=== PATIENT | male | born 1955 | race Caucasian/White ===

== ENCOUNTER → 2016-10-18 | Outpatient (REF) | payer BC ==
[2016-10-18 16:48] LABS: ALBUMIN 4.2 GM/DL (3.2-5.2); ALBUMIN/GLOBULIN RATIO 1.27 (1.00-1.93); ALKALINE PHOSPHATASE 90 U/L (45-117); ALT/SGPT 89 U/L (12-78); ANION GAP 9 MEQ/L (8-16); AST/SGOT 48 U/L (15-37); BILIRUBIN,TOTAL 0.7 MG/DL (0.2-1.0); BLOOD UREA NITROGEN 30 MG/DL (7-18); CALCIUM LEVEL 9.7 MG/DL (8.8-10.2); CARBON DIOXIDE LEVEL 30 MEQ/L (21-32); CHLORIDE LEVEL 94 MEQ/L (98-107); CHOLESTEROL LEVEL 175 MG/DL (<200); CREATININE FOR GFR 1.29 MG/DL (0.70-1.30); GLOMERULAR FILTRATION RATE > 60.0 (>49); GLUCOSE, FASTING 280 MG/DL (80-110); POTASSIUM SERUM 3.5 MEQ/L (3.5-5.1); SODIUM LEVEL 133 MEQ/L (136-145); TOTAL PROTEIN 7.5 GM/DL (6.4-8.2); TRIGLYCERIDES LEVEL 292 MG/DL (<150)
[2016-10-18 18:06] LABS: BASO # 0.1 K/mm3 (0.0-0.2); BASO % 0.7 % (0.0-1.0); EOS # 0.2 K/mm3 (0.0-0.50); EOS % 2.2 % (0.0-3.0); LARGE UNSTAINED CELL # 0.3 K/mm3 (0.0-0.4); LARGE UNSTAINED CELL % 3.1 % (0.0-4.0); LYMPH # 2.6 K/mm3 (1.5-4.5); MEAN CORPUSCULAR HEMOGLOBIN 35.6 pg (27.0-33.0); MEAN CORPUSCULAR HGB CONC 36.2 g/dl (32.0-36.5); MEAN CORPUSCULAR VOLUME 98.2 fl (80.0-96.0); MONO # 0.5 K/mm3 (0.0-0.8); MONO % 6.4 % (0.0-5.0); NEUTROPHILS # 4.8 K/mm3 (1.8-7.7); NEUTROPHILS % 56.6 % (36.0-66.0); PLATELET COUNT, AUTOMATED 200 k/mm3 (150-450); RED CELL DISTRIBUTION WIDTH 12.1 % (11.5-14.5); WHITE BLOOD COUNT 8.4 K/mm3 (4.0-10.0)
[2016-10-18 20:31] LABS: ERYTHROCYTE SEDIMENTATION RATE 10 mm/hr (0-20)
== END ==
LOC: M LABDRAW1 15:41
PROVIDERS: ATTEND Emergency Medicine
DX: E11.65 Type 2 diabetes mellitus with hyperglycemia (principal); I10 Essential (primary) hypertension; E78.2 Mixed hyperlipidemia; M15.0 Primary generalized (osteo)arthritis; N40.1 Benign prostatic hyperplasia with lower urinary tract symptoms
CPT/HCPCS: 36415; 80053; 80061; 82306; 83036; 85025; 85652; 86038; 86140; 86431; G0103

== ENCOUNTER → 2016-10-18 | Outpatient (REF) | payer BC ==
[2016-10-18 16:44] LABS: ALBUMIN 4.1 GM/DL (3.2-5.2); ALBUMIN/GLOBULIN RATIO 1.11 (1.00-1.93); ALKALINE PHOSPHATASE 89 U/L (45-117); ALT/SGPT 88 U/L (12-78); ANION GAP 9 MEQ/L (8-16); AST/SGOT 51 U/L (15-37); BILIRUBIN,TOTAL 0.7 MG/DL (0.2-1.0); BLOOD UREA NITROGEN 31 MG/DL (7-18); CALCIUM LEVEL 10.1 MG/DL (8.8-10.2); CARBON DIOXIDE LEVEL 30 MEQ/L (21-32); CHLORIDE LEVEL 95 MEQ/L (98-107); CREATININE FOR GFR 1.27 MG/DL (0.70-1.30); GLOMERULAR FILTRATION RATE > 60.0 (>49); GLUCOSE, FASTING 282 MG/DL (80-110); POTASSIUM SERUM 3.5 MEQ/L (3.5-5.1); SODIUM LEVEL 134 MEQ/L (136-145); TOTAL PROTEIN 7.8 GM/DL (6.4-8.2); URIC ACID 4.1 MG/DL (3.5-7.2)
[2016-10-18 20:32] LABS: ERYTHROCYTE SEDIMENTATION RATE 10 mm/hr (0-20)
[2016-10-18 20:42] LABS: BASO # 0.1 K/mm3 (0.0-0.2); BASO % 0.6 % (0.0-1.0); EOS # 0.2 K/mm3 (0.0-0.50); EOS % 2.2 % (0.0-3.0); LARGE UNSTAINED CELL # 0.2 K/mm3 (0.0-0.4); LARGE UNSTAINED CELL % 1.7 % (0.0-4.0); LYMPH # 3.1 K/mm3 (1.5-4.5); LYMPH % 30.9 % (24.0-44.0); MEAN CORPUSCULAR HEMOGLOBIN 34.5 pg (27.0-33.0); MEAN CORPUSCULAR HGB CONC 35.1 g/dl (32.0-36.5); MEAN CORPUSCULAR VOLUME 98.4 fl (80.0-96.0); MONO # 0.7 K/mm3 (0.0-0.8); MONO % 6.8 % (0.0-5.0); NEUTROPHILS # 5.5 K/mm3 (1.8-7.7); NEUTROPHILS % 57.8 % (36.0-66.0); PLATELET COUNT, AUTOMATED 189 k/mm3 (150-450); RED CELL DISTRIBUTION WIDTH 12.5 % (11.5-14.5); WHITE BLOOD COUNT 9.5 K/mm3 (4.0-10.0)
[2016-10-19 14:05] LABS: ALBUMIN 4.57 GM/DL (3.29-5.55); ALBUMIN % 58.6 % (55.8-66.1); GAMMA GLOBULIN % 12.3 % (11.1-18.8)
[2016-10-20 14:36] LABS: Lyme Disease IgG/IgM Antibodie <0.91 ISR (0.00-0.90); Lyme Disease IgM Ab Quantitati <0.80 index (0.00-0.79)
== END ==
LOC: M LABDRAW1 15:43
PROVIDERS: ATTEND Orthopaedic Surgery
DX: M43.06 Spondylolysis, lumbar region (principal)

== ENCOUNTER → 2016-10-19 | Outpatient (REF) | payer BC | LOC: M LABDRAW1 11:52 | PROVIDERS: ATTEND Emergency Medicine | DX: E11.65 Type 2 diabetes mellitus with hyperglycemia (principal); I10 Essential (primary) hypertension; E78.2 Mixed hyperlipidemia; M15.0 Primary generalized (osteo)arthritis; N40.1 Benign prostatic hyperplasia with lower urinary tract symptoms ==

== ENCOUNTER 2016-12-14 10:17 | Emergency (ER) | payer BC ==
[~2016-12-14] VITALS: Ht 172.7 cm; Wt 83.9 kg
[2016-12-14] MEDS ORDERED: ASPI1TAB PO (10:46)
[2016-12-14] MEDS ORDERED: AMLO10TA2 PO (10:46)
[2016-12-14] MEDS ORDERED: VITA200015 PO (10:46)
[2016-12-14] MEDS ORDERED: GLIM4TAB PO (10:46)
[2016-12-14] MEDS ORDERED: LOSA100T36 PO (10:46)
[2016-12-14] MEDS ORDERED: CHLO125TA PO (10:46)
[2016-12-14] MEDS ORDERED: VITA400C35 PO (10:46)
[2016-12-14] MEDS ORDERED: METF500T4 PO (10:46)
[2016-12-14] MEDS ORDERED: ATEN100T PO (10:46)
[2016-12-14] MEDS ORDERED: INVO100T PO (10:46)
[2016-12-14] MEDS ORDERED: SIMV20TA2 PO (10:46)
[2016-12-14] MEDS ORDERED: ASPIRIN 81 MG CHEW TABLET PO ONE (11:15)
[2016-12-14 11:21] LABS: BASO # 0.1 K/mm3 (0.0-0.2); BASO % 0.7 % (0.0-1.0); EOS # 0.2 K/mm3 (0.0-0.50); EOS % 2.1 % (0.0-3.0); LARGE UNSTAINED CELL # 0.2 K/mm3 (0.0-0.4); LARGE UNSTAINED CELL % 2.4 % (0.0-4.0); LYMPH # 2.3 K/mm3 (1.5-4.5); LYMPH % 24.6 % (24.0-44.0); MEAN CORPUSCULAR HEMOGLOBIN 35.4 pg (27.0-33.0); MEAN CORPUSCULAR HGB CONC 36.5 g/dl (32.0-36.5); MEAN CORPUSCULAR VOLUME 97.1 fl (80.0-96.0); MONO # 0.6 K/mm3 (0.0-0.8); MONO % 6.4 % (0.0-5.0); NEUTROPHILS # 5.6 K/mm3 (1.8-7.7); NEUTROPHILS % 63.8 % (36.0-66.0); PLATELET COUNT, AUTOMATED 193 k/mm3 (150-450); RED CELL DISTRIBUTION WIDTH 12.4 % (11.5-14.5); WHITE BLOOD COUNT 8.7 K/mm3 (4.0-10.0)
[2016-12-14 11:35] LABS: ANION GAP 8 MEQ/L (8-16); BLOOD UREA NITROGEN 21 MG/DL (7-18); CALCIUM LEVEL 10.6 MG/DL (8.8-10.2); CARBON DIOXIDE LEVEL 32 MEQ/L (21-32); CHLORIDE LEVEL 91 MEQ/L (98-107); CREATININE FOR GFR 1.22 MG/DL (0.70-1.30); GLOMERULAR FILTRATION RATE > 60.0 (>49); GLUCOSE, FASTING 275 MG/DL (80-110); POTASSIUM SERUM 3.3 MEQ/L (3.5-5.1); SODIUM LEVEL 131 MEQ/L (136-145)
[2016-12-14] MEDS ORDERED: NS 1,000 ML IV ONE (12:15)
[2016-12-14] MEDS ORDERED: POTASSIUM CHLORIDE 10 MEQ SR TABLET PO ONE (12:15)
--- NOTE | 2016-12-14 14:34 | REP ---
KUB ABDOMEN AND PELVIS: KUB film of the abdomen and pelvis is performed. Bowel gas pattern is essentially normal with no evidence of bowel obstruction. Diffuse vascular calcifications are seen throughout the abdomen and pelvis. There are mild degenerative changes of the spine. IMPRESSION: No evidence of bowel obstruction. Diffuse vascular calcifications. Signed by Don Henriquez MD 12/14/2016 07:14 P
[2016-12-14 17:28] VITALS: BP 122/65
--- NOTE | 2016-12-16 07:02 | ECGEPIP ---
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
--- NOTE | 2016-12-16 07:12 | ECGEPIP ---
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
--- NOTE | 2016-12-16 07:14 | ECGEPIP ---
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
== END 2016-12-14 17:36 | disposition home or self-care (01) ==
LOC: M ED 11:39
DX: R42 Dizziness and giddiness (principal); R94.31 Abnormal electrocardiogram [ECG] [EKG]; E11.9 Type 2 diabetes mellitus without complications; I10 Essential (primary) hypertension; F17.200 Nicotine dependence, unspecified, uncomplicated; Z79.82 Long term (current) use of aspirin; Z79.84 Long term (current) use of oral hypoglycemic drugs; Z79.899 Other long term (current) drug therapy

== ENCOUNTER → 2017-03-06 | Outpatient (REF) | payer MEDICAID ==
[~2017-03-06] MED LIST: AMLO10TA2 PO; ASPI1TAB PO; ATEN100T PO; CHLO125TA PO; GLIM4TAB PO; INVO100T PO; LOSA100T36 PO; METF500T4 PO; SIMV20TA2 PO; VITA200015 PO; VITA400C35 PO
== END ==
LOC: M LAB REF 17:00
PROVIDERS: ATTEND Surgery
DX: L72.3 Sebaceous cyst (principal)

== ENCOUNTER → 2017-08-30 | Outpatient (REF) | payer OTHER | LOC: M SFHCPLAZ 08:50 | DX: E11.9 Type 2 diabetes mellitus without complications (principal); E78.5 Hyperlipidemia, unspecified; Z53.9 Procedure and treatment not carried out, unspecified reason ==

== ENCOUNTER → 2017-09-05 | Outpatient (REF) | payer OTHER ==
[2017-09-05 12:34] LABS: CREATININE, URINE 79.6 MG/DL; MAU/CREAT RATIO 373.1 MCG/MG (0.0-30.0)
== END ==
LOC: M LABDRAW1 11:11
DX: E11.9 Type 2 diabetes mellitus without complications (principal); E78.5 Hyperlipidemia, unspecified
CPT/HCPCS: 82043

== ENCOUNTER → 2017-09-05 | Outpatient (REF) | payer OTHER ==
[2017-09-05 12:15] LABS: ESTIMATED AVERAGE GLUCOSE 278 MG/DL (60-110); HEMOGLOBIN A1c 11.3 %
[2017-09-05 12:25] LABS: ANION GAP 8 MEQ/L (8-16); BLOOD UREA NITROGEN 28 MG/DL (7-18); CALCIUM LEVEL 9.7 MG/DL (8.8-10.2); CARBON DIOXIDE LEVEL 33 MEQ/L (21-32); CHLORIDE LEVEL 94 MEQ/L (98-107); CHOLESTEROL LEVEL 248 MG/DL (<200); CREATININE FOR GFR 1.23 MG/DL (0.70-1.30); GLOMERULAR FILTRATION RATE > 60.0 (>49); GLUCOSE, FASTING 395 MG/DL (70-100); HDL CHOLESTEROL 31 MG/DL (>40); NON-HDL-C 217 MG/DL; POTASSIUM SERUM 3.4 MEQ/L (3.5-5.1); SODIUM LEVEL 135 MEQ/L (136-145); TRIGLYCERIDES LEVEL 698 MG/DL (<150)
== END ==
LOC: M LABDRAW1 11:30
DX: E11.9 Type 2 diabetes mellitus without complications (principal); E78.5 Hyperlipidemia, unspecified

== ENCOUNTER → 2017-10-05 | Outpatient (REF) | payer OTHER ==
[2017-10-05 12:23] LABS: CREATININE FOR GFR 1.26 MG/DL (0.70-1.30); GLOMERULAR FILTRATION RATE > 60.0 (>49)
[2017-10-05 12:23] LABS: BLOOD UREA NITROGEN 19 MG/DL (7-18)
== END ==
LOC: M LABDRAW1 07:29
DX: R19.4 Change in bowel habit (principal)

== ENCOUNTER → 2017-10-09 | Outpatient (CLI) | payer OTHER ==
[~2017-10-09] MED LIST changes: -AMLO10TA2 PO; -ASPI1TAB PO; -ATEN100T PO; -CHLO125TA PO; -GLIM4TAB PO; +GLUCAGON FOR INJ 1 MG VIAL (J1610) As Ordered; -INVO100T PO; +ISOVUE-370 76% 100ML VIAL (Q9967) As Ordered; -LOSA100T36 PO; -METF500T4 PO; -SIMV20TA2 PO; -VITA200015 PO; -VITA400C35 PO; +VoLumen 0.1% SUSPENSION 450ML BOTTLE As Ordered
== END ==
LOC: M RAD 07:59
DX: R63.4 Abnormal weight loss (principal)

== ENCOUNTER → 2017-10-19 | Outpatient (REF) | payer OTHER ==
[2017-10-19 13:12] LABS: HEMATOCRIT 43.9 % (42.0-52.0); HEMOGLOBIN 15.9 g/dl (13.5-17.5); MEAN CORPUSCULAR HGB CONC 36.2 g/dl (32.0-36.5); MEAN CORPUSCULAR VOLUME 93.8 fl (80.0-96.0); PLATELET COUNT, AUTOMATED 180 10^3/uL (150-450); RED BLOOD COUNT 4.68 10^6/uL (4.30-6.10); RED CELL DISTRIBUTION WIDTH 12.5 % (11.5-14.5)
[2017-10-19 13:25] LABS: ALBUMIN 4.3 GM/DL (3.2-5.2); ALBUMIN/GLOBULIN RATIO 1.26 (1.00-1.93); ALKALINE PHOSPHATASE 81 U/L (45-117); ALT/SGPT 56 U/L (12-78); ANION GAP 9 MEQ/L (8-16); AST/SGOT 27 U/L (7-37); BILIRUBIN,TOTAL 0.7 MG/DL (0.2-1.0); BLOOD UREA NITROGEN 24 MG/DL (7-18); CALCIUM LEVEL 9.9 MG/DL (8.8-10.2); CARBON DIOXIDE LEVEL 29 MEQ/L (21-32); CHLORIDE LEVEL 99 MEQ/L (98-107); CREATININE FOR GFR 1.24 MG/DL (0.70-1.30); GLOMERULAR FILTRATION RATE > 60.0 (>49); GLUCOSE, FASTING 282 MG/DL (70-100); INR 0.95; POTASSIUM SERUM 3.7 MEQ/L (3.5-5.1); PROTHROMBIN TIME 12.8 SECONDS (12.4-14.5); SODIUM LEVEL 137 MEQ/L (136-145); TOTAL PROTEIN 7.7 GM/DL (6.4-8.2); URIC ACID 4.1 MG/DL (3.5-7.2)
[2017-10-19 13:26] LABS: PARTIAL THROMBOPLASTIN TIME 31.3 SECONDS (26.8-37.9)
== END ==
LOC: M LABDRAW1 12:50
DX: M13.0 Polyarthritis, unspecified (principal)

== ENCOUNTER 2017-10-26 06:15 | Inpatient (IN) | payer OTHER ==
[2017-10-26] MEDS ORDERED: ROCURONIUM BROMIDE 50 MG/5 ML VIAL As Ordered (07:03)
[2017-10-26] MEDS ORDERED: HYDROmorphone HCL 2 MG/ML 1ML VIAL (J1170) As Ordered (07:03)
[2017-10-26] MEDS ORDERED: PROPOFOL 200 MG/20 ML VIAL As Ordered (07:03)
[2017-10-26] MEDS ORDERED: ONDANSETRON 4MG/2ML VIAL (J2405) As Ordered ×2 (07:03→17:11)
[2017-10-26] MEDS ORDERED: fentaNYL 100 MCG/2 ML INJECTION (J3010) As Ordered (07:03)
[2017-10-26] MEDS ORDERED: dexameTHASONE 4 MG/ML 1ML VIAL (J1100) As Ordered (07:03)
[2017-10-26] MEDS ORDERED: KETOROLAC 60 MG/2 ML VIAL (J1885) As Ordered (07:03)
[2017-10-26] MEDS ORDERED: NEOSTIGMINE 10 MG/10 ML VIAL (J2710) As Ordered (07:03)
[2017-10-26] MEDS ORDERED: LIDOCAINE 2% INJ 100 MG/5 ML SDV (FOR ANES.) As Ordered (07:03)
[2017-10-26] MEDS ORDERED: LIDOCAINE 2% JELLY 30 ML As Ordered (07:03)
[2017-10-26] MEDS ORDERED: GLYCOPYRROLATE INJ 0.2 MG/ML 2 ML VIAL As Ordered (07:03)
[2017-10-26] MEDS ORDERED: MIDAZOLAM INJ 2 MG/2 ML VIAL (J2250) As Ordered (07:04)
[2017-10-26] MEDS: DOCUSATE SODIUM 100 MG CAP PO ×2 (09:00→21:04)
[2017-10-26] MEDS: LR 1,000 ML IV ×2 (10:27→17:30)
[2017-10-26 10:36] LABS: BEDSIDE GLUCOSE 289 MG/DL (80-115)
[2017-10-26] MEDS: NS 1,000 ML IV ×2 (11:14→21:05)
[2017-10-26] MEDS ORDERED: ACETAMINOPHEN TAB 650MG DOSE (2X325MG) PO (11:15)
[2017-10-26] MEDS ORDERED: ONDANSETRON 4MG/2ML VIAL (J2405) IV ×2 (11:15→17:30)
[2017-10-26] MEDS ORDERED: MORPHINE 4 MG/ML 1ML VIAL/SYRINGE (J2270) IV (11:15)
[2017-10-26] MEDS ORDERED: CEFAZOLIN SOD 1 GM in APPROPRIATE DILUENT 1 EA IV (15:00)
[2017-10-26] MEDS: LIDOCAINE 1% SDV INJ 30 ML VIAL As Ordered (17:00)
[2017-10-26] MEDS: BUPIVACAINE HCL 0.25% 30 ML VIAL As Ordered (17:00)
[2017-10-26] MEDS: HumaLOG INSULIN (NovoLOG) PER UNIT SC ×2 (17:20→21:04)
[2017-10-26] MEDS ORDERED: HumaLOG INSULIN (NovoLOG) PER UNIT As Ordered (17:22)
[2017-10-26] MEDS ORDERED: DEXTROSE 50% 50 ML SYRINGE IV (17:30)
[2017-10-26] MEDS ORDERED: HumaLOG INSULIN (NovoLOG) PER UNIT SC (17:30)
[2017-10-26] MEDS ORDERED: HYDROmorphone HCL 1 MG/ML SYRINGE (J1170) IV (17:30)
[2017-10-26] MEDS ORDERED: GLUCOSE 4 GM CHEW TABLET PO (17:30)
[2017-10-26] MEDS ORDERED: fentaNYL 100 MCG/2 ML INJECTION (J3010) IV (17:30)
[2017-10-26] MEDS ORDERED: GLUCAGON FOR INJ 1 MG VIAL (J1610) SC (17:30)
[2017-10-26 17:31] LABS: BEDSIDE GLUCOSE 381 MG/DL (80-115)
[2017-10-26] MEDS ORDERED: METOCLOPRAMIDE INJ 10MG/2ML VIAL (J2765) As Ordered (17:34)
[2017-10-26] MEDS: METOCLOPRAMIDE INJ 10MG/2ML VIAL (J2765) IV (17:38)
[2017-10-26 17:58] LABS: HEMATOCRIT 43.8 % (42.0-52.0); HEMOGLOBIN 15.8 g/dl (13.5-17.5); MEAN CORPUSCULAR HEMOGLOBIN 33.8 pg (27.0-33.0); MEAN CORPUSCULAR HGB CONC 36.1 g/dl (32.0-36.5); MEAN CORPUSCULAR VOLUME 93.6 fl (80.0-96.0); PLATELET COUNT, AUTOMATED 218 10^3/uL (150-450); RED BLOOD COUNT 4.68 10^6/uL (4.30-6.10); RED CELL DISTRIBUTION WIDTH 12.6 % (11.5-14.5); WHITE BLOOD COUNT 14.2 10^3/uL (4.0-10.0)
[2017-10-26] MEDS: PERCOCET 5MG/325MG TAB PO ×2 (18:05→22:18)
[2017-10-26 18:22] LABS: ANION GAP 9 MEQ/L (8-16); BLOOD UREA NITROGEN 24 MG/DL (7-18); CALCIUM LEVEL 8.7 MG/DL (8.8-10.2); CARBON DIOXIDE LEVEL 25 MEQ/L (21-32); CHLORIDE LEVEL 102 MEQ/L (98-107); CREATININE FOR GFR 1.97 MG/DL (0.70-1.30); GLOMERULAR FILTRATION RATE 36.7 (>49); GLUCOSE, FASTING 362 MG/DL (70-100); POTASSIUM SERUM 4.5 MEQ/L (3.5-5.1); SODIUM LEVEL 136 MEQ/L (136-145)
[2017-10-26 18:41] LABS: BEDSIDE GLUCOSE 359 MG/DL (80-115)
[2017-10-26] MEDS: SIMVASTATIN 20 MG TAB PO (21:04)
[2017-10-26] MEDS: CEFAZOLIN SOD 1 GM in APPROPRIATE DILUENT 1 EA IV (21:05)
[2017-10-26 21:19] LABS: BEDSIDE GLUCOSE 365 MG/DL (80-115)
[2017-10-27] MEDS: CEFAZOLIN SOD 1 GM in APPROPRIATE DILUENT 1 EA IV (02:07)
[2017-10-27] MEDS: PERCOCET 5MG/325MG TAB PO ×5 (02:47→23:26)
[2017-10-27] MEDS: NS 1,000 ML IV ×2 (03:14→11:47)
[2017-10-27 06:50] LABS: HEMATOCRIT 41.4 % (42.0-52.0); HEMOGLOBIN 14.8 g/dl (13.5-17.5); MEAN CORPUSCULAR HEMOGLOBIN 34.1 pg (27.0-33.0); MEAN CORPUSCULAR HGB CONC 35.7 g/dl (32.0-36.5); MEAN CORPUSCULAR VOLUME 95.4 fl (80.0-96.0); PLATELET COUNT, AUTOMATED 144 10^3/uL (150-450); RED BLOOD COUNT 4.34 10^6/uL (4.30-6.10); RED CELL DISTRIBUTION WIDTH 12.6 % (11.5-14.5); WHITE BLOOD COUNT 14.2 10^3/uL (4.0-10.0)
[2017-10-27 07:10] LABS: ANION GAP 8 MEQ/L (8-16); BLOOD UREA NITROGEN 28 MG/DL (7-18); CALCIUM LEVEL 8.2 MG/DL (8.8-10.2); CARBON DIOXIDE LEVEL 28 MEQ/L (21-32); CHLORIDE LEVEL 100 MEQ/L (98-107); CREATININE FOR GFR 2.01 MG/DL (0.70-1.30); GLOMERULAR FILTRATION RATE 35.9 (>49); GLUCOSE, FASTING 239 MG/DL (70-100); POTASSIUM SERUM 3.8 MEQ/L (3.5-5.1); SODIUM LEVEL 136 MEQ/L (136-145)
[2017-10-27] MEDS: DOCUSATE SODIUM 100 MG CAP PO ×2 (08:10→21:00)
[2017-10-27] MEDS: ASPIRIN 81 MG ENTERIC TAB PO (08:10)
[2017-10-27] MEDS: amLODIPine 10 MG TAB PO (08:11)
[2017-10-27] MEDS: METOPROLOL SUCC (TopROL XL) 100MG *XL* TAB PO (08:11)
[2017-10-27] MEDS: HumaLOG INSULIN (NovoLOG) PER UNIT SC ×4 (08:11→23:27)
[2017-10-27 12:07] LABS: BEDSIDE GLUCOSE 222 MG/DL (80-115)
[2017-10-27] MEDS: CHLORTHALIDONE 12.5MG PER 1/2 TABLET PO (12:26)
[2017-10-27 16:47] LABS: BEDSIDE GLUCOSE 245 MG/DL (80-115)
[2017-10-27] MEDS: SIMVASTATIN 20 MG TAB PO (21:00)
[2017-10-27 21:05] LABS: BEDSIDE GLUCOSE 264 MG/DL (80-115)
[2017-10-28] MEDS: PERCOCET 5MG/325MG TAB PO ×4 (05:22→21:31)
[2017-10-28 06:23] LABS: HEMATOCRIT 40.4 % (42.0-52.0); HEMOGLOBIN 14.5 g/dl (13.5-17.5); MEAN CORPUSCULAR HGB CONC 35.9 g/dl (32.0-36.5); MEAN CORPUSCULAR VOLUME 94.6 fl (80.0-96.0); RED BLOOD COUNT 4.27 10^6/uL (4.30-6.10); RED CELL DISTRIBUTION WIDTH 12.6 % (11.5-14.5); WHITE BLOOD COUNT 12.7 10^3/uL (4.0-10.0)
[2017-10-28 06:40] LABS: IMMATURE PLATELET FRACTION % 4.4 % (0.0-10.9); PLATELET COUNT, AUTOMATED 97 10^3/uL (150-450)
[2017-10-28 06:43] LABS: ANION GAP 7 MEQ/L (8-16); BLOOD UREA NITROGEN 25 MG/DL (7-18); CALCIUM LEVEL 8.3 MG/DL (8.8-10.2); CARBON DIOXIDE LEVEL 27 MEQ/L (21-32); CHLORIDE LEVEL 100 MEQ/L (98-107); CREATININE FOR GFR 1.76 MG/DL (0.70-1.30); GLOMERULAR FILTRATION RATE 41.8 (>49); GLUCOSE, FASTING 267 MG/DL (70-100); POTASSIUM SERUM 3.3 MEQ/L (3.5-5.1); SODIUM LEVEL 134 MEQ/L (136-145)
[2017-10-28] MEDS: HumaLOG INSULIN (NovoLOG) PER UNIT SC ×4 (08:30→21:00)
[2017-10-28] MEDS: ASPIRIN 81 MG ENTERIC TAB PO (08:31)
[2017-10-28] MEDS: CHLORTHALIDONE 12.5MG PER 1/2 TABLET PO (08:31)
[2017-10-28] MEDS: DOCUSATE SODIUM 100 MG CAP PO ×2 (08:31→20:59)
[2017-10-28] MEDS: amLODIPine 10 MG TAB PO (08:31)
[2017-10-28] MEDS: METOPROLOL SUCC (TopROL XL) 100MG *XL* TAB PO (08:31)
[2017-10-28] MEDS: NS 1,000 ML IV (08:32)
[2017-10-28 11:59] LABS: BEDSIDE GLUCOSE 269 MG/DL (80-115)
[2017-10-28 16:45] LABS: BEDSIDE GLUCOSE 283 MG/DL (80-115)
[2017-10-28] MEDS: SIMVASTATIN 20 MG TAB PO (20:59)
[2017-10-28 21:51] LABS: BEDSIDE GLUCOSE 264 MG/DL (80-115)
[2017-10-29] MEDS: PERCOCET 5MG/325MG TAB PO ×2 (02:18→08:04)
[2017-10-29 06:13] LABS: HEMATOCRIT 37.9 % (42.0-52.0); HEMOGLOBIN 13.7 g/dl (13.5-17.5); MEAN CORPUSCULAR HEMOGLOBIN 33.7 pg (27.0-33.0); MEAN CORPUSCULAR HGB CONC 36.1 g/dl (32.0-36.5); MEAN CORPUSCULAR VOLUME 93.1 fl (80.0-96.0); PLATELET COUNT, AUTOMATED 100 10^3/uL (150-450); RED BLOOD COUNT 4.07 10^6/uL (4.30-6.10); RED CELL DISTRIBUTION WIDTH 12.6 % (11.5-14.5); WHITE BLOOD COUNT 10.2 10^3/uL (4.0-10.0)
[2017-10-29 06:32] LABS: ANION GAP 8 MEQ/L (8-16); BLOOD UREA NITROGEN 28 MG/DL (7-18); CALCIUM LEVEL 8.4 MG/DL (8.8-10.2); CARBON DIOXIDE LEVEL 27 MEQ/L (21-32); CHLORIDE LEVEL 99 MEQ/L (98-107); CREATININE FOR GFR 1.71 MG/DL (0.70-1.30); GLOMERULAR FILTRATION RATE 43.3 (>49); GLUCOSE, FASTING 198 MG/DL (70-100); SODIUM LEVEL 134 MEQ/L (136-145)
[2017-10-29] MEDS: CHLORTHALIDONE 12.5MG PER 1/2 TABLET PO (08:02)
[2017-10-29] MEDS: HumaLOG INSULIN (NovoLOG) PER UNIT SC (08:02)
[2017-10-29] MEDS: METOPROLOL SUCC (TopROL XL) 100MG *XL* TAB PO (08:03)
[2017-10-29] MEDS: ASPIRIN 81 MG ENTERIC TAB PO (08:03)
[2017-10-29] MEDS: POTASSIUM CHLORIDE 10 MEQ SR TABLET PO (08:03)
[2017-10-29] MEDS: amLODIPine 10 MG TAB PO (08:03)
[2017-10-29] MEDS: DOCUSATE SODIUM 100 MG CAP PO (08:03)
== END 2017-10-29 10:38 | disposition home or self-care (01) | DRG 442 ==
LOC: M OR 06:15 → M MS5PR 18:24
PROVIDERS: Urology
PROC: 0TT04ZZ Resection of Right Kidney, Percutaneous Endoscopic Approach (ICD-10-PCS; principal; 2017-10-26 07:30)
PROC: 8E0W4CZ Robotic Assisted Procedure of Trunk Region, Percutaneous Endoscopic Approach (ICD-10-PCS; 2017-10-26 07:30)
DX: C64.1 Malignant neoplasm of right kidney, except renal pelvis (principal); I10 Essential (primary) hypertension; Z79.82 Long term (current) use of aspirin; Z79.899 Other long term (current) drug therapy; I25.10 Atherosclerotic heart disease of native coronary artery without angina pectoris; I25.2 Old myocardial infarction; E11.9 Type 2 diabetes mellitus without complications

== ENCOUNTER → 2017-11-09 | Outpatient (REF) | payer OTHER ==
[2017-11-09 16:01] LABS: HEMATOCRIT 40.6 % (42.0-52.0); HEMOGLOBIN 14.2 g/dl (13.5-17.5); MEAN CORPUSCULAR HEMOGLOBIN 33.6 pg (27.0-33.0); PLATELET COUNT, AUTOMATED 273 10^3/uL (150-450); RED BLOOD COUNT 4.23 10^6/uL (4.30-6.10); RED CELL DISTRIBUTION WIDTH 12.1 % (11.5-14.5); WHITE BLOOD COUNT 11.9 10^3/uL (4.0-10.0)
[2017-11-09 16:09] LABS: ANION GAP 7 MEQ/L (8-16); BLOOD UREA NITROGEN 22 MG/DL (7-18); CALCIUM LEVEL 9.7 MG/DL (8.8-10.2); CARBON DIOXIDE LEVEL 32 MEQ/L (21-32); CHLORIDE LEVEL 97 MEQ/L (98-107); CREATININE FOR GFR 1.77 MG/DL (0.70-1.30); GLOMERULAR FILTRATION RATE 41.6 (>49); GLUCOSE, FASTING 134 MG/DL (70-100); POTASSIUM SERUM 4.2 MEQ/L (3.5-5.1); SODIUM LEVEL 136 MEQ/L (136-145)
== END ==
LOC: M LABDRAW1 15:40
DX: C64.1 Malignant neoplasm of right kidney, except renal pelvis (principal); Z90.5 Acquired absence of kidney

== ENCOUNTER → 2017-11-09 | Outpatient (REF) | payer OTHER ==
[2017-11-09 15:58] LABS: BASO # 0.1 10^3/uL (0.0-0.2); BASO % 0.6 % (0.0-1.0); EOS # 0.2 10^3/uL (0.0-0.50); EOS % 1.8 % (0.0-3.0); HEMOGLOBIN 14.4 g/dl (13.5-17.5); IMMATURE GRANULOCYTE % 0.7 % (0-3.0); LYMPH # 2.1 10^3/uL (1.5-4.5); MEAN CORPUSCULAR HEMOGLOBIN 33.6 pg (27.0-33.0); MEAN CORPUSCULAR HGB CONC 35.1 g/dl (32.0-36.5); MEAN CORPUSCULAR VOLUME 95.6 fl (80.0-96.0); MONO # 0.9 10^3/uL (0.0-0.8); MONO % 7.2 % (0.0-5.0); NEUTROPHILS # 8.7 10^3/uL (1.8-7.7); NEUTROPHILS % 72.7 % (36.0-66.0); PLATELET COUNT, AUTOMATED 276 10^3/uL (150-450); RED BLOOD COUNT 4.29 10^6/uL (4.30-6.10); RED CELL DISTRIBUTION WIDTH 12.2 % (11.5-14.5)
[2017-11-09 16:12] LABS: ANION GAP 7 MEQ/L (8-16); BLOOD UREA NITROGEN 22 MG/DL (7-18); CALCIUM LEVEL 9.6 MG/DL (8.8-10.2); CARBON DIOXIDE LEVEL 32 MEQ/L (21-32); CHLORIDE LEVEL 97 MEQ/L (98-107); CREATININE FOR GFR 1.75 MG/DL (0.70-1.30); GLOMERULAR FILTRATION RATE 42.1 (>49); GLUCOSE, FASTING 134 MG/DL (70-100); POTASSIUM SERUM 4.2 MEQ/L (3.5-5.1); PSA SCREENING 0.95 NG/ML (< 4.0); SODIUM LEVEL 136 MEQ/L (136-145)
== END ==
LOC: M LABDRAW1 15:25
DX: Z09 Encounter for follow-up examination after completed treatment for conditions other than malignant neoplasm (principal); Z12.5 Encounter for screening for malignant neoplasm of prostate
CPT/HCPCS: 80048

== ENCOUNTER 2017-11-22 15:37 | Emergency (ER) | payer BC, OTHER ==
[2017-11-22] MEDS: PERCOCET 5MG/325MG TAB PO (17:26)
== END 2017-11-22 19:15 | disposition home or self-care (01) ==
LOC: M ED 15:37
DX: M54.16 Radiculopathy, lumbar region (principal); M51.36 Other intervertebral disc degeneration, lumbar region; G89.29 Other chronic pain; I25.10 Atherosclerotic heart disease of native coronary artery without angina pectoris; F17.200 Nicotine dependence, unspecified, uncomplicated; Z79.899 Other long term (current) drug therapy; Z79.82 Long term (current) use of aspirin
CPT/HCPCS: 93971

== ENCOUNTER → 2017-12-06 | Outpatient (REF) | payer BC ==
[2017-12-06 15:46] LABS: HEMATOCRIT 35.3 % (42.0-52.0); HEMOGLOBIN 12.9 g/dl (13.5-17.5); MEAN CORPUSCULAR HEMOGLOBIN 33.5 pg (27.0-33.0); MEAN CORPUSCULAR HGB CONC 36.5 g/dl (32.0-36.5); MEAN CORPUSCULAR VOLUME 91.7 fl (80.0-96.0); PLATELET COUNT, AUTOMATED 173 10^3/uL (150-450); RED BLOOD COUNT 3.85 10^6/uL (4.30-6.10); RED CELL DISTRIBUTION WIDTH 12.2 % (11.5-14.5); WHITE BLOOD COUNT 7.7 10^3/uL (4.0-10.0)
[2017-12-06 16:02] LABS: ANION GAP 8 MEQ/L (8-16); BLOOD UREA NITROGEN 31 MG/DL (7-18); CALCIUM LEVEL 8.9 MG/DL (8.8-10.2); CARBON DIOXIDE LEVEL 30 MEQ/L (21-32); CHLORIDE LEVEL 95 MEQ/L (98-107); CREATININE FOR GFR 1.78 MG/DL (0.70-1.30); GLOMERULAR FILTRATION RATE 41.3 (>49); GLUCOSE, FASTING 168 MG/DL (70-100); POTASSIUM SERUM 3.2 MEQ/L (3.5-5.1); SODIUM LEVEL 133 MEQ/L (136-145)
== END ==
LOC: M LABDRAW1 15:19
DX: C64.1 Malignant neoplasm of right kidney, except renal pelvis (principal); Z90.5 Acquired absence of kidney
CPT/HCPCS: 80048

== ENCOUNTER → 2018-01-30 | Outpatient (REF) | payer BC ==
[2018-01-30 12:37] LABS: ANION GAP 8 MEQ/L (8-16); BLOOD UREA NITROGEN 22 MG/DL (7-18); CALCIUM LEVEL 9.8 MG/DL (8.8-10.2); CARBON DIOXIDE LEVEL 31 MEQ/L (21-32); CHLORIDE LEVEL 99 MEQ/L (98-107); CHOLESTEROL LEVEL 129 MG/DL (<200); CHOLESTEROL RISK RATIO 3.794 (<5); CREATININE FOR GFR 1.52 MG/DL (0.70-1.30); GLOMERULAR FILTRATION RATE 49.6 (>49); GLUCOSE, FASTING 125 MG/DL (70-100); HDL CHOLESTEROL 34 MG/DL (>40); LDL CHOLESTEROL 36.2 MG/DL (<100); NON-HDL-C 95 MG/DL; POTASSIUM SERUM 4.1 MEQ/L (3.5-5.1); SODIUM LEVEL 138 MEQ/L (136-145); TRIGLYCERIDES LEVEL 294 MG/DL (<150)
[2018-01-30 12:40] LABS: CREATININE, URINE 99.5 MG/DL; MAU/CREAT RATIO 318.5 MCG/MG (0.0-30.0)
[2018-01-30 13:30] LABS: ESTIMATED AVERAGE GLUCOSE 123 MG/DL (60-110); HEMOGLOBIN A1c 5.9 %
== END ==
LOC: M LABDRAW1 11:43
DX: E11.65 Type 2 diabetes mellitus with hyperglycemia (principal)
CPT/HCPCS: 83036

== ENCOUNTER 2018-04-12 10:13 | Day surgery (SDC) | payer OTHER ==
[2018-04-12] MEDS: NS 1,000 ML IV (06:00)
[2018-04-12] MEDS ORDERED: PROPOFOL 200 MG/20 ML VIAL As Ordered (13:00)
[2018-04-12] MEDS ORDERED: LIDOCAINE 2% INJ 100 MG/5 ML SDV (FOR ANES.) As Ordered (13:00)
== END 2018-04-12 13:24 | disposition home or self-care (01) ==
LOC: M OPP 10:13
DX: R19.4 Change in bowel habit (principal); D12.3 Benign neoplasm of transverse colon; K57.30 Diverticulosis of large intestine without perforation or abscess without bleeding; K64.8 Other hemorrhoids; R12 Heartburn; K44.9 Diaphragmatic hernia without obstruction or gangrene; K29.70 Gastritis, unspecified, without bleeding; R00.8 Other abnormalities of heart beat; I25.6 Silent myocardial ischemia; I10 Essential (primary) hypertension; E78.5 Hyperlipidemia, unspecified; E11.9 Type 2 diabetes mellitus without complications; K21.9 Gastro-esophageal reflux disease without esophagitis; M19.90 Unspecified osteoarthritis, unspecified site; R06.83 Snoring; Z85.528 Personal history of other malignant neoplasm of kidney; Z90.5 Acquired absence of kidney; F17.210 Nicotine dependence, cigarettes, uncomplicated; Z79.82 Long term (current) use of aspirin; Z79.899 Other long term (current) drug therapy; Z79.84 Long term (current) use of oral hypoglycemic drugs
CPT/HCPCS: 45380

== ENCOUNTER → 2018-06-23 | Outpatient (CLI) | payer OTHER ==
[2018-06-23 10:38] LABS: ANION GAP 6 MEQ/L (8-16); BLOOD UREA NITROGEN 26 MG/DL (7-18); CALCIUM LEVEL 9.3 MG/DL (8.8-10.2); CARBON DIOXIDE LEVEL 30 MEQ/L (21-32); CHLORIDE LEVEL 106 MEQ/L (98-107); CREATININE FOR GFR 1.61 MG/DL (0.70-1.30); GLOMERULAR FILTRATION RATE 46.2 (>49); GLUCOSE, FASTING 154 MG/DL (70-100); SODIUM LEVEL 142 MEQ/L (136-145)
== END ==
LOC: M LAB 09:13
DX: Z90.5 Acquired absence of kidney (principal)
CPT/HCPCS: 80048

== ENCOUNTER → 2018-07-23 | Outpatient (REF) | payer OTHER ==
[~2018-07-23] MED LIST changes: +AMLO10TA5 PO; +ASPI1TAB PO; +ATEN100T PO; +ATOR40TA75 PO; +CENTTAB PO; +CHLO125TA PO; +COLA100C5 PO; +COLA50CA5 PO; +GLIM4TAB PO; -GLUCAGON FOR INJ 1 MG VIAL (J1610) As Ordered; +HYDR-3713 PO; +INVO100T PO; -ISOVUE-370 76% 100ML VIAL (Q9967) As Ordered; +JANU50TA25 PO; +LOSA100T50 PO; +METF500T4 PO; +METO1TAB33 PO; +OMEP40CA2 PO; +OXYC1TAB23 PO; +PERC5TAB12 PO; +POTA10808 PO; +SIMV20TA2 PO; +TYLE325T5 PO; +VITA100067 PO; +VITA2000 PO; +VITA200015 PO; +VITA400C35 PO; -VoLumen 0.1% SUSPENSION 450ML BOTTLE As Ordered
[2018-07-23 13:52] LABS: HEMOGLOBIN A1c 6.2 %
== END ==
LOC: M LABDRAW1 11:55
PROVIDERS: ATTEND Physician Assistant
DX: E11.9 Type 2 diabetes mellitus without complications (principal); E55.9 Vitamin D deficiency, unspecified

== ENCOUNTER → 2018-08-13 | Outpatient (REF) | payer OTHER ==
[2018-08-13 19:16] LABS: TOTAL PROTEIN,RANDOM URINE 172.3 MG/DL (0.0-12.0); URINE TOTAL PROTEIN 172.3 MG/DL (0-12)
[2018-08-13 19:21] LABS: COMPLEMENT C3 118 MG/DL (90-180); COMPLEMENT C4 28 MG/DL (10-40)
[2018-08-13 20:43] LABS: TOTAL PROTEIN,RANDOM URINE 172.3 MG/DL (0.0-12.0)
[2018-08-15 11:54] LABS: UPEP INTERPRETATION NO M-SPIKE NOTED; URINE VOLUME RANDOM ML
[2018-08-17 00:07] LABS: ANCA-ATYPICAL <1:20 titer (Neg:<1:20); ANTI DOUBLE STRAND-DNA AB 4 IU/mL (0-9); ANTI-GLOMERULAR BASEMENT MEMB 4 units (0-20); CYTOPLASMIC NEUTROP AB ANCA-C <1:20 titer (Neg:<1:20); PERINUCLEAR AB ANCA-P <1:20 titer (Neg:<1:20)
== END ==
LOC: M LAB REF 16:53
PROVIDERS: ATTEND Internal Medicine Nephrology
DX: R80.9 Proteinuria, unspecified (principal)

== ENCOUNTER → 2018-10-28 | Outpatient (CLI) | payer OTHER ==
[~2018-10-28] MED LIST changes: -ASPI1TAB PO; +ASPI81TA26 PO
--- NOTE | 2018-11-11 01:03 | ECWPNPC ---
PATIENT NAME: KULWANT CRENSHAW : 1955 GENDER: MALE VISIT DATE: 10/28/2018 DISCHARGE DATE: 10/28/18 1123 VISIT LOCKED DATE TIME: PHYSICIAN: MANOLO BRYANT MD RESOURCE: MANOLO BRYANT MD REASON FOR APPOINTMENT 1. SPINAL STENOSIS,LUMBAR REGION HISTORY OF PRESENT ILLNESS PAIN SCREENING: PATIENT HAS A COMPLAINT OF ACUTE OR CHRONIC PAIN :YES 63 YEAR OLD MALE PATIENT WITH A HISTORY OF CHRONIC BACK PAIN. THE PATIENT DESCRIBES THE PAIN ACHING, BURNING, SHARP, STABBING, TENDER, SORE, SHOOTING, AND CONTINUOUS WITH A PAIN SCORE OF 6-10/10 DEPENDING ON PHYSICAL ACTIVITY. THE PATIENT SAYS THAT HE HAS HAD THIS PAIN FOR MANY YEARS, BUT IT HAS INCREASED OVER THE LAST YEAR AFTER HE WAS IN THE HOSPITAL FOR SURGERY ON HIS KIDNEY TO REMOVE A TUMOR. THE PATIENT SAYS HIS PAIN IS IN HIS WHOLE BACK, BUT THE LOW BACK IS THE WORST. THE PATIENT SAYS THE PAIN IN HIS LOW BACK RADIATES DOWN HIS LEFT LEG. THE PATIENT SAYS THAT HE HAS DIFFICULTY DOING DAILY ACTIVITIES SUCH WORKING AND SLEEPING DUE TO THIS PAIN. THE PATIENT REPORTS THAT HE WAS INFORMED HE IS CANCER FREE AND HAS STUDIES DONE EVERY 6 MONTHS TO CHECK. PATIENT DENIES UNEXPLAINABLE WEIGHT LOSS, FEVER, CHILLS, NEW CHANGES ON HIS URINARY OR BOWEL CONTROL. FALL RISK SCREENING: SCREENING :NO FALLS REPORTED IN THE LAST YEAR CURRENT MEDICATIONS TAKING VITAMIN D3 2000 UNIT CAPSULE 1 CAPSULE ORALLY ONCE A DAY TAKING ASPIRIN 81 MG TABLET DELAYED RELEASE 1 TABLET ORALLY ONCE A DAY TAKING BENEFIBER DRINK MIX - PACKET DIRECTED ORALLY TWICE DAILY AT MEALS WITH 8 OZ OF WATER TAKING FREESTYLE LANCETS - MISCELLANEOUS DIRECTED ON SIDE OF FINGER TWICE DAILY BEFORE BREAKFAST AND DINNER. DX:E11.65 TAKING FREESTYLE LITE TEST - STRIP DIRECTED IN VITRO TWICE DAILY BEFORE BREAKFAST AND DINNER. DX:E11.65 TAKING GLUCOMETER DIRECTED SUBCUTANEOUSLY TWICE DAILY BEFORE BREAKFAST AND DINNER. DX:E11.65 TAKING METOPROLOL SUCCINATE ER 100 MG TABLET EXTENDED RELEASE 24 HOUR 1.5 TAB ORALLY ONCE A DAY TAKING JANUMET XR 50-1000 MG TABLET EXTENDED RELEASE 24 HOUR 1 TABLET WITH EVENING MEAL ORALLY ONCE A DAY TAKING ATORVASTATIN CALCIUM 40 MG TABLET 1 TABLET ORALLY ONCE A DAY TAKING LOSARTAN POTASSIUM 100MG TABLET 1 TABLET ORALLY ONCE A DAY TAKING AMLODIPINE BESYLATE 10 MG TABLET 1 TABLET ORALLY ONCE A DAY TAKING CHLORTHALIDONE 25 MG TABLET 1 TABLET IN THE MORNING WITH FOOD ORALLY ONCE A DAY TAKING SILDENAFIL CITRATE 100 MG TABLET 1 TAB ORALLY 30 MINUTES PRIOR TO SEXUAL ACTIVITY. MDD 1, NOTES: PLEASE DISPENSE GENERIC. PT TO PAY [id number]. TAKING TAMIFLU 75 MG CAPSULE 1 CAPSULE ORALLY TWICE A DAY TAKING FLUTICASONE PROPIONATE 50 MCG/ACT SUSPENSION 1 SPRAY IN EACH NOSTRIL NASALLY BID TAKING TESSALON PERLES 100 MG CAPSULE 1 CAPSULE NEEDED ORALLY THREE TIMES A DAY TAKING JANUMET XR 50-1000 MG TABLET EXTENDED RELEASE 24 HOUR 2 TABLETS WITH EVENING MEAL ORALLY DAILY TAKING NORCO 5-325 MG TABLET 1 TABLET NEEDED ORALLY (ISTOP:[id number]) THREE TIMES DAILY NEEDED FOR PAIN. MDD 3 TAKING MELATONIN 3 MG TABLET 1 TABLET AT BEDTIME NEEDED WITH FOOD ORALLY ONCE A DAY TAKING COLACE 100 MG CAPSULE 1 CAPSULE NEEDED ORALLY BID NOT-TAKING FLOMAX 0.4 MG CAPSULE 1 CAPSULE ORALLY BEFORE BEDTIME NOT-TAKING GABAPENTIN 300 MG CAPSULE 1 CAPSULE ORALLY ONCE A DAY NOT-TAKING FLUTICASONE PROPIONATE 50 MCG/ACT SUSPENSION 1 SPRAY IN EACH NOSTRIL NASALLY ONCE A DAY, NOTES: TWICE DAILY FOR 2 WEEKS THEN DAILY THEREAFTER NOT-TAKING CENTRUM SILVER - TABLET ORALLY NOT-TAKING AUGMENTIN 875-125 MG TABLET 1 TABLET ORALLY EVERY 12 HRS DISCONTINUED GABAPENTIN 300 MG CAPSULE 1 CAPSULE ORALLY ONCE A DAY, NOTES: FOR CHRONIC BACK PAIN DISCONTINUED SILDENAFIL CITRATE 20 MG TABLET 1 TABLET ORALLY 2-5 TABS 30 MIN PRIOR TO SEXUAL ACTIVITY, NOTES: DISPENSE GENERIC ONLY. PATIENT TO PAY RETAIL [facility] [id number], NOT THROUGH INSURANCE. MEDICATION LIST REVIEWED AND RECONCILED WITH THE PATIENT PAST MEDICAL HISTORY T2DM HTN HLD CAD, S/P MT SMOKER, NO HX OF PNEUMONIA VACCINATION OSTEOARTHRITIS RENAL CELL CARCINOMA S/P RADICAL NEPHRECTOMY MODERATE SPINAL STENOSIS L4-L5 ALLERGIES N.K.D.A. SURGICAL HISTORY RADICAL NEPHRECTOMY (RIGHT) 10/26/2017 COLONOSCOPY 04/12/18 ([facility]) - COLONIC MUCOSA WITH ASSOCIATED LYMPHOID FOLLICLE, NO ADENOMATOUS CHANGES IDENTIFIED, MILD DIVERTICULOSIS AND SMALL INTERNAL HEMORRHOIDS. (REPEAT 10 YRS) FAMILY HISTORY FATHER: 94 YRS, SCHIZOPHRENIA, OF MOTHER: , ALCOHOLIC, OF CIRRHOSIS SIBLINGS: ALIVE, 3 SISTERS ALIVE:UNKNOWN 2 BROTHER : UNKNOWN PATERNAL GRAND FATHER: , UNKNOWN PATERNAL GRAND MOTHER: , UNKNOWN MATERNAL GRAND FATHER: , UNKNOWN MATERNAL GRAND MOTHER: , UNKNOWN SOCIAL HISTORY GENERAL: TOBACCO USE ARE YOU A:FORMER SMOKER HOW LONG HAS IT BEEN SINCE YOU LAST SMOKED?1-3 MONTHS ALCOHOL SCREENING DID YOU HAVE A DRINK CONTAINING ALCOHOL IN THE PAST YEAR?YES HOW OFTEN DID YOU HAVE A DRINK CONTAINING ALCOHOL IN THE PAST YEAR?TWO TO THREE TIMES PER WEEK (3 POINTS) HOW MANY DRINKS DID YOU HAVE ON A TYPICAL DAY WHEN YOU WERE DRINKING IN THE PAST YEAR?1 OR 2 (0 POINTS) HOW OFTEN DID YOU HAVE SIX OR MORE DRINKS ON ONE OCCASION IN THE PAST YEAR?WEEKLY (3 POINTS) POINTS6 INTERPRETATIONPOSITIVE RECREATIONAL DRUG USE DRUG USE?NO CAFFEINE CAFFEINE USE?YES 2-3 CUPS COFFEE/DAY HIV / HEP-C SCREENING HIV TEST OFFERED TO PATIENT:YES DATE OFFERED:08/01/2017 TEST ACCEPTED:NO REASON:PATIENT DECLINED HEP-C TEST OFFERED TO PATIENT:YES DATE OFFERED:08/01/2017 TEST ACCEPTED:NO REASON:PATIENT DECLINED LATTER-DAY LATTER-DAY NO BAHAI BELIEFS THAT WOULD IMPACT HEALTH CARE. 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 DIET: REGULAR. EXERCISE: NO REGULAR EXERCISE. MARITAL STATUS: . OTHERS AT HOME: SPOUSE. PAIN CLINIC PFS, CLERGY, PUBLIC HEALTH REFERRALS HAS THE PATIENT BEEN EDUCATED REGARDING HIS/HER PLAN OF CARE?YES HAS THE PATIENT BEEN EDUCATED REGARDING PAIN, THE RISK FOR PAIN, THE IMPORTANCE OF EFFECTIVE PAIN MANAGEMENT, AND THE PAIN ASSESSMENT PROCESS?YES ADVANCE DIRECTIVE ADVANCE DIRECTIVE DISCUSSED WITH PATIENT:YES DECLINED HOSPITALIZATION/MAJOR DIAGNOSTIC PROCEDURE DENIES PAST HOSPITALIZATION REVIEW OF SYSTEMS REVIEWED BY: PROVIDER: MANOLO BRYANT MD . CONSTITUTIONAL: ANY CHANGE IN YOUR MEDICAL CONDITION? NO . CHILLS NO . FEVER NO . INFECTION: DO YOU HAVE NEW INFECTIONS? NO . DO YOU HAVE HISTORY OF MRSA? NO . MUSCULOSKELETAL: ANY NEW PATTERNS OF PAIN OR NUMBNESS? NO . SYTEMIC LUPUS NO . GASTROENTEROLOGY: ANY NEW CHANGE IN BOWEL CONTROL? NO . BARRETTS ESOPHAGUS NO . CIRRHOSIS NO . HEPATITIS NO . LIVER FAILURE NO . ACID REFLUX NO . UNEXPLAINED WEIGHT LOSS NO . GENITOURINARY: ANY NEW CHANGE IN BLADDER CONTROL? NO, S/P KIDNEY CA, RIGHT KIDNEY REMOVED . IS THERE A CHANCE YOU COULD BE ? NO . HEMATOLOGY/LYMPH: DO YOU TAKE ANY BLOOD THINNERS? (FOR EXAMPLE- COUMADIN, PLAVIX, AGGRENOX, PLATEL, PRADAXA, OR XARELTO) NO . WHEN WAS YOUR LAST DOSE? DATE: TIME: . LOW PLATELET COUNT NO . SICKLE CELL DISEASE NO . VON WILLIEBRANDS NO . FACTOR V LEIDEN NO . THALLASEMIA NO . ANEMIA NO . EASY BRUISING NO . NEUROLOGY: HAVE YOU FALLEN IN THE PAST 12 MONTHS? NO . ANY NEW EXTREMITY NUMBNESS OR WEAKNESS? YES ,BILAT LEG WEAKNESS AND NUMBNESS X YEARS, WORSENED SINCE KIDNEY REMOVED 10/2017 . HEAD INJURY NO . DEMENTIA NO . CEREBRAL PALSY NO . MULTIPLE SCLEROSIS NO . DIZZINESS NO . HEADACHE NO . STROKES NO . VERTIGO NO . CARDIOLOGY: DO YOU HAVE A PACEMAKER OR DEFIBRILLATOR? NO . ANGINA NO . HEART ATTACK NO . HEART SURGERY NO, S/P MT . CONGESTIVE HEART FAILURE/FLUID OVERLOAD NO . CHEST PAIN NO . HIGH BLOOD PRESSURE ON MEDICATION(S) . IRREGULAR HEART BEAT NO . RESPIRATORY: HAVE YOU BEEN SICK IN THE PAST WEEK? NO . FEVER NO . FLU LIKE SYMPTOMS? NO . CPAP NO . BYPAP NO . ASTHMA NO . EMPHYSEMA NO . CHRONIC LUNG DISEASES NO . SHORTNESS OF BREATH ON EXERTION NO . COUGH NO . SNORING NO . INTEGUMENTARY: DO YOU HAVE ANY RASHES OR OPEN SORES? NO . ALLERGIC/IMMUNO: ARE YOU ALLERGIC TO IV DYE? NO . ANY NEW ALLERGIES? NO . PSYCHIATRIC: DO YOU HAVE THOUGHTS OF HURTING YOURSELF OR SOMEONE ELSE? NO . ARE YOU ABUSED, NEGLECTED, OR IN AN UNSAFE ENVIRONMENT? NO . ENDOCRINOLOGY: ARE YOU DIABETIC? YES, ON MEDS . THYROID DISORDER NO . OTHER: DO YOU NEED ANY PRESCRIPTIONS? NO . IF YES, PLEASE LIST: ____ . ANY NEW PROBLEMS WITH YOUR MEDICATIONS? NO . WHEN DID YOU LAST EAT? ____ . WHEN DID YOU LAST DRINK? ____ . WHAT DID YOU LAST DRINK? ____ . NAME OF PERSON DRIVING YOU HOME? ____ . DO YOU HAVE ANY OTHER QUESTIONS OR CONCERNS NO . VITAL SIGNS WT 180 LBS, HT 68 IN, BMI 27.37 INDEX, BP 145/75 MM HG, HR 73 /MIN, RR 16 /MIN, TEMP 98.0 F, OXYGEN SAT % 98, REVIEWED BY: EM. EXAMINATION GENERAL EXAMINATION: PATIENT IS ALERT O X 3 AND COOPERATIVE. LUNGS CLEAR, TO AUSCULTATION. HEART: NO MURMURS OR GALLOPS; FACIAL CRANIAL NERVES ARE GROSSLY NORMAL. GOOD SYMMETRY OF FACIAL MUSCLE MOVEMENT. NORMAL VISUAL CRAMER. ANTALGIC GAIT. PATIENT IS LIMPING FROM HIS LEFT LEG. TENDERNESS IN THE LOW BACK AREA. PRESENCE OF TRIGGER POINTS AND BANDS OF TISSUE WITH RESTRICTION OF MOVEMENT OF THE BACK. LEFT LEG IS WEAKER AT EXTENSION AND FLEXION. STRAIGHT LEG RAISE OF THE LEFT LEG IS POSITIVE AT [address] OF THE LUMBAR SPINE DONE ON 11/22/2017 SHOWS BULGING DISCS AT L4-L5 AND L5-S1, STENOSIS AT L3-L4, AND FACET ARTHROPATHY CHANGES AT MULTIPLE LEVELS. ASSESSMENTS MYALGIA, OTHER SITE - M79.18 (PRIMARY) INTERVERTEBRAL DISC DISORDER WITH RADICULOPATHY OF LUMBAR REGION - M51.16 SPONDYLOSIS OF LUMBAR REGION WITHOUT MYELOPATHY OR RADICULOPATHY - M47.816 SPINAL STENOSIS OF LUMBAR REGION, UNSPECIFIED WHETHER NEUROGENIC CLAUDICATION PRESENT - M48.061 TREATMENT MYALGIA, OTHER SITE CLINICAL NOTES: WE DISCUSSED SEVERAL ISSUES WITH MR. CRENSHAW'S PAIN MANAGEMENT CASE. I WOULD LIKE TO ORDER A LUMBAR MRI BECAUSE THE LUMBAR CT DOES NOT GIVE ME ENOUGH INFORMATION AND I WOULD LIKE TO GET A BETTER IDEA OF WHERE THE PATIENT'S PAIN MAY BE COMING FROM. I WOULD LIKE THE PATIENT TO TRY PHYSICAL THERAPY ONE TIME PER WEEK FOR SIX WEEKS TO SEE IF THAT HELPS WITH HIS PAIN. DUE TO THE TRIGGER POINTS, BANDS OF TISSUE, AND RESTRICTION OF MOVEMENT, I WOULD LIKE TO MOVE FORWARD WITH A TRIGGER POINT INJECTION AT THIS TIME. WE DISCUSSED THE BENEFITS, RISKS, AND ALTERNATIVES OF THE INJECTION AND THE PATIENT WOULD LIKE TO PROCEED. THE PATIENT WILL FOLLOW UP IN 6 WEEKS. INSTRUCTIONS WERE GIVEN, QUESTIONS WERE ANSWERED, PATIENT REPORTS UNDERSTANDING AND AGREES WITH THE PLAN. I, BRAXTON SUTHERLAND, DOCUMENTED THE ABOVE INFORMATION ACTING A SCRIBE FOR DR. BRYANT. I HAVE REVIEWED THE ABOVE DOCUMENT, WRITTEN BY BRAXTON MESA AND I VERIFY THAT IT IS ACCURATE. DEAR DR. TORRES:THANK YOU FOR YOUR KIND REFERRAL OF MR. CRENSHAW. IF YOU WANT TO DISCUSS HIS CASE WITH ME PLEASE CALL ME AT THE PAIN CENTER AT [phone]. SINCERELY,MANOLO BRYANT, [facility] . OTHERS NOTES: TRIGGER POINT INJECTION: YOUR EXPERIENCE MATERIAL WAS PRINTED,TRIGGER POINT INJECTION MATERIAL WAS PRINTED. PREVENTIVE MEDICINE PAIN CLINIC TEACHING: PROCEDURE TEACHING PRINTED AND REVIEWED INFORMATION ON TRIGGER POINT INJECTION PROCEDURE WITH PATIENT. ALSO REVIEWED PRE-PROCEDURE INSTRUCTIONS. PATIENT VERBALIZED AN UNDERSTANDING. CLAUDETTE ZAMORA 10/28/2018 11:27:08 AM > . PROCEDURE CODES FA211 ESTABILISHED PATIENT [facility] CHARGE [id number] CURRENT MEDS W/DOSAGES DOCUMENTED G8730 PAIN ASSESS POS TOOL F/U PLAN DOC DISPOSITION & COMMUNICATION FOLLOW UP 6 WEEKS ELECTRONICALLY SIGNED BY MANOLO BRYANT MD, MD ON 11/10/2018 AT 06:33 PM EDT DISCLAIMER : THIS IS A VISIT SUMMARY EXTRACTED FROM THE [employer] CHART. IT IS NOT A COPY OF THE [employer] PROGRESS NOTE. RONAL
== END ==
LOC: M PAIN 09:15
PROVIDERS: ATTEND Anesthesiology
DX: M79.18 Myalgia, other site (principal); M51.16 Intervertebral disc disorders with radiculopathy, lumbar region; M47.816 Spondylosis without myelopathy or radiculopathy, lumbar region; M48.061 Spinal stenosis, lumbar region without neurogenic claudication; E11.9 Type 2 diabetes mellitus without complications; I10 Essential (primary) hypertension; M19.90 Unspecified osteoarthritis, unspecified site; I25.2 Old myocardial infarction; Z79.82 Long term (current) use of aspirin; Z79.84 Long term (current) use of oral hypoglycemic drugs; Z79.899 Other long term (current) drug therapy; Z86.79 Personal history of other diseases of the circulatory system; Z85.528 Personal history of other malignant neoplasm of kidney; Z95.0 Presence of cardiac pacemaker; Z87.891 Personal history of nicotine dependence

== ENCOUNTER 2018-11-06 08:14 | Outpatient (RCR) | payer OTHER | END 2018-11-12 | LOC: M PT 08:14 | PROVIDERS: ATTEND Anesthesiology | DX: M48.061 Spinal stenosis, lumbar region without neurogenic claudication (principal) ==

== ENCOUNTER → 2018-11-14 | Outpatient (CLI) | payer OTHER ==
[~2018-11-14] MED LIST changes: +ISOVUE-300 61% 100ML VIAL (Q9967) As Ordered ONE
--- NOTE | 2018-11-14 08:31 | REP ---
MR LUMBAR SPINE WITHOUT CONTRAST: HISTORY Back pain. Decreased signal intensity on T2-weighted images is present in the lumbar intervertebral discs. The L3-4 and L4-5 intervertebral discs are decreased in height. These findings are consistent with disc degeneration. There is no disc bulge or herniation at the L1-2 and L2-3 levels. The nerves exit the neural foramina without compression. A diffuse disc bulge is present at the L3-4 level. There is minimal compression of the thecal sac. There is hypertrophy of the posterior articulating facets The L3 nerves exit the neural foramina without compression. A diffuse disc bulge is present at the L4-5 level. There is minimal compression of the thecal sac. There is hypertrophy of the ligamenta flava and posterior articulating facets. The L4 nerves exit the neural foramina without compression. A diffuse disc bulge and small central disc protrusion are present at the L5-S1 level. There is minimal compression of the thecal sac. There is hypertrophy of the posterior articulating facets. The L5 nerves exit the neural foramina without compression. The conus medullaris is normal in appearance terminating at the level of the L1-2 intervertebral disc . Normal signal intensity is present in the lumbar vertebral bodies. IMPRESSION: 1. Diffuse disc bulges at the L3-4 and L4-5 levels with minimal thecal sac compression. 2. Diffuse disc bulge and small central disc protrusion at the L5-S1 level with minimal thecal sac compression. Electronically Signed by Khalif Teresa MD 11/14/2018 08:33 A
== END ==
LOC: M RAD 07:19
PROVIDERS: ATTEND Anesthesiology
DX: M51.26 Other intervertebral disc displacement, lumbar region (principal); M51.27 Other intervertebral disc displacement, lumbosacral region

== ENCOUNTER 2018-12-04 08:24 | Outpatient (RCR) | payer OTHER ==
[~2018-12-04 08:24] MED LIST changes: -ISOVUE-300 61% 100ML VIAL (Q9967) As Ordered ONE
== END 2018-12-13 ==
LOC: M PT 08:24
PROVIDERS: ATTEND Anesthesiology
DX: M48.061 Spinal stenosis, lumbar region without neurogenic claudication (principal)

== ENCOUNTER 2019-01-01 09:15 | Outpatient (RCR) | payer OTHER | END 2019-01-12 | LOC: M PT 09:15 | PROVIDERS: ATTEND Anesthesiology | DX: M54.5 Low back pain (principal); M48.061 Spinal stenosis, lumbar region without neurogenic claudication ==

== ENCOUNTER → 2019-01-15 | Outpatient (REF) | payer OTHER ==
[2019-01-15 14:02] LABS: CALCIUM LEVEL 9.6 MG/DL (8.8-10.2); CREATININE FOR GFR 1.7 MG/DL (0.70-1.30); GLOMERULAR FILTRATION RATE 43.4 (>49)
[2019-01-15 14:21] LABS: POTASSIUM SERUM 3.9 MEQ/L (3.5-5.1)
[2019-01-15 14:43] LABS: HEMOGLOBIN A1c 6.2 %
[2019-01-15 15:05] LABS: MAU/CREAT RATIO 2153.2 MCG/MG (0.0-30.0)
== END ==
LOC: M LABDRAW1 13:12
PROVIDERS: ATTEND Urology
DX: C64.1 Malignant neoplasm of right kidney, except renal pelvis (principal); Z90.5 Acquired absence of kidney

== ENCOUNTER → 2019-01-15 | Outpatient (CLI) | payer OTHER ==
--- NOTE | 2019-01-15 15:48 | REP ---
Clinical: History of renal cell carcinoma and left nephrectomy . Comparison: 10/19/2017 . Technique: PA and lateral. Findings: The mediastinum and cardiac silhouette are normal. The lung adamson are clear and without acute consolidation, effusion, or pneumothorax. The skeletal structures are intact and normal. Impression: 1. No acute cardiopulmonary process. Electronically Signed by Neo Pacheco MD 01/15/2019 01:45 P
== END ==
LOC: M RAD 13:05
PROVIDERS: ATTEND Urology
DX: C64.1 Malignant neoplasm of right kidney, except renal pelvis (principal); Z90.5 Acquired absence of kidney

== ENCOUNTER → 2019-01-20 | Outpatient (CLI) | payer OTHER ==
--- NOTE | 2019-01-20 22:18 | REP ---
Clinical: History of renal cell carcinoma. Technique: Axial noncontrast images of the abdomen with coronal and sagittal re-formations. Comparison: 07/17/2018. Findings: Lung bases are clear. Liver, spleen, pancreas, and right adrenal gland are normal for noncontrast evaluation and stable. Cholelithiasis suggested without acute cholecystitis. Left adrenal gland demonstrates stable 1.6 cm low density nodule in the medial limb consistent with adenoma. Left kidney demonstrates mild chronic perinephric stranding without hydronephrosis or nephroureterolithiasis. The enteric system is without obstruction or acute inflammatory process and a normal terminal ileum and appendix are identified. Impression: 1. Prior right nephrectomy without evidence for recurrence, mass, or adenopathy. Left kidney appears relatively normal / stable. 2. Cholelithiasis. Electronically Signed by Neo Pacheco MD 01/20/2019 10:09 P
== END ==
LOC: M RAD 07:31
PROVIDERS: ATTEND Urology
DX: Z85.528 Personal history of other malignant neoplasm of kidney (principal); Z90.5 Acquired absence of kidney; K80.20 Calculus of gallbladder without cholecystitis without obstruction

== ENCOUNTER → 2019-01-23 | Outpatient (CLI) | payer OTHER | LOC: M PAIN 15:45 | PROVIDERS: ATTEND Anesthesiology | DX: M47.816 Spondylosis without myelopathy or radiculopathy, lumbar region (principal); Z53.21 Procedure and treatment not carried out due to patient leaving prior to being seen by health care provider ==

== ENCOUNTER 2019-03-08 11:42 | Emergency (ER) | payer OTHER ==
[~2019-03-08 11:42] MED LIST changes: +METF-791 PO; -METF500T4 PO
[2019-03-08] MEDS ORDERED: CHLO125TA PO (11:49)
[2019-03-08] MEDS ORDERED: COLA100C5 PO (11:49)
--- NOTE | 2019-03-08 13:06 | REP ---
Right hand four views: There is no fracture or dislocation. There is osteoarthritis of the index finger and middle finger p.c. articulations. 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 The mineralization is normal. Joint spaces are otherwise unremarkable. Electronically Signed by Don Oviedo MD 03/08/2019 12:57 P
--- NOTE | 2019-03-08 13:06 | REP ---
Right wrist four views: There is no fracture or dislocation. Mineralization and joint spaces are unremarkable. There is calcification in the triangular fibrocartilage compatible with CPPD. Electronically Signed by Don Oviedo MD 03/08/2019 12:58 P
[2019-03-08 13:24] LABS: BASO # 0.1 10^3/uL (0.0-0.2); BASO % 0.8 % (0.0-1.0); EOS # 0.3 10^3/uL (0.0-0.50); EOS % 3.2 % (0.0-3.0); HEMATOCRIT 41.1 % (42.0-52.0); HEMOGLOBIN 15.3 g/dl (13.5-17.5); LYMPH # 2.9 10^3/uL (1.5-4.5); LYMPH % 30.3 % (24.0-44.0); MEAN CORPUSCULAR HEMOGLOBIN 34.6 pg (27.0-33.0); MEAN CORPUSCULAR HGB CONC 37.2 g/dl (32.0-36.5); MONO # 0.7 10^3/uL (0.0-0.8); MONO % 7.5 % (0.0-5.0); NEUTROPHILS # 5.4 10^3/uL (1.8-7.7); NEUTROPHILS % 57.6 % (36.0-66.0); PLATELET COUNT, AUTOMATED 216 10^3/uL (150-450); RED BLOOD COUNT 4.42 10^6/uL (4.30-6.10); WHITE BLOOD COUNT 9.4 10^3/uL (4.0-10.0)
[2019-03-08 14:06] VITALS: BP 169/81
== END 2019-03-08 14:07 | disposition home or self-care (01) ==
LOC: M ED 11:42
DX: S60.221A Contusion of right hand, initial encounter (principal); E87.1 Hypo-osmolality and hyponatremia; W22.8XXA Striking against or struck by other objects, initial encounter; Y92.89 Other specified places as the place of occurrence of the external cause; M19.041 Primary osteoarthritis, right hand; I11.9 Hypertensive heart disease without heart failure; I25.2 Old myocardial infarction; E11.9 Type 2 diabetes mellitus without complications; E78.5 Hyperlipidemia, unspecified; M48.00 Spinal stenosis, site unspecified; Z87.891 Personal history of nicotine dependence; Z79.899 Other long term (current) drug therapy; Z79.82 Long term (current) use of aspirin; Z79.84 Long term (current) use of oral hypoglycemic drugs

== ENCOUNTER → 2019-05-14 | Outpatient (REF) | payer MEDICARE, BC ==
[~2019-05-14] MED LIST changes: -GLIM4TAB PO; +GLIM4TAB3 PO; -OMEP40CA2 PO; +OMEP40CA97 PO
[2019-05-14 15:52] LABS: BASO # 0.1 10^3/uL (0.0-0.2); EOS # 0.2 10^3/uL (0.0-0.5); EOS % 2.5 % (0.0-3.0); HEMATOCRIT 42.6 % (42.0-52.0); HEMOGLOBIN 14.6 g/dl (13.5-17.5); LYMPH # 2.1 10^3/uL (1.5-5.0); LYMPH % 26.5 % (24.0-44.0); MEAN CORPUSCULAR HEMOGLOBIN 34.5 pg (27.0-33.0); MEAN CORPUSCULAR HGB CONC 34.3 g/dl (32.0-36.5); MEAN CORPUSCULAR VOLUME 100.7 fl (80.0-96.0); MONO # 0.8 10^3/uL (0.0-0.8); MONO % 10.2 % (0.0-5.0); NEUTROPHILS # 4.8 10^3/uL (1.5-8.5); NEUTROPHILS % 59.2 % (36.0-66.0); PLATELET COUNT, AUTOMATED 194 10^3/uL (150-450); RED BLOOD COUNT 4.23 10^6/uL (4.30-6.10)
[2019-05-14 16:04] LABS: CALCIUM LEVEL 9.4 MG/DL (8.8-10.2); CREATININE FOR GFR 1.81 MG/DL (0.70-1.30); FREE T4 1.03 NG/DL (0.76-1.46); GLOMERULAR FILTRATION RATE 40.3 (>49); PERCENT SATURATION 38.5 % (19.7-50.0); POTASSIUM SERUM 3.9 MEQ/L (3.5-5.1); THYROID STIMULATING HORMONE 1.49 uIU/ML (0.358-3.740)
[2019-05-14 17:59] LABS: HEMOGLOBIN A1c 5.8 %
== END ==
LOC: M LABDRAW1 12:50
PROVIDERS: ATTEND Family Medicine
DX: R53.82 Chronic fatigue, unspecified (principal); E11.9 Type 2 diabetes mellitus without complications

== ENCOUNTER → 2019-06-10 | Outpatient (REF) | payer MEDICARE, BC ==
[2019-06-10 11:33] LABS: CREATININE, URINE 82.9 MG/DL
== END ==
LOC: M SFHCPLAZ 09:41
PROVIDERS: ATTEND Family Medicine
DX: E11.9 Type 2 diabetes mellitus without complications (principal); R53.82 Chronic fatigue, unspecified

== ENCOUNTER → 2019-06-16 | Outpatient (REF) | payer MEDICARE ==
[~2019-06-16] MED LIST changes: -SIMV20TA2 PO; +SIMV20TA22 PO
== END ==
LOC: M SFHCPLAZ 09:15
PROVIDERS: ATTEND Family Medicine
DX: N18.3 Chronic kidney disease, stage 3 (moderate) (principal); Z53.8 Procedure and treatment not carried out for other reasons

== ENCOUNTER → 2019-06-16 | Outpatient (CLI) | payer MEDICARE ==
--- NOTE | 2019-06-16 10:32 | REP ---
CERVICAL SPINE AP AND LATERAL FLEXION AND EXTENSION: AP and lateral views of the cervical spine are performed with lateral flexion and extension views. C7 is not well visualized. It is grossly low and with C6. There is no compression fracture. There is somewhat limited motion on flexion and extension with no evidence of subluxation. There is mild anterior and posterior spurring as well as disc space narrowing at C5-6. There is diffuse narrowing and sclerosis as well as spurring of the posterior facet joints bilaterally. Carotid calcifications are seen in the soft tissues bilaterally, left greater than right. IMPRESSION: Degenerative changes as above with somewhat limited motion on flexion and extension, but no significant subluxation. Electronically Signed by Don Henriquez MD 06/16/2019 11:57 A
[2019-06-16 10:41] LABS: CALCIUM LEVEL 9.3 MG/DL (8.8-10.2); CREATININE FOR GFR 1.94 MG/DL (0.70-1.30); GLOMERULAR FILTRATION RATE 37.2 (>49); POTASSIUM SERUM 3.8 MEQ/L (3.5-5.1)
== END ==
LOC: M LAB 09:39
PROVIDERS: ATTEND Family Medicine
DX: M50.322 Other cervical disc degeneration at C5-C6 level (principal); M25.78 Osteophyte, vertebrae; N18.3 Chronic kidney disease, stage 3 (moderate)

== ENCOUNTER → 2019-07-21 | Outpatient (CLI) | payer MEDICARE ==
--- NOTE | 2019-07-21 16:18 | REP ---
RENAL ULTRASOUND: Real-time sonographic evaluation of the left kidney is performed in this patient who has had a prior right nephrectomy. Right renal fossa region is grossly unremarkable. Left kidney measures 12.7 x 6.4 x 7.7 cm with no hydronephrosis or mass. Urinary bladder is very mildly distended. There is impression upon the base of the bladder by an enlarged heterogenous prostate which measures 5.1 x 5.0 x 5.2 cm, volume 69 mL. Left ureteral jet is visualized in the urinary bladder with Doppler color evaluation. IMPRESSION: Unremarkable appearance of the left kidney. Enlarged prostate. Electronically Signed by Don Henriquez MD 07/21/2019 07:37 P
== END ==
LOC: M RAD 14:38
DX: N18.3 Chronic kidney disease, stage 3 (moderate) (principal); E83.9 Disorder of mineral metabolism, unspecified; M89.9 Disorder of bone, unspecified; D63.1 Anemia in chronic kidney disease

== ENCOUNTER → 2019-07-22 | Outpatient (REF) | payer MEDICARE | LOC: M SFHCPLAZ 10:12 | PROVIDERS: ATTEND Family Medicine | DX: E11.29 Type 2 diabetes mellitus with other diabetic kidney complication (principal); E78.5 Hyperlipidemia, unspecified ==

== ENCOUNTER → 2019-08-15 | Outpatient (REF) | payer MEDICARE ==
[~2019-08-15] MED LIST changes: -GLIM4TAB3 PO; +GLIM4TAB5 PO
[2019-08-15 13:46] LABS: CHOLESTEROL RISK RATIO 4.875 (<5)
== END ==
LOC: M LABDRAW1 13:16
PROVIDERS: ATTEND Family Medicine
DX: E11.29 Type 2 diabetes mellitus with other diabetic kidney complication (principal); E78.5 Hyperlipidemia, unspecified

== ENCOUNTER → 2019-12-03 | Outpatient (REF) | payer MEDICARE ==
[~2019-12-03] MED LIST changes: -METF-791 PO; +METF-838 PO
[2019-12-03 14:29] LABS: APPEARANCE, URINE CLEAR (CLEAR); BACTERIA, URINE AUTO NEGATIVE (NEGATIVE); BILIRUBIN, URINE AUTO NEGATIVE (NEGATIVE); BLOOD, URINE BLOOD NEGATIVE (NEGATIVE); COLOR, URINE YELLOW (YELLOW); GLUCOSE, URINE (UA) AUTO NEGATIVE (NEGATIVE); KETONE, URINE AUTO NEGATIVE (NEGATIVE); LEUKOCYTE ESTERASE, URINE AUTO NEGATIVE (NEGATIVE); MUCUS, URINE SMALL (NEGATIVE); NITRITE, URINE AUTO NEGATIVE (NEGATIVE); PROTEIN, URINE AUTO 3+ mg/dL (NEGATIVE); RBC, URINE AUTO 15 /HPF (0-3); SPECIFIC GRAVITY URINE AUTO 1.014 (1.002-1.035); SQUAMOUS EPITHELIAL CELL UR AU 0 /HPF (0-6); UROBILINOGEN, URINE AUTO 0.2 mg/dL (0.0-2.0); WBC, URINE AUTO 1 /HPF (0-3)
[2019-12-03 14:32] LABS: ALBUMIN 3.4 GM/DL (3.2-5.2); BILIRUBIN,TOTAL 0.5 MG/DL (0.2-1.0); CALCIUM LEVEL 8.9 MG/DL (8.8-10.2); CREATININE FOR GFR 1.91 MG/DL (0.70-1.30); FREE T4 1.23 NG/DL (0.76-1.46); GLOMERULAR FILTRATION RATE 37.8 (>49); THYROID STIMULATING HORMONE 1.21 uIU/ML (0.358-3.740); TOTAL PROTEIN 6.9 GM/DL (6.4-8.2)
== END ==
LOC: M SFHCPLAZ 11:23
PROVIDERS: ATTEND Family Medicine
DX: R60.0 Localized edema (principal)
CPT/HCPCS: 36415; 80053; 81001; 83880; 84439; 84443; G0463

== ENCOUNTER → 2020-01-27 | Outpatient (CLI) | payer MEDICARE ==
[~2020-01-27] MED LIST changes: -AMLO10TA5 PO; +AMLO1TAB25 PO
--- NOTE | 2020-01-27 10:37 | REP ---
REASON: Followup renal cell carcinoma. COMPARISON: Multiple, the latest 01/20/2019 The lack of intravenous contrast decreases the sensitivity of the exam. The lung bases are clear and unchanged. Once again, there is cholelithiasis and scattered hepatic calcifications status quo. The liver and spleen are unchanged. The pancreas and adrenal glands are unchanged. Bilateral adrenal gland thickening is noted status quo. The left kidney has increased in size, since the prior exam and there is increased perinephric stranding. There is no evidence of hydronephrosis or proximal hydroureter on this abdominal CT. Calcific atherosclerotic changes are again seen in the abdominal aorta. No para-aortic adenopathy has developed. There is mild thickening of Gerota's and Zuckerkandl's fascia increased slightly from the prior exam. There is no free fluid or free air in the abdomen. No intra-abdominal adenopathy has developed. There is no significant change in the appearance of the bowel loops or their mesenteries. Bone window technique throughout the examination shows no significant change in the appearance of the osseous structures. IMPRESSION: Left renal changes as described above. This should be correlated clinically with appropriate followup. Otherwise, stable findings as described above. Electronically Signed by Humza Stevens DO 01/27/2020 11:40 A
== END ==
LOC: M RAD 07:01
PROVIDERS: ATTEND Urology
DX: C64.1 Malignant neoplasm of right kidney, except renal pelvis (principal); Z90.5 Acquired absence of kidney; K80.20 Calculus of gallbladder without cholecystitis without obstruction

== ENCOUNTER → 2020-03-24 | Outpatient (CLI) | payer MEDICARE ==
--- NOTE | 2020-04-12 10:24 | REP ---
CHEST X-RAY CLINICAL: Renal neoplasm. TECHNIQUE: PA and lateral. COMPARISON: 01/15/2019. FINDINGS: Mediastinum and cardiac silhouette normal. Lung adamson clear. No consolidation, effusion, or pneumothorax. Skeletal structures are intact. IMPRESSION: Normal chest x-ray. No acute cardiopulmonary process or focal consolidation. MTDD
== END ==
LOC: M RAD 08:31
PROVIDERS: ATTEND Nurse Practitioner Family
DX: C64.9 Malignant neoplasm of unspecified kidney, except renal pelvis (principal)

== ENCOUNTER → 2020-03-24 | Outpatient (CLI) | payer MEDICARE ==
[2020-03-24 10:58] LABS: BASO # 0.1 10^3/uL (0.0-0.2); EOS # 0.3 10^3/uL (0.0-0.5); EOS % 3.6 % (0.0-3.0); HEMATOCRIT 38.7 % (42.0-52.0); HEMOGLOBIN 13.9 g/dl (13.5-17.5); LYMPH # 1.3 10^3/uL (1.5-5.0); LYMPH % 16.2 % (24.0-44.0); MEAN CORPUSCULAR HEMOGLOBIN 34.2 pg (27.0-33.0); MEAN CORPUSCULAR HGB CONC 35.9 g/dl (32.0-36.5); MEAN CORPUSCULAR VOLUME 95.3 fl (80.0-96.0); MONO # 0.7 10^3/uL (0.0-0.8); MONO % 8.4 % (0.0-5.0); NEUTROPHILS # 5.5 10^3/uL (1.5-8.5); NEUTROPHILS % 70.4 % (36.0-66.0); PLATELET COUNT, AUTOMATED 222 10^3/uL (150-450); RED BLOOD COUNT 4.06 10^6/uL (4.30-6.10); WHITE BLOOD COUNT 7.8 10^3/uL (4.0-10.0)
[2020-03-24 11:40] LABS: ALBUMIN 3.1 GM/DL (3.2-5.2); BILIRUBIN,TOTAL 0.4 MG/DL (0.2-1.0); CREATININE FOR GFR 2.32 MG/DL (0.70-1.30); GLOMERULAR FILTRATION RATE 30.2 (>49); PERCENT SATURATION 29.8 % (19.7-50.0); TOTAL PROTEIN 6.4 GM/DL (6.4-8.2)
[2020-03-24 12:08] LABS: CREATININE, URINE 95.2 MG/DL; MAU/CREAT RATIO 6092.4 MCG/MG (0.0-30.0)
[2020-03-24 12:28] LABS: HEMOGLOBIN A1c 5.9 %
== END ==
LOC: M LAB 08:35
PROVIDERS: ATTEND Student in an Organized Health Care Education/Training Program
DX: N18.3 Chronic kidney disease, stage 3 (moderate) (principal); M89.9 Disorder of bone, unspecified; D63.1 Anemia in chronic kidney disease; E11.21 Type 2 diabetes mellitus with diabetic nephropathy

== ENCOUNTER → 2020-03-24 | Outpatient (REF) | payer MEDICARE ==
[2020-03-24 14:10] LABS: HEMATOCRIT 40.7 % (42.0-52.0); HEMOGLOBIN 14.1 g/dl (13.5-17.5); MEAN CORPUSCULAR HEMOGLOBIN 33.4 pg (27.0-33.0); MEAN CORPUSCULAR HGB CONC 34.6 g/dl (32.0-36.5); MEAN CORPUSCULAR VOLUME 96.4 fl (80.0-96.0); PLATELET COUNT, AUTOMATED 223 10^3/uL (150-450); RED BLOOD COUNT 4.22 10^6/uL (4.30-6.10); WHITE BLOOD COUNT 8.4 10^3/uL (4.0-10.0)
[2020-03-24 14:14] LABS: CALCIUM LEVEL 8.7 MG/DL (8.8-10.2); CREATININE FOR GFR 2.31 MG/DL (0.70-1.30); GLOMERULAR FILTRATION RATE 30.4 (>49); MAGNESIUM LEVEL 2.2 MG/DL (1.8-2.4); PERCENT SATURATION 31.7 % (19.7-50.0); PHOSPHORUS LEVEL 3.9 MG/DL (2.5-4.9); POTASSIUM SERUM 4.2 MEQ/L (3.5-5.1); URIC ACID 7.4 MG/DL (3.5-7.2)
[2020-03-24 14:20] LABS: PTH INTACT 37.4 PG/ML (18.5-88.0); TOTAL 25(OH) VITAMIN D 26.1 NG/ML (30.0-100.0)
[2020-03-26 05:25] LABS: CREATININE,RANDOM URINE 95.3 MG/DL; TOTAL PROTEIN,RANDOM URINE 619.1 MG/DL (0.0-12.0)
== END ==
LOC: M LAB 13:21
PROVIDERS: ATTEND Student in an Organized Health Care Education/Training Program
DX: N18.3 Chronic kidney disease, stage 3 (moderate) (principal); M89.9 Disorder of bone, unspecified; D63.1 Anemia in chronic kidney disease; E11.21 Type 2 diabetes mellitus with diabetic nephropathy; E11.22 Type 2 diabetes mellitus with diabetic chronic kidney disease

== ENCOUNTER → 2020-03-24 | Outpatient (CLI) | payer MEDICARE | LOC: M LAB 08:39 | PROVIDERS: ATTEND Urology | DX: Z12.5 Encounter for screening for malignant neoplasm of prostate (principal) ==

== ENCOUNTER → 2020-04-13 | Outpatient (CLI) | payer MEDICARE ==
--- NOTE | 2020-04-21 14:52 | REP ---
URINARY TRACT SONOGRAPHY HISTORY: Right-sided renal cell carcinoma status post right nephrectomy. COMPARISON: CT study 01/27/2020. SONOGRAPHIC FINDINGS: The right kidney is surgically absent. Scanning at the level of the urinary bladder shows no intravesical lesion, although the bladder is not well- distended. On the left, renal cortical echogenicity pattern is normal and contours are smooth. No hydronephrosis is seen. No mass, cyst, or calculus is observed on the left. The left kidney measures 13.7 x 7.3 x 7.6 cm. IMPRESSION: Post right nephrectomy. Unremarkable left kidney and urinary bladder. MTDD
== END ==
LOC: M RAD 13:08
PROVIDERS: ATTEND Urology
DX: Z85.528 Personal history of other malignant neoplasm of kidney (principal); Z90.5 Acquired absence of kidney

== ENCOUNTER → 2020-04-30 | Outpatient (CLI) | payer MEDICARE ==
[2020-04-30 10:00] LABS: CALCIUM LEVEL 9.1 MG/DL (8.8-10.2); CREATININE FOR GFR 2.21 MG/DL (0.70-1.30); GLOMERULAR FILTRATION RATE 31.9 (>49); POTASSIUM SERUM 4.3 MEQ/L (3.5-5.1)
== END ==
LOC: M LAB 09:01
PROVIDERS: ATTEND Family Medicine
DX: N18.32 Chronic kidney disease, stage 3b (principal)
CPT/HCPCS: 36415; 80048; G0463

== ENCOUNTER → 2020-07-01 | Outpatient (CLI) | payer MEDICARE ==
[2020-07-01 14:19] LABS: HEMATOCRIT 35.8 % (42.0-52.0); HEMOGLOBIN 12.7 g/dl (13.5-17.5); MEAN CORPUSCULAR HEMOGLOBIN 33.9 pg (27.0-33.0); MEAN CORPUSCULAR HGB CONC 35.5 g/dl (32.0-36.5); MEAN CORPUSCULAR VOLUME 95.5 fl (80.0-96.0); PLATELET COUNT, AUTOMATED 191 10^3/uL (150-450); RED BLOOD COUNT 3.75 10^6/uL (4.30-6.10); WHITE BLOOD COUNT 8.2 10^3/uL (4.0-10.0)
[2020-07-01 14:41] LABS: CALCIUM LEVEL 8.7 MG/DL (8.8-10.2); CREATININE FOR GFR 2.56 MG/DL (0.70-1.30); GLOMERULAR FILTRATION RATE 26.9 (>49); POTASSIUM SERUM 4.2 MEQ/L (3.5-5.1)
--- NOTE | 2020-07-01 14:50 | REP ---
INDICATION: ENCOUNTER FOR LUNG SCREENING FOR CA. COMPARISON: PA and lateral plain film study of the chest dated 03/23/2020. There are no comparison chest CTs. TECHNIQUE: The study is performed without IV contrast. The images are presented at lung windowing only. FINDINGS: There are no lung masses or nodules. There are no infiltrates or pleural effusions. IMPRESSION: Category 1 low-dose lung screening CT of the chest. The probability of malignancy is less than 1%. Depending on risk factors consider annual follow-up low-dose lung screening chest CT. <Electronically signed by Don Oviedo > 07/01/20 0013
[2020-07-01 15:32] LABS: HEMOGLOBIN A1c 5.9 %
== END ==
LOC: M LAB 13:02
PROVIDERS: ATTEND Family Medicine
DX: N18.32 Chronic kidney disease, stage 3b (principal); E11.9 Type 2 diabetes mellitus without complications; Z12.2 Encounter for screening for malignant neoplasm of respiratory organs
CPT/HCPCS: 36415; 80048; 83036; 85027; G0297

== ENCOUNTER → 2020-09-22 | Outpatient (REF) | payer MEDICARE | LOC: M SFHCPLAZ 10:09 | PROVIDERS: ATTEND Family Medicine | DX: E11.29 Type 2 diabetes mellitus with other diabetic kidney complication (principal); I10 Essential (primary) hypertension ==

== ENCOUNTER → 2020-09-30 | Outpatient (CLI) | payer MEDICARE ==
[2020-09-30 12:36] LABS: HEMATOCRIT 36.7 % (42.0-52.0); HEMOGLOBIN 12.9 g/dl (13.5-17.5); MEAN CORPUSCULAR HEMOGLOBIN 32.6 pg (27.0-33.0); MEAN CORPUSCULAR HGB CONC 35.1 g/dl (32.0-36.5); MEAN CORPUSCULAR VOLUME 92.7 fl (80.0-96.0); PLATELET COUNT, AUTOMATED 214 10^3/uL (150-450); RED BLOOD COUNT 3.96 10^6/uL (4.30-6.10); WHITE BLOOD COUNT 9.1 10^3/uL (4.0-10.0)
[2020-09-30 13:06] LABS: CALCIUM LEVEL 8.8 MG/DL (8.8-10.2); CREATININE FOR GFR 2.45 MG/DL (0.70-1.30); GLOMERULAR FILTRATION RATE 28.3 (>49); POTASSIUM SERUM 4.2 MEQ/L (3.5-5.1)
[2020-09-30 13:35] LABS: HEMOGLOBIN A1c 6.1 %
== END ==
LOC: M LAB 12:01
PROVIDERS: ATTEND Family Medicine
DX: E11.29 Type 2 diabetes mellitus with other diabetic kidney complication (principal); I10 Essential (primary) hypertension

== ENCOUNTER 2020-12-15 11:54 | Inpatient (IN) | payer MEDICARE ==
[~2020-12-15] VITALS: Ht 172.7 cm; Wt 78.7 kg
[2020-12-15] MEDS ORDERED: HYDR-3713 PO (12:12)
[2020-12-15] MEDS ORDERED: GLYB125TA PO (12:12)
[2020-12-15] MEDS ORDERED: COLA100C5 PO (12:12)
[2020-12-15] MEDS ORDERED: CARV25TA PO (12:12)
[2020-12-15 12:41] LABS: BASO # 0.1 10^3/uL (0.0-0.2); BASO % 0.8 % (0.0-1.0); EOS # 0.4 10^3/uL (0.0-0.5); EOS % 4.5 % (0.0-3.0); HEMATOCRIT 34.1 % (42.0-52.0); HEMOGLOBIN 12.1 g/dl (13.5-17.5); LYMPH # 1.8 10^3/uL (1.5-5.0); LYMPH % 21.8 % (24.0-44.0); MEAN CORPUSCULAR HEMOGLOBIN 32.6 pg (27.0-33.0); MEAN CORPUSCULAR HGB CONC 35.5 g/dl (32.0-36.5); MEAN CORPUSCULAR VOLUME 91.9 fl (80.0-96.0); MONO # 0.9 10^3/uL (0.0-0.8); MONO % 10.4 % (2.0-8.0); NEUTROPHILS # 5.2 10^3/uL (1.5-8.5); PLATELET COUNT, AUTOMATED 191 10^3/uL (150-450); RED BLOOD COUNT 3.71 10^6/uL (4.30-6.10); WHITE BLOOD COUNT 8.4 10^3/uL (4.0-10.0)
--- NOTE | 2020-12-15 12:42 | REP ---
INDICATION: left sided weakness COMPARISON: None. TECHNIQUE: Axial noncontrast images from the skull base to the thoracic inlet with coronal reformations. This CT examination was performed using the following dose reduction techniques: Automated exposure control, adjustment of mA and/or kv according to the patient's size, and use of iterative reconstruction technique. FINDINGS: Atrophy with periventricular leukomalacia and microvascular ischemic changes are appreciated. The ventricles and sulci are symmetric. Henriquez-white differentiation is maintained. There is no evidence for acute intracranial hemorrhage, mass/mass effect, pathology or infarction. No extra-axial fluid collection. Calvarium is intact. Moderate mucoperiosteal changes involving the sinuses and left mastoid air cells suggests acute/chronic sinus disease. IMPRESSION: Atrophy and microvascular ischemic changes. No acute intracranial hemorrhage, infarction, or mass/mass effect. <Electronically signed by Neo Pacheco > 12/15/20 [id number]
[2020-12-15 12:52] LABS: PROTHROMBIN TIME 13.4 SECONDS (12.5-14.3)
[2020-12-15 12:53] LABS: PARTIAL THROMBOPLASTIN TIME 29.2 SECONDS (24.2-38.5)
[2020-12-15 13:15] LABS: ALBUMIN 3.3 GM/DL (3.2-5.2); BILIRUBIN,DIRECT 0.1 MG/DL (0.0-0.2); BILIRUBIN,TOTAL 0.4 MG/DL (0.2-1.0); CALCIUM LEVEL 8.7 MG/DL (8.8-10.2); CREATININE FOR GFR 2.42 MG/DL (0.70-1.30); GLOMERULAR FILTRATION RATE 28.7 (>49); MB/CK RELATIVE INDEX 1.12 (< OR =4); POTASSIUM SERUM 4.1 MEQ/L (3.5-5.1); THYROID STIMULATING HORMONE 0.544 uIU/ML (0.358-3.740); TOTAL PROTEIN 6.5 GM/DL (6.4-8.2); TROPONIN I 0.09 NG/ML (< 0.10)
[2020-12-15] MEDS ORDERED: D31000TA2 PO (14:35)
[2020-12-15] MEDS ORDERED: C 50TAB PO (14:35)
[2020-12-15] MEDS ORDERED: NORCO, ANEXSIA 5/325MG TABLET (HYDROcodone/ACETAMINOPHEN) PO PRN (15:05)
[2020-12-15] MEDS ORDERED: GLUCAGON INJ 1MG VIAL SC PRN (15:05)
[2020-12-15] MEDS ORDERED: DEXTROSE 50% 50 ML SYRINGE IV PRN (15:05)
[2020-12-15] MEDS ORDERED: GLUCOSE 4GM CHEW TABLET PO PRN (15:05)
[2020-12-15] MEDS ORDERED: hydrALAZINE 20MG/ML 1ML VIAL (J0360 PER 20MG) IV PRN (15:10)
[2020-12-15] MEDS ORDERED: ACETAMINOPHEN TAB 650MG DOSE (2X325MG) PO PRN (15:10)
[2020-12-15 15:47] LABS: RSV AMPLIFICATION NEGATIVE (NEGATIVE)
--- NOTE | 2020-12-15 15:53 | HPEPDOC ---
General Date of Admission Dec 15, 2020 at 15:08 Date of Service: Dec 15, 2020 Chief Complaint The patient is a 65-year-old male admitted with a reason for visit of Left Side Numbness. Source: Patient Exam Limitations: No limitations History of Present Illness Patient is 65 years old male with past medical history of type 2 diabetes, hypertension, hyperlipidemia, coronary artery diseases, renal cell carcinoma status post radical nephrectomy, spinal stenosis presented hospital with left sided numbness. Patient stated that 6 days ago when he woke up he developed numbness of left arm left leg and left part of the face with intermittent tingling. Patient stated that his symptoms are constant most of the time and not getting better. Patient denied fever, chills, nausea, vomiting, diarrhea or dysuria. Patient stated that he has never had symptoms before. Of note patient has spinal stenosis with degenerative discs C5, T5-6 and L4-L5. In ER patient w as found to have elevated systolic blood pressure of 172, creatinine 2.[address] head was done and showed no acute stroke or bleed Home Medications Scheduled Amlodipine Besylate (Amlodipine Besylate) 10 Mg Tab, 10 MG PO DAILY, (Reported) Ascorbic Acid (Vitamin C) 500 Mg Tablet, 500 MG PO DAILY, (Reported) Aspirin (Aspirin EC) 81 Mg Tab, 81 MG PO DAILY, (Reported) Atorvastatin Calcium (Atorvastatin Calcium) 40 Mg Tab, 40 MG PO DAILY, (Reported) Carvedilol (Carvedilol) 25 Mg Tablet, 25 MG PO BID, (Reported) Chlorthalidone (Chlorthalidone) 25 Mg Tablet, 25 MG PO DAILY, (Reported) Cholecalciferol (Vitamin D3) (Vitamin D3) 1,000 Unit Tablet, 1,000 UNITS PO DAILY, (Reported) Docusate Sodium (Colace) 100 Mg Capsule, 100 MG PO BID, (Reported) Glyburide (Glyburide) 1.25 Mg Tablet, 1.25 MG PO QHS, (Reported) Losartan Potassium (Losartan Potassium) 100 Mg Tab, 100 MG PO DAILY, (Reported) Scheduled PRN Hydrocodone/Acetaminophen (Hydrocodone-Acetamin 5-325 mg) 1 Each Tablet, 1 TAB PO TID PRN for PAIN, (Reported) Allergies Coded Allergies: No Known Allergies (Unverified , 11/22/17) Past Medical History Medical History T2DM HTN GOAL< 140/90 HLD CAD, S/P NE SMOKER, NO HX OF PNEUMONIA VACCINATION OSTEOARTHRITIS RENAL CELL CARCINOMA S/P RADICAL NEPHRECTOMY MODERATE SPINAL STENOSIS L4-L5 RENAL CELL CARCINOMA OF RIGHT KIDNEY Surgical History RADICAL NEPHRECTOMY (RIGHT) 10/26/2017 COLONOSCOPY 04/12/18 ([facility]IN[facility]) - COLONIC MUCOSA WITH ASSOCIATED LYMPHOID FOLLICLE, NO ADENOMATOUS CHANGES IDENTIFIED, MILD DIVERTICULOSIS AND SMALL INTERNAL HEMORRHOIDS. (REPEAT 10 YRS) Family History FATHER: 94 YRS, SCHIZOPHRENIA, OF MOTHER: , ALCOHOLIC, OF CIRRHOSIS Social History * Smoker: current smoker Alcohol: heavy Drugs: denies A-FIB/CHADSVASC A-FIB History Current/History of A-Fib/PAF?: No Current PO Anticoag Therapy: No Review of Systems Constitutional: Denies: Chills, Fever Eyes: Denies: Pain ENT: Denies: Head Aches Skin: Denies: Lesions Pulmonary: Denies: Dyspnea Cardiovascular: Denies: Chest Pain Gastrointestinal: Denies: Nausea, Vomiting Genitourinary: Denies: Dysuria, Frequency Hematologic: Denies: Bruising Endocrine: Denies: Polydipsia Musculoskeletal: Denies: Neck Pain Neurological: Reports: Numbness; Denies: Weakness, Change in speech Psych: Reports: Mood Normal Physical Examination General Exam: Positive: Alert, Cooperative Eye Exam: Positive: PERRLA ENT Exam: Positive: Atraumatic Neck Exam: Positive: Supple; Negative: JVD Chest Exam: Positive: Clear to auscultation Heart Exam: Positive: Rate Normal Telemetry: Positive: No significant arrhythmia Abdomen Exam: Positive: Normal bowel sounds Extremity Exam: Negative: Clubbing Skin Exam: Positive: Nl turgor and temperature Neuro Exam: Positive: Normal Gait, Strength at 5/5 X4 ext; Negative: Sensation Intact (numbness of left face) Psych Exam: Positive: Mental status NL, Oriented x 3 Vital Signs Vital Signs Date Time Temp Pulse Resp B/P (MAP) Pulse Ox O2 Delivery O2 Flow Rate FiO2 12/15/20 12:27 12/15/20 11:55 98.2 77 18 98 Room Air Laboratory Data Labs 24H Laboratory Tests 2 12/15/20 12:18: Immature Granulocyte % (Auto) 0.5, Neutrophils (%) (Auto) 62.0, Lymphocytes (%) (Auto) 21.8L, Monocytes (%) (Auto) 10.4H, Eosinophils (%) (Auto) 4.5H, Basophils (%) (Auto) 0.8, Neutrophils # (Auto) 5.2, Lymphocytes # (Auto) 1.8, Monocytes # (Auto) 0.9H, Eosinophils # (Auto) 0.4, Basophils # (Auto) 0.1, Nucleated Red Blood Cells % (auto) 0.0, Anion Gap 8, Glomerular Filtration Rate 28.7L, Calcium Level 8.7L, Total Bilirubin 0.4, Direct Bilirubin 0.1, Aspartate Amino Transf (AST/SGOT) 12, Alanine Aminotransferase (ALT/SGPT) 25, Alkaline Phosphatase 94, Total Creatine Kinase 89, Creatine Kinase MB 1.0, Creatine Kinase MB Relative Index 1.12, Troponin I 0.09, Total Protein 6.5, Albumin 3.3, Albumin/Globulin Ratio 1.0, Thyroid Stimulating Hormone (TSH) 0.544 12/15/20 12:26: Prothrombin Time 13.4, Prothromb Time International Ratio 1.00, Activated Partial Thromboplast Time 29.2 12/15/20 14:41: CBC/BMP Laboratory Tests 12/15/20 12:18 Assessment/Plan Patient is 65 years old male with past medical history of type 2 diabetes, hypertension, hyperlipidemia, coronary artery diseases, renal cell carcinoma status post radical nephrectomy, spinal stenosis presented hospital with left sided numbness. Patient stated that 6 days ago when he woke up he developed numbness of left arm left leg and left part of the face with intermittent tingling. Patient stated that his symptoms are constant most of the time and not getting better. Patient denied fever, chills, nausea, vomiting, diarrhea or dysuria. Patient stated that he has never had symptoms before. Of note patient has spinal stenosis with degenerative discs C5, T5-6 and L4-L5. In ER patient was found to have elevated systolic blood pressure of 172, creatinine 2.[address] head was done and showed no acute stroke or bleed Problems (1) Numbness Status: Acute Problem Text: There is concern for stroke CT head negative Patient has multiple risk factors including active smoking, hyperlipidemia, hypertension Will proceed with MRI and MRA Echo Aspirin, statin (2) Diabetes mellitus Status: Chronic Problem Text: Insulin sliding scale Diabetes diet (3) Acute on chronic kidney failure Status: Acute Problem Text: Most likely secondary to volume depletion Status post right kidney removal Losartan on hold (4) Hyperlipidemia Status: Chronic Problem Text: Continue statin (5) Hypertension Status: Chronic Problem Text: Hydralazine IV when necessary Lasix on hold Continue amlodipine Plan / VTE VTE Prophylaxis Ordered?: Yes BASHIR ZALDIVAR DO Dec 15, 2020 15:53
--- NOTE | 2020-12-15 17:04 | REP ---
INDICATION: stroke COMPARISON: None. TECHNIQUE: Real-time ultrasound evaluation and duplex Doppler interrogation of the extracranial carotid vasculature is performed. FINDINGS: There is moderate plaquing and narrowing in both carotid bulbs extending into the internal and external carotid arteries. There is elevated peak systolic velocity in both internal carotid arteries, suggesting bilateral stenosis 50-79%. Normal flow velocities are seen. The vertebral arteries demonstrate normal direction of flow. RIGHT LEFT Peak systolic velocity ICA 122 cm/s 187 cm/s End diastolic velocity ICA 17.6 cm/s 23.2 cm/s Peak systolic velocity CCA 122 cm/s 125cm/s Peak systolic velocity ECA 331 cm/s 243 cm/s ICA/CCA ratio 1.08 1.50 IMPRESSION: Moderate plaquing and narrowing bilateral carotid bulbs and internal carotid arteries with elevated peak systolic velocities in the bilateral internal carotid arteries. The findings suggest bilateral stenosis of the internal carotid arteries between 50 and 79%. <Electronically signed by Don Henriquez > 12/15/20 0995
[2020-12-15 17:23] VITALS: BP 118/72
[2020-12-15] MEDS: HumaLOG INSULIN (NovoLOG) PER UNIT SC SCH ×2 (17:30→20:34)
[2020-12-15 20:05] VITALS: BP 154/72
[2020-12-15] MEDS: DOCUSATE SODIUM 100MG CAPSULE PO SCH (20:32)
[2020-12-15] MEDS: CARVedilol 12.5 MG TAB PO SCH (20:33)
--- NOTE | 2020-12-15 20:54 | ECGEPIP ---
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
--- NOTE | 2020-12-15 23:18 | REPVR ---
PROCEDURE INFORMATION: Exam: MR Head Without Contrast Exam date and time: 12/15/2020 10:54 PM Age: 65 years old Clinical indication: Weakness, extremity; Left; Additional info: Stroke TECHNIQUE: Imaging protocol: MR of the head without contrast. COMPARISON: CT Head without contrast 12/15/2020 12:27 PM FINDINGS: Brain: There is hyperintense signal in the periventricular white matter with several additional hyperintense foci scattered throughout the white matter consistent with mild chronic microvascular disease. There are small old white matter, basal ganglia and left thalamic lacunar infarcts. As seen on DWI images 18 and 19 there is a 10 mm focus of restricted diffusion in the right thalamus. This is consistent with a recent, acute to subacute, lacunar infarct as confirmed on ADC. It is visible as a hyperintense focus on FLAIR and T2 weighted images and hypointense signal on T1 weighted images. The visibility on the sequences would indicate this is subacute. Gradient echo images demonstrate no evidence of hemorrhage. There is no extra-axial collection. There is no mass. There are no abnormal flow voids. Cerebral ventricles: Normal. No ventriculomegaly. Bones/joints: Unremarkable. Paranasal sinuses: There is mucosal thickening the sinuses. Mastoid air cells: There is fluid in the left mastoids. Orbital cavity: Unremarkable. Soft tissues: Unremarkable. IMPRESSION: 1. There is chronic microvascular disease with small old lacunar infarcts. 2. There is a recent, acute to subacute, 10 mm right thalamic lacunar infarct. Electronically signed by: Kris Remy On 12/15/2020 23:18:00 PM
--- NOTE | 2020-12-15 23:22 | REPVR ---
PROCEDURE INFORMATION: Exam: MRA Head Without Contrast; Arteriography Exam date and time: 12/15/2020 10:54 PM Age: 65 years old Clinical indication: Patient HX: Left sided arm numbness and weakness; Additional info: Stroke TECHNIQUE: Imaging protocol: Magnetic resonance angiography head without contrast. Exam focused on the arteries. COMPARISON: CT Head without contrast 12/15/2020 12:27 PM FINDINGS: ANTERIOR CIRCULATION: Right internal carotid artery: There is a moderate short segment stenosis of the cavernous segment of the right internal carotid artery. No occlusion. No aneurysm. Right middle cerebral artery: No occlusion or significant stenosis. No aneurysm. Right anterior cerebral artery: No occlusion or significant stenosis. No aneurysm. Left internal carotid artery: Intracranial segment is patent with no significant stenosis. No aneurysm. Left middle cerebral artery: No occlusion or significant stenosis. No aneurysm. Left anterior cerebral artery: No occlusion or significant stenosis. No aneurysm. POSTERIOR CIRCULATION: Right vertebral artery: No occlusion or significant stenosis. No aneurysm. Left vertebral artery: No occlusion or significant stenosis. No aneurysm. Basilar artery: No occlusion or significant stenosis. No aneurysm. Right posterior cerebral artery: No occlusion or significant stenosis. No aneurysm. Left posterior cerebral artery: No occlusion or significant stenosis. No aneurysm. IMPRESSION: 1. Moderate short segment stenosis of the cavernous segment of the right internal carotid. 2. No intracranial large vessel stenosis or occlusion Electronically signed by: Kris Remy On 12/15/2020 23:22:40 PM
[2020-12-15 23:30] VITALS: BP 148/74
[2020-12-16] VITALS (8 sets, daily range): BP systolic 128–188; BP diastolic 54–87
--- NOTE | 2020-12-16 00:43 | IPNPDOC ---
Text Note Date of Service The patient was seen on 12/16/20. NOTE I spoke with patient at bedside with his present, nursing supervision and h is assigned nurse as I explained to the patient of the importance of him not leaving AMA, keeping his Systolic Blood Pressure 140-150 to decrease his chances of having ischemic stroke. This is especially important due to receiving critical results of his MRI Brain. I took report from [facility] Radiologist Dr. Remy at 2328, reporting patient has new acute Right Thalamus infarct 10 mm in size. This will account for patient continued Left side arm numbness/weakness. and Mrs. Floyd verbalized understanding of the new findings and agreed to not leave AMA tonight. Neurology consult/manage [facility] to [facility] Br[facility] De La Garza[facility] and AM provider will f/u. VS,Fishbone, I+O VS, Fishbone, I+O Laboratory Tests 12/15/20 12:18 Vital Signs Date Time Temp Pulse Resp B/P (MAP) Pulse Ox O2 Delivery O2 Flow Rate FiO2 12/15/20 20:33 82 154/72 12/15/20 20:05 97.2 16 97 Room Air NUHA MONSALVE [facility] Dec 16, 2020 00:43
[2020-12-16 05:21] LABS: HEMATOCRIT 32.5 % (42.0-52.0); HEMOGLOBIN 11.4 g/dl (13.5-17.5); MEAN CORPUSCULAR HEMOGLOBIN 32.7 pg (27.0-33.0); MEAN CORPUSCULAR HGB CONC 35.1 g/dl (32.0-36.5); MEAN CORPUSCULAR VOLUME 93.1 fl (80.0-96.0); PLATELET COUNT, AUTOMATED 189 10^3/uL (150-450); RED BLOOD COUNT 3.49 10^6/uL (4.30-6.10)
[2020-12-16 05:36] LABS: CALCIUM LEVEL 8.9 MG/DL (8.8-10.2); CREATININE FOR GFR 2.53 MG/DL (0.70-1.30); GLOMERULAR FILTRATION RATE 27.3 (>49); MAGNESIUM LEVEL 2.1 MG/DL (1.8-2.4); POTASSIUM SERUM 3.4 MEQ/L (3.5-5.1)
[2020-12-16] MEDS ORDERED: POTASSIUM CHLORIDE 10 MEQ SR TABLET PO ONE (07:35)
[2020-12-16] MEDS: HumaLOG INSULIN (NovoLOG) PER UNIT SC SCH ×4 (08:40→21:00)
[2020-12-16] MEDS: DOCUSATE SODIUM 100MG CAPSULE PO SCH ×2 (08:41→21:29)
[2020-12-16] MEDS: ATORVASTATIN 20 MG TAB PO SCH (08:41)
[2020-12-16] MEDS: CARVedilol 12.5 MG TAB PO SCH ×2 (08:41→21:28)
[2020-12-16] MEDS: ASCORBIC ACID 500 MG TAB PO SCH (08:41)
[2020-12-16] MEDS: ENOXAPARIN 40MG/0.4ML SYRINGE (J1650 PER 10MG) SC SCH (08:42)
[2020-12-16] MEDS ORDERED: ASPIRIN 81MG ENTERIC TABLET PO SCH (09:00)
[2020-12-16] MEDS ORDERED: **hydrALAZINE** 50 MG TAB PO ONE ×2 (10:30→18:10)
[2020-12-16] MEDS ORDERED: ASPI32ECTA PO (10:40)
[2020-12-16] MEDS ORDERED: HYDR50TA PO ×2 (10:40→18:15)
--- NOTE | 2020-12-16 14:54 | DS.PDOC ---
Discharge Summary General Date of Admission Dec 15, 2020 at 15:08 Date of Discharge 12/16/20 Discharge Summary PROCEDURES PERFORMED DURING STAY: [None]. ADMITTING DIAGNOSES: Numbness Diabetes mellitus Acute on chronic kidney failure Hyperlipidemia Hypertension DISCHARGE DIAGNOSES: Numbness Diabetes mellitus Acute on chronic kidney failure Hyperlipidemia Hypertension CVA COMPLICATIONS/CHIEF COMPLAINT: Left Side Numbness. HISTORY OF PRESENT ILLNESS: Patient is 65 years old male with past medical history of type 2 diabetes, hypertension, hyperlipidemia, coronary artery diseases, renal cell carcinoma status post radical nephrectomy, spinal stenosis presented hospital with left sided numbness. Patient stated that 6 days ago when he woke up he developed numbness of left arm left leg and left part of the face with intermittent tingling. Patient stated that his symptoms are constant most of the time and not getting better. Patient denied fever, chills, nausea, vomiting, diarrhea or dysuria. Patient stated that he has never had symptoms before. Of note patient has spinal stenosis with degenerative discs C5, T5-6 and L4-L5. In ER patient was found to have elevated systolic blood pressure of 172, creatinine 2.[address] head was done and showed no acute stroke or bleed HOSPITAL COURSE: During the hospital stay following issue addressed Patient was found to have a right thalamic CVA CT head negative Patient has multiple risk factors including active smoking, hyperlipidemia, hyp ertension Echo pending MRI, MRA, carotid ultrasound see report below Aspirin 325, continue statin Patient will need to see vascular surgeon for evaluation for carotid enterectomy Follow-up with neurologist in the outpatient settings Acute on chronic kidney failure Status post right kidney removal Losartan on hold Patient will need close follow-up with junior network engineer DISCHARGE MEDICATIONS: Please see below. ALLERGIES: Please see below. PHYSICAL EXAMINATION ON DISCHARGE: VITAL SIGNS: Please see below. Objective: GENERAL APPEARANCE: NAD HEENT: no scleral icterus, no JVD, EOMI CARDIOVASCULAR: S1S2 LUNGS: CTA ABDOMEN: soft & not tender w palpitation MUSCULOSKELETAL: no cyanosis, no swelling INTEGUMENT: no generalized pallor NEUROLOGICAL: 5th cranial nerves deficiency on the left side,numbness of the left arm and leg, follows commands, speech not dysarthric LABORATORY DATA: Please see below. IMAGING: [facility] NAME: KULWANT CRENSHAW DATE OF : 1955 BUSINESS NUMBER: [id number] AGE: 65 SEX: M REPORT #: [id number] [facility] TECHNOLOGIST: NISSA DOCTOR: BASHIR ZALDIVAR DO Ordered for Date&Time: 12/15/20 1508 cc: [~ rep ct ivnm] Service Date&Time: 12/15/202253 This report is in Signed status. Interpretation performed by [facility]. Thank you for having your radiology procedures performed at [facility] RADIOLOGY REPORT Date&Time printed: [~ rep prt dt last] [~ rep prt tm last] Page 2 of 2 [place] [address] RADIOLOGY REPORT This report is in Signed status. Interpretation performed by [facility]. Thank you for having your radiology procedures performed at [facility] RADIOLOGY REPORT Date&Time printed: [~ rep prt dt last] [~ rep prt tm last] Page 1 of 2 NAME: KULWANT CRENSHAW DATE OF : 1955 BUSINESS NUMBER: [id number] AGE: 65 SEX: M REPORT #: [id number] [facility]: [facility] TECHNOLOGIST: NISSA DOCTOR: BASHIR ZALDIVAR DO Ordered for Date&Time: 12/15/20 1508 cc: [~ rep ct ivnm] Service Date&Time: 12/15/202253 EXAMINATION REQUESTED: MRI-Brain without Contrast REASON FOR PATIENT VISIT: LEFT SIDE NUMBNESS REASON FOR EXAMINATION: stroke ADDENDUM REPORT 1 THIS REPORT CONTAINS FINDINGS THAT MAY BE CRITICAL TO PATIENT CARE. The findings were verbally communicated via telephone conference with DR MONSALVE at 11:29 PM EDT on 12/15/2020. The findings were acknowledged and understood. Electronically signed by: Kris Bright On 12/15/2020 23:29:25 PM DD: KRIS BRIGHT MD 12/15/202253 DT: SANA 12/15/202328 DS: NATALIO 12/15/202328 PROCEDURE INFORMATION: Exam: MR Head Without Contrast Exam date and time: 12/15/2020 10:54 PM Age: 65 years old Clinical indication: Weakness, extremity; Left; Additional info: Stroke TECHNIQUE: Imaging protocol: MR of the head without contrast. COMPARISON: CT Head without contrast 12/15/2020 12:27 PM FINDINGS: Brain: There is hyperintense signal in the periventricular white matter with several additional hyperintense foci scattered throughout the white matter consistent with mild chronic microvascular disease. There are small old white matter, basal ganglia and left thalamic lacunar infarcts. As seen on DWI images 18 and 19 there is a 10 mm focus of restricted diffusion in the right thalamus. This is consistent with a recent, acute to subacute, lacunar infarct as confirmed on ADC. It is visible as a hyperintense focus on FLAIR and T2 weighted images and hypointense signal on T1 weighted images. The visibility on the sequences would indicate this is subacute. Gradient echo images demonstrate no evidence of hemorrhage. There is no extra-axial collection. There is no mass. There are no abnormal flow voids. Cerebral ventricles: Normal. No ventriculomegaly. Bones/joints: Unremarkable. Paranasal sinuses: There is mucosal thickening the sinuses. Mastoid air cells: There is fluid in the left mastoids. Orbital cavity: Unremarkable. Soft tissues: Unremarkable. IMPRESSION: 1. There is chronic microvascular disease with small old lacunar infarcts. 2. There is a recent, acute to subacute, 10 mm right thalamic lacunar infarct. Electronically signed by: Kris Bright On 12/15/2020 23:18:00 PM DD: KRIS BRIGHT MD 12/15/202253 DT: SANA 12/15/202317 DS: NATALIO 12/15/202317 [~ rep ct labl] [facility] NAME: KULWANT CRENSHAW DATE OF : 1955 BUSINESS NUMBER: [id number] AGE: 65 SEX: M REPORT #: [id number] ROOM: [facility] TECHNOLOGIST: NISSA DOCTOR: BASHIR ZALDIVAR DO Ordered for Date&Time: 12/15/20 1508 cc: [~ rep ct ivnm] Service Date&Time: 12/15/202253 This report is in Signed status. Interpretation performed by [facility]. Thank you for having your radiology procedures performed at [facility] RADIOLOGY REPORT Date&Time printed: [~ rep prt dt last] [~ rep prt tm last] Page 2 of 2 [place] [address] RADIOLOGY REPORT This report is in Signed status. Interpretation performed by [facility]. Thank you for having your radiology procedures performed at [facility] RADIOLOGY REPORT Date&Time printed: [~ rep prt dt last] [~ rep prt tm last] Page 1 of 2 NAME: KULWANT CRENSHAW DATE OF : 1955 BUSINESS NUMBER: [id number] AGE: 65 SEX: M REPORT #: [id number] ROOM: [facility] TECHNOLOGIST: NISSA DOCTOR: BASHIR ZALDIVAR DO Ordered for Date&Time: 12/15/20 1508 cc: [~ rep ct ivnm] Service Date&Time: 12/15/202253 EXAMINATION REQUESTED: MRA BRAIN W/O CONTRAST REASON FOR PATIENT VISIT: LEFT SIDE NUMBNESS REASON FOR EXAMINATION: stroke PROCEDURE INFORMATION: Exam: MRA Head Without Contrast; Arteriography Exam date and time: 12/15/2020 10:54 PM Age: 65 years old Clinical indication: Patient HX: Left sided arm numbness and weakness; Additional info: Stroke TECHNIQUE: Imaging protocol: Magnetic resonance angiography head without contrast. Exam focused on the arteries. COMPARISON: CT Head without contrast 12/15/2020 12:27 PM FINDINGS: ANTERIOR CIRCULATION: Right internal carotid artery: There is a moderate short segment stenosis of the cavernous segment of the right internal carotid artery. No occlusion. No aneurysm. Right middle cerebral artery: No occlusion or significant stenosis. No aneurysm. Right anterior cerebral artery: No occlusion or significant stenosis. No aneurysm. Left internal carotid artery: Intracranial segment is patent with no significant stenosis. No aneurysm. Left middle cerebral artery: No occlusion or significant stenosis. No aneurysm. Left anterior cerebral artery: No occlusion or significant stenosis. No aneurysm. POSTERIOR CIRCULATION: Right vertebral artery: No occlusion or significant stenosis. No aneurysm. Left vertebral artery: No occlusion or significant stenosis. No aneurysm. Basilar artery: No occlusion or significant stenosis. No aneurysm. Right posterior cerebral artery: No occlusion or significant stenosis. No aneurysm. Left posterior cerebral artery: No occlusion or significant stenosis. No aneurysm. IMPRESSION: 1. Moderate short segment stenosis of the cavernous segment of the right internal carotid. 2. No intracranial large vessel stenosis or occlusion Electronically signed by: Kris Bright On 12/15/2020 23:22:40 PM DD: KRIS BRIGHT MD 12/15/202253 DT: SANA 12/15/202321 DS: NATALIO 12/15/202321 [~ rep ct labl] [facility] NAME: KULWANT CRENSHAW DATE OF : 1955 AGE: 65 SEX: M REPORT #: [id number] [facility]: [facility] TECHNOLOGIST: [email or web address] DOCTOR: BASHIR ZALDIVAR DO Ordered for Date&Time: 12/15/20 1508 cc: [~ rep ct ivnm] Service Date&Time: 12/15/20 1655 This report is in Signed status. If this report is in a DRAFT status it has not yet been reviewed by the radiologist for accuracy. Thank you for having your radiology procedures performed at [facility] RADIOLOGY REPORT Date&Time printed: [~ rep prt dt last] [~ rep prt tm last] Page 2 of 2 [place] [address] RADIOLOGY REPORT This report is in Signed status. If this report is in a DRAFT status it has not yet been reviewed by the radiologist for accuracy. Thank you for having your radiology procedures performed at [facility] RADIOLOGY REPORT Date&Time printed: [~ rep prt dt last] [~ rep prt tm last] Page 1 of 1 INDICATION: stroke COMPARISON: None. TECHNIQUE: Real-time ultrasound evaluation and duplex Doppler interrogation of the extracranial carotid vasculature is performed. FINDINGS: There is moderate plaquing and narrowing in both carotid bulbs extending into the internal and external carotid arteries. There is elevated peak systolic velocity in both internal carotid arteries, suggesting bilateral stenosis 50-79%. Normal flow velocities are seen. The vertebral arteries demonstrate normal direction of flow. RIGHT LEFT Peak systolic velocity ICA 122 cm/s 187 cm/s End diastolic velocity ICA 17.6 cm/s 23.2 cm/s Peak systolic velocity CCA 122 cm/s 125cm/s Peak systolic velocity ECA 331 cm/s 243 cm/s ICA/CCA ratio 1.08 1.50 IMPRESSION: Moderate plaquing and narrowing bilateral carotid bulbs and internal carotid arteries with elevated peak systolic velocities in the bilateral internal carotid arteries. The findings suggest bilateral stenosis of the internal carotid arteries between 50 and 79%. <Electronically signed by Don Henriquez > 12/15/20 1700 DD: Don Henriquez MD, MD 12/15/201656 DT: ROGELIO 12/15/201699 DS: BETY 12/15/20165612/15/201656 [~ rep ct labl] PROGNOSIS: Fair ACTIVITY: [As tolerated]. DIET: Cardiac/diabetes DISPOSITION: Home ITEMS TO FOLLOWUP ON ON OUTPATIENT: Follow-up with neurologist and vascular surgeon DISCHARGE CONDITION: [Stable]. TIME SPENT ON DISCHARGE:40 minutes. Vital Signs/I&Os Vital Signs Date Time Temp Pulse Resp B/P (MAP) Pulse Ox O2 Delivery O2 Flow Rate FiO2 12/16/20 12:30 97.5 72 17 128/64 (85) 98 Room Air Laboratory Data Labs 24H Laboratory Tests 2 12/15/20 17:58: Bedside Glucose (Misc Panel) 110 12/15/20 20:31: Bedside Glucose (Misc Panel) 188H 12/16/20 04:55: Nucleated Red Blood Cells % (auto) 0.0, Anion Gap 9, Glomerular Filtration Rate 27.3L, Calcium Level 8.9, Magnesium Level 2.1 12/16/20 11:20: Bedside Glucose (Misc Panel) 176H CBC/BMP Laboratory Tests 12/16/20 04:55 FSBS Laboratory Tests Test 12/15/20 17:58 12/15/20 20:31 12/16/20 11:20 Range/Units Bedside Glucose (Misc Panel) 110 188 176 80-115 MG/DL Discharge Medications Scheduled Amlodipine Besylate (Amlodipine Besylate) 10 Mg Tab, 10 MG PO DAILY, (Reported) Ascorbic Acid (Vitamin C) 500 Mg Tablet, 500 MG PO DAILY, (Reported) Aspirin (Aspirin EC) 325 Mg Tablet.dr, 325 MG PO DAILY Atorvastatin Calcium (Atorvastatin Calcium) 40 Mg Tab, 40 MG PO DAILY, (Reported) Carvedilol (Carvedilol) 25 Mg Tablet, 25 MG PO BID, (Reported) Cholecalciferol (Vitamin D3) (Vitamin D3) 1,000 Unit Tablet, 1,000 UNITS PO DAILY, (Reported) Docusate Sodium (Colace) 100 Mg Capsule, 100 MG PO BID, (Reported) Glyburide (Glyburide) 1.25 Mg Tablet, 1.25 MG PO QHS, (Reported) Hydralazine HCl (Hydralazine HCl) 50 Mg Tablet, 50 MG PO TID Scheduled PRN Hydrocodone/Acetaminophen (Hydrocodone-Acetamin 5-325 mg) 1 Each Tablet, 1 TAB PO TID PRN for PAIN, (Reported) Allergies Coded Allergies: No Known Allergies (Unverified , 11/22/17) BASHIR ZALDIVAR DO Dec 16, 2020 14:54
[2020-12-16] MEDS ORDERED: **hydrALAZINE** 50 MG TAB PO SCH (21:00)
[2020-12-16] MEDS: **hydrALAZINE** 50 MG TAB PO SCH (21:27)
[2020-12-17] VITALS: BP 138/65
[2020-12-17 04:00] VITALS: BP 171/76
[2020-12-17] MEDS: **hydrALAZINE** 50 MG TAB PO SCH (05:15)
[2020-12-17] MEDS: HumaLOG INSULIN (NovoLOG) PER UNIT SC SCH ×2 (07:30→12:00)
[2020-12-17 07:54] VITALS: BP 144/75
[2020-12-17] MEDS: ATORVASTATIN 20 MG TAB PO SCH (08:02)
[2020-12-17] MEDS: ASCORBIC ACID 500 MG TAB PO SCH (08:02)
[2020-12-17] MEDS: ENOXAPARIN 40MG/0.4ML SYRINGE (J1650 PER 10MG) SC SCH (08:03)
[2020-12-17] MEDS: CARVedilol 12.5 MG TAB PO SCH (08:03)
[2020-12-17] MEDS: DOCUSATE SODIUM 100MG CAPSULE PO SCH (08:08)
[2020-12-17 08:33] LABS: BASO # 0.1 10^3/uL (0.0-0.2); BASO % 0.9 % (0.0-1.0); EOS # 0.3 10^3/uL (0.0-0.5); EOS % 4.1 % (0.0-3.0); HEMATOCRIT 33.1 % (42.0-52.0); HEMOGLOBIN 11.4 g/dl (13.5-17.5); LYMPH # 1.5 10^3/uL (1.5-5.0); LYMPH % 19.7 % (24.0-44.0); MEAN CORPUSCULAR HEMOGLOBIN 32.4 pg (27.0-33.0); MEAN CORPUSCULAR HGB CONC 34.4 g/dl (32.0-36.5); MONO # 0.6 10^3/uL (0.0-0.8); MONO % 8.1 % (2.0-8.0); NEUTROPHILS # 5.1 10^3/uL (1.5-8.5); NEUTROPHILS % 66.9 % (36.0-66.0); PLATELET COUNT, AUTOMATED 184 10^3/uL (150-450); RED BLOOD COUNT 3.52 10^6/uL (4.30-6.10); WHITE BLOOD COUNT 7.7 10^3/uL (4.0-10.0)
[2020-12-17] MEDS ORDERED: ASPIRIN ENTERIC 325 MG TAB PO SCH (09:00)
[2020-12-17 09:05] LABS: CALCIUM LEVEL 8.6 MG/DL (8.8-10.2); CREATININE FOR GFR 2.42 MG/DL (0.70-1.30); GLOMERULAR FILTRATION RATE 28.7 (>49); MAGNESIUM LEVEL 2.4 MG/DL (1.8-2.4); POTASSIUM SERUM 4.1 MEQ/L (3.5-5.1)
--- NOTE | 2020-12-17 09:11 | ECHO ---
ECHOCARDIOGRAM DATE OF PROCEDURE: 12/16/2020 Age: 65 Gender: Male Height: 68 inches Weight: 183 pounds Body surface area: 1.97 m2 PATIENT LOCATION: Inpatient, PCU Room 3226. REFERRING PHYSICIAN: Primitivo Sheehan DO. INDICATION: Cardiac dysrhythmias. MEASUREMENTS: 2D Measurements: RV 4.0 cm LV 4.2 cm Septum 1.1 cm Posterior wall 1.1 cm Aortic Root 3.6 cm LA 3.8 cm LVEF 75% Doppler Measurements: AV 1.6 m/s LVOT 1.0 m/s LVOT diameter 2.1 cm MV-E 82, A 96, E/A ratio 0.9 Early mitral deceleration time 206 msec E prime medial 5.4, A prime medial 12, E prime lateral 6.4 Average E/E prime ratio 13.9/PCWP - 19 mmHg PV Could not be well visualized. RVSP We attempted to estimate, but could not get a clear spectral envelope to measure the observed gradient across the tricuspid valve. IVC 2.1 cm COMMENTS: Normal sinus rhythm without intraventricular conduction disturbance. Technically difficult study, but some diagnostically useful information was still obtained. M-mode and two-dimensional echocardiography was performed with pulse, continuous wave, color flow, and tissue Doppler studies. Normal left ventricular size, wall thickness, and hyperkinetic wall motion. Left atrial size upper limits of normal with grade 1 LV diastolic dysfunction and current estimated mean left atrial pressure slightly increased. Normal right heart chamber sizes and motion, but could not estimate the patient's right ventricular systolic pressure in light of technically difficulties with Doppler assessment. IVC size upper limits of normal with normal respiratory collapse against an elevated central venous pressure. Normal aortic dimensions. Mild aortic valvular sclerosis without stenosis or insufficiency. Mild mitral annular thickening with normal leaflet excursion and no posterior systolic buckling. Trace mitral insufficiency. Normal appearing tricuspid valve with only trace insufficiency. No apparent intracardiac mass or pericardial effusion. MTDD
[2020-12-17 11:55] VITALS: BP 142/79
[2020-12-17] MEDS ORDERED: **hydrALAZINE** 50 MG TAB PO SCH (12:00)
[2020-12-17] MEDS ORDERED: ASPI32ECTA PO (14:23)
[2020-12-17] MEDS ORDERED: HYDR50TA PO (14:23)
--- NOTE | 2020-12-19 23:47 | CR ---
NEUROLOGY CONSULTATION NOTE DATE: 12/17/2020 REFERRING PROVIDER: Dr. Primitivo Sheehan HISTORY OF PRESENT ILLNESS: The patient is a 65-year-old male with past medical history significant for type 2 diabetes, hypertension, hyperlipidemia, coronary artery disease, history of renal cell carcinoma; status post radical nephrectomy, tobacco abuse. The patient presents with six day history of numbness around the left arm and leg and part of the face. The patient was admitted to [facility]. He was identified on MRI imaging to have had a right thalamic stroke. During the hospitalization, CT angiography revealed bilateral 50 to 79% carotid stenosis with involvement into the right internal carotid artery cavernous segment where there was moderate short segment stenosis. The patient continues to have some paresthesias involving the left side of his body, though the symptoms are significantly improved. The patient is in agreement that he needs to cut down on tobacco use and discontinue it. He is aware that another stroke could result due to his ongoing tobacco use. The patient states that he has had trouble controlling his blood pressure. He has been given numerous oral antihypertensive medications. The patient did undergo an echocardiogram, which did not find any particular right to left shunting. The patient was taking 81 mg aspirin every day prior to the stroke. He is in agreement to go ahead and raise his aspirin dosage up to 325 mg daily. He will need an outpatient evaluation for his bilateral carotid stenosis. REVIEW OF SYSTEMS: A 14-point review of systems obtained and is negative except for as per HPI. Patient denies diplopia, dysarthria, dysphagia, vertigo, dizziness, ataxia, weakness at the present time. PAST MEDICAL HISTORY: Hypertension, type 2 diabetes, hyperlipidemia, coronary artery disease, renal cell carcinoma; status post radical nephrectomy, history of spinal stenosis, history of tobacco abuse, osteoarthritis, history of myocardial infarction. PAST SURGICAL HISTORY: Radical nephrectomy on the right October 26, 2017, colonoscopy April 04, 2018. FAMILY HISTORY: Noncontributory. SOCIAL HISTORY: Patient is an active heavy smoker. He consumes alcohol regularly. Denies any recreational drug use. PHYSICAL EXAMINATION: VITAL SIGNS: Blood pressure 151/72, pulse rate 72, respiratory rate 18, oxygenation 98% on room air, temperature 97.9 degrees Fahrenheit. GENERAL: Patient is oriented to person, place and time. Speech, language, comprehension and repetition are intact. HEENT: Pupils are 3 mm and round. Extraocular movements are intact. There is no facial weakness. Tongue is midline. Hearing is equal to finger rub. NEUROLOGIC: There is no loss of sensation to light touch in the face, arms and legs on the right, however on the left, he does have paresthesias of the left face, arm and leg. There is no ataxia, dysmetria or tremor. Romberg testing and gait are normal. Cranial nerves II through XII are intact. ASSESSMENT: 1. A 65-year-old male with new findings of right thalamic stroke causing left-sided tim-sensory loss; likely due to hypertension. PLAN: 1. Optimize hypertension, hyperlipidemia, type 2 diabetes. 2. Patient counseled to quit smoking immediately. 3. Patient will be discharged later today. 4. Will need outpatient evaluation for bilateral 50 to 79% carotid stenosis with vascular surgery. 5. Patient should continue statin therapy and higher dosage of aspirin at 325 mg daily. 6. History obtained from both the patient and patient's . 7. Follow-up in the [facility] within the next 4 to 6 weeks.
== END 2020-12-17 13:04 | disposition home or self-care (01) | DRG 65 ==
LOC: M ED 11:54 → M ED INP 15:08 → ENRESERV 15:59 → M PCU 17:18
PROVIDERS: ADMIT Internal Medicine; ATTEND Internal Medicine
DX: I63.9 Cerebral infarction, unspecified (principal); N17.9 Acute kidney failure, unspecified; E11.22 Type 2 diabetes mellitus with diabetic chronic kidney disease; N18.9 Chronic kidney disease, unspecified; R20.0 Anesthesia of skin; E78.5 Hyperlipidemia, unspecified; I12.9 Hypertensive chronic kidney disease with stage 1 through stage 4 chronic kidney disease, or unspecified chronic kidney disease; I25.10 Atherosclerotic heart disease of native coronary artery without angina pectoris; Z79.899 Other long term (current) drug therapy; Z79.82 Long term (current) use of aspirin; Z85.528 Personal history of other malignant neoplasm of kidney; F17.200 Nicotine dependence, unspecified, uncomplicated; M19.90 Unspecified osteoarthritis, unspecified site; I25.2 Old myocardial infarction

== ENCOUNTER → 2020-12-22 | Outpatient (CLI) | payer MEDICARE ==
[~2020-12-22] MED LIST changes: +ASPI32ECTA PO; +C 50TAB PO; +CARV25TA PO; +D31000TA2 PO; +GLYB125TA PO; +HYDR50TA PO
[2020-12-22 11:52] LABS: HEMOGLOBIN 11.4 g/dl (13.5-17.5); MEAN CORPUSCULAR HEMOGLOBIN 33.2 pg (27.0-33.0); MEAN CORPUSCULAR HGB CONC 34.5 g/dl (32.0-36.5); MEAN CORPUSCULAR VOLUME 96.2 fl (80.0-96.0); PLATELET COUNT, AUTOMATED 182 10^3/uL (150-450); RED BLOOD COUNT 3.43 10^6/uL (4.30-6.10); WHITE BLOOD COUNT 8.3 10^3/uL (4.0-10.0)
[2020-12-22 14:31] LABS: MAU/CREAT RATIO 2845.5 MCG/MG (0.0-30.0); TOTAL PROTEIN,RANDOM URINE 398.5 MG/DL (0.0-12.0)
[2020-12-22 16:08] LABS: CALCIUM LEVEL 8.9 MG/DL (8.8-10.2); CREATININE FOR GFR 2.45 MG/DL (0.70-1.30); GLOMERULAR FILTRATION RATE 28.3 (>49); MAGNESIUM LEVEL 2.4 MG/DL (1.8-2.4); PERCENT SATURATION 26.2 % (19.7-50.0); PHOSPHORUS LEVEL 4.6 MG/DL (2.5-4.9); TOTAL 25(OH) VITAMIN D 26.8 NG/ML (30.0-100.0); URIC ACID 8.1 MG/DL (3.5-7.2)
== END ==
LOC: M LAB 08:27
PROVIDERS: ATTEND Student in an Organized Health Care Education/Training Program
DX: N18.32 Chronic kidney disease, stage 3b (principal)

== ENCOUNTER → 2020-12-27 | Outpatient (REF) | payer MEDICARE ==
[~2020-12-27] MED LIST changes: +LOSA25TA14; +OMEP40CA4 PO; -OMEP40CA97 PO
== END ==
LOC: M SFHCPLAZ 09:59
PROVIDERS: ATTEND Family Medicine
DX: E11.29 Type 2 diabetes mellitus with other diabetic kidney complication (principal)

== ENCOUNTER 2021-01-01 18:43 | Emergency (ER) | payer MEDICARE ==
[~2021-01-01] VITALS: Ht 172.7 cm; Wt 84.7 kg
[~2021-01-01 18:43] MED LIST changes: -LOSA25TA14
[2021-01-01] MEDS ORDERED: LOSA25TA14 (18:50)
[2021-01-01] MEDS ORDERED: **hydrALAZINE** 50 MG TAB PO ONE (20:45)
[2021-01-01] MEDS ORDERED: CARVedilol 12.5 MG TAB PO ONE (20:45)
[2021-01-01 20:47] LABS: BASO # 0.1 10^3/uL (0.0-0.2); BASO % 0.6 % (0.0-1.0); EOS # 0.4 10^3/uL (0.0-0.5); EOS % 5.4 % (0.0-3.0); LYMPH # 1.1 10^3/uL (1.5-5.0); LYMPH % 13.4 % (24.0-44.0); MEAN CORPUSCULAR HEMOGLOBIN 32.7 pg (27.0-33.0); MEAN CORPUSCULAR HGB CONC 34.4 g/dl (32.0-36.5); MEAN CORPUSCULAR VOLUME 95.2 fl (80.0-96.0); MONO # 1.1 10^3/uL (0.0-0.8); MONO % 14.3 % (2.0-8.0); NEUTROPHILS # 5.3 10^3/uL (1.5-8.5); PLATELET COUNT, AUTOMATED 180 10^3/uL (150-450); RED BLOOD COUNT 3.36 10^6/uL (4.30-6.10)
[2021-01-01 21:06] VITALS: BP 204/92
[2021-01-01 21:24] LABS: BLOOD UREA NITROGEN 51 MG/DL (7-18); CALCIUM LEVEL 8.3 MG/DL (8.8-10.2); CARBON DIOXIDE LEVEL 24 MEQ/L (21-32); CHLORIDE LEVEL 108 MEQ/L (98-107); CK-MB VALUE MASS < 1.0 NG/ML (<3.6); CPK CREATINE PHOSPHOKINASE 71 U/L (39-308); CREATININE FOR GFR 2.47 MG/DL (0.70-1.30); GLUCOSE, FASTING 114 MG/DL (70-100); MB/CK RELATIVE INDEX 1.41 (< OR =4); NT-PRO BNP 1794 PG/ML (<125); POTASSIUM SERUM 4.4 MEQ/L (3.5-5.1); SODIUM LEVEL 137 MEQ/L (136-145); TROPONIN I < 0.02 NG/ML (< 0.10)
--- NOTE | 2021-01-01 23:18 | REPVR ---
PROCEDURE INFORMATION: Exam: XR Chest Exam date and time: 01/01/21 (9:19pm) Age: 65 years old Clinical indication: SOB TECHNIQUE: Imaging protocol: Portable CXR Views: 1 view COMPARISON: Chest films of 03/24/20 FINDINGS: Lungs: Unremarkable. No consolidation. Pleural spaces: Unremarkable. No pleural effusions. No pneumothorax. Heart/Mediastinum: Unremarkable. No cardiomegaly. Bones/joints: Degenerative thoracic spine changes again seen. IMPRESSION: No acute findings. Lung adamson remain clear. Electronically signed by: Hannah Rodriguez On 01/01/2021 23:18:11 PM
[2021-01-01] MEDS ORDERED: CHLORTHALIDONE 25 MG TAB PO ONE (23:30)
[2021-01-01] MEDS ORDERED: CHLO125TA PO (23:30)
[2021-01-01 23:44] VITALS: BP 176/78
--- NOTE | 2021-01-02 14:28 | ECGEPIP ---
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
== END 2021-01-01 23:45 | disposition home or self-care (01) ==
LOC: M ED 18:43
DX: N18.9 Chronic kidney disease, unspecified (principal); R22.42 Localized swelling, mass and lump, left lower limb; E11.9 Type 2 diabetes mellitus without complications; I10 Essential (primary) hypertension; Z87.891 Personal history of nicotine dependence

== ENCOUNTER → 2021-01-16 | Outpatient (CLI) | payer MEDICARE ==
[~2021-01-16] MED LIST changes: +LOSA25TA14
[2021-01-16 10:19] LABS: CALCIUM LEVEL 8.2 MG/DL (8.8-10.2); CREATININE FOR GFR 2.55 MG/DL (0.70-1.30); POTASSIUM SERUM 4.8 MEQ/L (3.5-5.1)
--- NOTE | 2021-01-16 10:37 | REP ---
INDICATION: RENAL CELL CARCINOMA OF RT KIDNEY/HAVING LABS DONE FIRST COMPARISON: 01/01/2021 TECHNIQUE: PA and lateral. FINDINGS: The mediastinum and cardiac silhouette are normal. The lung adamson are clear and without acute consolidation, effusion, or pneumothorax. The skeletal structures are intact and normal. IMPRESSION: No acute cardiopulmonary process. <Electronically signed by Neo Pacheco > 01/16/21 103
== END ==
LOC: M LAB 09:29
PROVIDERS: ATTEND Urology
DX: C64.1 Malignant neoplasm of right kidney, except renal pelvis (principal)

== ENCOUNTER → 2021-01-18 | Outpatient (CLI) | payer MEDICARE ==
[~2021-01-18] MED LIST changes: +LOSA100T45 PO; -LOSA100T50 PO; +LOSA25TA13; -LOSA25TA14
== END ==
LOC: M RAD 11:08
PROVIDERS: ATTEND Urology
DX: C64.1 Malignant neoplasm of right kidney, except renal pelvis (principal); Z90.5 Acquired absence of kidney
CPT/HCPCS: 74150; G0463

== ENCOUNTER 2021-01-26 19:01 | Emergency (ER) | payer MEDICARE ==
[~2021-01-26] VITALS: Ht 172.7 cm; Wt 81.1 kg
--- NOTE | 2021-01-26 20:17 | REP ---
INDICATION: DYSPNEA/COUGH. COMPARISON: 01/16/2021 TECHNIQUE: Portable FINDINGS: The technique utilized in obtaining the radiograph has magnified the cardiac silhouette and accentuated the interstitial markings. The superior mediastinal structures are midline. The cardiac silhouette is unremarkable in size, shape, and position. The diaphragmatic surfaces of the lungs are regular, and the costophrenic angles are clear. The pulmonary adamson are clear. The imaged osseous structures are intact. IMPRESSION: There is no acute cardiopulmonary disease. <Electronically signed by Humza Stevens > 01/26/212012
--- NOTE | 2021-01-26 21:06 | ECGEPIP ---
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
[2021-01-26 21:36] LABS: BASO # 0.1 10^3/uL (0.0-0.2); BASO % 1.1 % (0.0-1.0); EOS # 0.5 10^3/uL (0.0-0.5); EOS % 5.4 % (0.0-3.0); HEMATOCRIT 34.8 % (42.0-52.0); LYMPH # 1.7 10^3/uL (1.5-5.0); LYMPH % 19.9 % (24.0-44.0); MEAN CORPUSCULAR HEMOGLOBIN 31.8 pg (27.0-33.0); MEAN CORPUSCULAR HGB CONC 34.5 g/dl (32.0-36.5); MEAN CORPUSCULAR VOLUME 92.3 fl (80.0-96.0); MONO # 0.8 10^3/uL (0.0-0.8); MONO % 9.9 % (2.0-8.0); NEUTROPHILS # 5.4 10^3/uL (1.5-8.5); NEUTROPHILS % 63.3 % (36.0-66.0); PLATELET COUNT, AUTOMATED 199 10^3/uL (150-450); RED BLOOD COUNT 3.77 10^6/uL (4.30-6.10); WHITE BLOOD COUNT 8.5 10^3/uL (4.0-10.0)
[2021-01-26 21:55] LABS: ALBUMIN 3.7 GM/DL (3.2-5.2); ALT/SGPT 45 U/L (12-78); BILIRUBIN,DIRECT < 0.1 MG/DL (0.0-0.2); BILIRUBIN,TOTAL 0.3 MG/DL (0.2-1.0); BLOOD UREA NITROGEN 55 MG/DL (7-18); CARBON DIOXIDE LEVEL 26 MEQ/L (21-32); CHLORIDE LEVEL 108 MEQ/L (98-107); CK-MB VALUE MASS < 1.0 NG/ML (<3.6); CPK CREATINE PHOSPHOKINASE 75 U/L (39-308); CREATININE FOR GFR 2.84 MG/DL (0.70-1.30); GLOMERULAR FILTRATION RATE 23.9 (>49); GLUCOSE, FASTING 190 MG/DL (70-100); MB/CK RELATIVE INDEX 1.33 (< OR =4); NT-PRO BNP 842 PG/ML (<125); POTASSIUM SERUM 4.3 MEQ/L (3.5-5.1); SODIUM LEVEL 143 MEQ/L (136-145); THYROXINE (T4) 9.2 UG/DL (4.5-12.0); TOTAL PROTEIN 7.5 GM/DL (6.4-8.2); TROPONIN I < 0.02 NG/ML (< 0.10)
[2021-01-26 23:31] VITALS: BP 176/82
== END 2021-01-26 23:46 | disposition home or self-care (01) ==
LOC: M ED 19:01
DX: N18.4 Chronic kidney disease, stage 4 (severe) (principal); R06.02 Shortness of breath; I25.10 Atherosclerotic heart disease of native coronary artery without angina pectoris; I12.9 Hypertensive chronic kidney disease with stage 1 through stage 4 chronic kidney disease, or unspecified chronic kidney disease; E11.9 Type 2 diabetes mellitus without complications; E78.5 Hyperlipidemia, unspecified; K21.9 Gastro-esophageal reflux disease without esophagitis; M54.5 Low back pain; R60.0 Localized edema; Z86.73 Personal history of transient ischemic attack (TIA), and cerebral infarction without residual deficits; F17.200 Nicotine dependence, unspecified, uncomplicated; Z79.82 Long term (current) use of aspirin; Z79.899 Other long term (current) drug therapy

== ENCOUNTER → 2021-01-26 | Outpatient (CLI) | payer MEDICARE ==
[~2021-01-26] MED LIST changes: -LOSA100T45 PO; +LOSA100T50 PO; -LOSA25TA13; +LOSA25TA14
[2021-01-26 11:58] LABS: ALBUMIN 3.3 GM/DL (3.2-5.2); CALCIUM LEVEL 8.4 MG/DL (8.8-10.2); CREATININE FOR GFR 2.85 MG/DL (0.70-1.30); GLOMERULAR FILTRATION RATE 23.8 (>49); MAGNESIUM LEVEL 2.2 MG/DL (1.8-2.4); POTASSIUM SERUM 4.3 MEQ/L (3.5-5.1)
== END ==
LOC: M LAB 10:08
PROVIDERS: ATTEND Physician Assistant
DX: N18.4 Chronic kidney disease, stage 4 (severe) (principal); I12.9 Hypertensive chronic kidney disease with stage 1 through stage 4 chronic kidney disease, or unspecified chronic kidney disease; R60.0 Localized edema

== ENCOUNTER → 2021-03-09 | Outpatient (CLI) | payer MEDICARE ==
--- NOTE | 2021-03-09 09:16 | PFTRPT ---
Height: 68.00 Inches Weight: 180.00 Lbs BSA: 1.95 Diagnosis: SOB DATE: 03/09/2021 ORDERING PHYSICIAN: Davey Gonsales MD Pre and post bronchodilator studies have excellent technical quality. Forced vital capacity is reduced. FEV1 is in proportion. Obstructive index is therefore normal. Expiratory limit of the flow-volume loop does suggest some degree of nonspecific flow rate limitation. No significant bronchodilator response is identified. Total lung capacity is normal. Residual volume is consistent with significant air trapping. Diffusing capacity is severely reduced but does correct for alveolar volume and no hemoglobin available for correction. Airway resistance and conductance are normal. IMPRESSION: Suspect significant underlying air trapping. Please correlate clinically. MTDD
[2021-03-09 10:37] LABS: BASO # 0.1 10^3/uL (0.0-0.2); BASO % 1.1 % (0.0-1.0); EOS # 0.5 10^3/uL (0.0-0.5); EOS % 6.2 % (0.0-3.0); HEMATOCRIT 33.6 % (42.0-52.0); HEMOGLOBIN 11.6 g/dl (13.5-17.5); LYMPH # 1.5 10^3/uL (1.5-5.0); LYMPH % 18.9 % (24.0-44.0); MEAN CORPUSCULAR HGB CONC 34.5 g/dl (32.0-36.5); MEAN CORPUSCULAR VOLUME 92.6 fl (80.0-96.0); MONO # 0.8 10^3/uL (0.0-0.8); MONO % 9.9 % (2.0-8.0); NEUTROPHILS % 63.4 % (36.0-66.0); PLATELET COUNT, AUTOMATED 201 10^3/uL (150-450); RED BLOOD COUNT 3.63 10^6/uL (4.30-6.10); WHITE BLOOD COUNT 7.9 10^3/uL (4.0-10.0)
[2021-03-09 10:39] LABS: APPEARANCE, URINE CLEAR (CLEAR); BACTERIA, URINE AUTO NEGATIVE (NEGATIVE); BILIRUBIN, URINE AUTO NEGATIVE (NEGATIVE); BLOOD, URINE BLOOD NEGATIVE (NEGATIVE); COLOR, URINE YELLOW (YELLOW); GLUCOSE, URINE (UA) AUTO 1+ mg/dL (NEGATIVE); KETONE, URINE AUTO NEGATIVE (NEGATIVE); LEUKOCYTE ESTERASE, URINE AUTO NEGATIVE (NEGATIVE); MUCUS, URINE SMALL (NEGATIVE); NITRITE, URINE AUTO NEGATIVE (NEGATIVE); PROTEIN, URINE AUTO 3+ mg/dL (NEGATIVE); RBC, URINE AUTO 1 /HPF (0-3); SPECIFIC GRAVITY URINE AUTO 1.012 (1.002-1.035); SQUAMOUS EPITHELIAL CELL UR AU 0 /HPF (0-6); UROBILINOGEN, URINE AUTO 0.2 mg/dL (0.0-2.0); WBC, URINE AUTO 1 /HPF (0-3)
[2021-03-09 11:18] LABS: ALBUMIN 3.3 GM/DL (3.2-5.2); BILIRUBIN,TOTAL 0.3 MG/DL (0.2-1.0); CALCIUM LEVEL 8.5 MG/DL (8.8-10.2); CHOLESTEROL RISK RATIO 3.676 (<5); CREATININE FOR GFR 2.7 MG/DL (0.70-1.30); GLOMERULAR FILTRATION RATE 25.3 (>49); POTASSIUM SERUM 4.5 MEQ/L (3.5-5.1); TOTAL PROTEIN 6.7 GM/DL (6.4-8.2); URIC ACID 5.9 MG/DL (3.5-7.2)
[2021-03-09 11:55] LABS: CREATININE, URINE 98.6 MG/DL; HEMOGLOBIN A1c 6.4 %; MAU/CREAT RATIO 3245.4 MCG/MG (0.0-30.0)
[2021-03-10 23:07] LABS: PSA TOTAL 1.5 ng/mL (0.0-4.0)
== END ==
LOC: M CARPUL 08:30
PROVIDERS: ATTEND Family Medicine
DX: R06.02 Shortness of breath (principal); E78.00 Pure hypercholesterolemia, unspecified; R97.20 Elevated prostate specific antigen [PSA]

== ENCOUNTER → 2021-03-16 | Outpatient (CLI) | payer MEDICARE ==
--- NOTE | 2021-03-16 09:23 | REP ---
INDICATION: NICOTINE DEPENDENCE. COMPARISON: 07/01/2020. TECHNIQUE: Low dose screening CT chest performed without the use of intravenous contrast. FINDINGS: Lungs: There is a 3 mm nodular density in the left upper lobe on image 43. There is no acute infiltrate. There is an azygos lobe incidentally noted, a normal variant. Heart: Not enlarged. Thoracic aorta: No aneurysm. Visualized osseous structures: There are degenerative changes of the spine. IMPRESSION: Category 2, benign low-dose noncontrast CT lungs. There is a 3 mm nodular density in the left upper lobe on image 43. Continue annual screening CT in 12 months. <Electronically signed by Don Henriquez > 03/16/21 0919
== END ==
LOC: M RAD 08:42
PROVIDERS: ATTEND Family Medicine
DX: R91.8 Other nonspecific abnormal finding of lung field (principal); R06.02 Shortness of breath; F17.210 Nicotine dependence, cigarettes, uncomplicated

== ENCOUNTER → 2021-04-01 | Outpatient (CLI) | payer MEDICARE ==
[2021-04-01 09:02] LABS: CALCIUM LEVEL 8.8 MG/DL (8.8-10.2); CREATININE FOR GFR 2.75 MG/DL (0.70-1.30); GLOMERULAR FILTRATION RATE 24.8 (>49); POTASSIUM SERUM 4.5 MEQ/L (3.5-5.1)
== END ==
LOC: M LAB 07:39
PROVIDERS: ATTEND Student in an Organized Health Care Education/Training Program
DX: N18.4 Chronic kidney disease, stage 4 (severe) (principal)

== ENCOUNTER 2021-04-22 18:02 | Emergency (ER) | payer MEDICARE ==
[~2021-04-22] VITALS: Ht 172.7 cm; Wt 84.6 kg
[2021-04-22 21:40] VITALS: BP 158/72
== END 2021-04-22 21:40 | disposition home or self-care (01) ==
LOC: M ED 18:02
DX: L76.22 Postprocedural hemorrhage of skin and subcutaneous tissue following other procedure (principal); E11.9 Type 2 diabetes mellitus without complications; Z79.899 Other long term (current) drug therapy; Z87.891 Personal history of nicotine dependence; Z90.5 Acquired absence of kidney; Z79.84 Long term (current) use of oral hypoglycemic drugs

== ENCOUNTER → 2021-05-24 | Outpatient (CLI) | payer MEDICARE ==
[2021-05-24 08:29] LABS: BASO # 0.1 10^3/uL (0.0-0.2); BASO % 0.9 % (0.0-1.0); EOS # 0.5 10^3/uL (0.0-0.5); EOS % 6.2 % (0.0-3.0); HEMATOCRIT 34.9 % (42.0-52.0); LYMPH # 1.5 10^3/uL (1.5-5.0); LYMPH % 20.4 % (24.0-44.0); MEAN CORPUSCULAR HEMOGLOBIN 31.7 pg (27.0-33.0); MEAN CORPUSCULAR HGB CONC 34.4 g/dl (32.0-36.5); MEAN CORPUSCULAR VOLUME 92.3 fl (80.0-96.0); MONO # 0.7 10^3/uL (0.0-0.8); MONO % 9.5 % (2.0-8.0); NEUTROPHILS # 4.6 10^3/uL (1.5-8.5); NEUTROPHILS % 62.6 % (36.0-66.0); PLATELET COUNT, AUTOMATED 179 10^3/uL (150-450); RED BLOOD COUNT 3.78 10^6/uL (4.30-6.10); WHITE BLOOD COUNT 7.4 10^3/uL (4.0-10.0)
[2021-05-24 08:34] LABS: APPEARANCE, URINE CLEAR (CLEAR); BACTERIA, URINE AUTO NEGATIVE (NEGATIVE); BILIRUBIN, URINE AUTO NEGATIVE (NEGATIVE); BLOOD, URINE BLOOD NEGATIVE (NEGATIVE); COLOR, URINE YELLOW (YELLOW); GLUCOSE, URINE (UA) AUTO 1+ mg/dL (NEGATIVE); KETONE, URINE AUTO NEGATIVE (NEGATIVE); LEUKOCYTE ESTERASE, URINE AUTO NEGATIVE (NEGATIVE); MUCUS, URINE SMALL (NEGATIVE); NITRITE, URINE AUTO NEGATIVE (NEGATIVE); PROTEIN, URINE AUTO 3+ mg/dL (NEGATIVE); RBC, URINE AUTO 1 /HPF (0-3); SPECIFIC GRAVITY URINE AUTO 1.014 (1.002-1.035); SQUAMOUS EPITHELIAL CELL UR AU 0 /HPF (0-6); UROBILINOGEN, URINE AUTO 0.2 mg/dL (0.0-2.0); WBC, URINE AUTO 0 /HPF (0-3)
[2021-05-24 08:49] LABS: ALBUMIN 3.5 GM/DL (3.2-5.2); BILIRUBIN,TOTAL 0.3 MG/DL (0.2-1.0); CHOLESTEROL RISK RATIO 3.75 (<5); CREATININE FOR GFR 2.89 MG/DL (0.70-1.30); GLOMERULAR FILTRATION RATE 23.3 (>49); POTASSIUM SERUM 4.9 MEQ/L (3.5-5.1); TOTAL PROTEIN 6.9 GM/DL (6.4-8.2); URIC ACID 6.3 MG/DL (3.5-7.2)
[2021-05-24 09:21] LABS: MAU/CREAT RATIO 4262.1 MCG/MG (0.0-30.0)
[2021-05-24 09:34] LABS: HEMOGLOBIN A1c 6.8 %
== END ==
LOC: M LAB 07:35
PROVIDERS: ATTEND Family Medicine
DX: I12.9 Hypertensive chronic kidney disease with stage 1 through stage 4 chronic kidney disease, or unspecified chronic kidney disease (principal); N18.4 Chronic kidney disease, stage 4 (severe); E11.9 Type 2 diabetes mellitus without complications; R31.21 Asymptomatic microscopic hematuria; E78.5 Hyperlipidemia, unspecified

== ENCOUNTER 2021-05-27 15:27 | Emergency (ER) | payer MEDICARE ==
[~2021-05-27] VITALS: Ht 172.7 cm; Wt 84.9 kg
--- OUTSIDE RECORDS SUMMARY | 2021-05-27 15:37 | CCD ---
Continuity of Care Document (CCD) Created on: 05/03/2021 Zach Floyd External Reference #: [id number] : 1955 Sex: Male Author Author Zach NEGRON MD Organization Unknown Address [address] [place] [address] Phone [phone] Care Team Providers Care Surgical Scrub Tech Name Role Phone Davey Gonsales M.D. AUTM [phone] [facility] Sleep Center AUTM [phone] 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 Davey Gonsales MD Onset: 01/27/2021 Chronic kidney disease stage 4 Davey Gonsales MD Onset: Type 2 diabetes mellitus Davey Gonsales MD Onset: 01/28/20 21 Essential hypertension Davey Gonsales MD Onset: 01/27/2021 Cerebral artery occlusion Davey Gonsales MD Onset: 021 Pure hypercholesterolemia Franklin Negron MD Onset: 021 Social History Type Date Description Comments Sex Unknown Tobacco Use Start: Unknown End: Quit moshe t smoking after the stroke he had Tobacco Use Start: Unknown Never Smoked Cigars maybe one or - not really inhaling it Tobacco Use Start: Unknown Never Smoked A Pipe Smoking Status Reviewed: 03/30/21 Never Smoked A Pipe Tobacco Use Start: Unknown Never Used Smokeless Tobacco ETOH Use Occasionally consumes alcohol qu it while he was in [facility] for the stroke Tobacco Use Start: Unknown End: Patient is a former smoker Quit while in the hospital - due to a stroke Recreational Drug Use Denies Drug Use Allergies and adverse reactions Active Allergies Criticality Reaction | Severity Comments Date Lisinopril Unable to assess criticality 01/27/2021 Metformin Unable to assess criticality kidney funct ion 01/27/2021 Janumet Unable to assess criticality kidney probl ems 01/27/2021 NKFA Unable to assess criticality 01/27/2021 NKEA Unable to assess criticality 01/27/2021 Medications Active Medications SIG Qnty Indications Ordering Provide r Date Cefdinir 300mg Capsules take 1 tablet by mouth once daily for 7 days 7caps KAREN Goldstein 04/22/2021 Furosemide 40mg Tablets Take 1 Tablet By Mouth Once Daily Patient was recently instructed to take 1/2 tab and alternate ever other day (* wants to discuss) N18.4 Unknown Aspirin 325mg Tablets take 1 tablet by mouth once daily 90tabs I63.9 Davey Gonsales MD Hydrocodone-Acetaminophen 5-325mg Tablets as needed 1 tab tid M51.17 Unknown Carvedilol 25mg Tablets Take 1 Tablet By Mouth Twice Daily With Food I10 Unknown Losartan Potassium 25mg Tablets 1 tab daily ( Dr [facility]) [facility] I10 Unknow n Amlodipine Besylate 10mg Tablets 1/2 tab daily ( Was from [facility] ) I10 Unknown 00 Glyburide 1.25mg Tablets once daily with breakfast E11.9 Unknown Vitamin C 1000mg Tablets 1 by mouth every day OTC Unknown Atorvastatin Calcium 40mg Tablets 1 tab by mouth every day 90tabs E78.5 Davey Gonsales MD Vitamin D3 50mcg (2000 Ut) Chewtab s 1 by mouth every day Unknown Vitamin E 180mg (400 Unit) Capsule s 1one daily OTC Unknown Colace 100mg Capsules 100 mg by mouth twice a day ( Hold if has diahrrea) OTC Unkno wn Albuterol Sulfate HFA 108(90Base) mcg/Act Aerosol Unknown Immunizations Description No Information Available Vital Signs Date Vital Result Comment 04/27/2021 10:11am BP Systolic 150 mmHg BP Diastolic 82 mmHg Heart Rate 78 /min Body Temperature 98.6 F Respiratory Rate 18 /min O2 % BldC Oximetry 98 % Height 68 inches 5'8" 04/22/2021 1:33pm BP Systolic 142 mmHg BP Diastolic 72 mmHg BP Systolic Recheck 156 mmHg freddy bello to leav e BP Diastolic Recheck 82 mmHg freddy bello to madhavi ve Heart Rate 73 /min Body Temperature 98.6 F Respiratory Rate 18 /min O2 % BldC Oximetry 98 % Weight 185.00 lb Weight 83.916 kg Height 68 inches 5'8" BMI (Body Mass Index) 28.1 kg/m2 BSA (Body Surface Area) 1.98 m2 Results Test Acquired Date Facility Test Result H/L Range Note Laboratory test finding 04/22/2021 [facility] l Culture Wound (SEE NOTE) 1, 2 Basic Metabolic Profile 04/01/2021 [facility] Glucose, Fasting 147 mg/dL High 70-100 Blood Urea Nitrogen 57 mg/dL High 7-18 Creatinine For GFR 2.75 mg/dL High 0.70-1.30 Glomerular Filtration Rate 24.8 Low >49 3 Sodium Level 143 mEq/L Normal 136-145 Potassium Serum 4.5 mEq/L Normal 3.5-5.1 Chloride Level 112 mEq/L High 98-107 Carbon Dioxide Level 25 mEq/L Normal 21-32 Anion Gap 6 mEq/L Low 8-16 Calcium Level 8.8 mg/dL Normal 8.8-10.2 Complete Blood Count 03/09/2021 [facility] White Blood Count 7.9 10 Normal 4.0-10.0 Red Blood Count 3.63 10 Low 4.30-6.10 Hemoglobin 11.6 g/dL Low 13.5-17.5 Hematocrit 33.6 % Low 42.0-52.0 Mean Corpuscular Volume 92.6 fl Normal 80.0-96.0 Mean Corpuscular Hemoglobin 32.0 pg Normal 27.0-33.0 Mean Corpuscular HGB Conc 34.5 g/dL Normal 32.0-36.5 Red Cell Distribution Width 12.0 % Normal 11.5-14.5 Platelet Count, Automated 201 10 Normal 150-450 Nucleated Red Blood Cell % 0.0 % Normal 0-0 Differential Automated 03/09/2021 [facility] Neutrophils % 63.4 % Normal 36.0-66.0 Lymph % 18.9 % Low 24.0-44.0 [place] % 9.9 % High 2.0-8.0 Eos % 6.2 % High 0.0-3.0 Baso % 1.1 % High 0.0-1.0 Immature Granulocyte % 0.5 % Normal 0-3.0 Neutrophils # 5.0 10 Normal 1.5-8.5 Lymph # 1.5 10 Normal 1.5-5.0 [place] # 0.8 10 Normal 0.0-0.8 Eos # 0.5 10 Normal 0.0-0.5 Baso # 0.1 10 Normal 0.0-0.2 Comprehensive Metabolic Profil 03/09/2021 [facility] Glucose, Fasting 134 mg/dL High 70-100 Blood Urea Nitrogen 49 mg/dL High 7-18 Creatinine For GFR 2.70 mg/dL High 0.70-1.30 Glomerular Filtration Rate 25.3 Low >49 4 Sodium Level 141 mEq/L Normal 136-145 Potassium Serum 4.5 mEq/L Normal 3.5-5.1 Chloride Level 112 mEq/L High 98-107 Carbon Dioxide Level 24 mEq/L Normal 21-32 Anion Gap 5 mEq/L Low 8-16 Calcium Level 8.5 mg/dL Low 8.8-10.2 Ast/Sgot 14 U/L Normal 7-37 Alt/SGPT 47 U/L Normal 12-78 Alkaline Phosphatase 101 U/L Normal 45-117 Bilirubin,Total 0.3 mg/dL Normal 0.2-1.0 Total Protein 6.7 GM/DL Normal 6.4-8.2 Albumin 3.3 GM/DL Normal 3.2-5.2 Albumin/Globulin Ratio 1.0 Normal Lipid Panel 03/09/2021 [facility] Triglycerides Level 89 mg/dL Normal <150 Cholesterol Level 125 mg/dL Normal <200 HDL Cholesterol 34 mg/dL Low >40 LDL Cholesterol 73 mg/dL Normal <100 Non-HDL-C 91 mg/dL Normal Cholesterol Risk Ratio 3.676 Normal <5 Laboratory test finding 03/09/2021 [facility] Uric Acid 5.9 mg/dL Normal 3.5-7.2 Hemoglobin A1c 03/09/2021 [facility] Hemoglobin A1c 6.4 % Normal 5 Estimated Average Glucose 137 mg/dL High 60-110 Ua Routine 03/09/2021 [facility] Appearance, Urine CLEAR Normal Clear Color, Urine YELLOW Normal Yellow PH,Urine 5.0 units Normal 5.0-9.0 Specific [place] Urine Auto 1.012 Normal 1.002-1.035 Protein, Urine Auto 3+ mg/dL High Negative Glucose, Urine (Ua) Auto 1+ mg/dL High Negative Ketone, Urine Auto NEGATIVE mg/dL Normal Negative Urobilinogen, Urine Auto 0.2 mg/dL Normal 0.0-2.0 Bilirubin, Urine Auto NEGATIVE Normal Negative Nitrite, Urine Auto NEGATIVE Normal Negative Leukocyte Esterase, Urine Auto NEGATIVE Normal Negative Blood, Urine Blood NEGATIVE Normal Negative WBC, Urine Auto 1 /HPF Normal 0-3 RBC, Urine Auto 1 /HPF Normal 0-3 Bacteria, Urine Auto NEGATIVE Normal Negative Squamous Epithelial Cell Ur AU 0 /HPF Normal 0-6 Mucus, Urine SMALL Normal Negative Hyaline Cast, Urine Auto 0 /LPF Normal 0-1 Microalbumin Random 03/09/2021 [facility] Creatinine, Urine 98.6 mg/dL Normal Malb Urine Siemens 3200.0 mg/L Normal Christopher/Creat Ratio 3245.4 MCG/MG High 0.0-30.0 6 Laboratory test finding 03/09/2021 [facility] Urine Culture FULL REPORT IN L <SEE NOTE> Normal 7 PSA Free & Total 03/09/2021 [facility] PSA Total 1.5 ng/mL Normal 0.0-4.0 8 PSA Comment (SEE NOTE) Normal . 9 1 {SPECIMEN SOURCE : LEFT AXI LLA 2 _CULTURE WOUND_ ^^[id number] ^$[id number] $$[id number] ^^[id number] $$[id number] $$[id number] $$[id number] $$[id number] $$[id number] REPORTED DATE/TIME: 04/27/2021 15:06 Culture: CULTURE WOUND Status: Final Isolate 1 Enterococcus faecalis Flag: A . . . . . . .7 Moderate growth Previous result entered on 04/26/2021 15:14 ET Microbiological testing to rule out the presence of possible pathogens is in progress. Aerobic Bacterial Culture: P1 Enterococcus faecalis Flag: A Patient: FLOWER BLUM Order: [id number] Page 2 Culture: CULTURE WOUND Status: Final ISOLATE 1 Enterococcus faecalis Isolate 1 Antibiotic JUSTICE Int Units ug/mL Penicillin S S . . . . . .6932-8 Vancomycin S S . . . . . .524-9 P1 Test performed by: [facility] #: [id number] [address] [place], [place] [id number] [place] [id number] Fish Roe Technician : Scottie Lau MD NPI #: Community Health Outreach Worker : 04/27/21.0736.XMT.SENT REF 04/27/21.XMT.SENT REF 04/27/21.DW .to [facility] via fax 3 Units are mL/min/1.73 m2 Chronic Kidney Disease Staging per NKF: Stage I & II GFR >=60 Normal to Mildly Decreased Stage III GFR 30-59 Moderately Decreased Stage IV GFR 15-29 Severely Decreased Stage V GFR <15 Very Little GFR Left ESRD GFR <15 on CLOAK ROOM ATTENDANT 4 Units are mL/min/1.73 m2 Chronic Kidney Disease Staging per NKF: Stage I & II GFR >=60 Normal to Mildly Decreased Stage III GFR 30-59 Moderately Decreased Stage IV GFR 15-29 Severely Decreased Stage V GFR <15 Very Little GFR Left ESRD GFR <15 on CLOAK ROOM ATTENDANT 5 REFERENCE RANGES: <=5.6% NORMAL 5.7-6.4% SUGGESTS IMPAIRED GLUCOSE META BOLISM/PREDIABETIC >= 6.5% ABNORMAL 6 THE [place] DIABETES ASSOCI ATION STATES THAT MICROALBUMINURIA IS PRESENT IF THE MICROALBUMIN/CREATININE RATIO EXCEEDS 30 MCG/MG. THE THRESHOLD FOR CLINICAL ALBUMINURIA IS REACHED AT 300 MCG/MG. THE CLASSIFICATION OF A PATIENT SHOULD BE BASED UPON AT LEAST 2 OF 3 ABNORMAL RESULTS ON SPECIMENS COLLECTED WITHIN A 3 TO 6 MONTH TIME FRAME. 7 FULL REPORT IN LAB NOTES (eC W and Medent). NO GROWTH 8 Leidy ECLIA methodology. . According to the [place] [employer], Serum PSA should decrease and remain at undetectable levels after radical prostatectomy. The AUA defines biochemical recurrence as an initial PSA value 0.2 ng/mL or greater followed by a subsequent confirmatory PSA value 0.2 ng/mL or greater. Values obtained with different assay methods or kits cannot be used interchangeably. Results cannot be interpreted as absolute evidence of the presence or absence of malignant disease. 9 . The percent free PSA is performed on a reflex basis only when the total PSA is between 4.0 and 10.0 ng/mL. Performed at: RN - [facility] [address] [id number] Community Health Outreach Worker: Petra Rubin MD, Phone: [phone] Procedures Date Code Description Status 04/22/2021 68846 Office/Outpatient Established SF MDM 10-19 Min Completed 04/22/2021 92158 Office/Outpatient New SF MDM 15- 29 Minutes Completed 04/22/2021 32177 I & D Abscess Simple Completed 03/30/2021 22683 Office/Outpatient New Low MDM 30 -44 Minutes Completed 03/15/2021 65893 Office/Outpatient Established Lo w MDM 20-29 Min Completed 02/23/2021 18908 Office/Outpatient Established Lo w MDM 20-29 Min Completed 01/27/2021 90671 Preventive Visit New > 65 Years Completed 01/27/2021 90944 Admin Patient Focused Health Ris k Assessment Instrument Completed 01/27/2021 89709 Brief Emotional/Beha v Assessment W/ Scoring Doc Per Standard Inst Completed Medical Devices Description No Information Available Encounters Type Date Location Provider Dx Diagnosis Office Visit 04/27/2021 10:00a [facility] Surgical Center Dre Curran MD L 02.412 Cutaneous abscess of left axilla Assessments Date Code Description Provider 04/27/2021 L02.412 Cutaneous abscess of left axilla Dre Curran MD 04/22/2021 L02.412 Cutaneous abscess of left axilla Franklin Negron MD 04/22/2021 L02.412 Cutaneous abscess of left axilla KAREN Goldstein 03/30/2021 M76.62 Achilles tendinitis, left leg Fabio Onofre, DPM 03/30/2021 M76.72 Peroneal tendinitis, left leg Fabio Onofre, DP 03/30/2021 M76.822 Posterior tibial tendinitis, lef t leg Pablo Onofre, DP 03/30/2021 R53.1 Weakness Pablo Onofre, DP 03/30/2021 E11.9 Type 2 diabetes mellitus without complications Pablo Peñatamiko, [facility] 03/30/2021 N18.4 Chronic kidney disease, stage 4 (severe) Pablo Peñatamiko, [facility] 03/30/2021 M79.672 Pain in left foot Pablo Caleb Onofre PM 03/15/2021 E11.9 Type 2 diabetes mellitus without complications Davey Gonsales MD 03/15/2021 N18.4 Chronic kidney disease, stage 4 (severe) Davey Gonsales MD 03/15/2021 R06.02 Shortness of breath Davey foley MD 03/15/2021 E78.5 Hyperlipidemia, unspecified Fly Gonsales MD 02/23/2021 E11.9 Type 2 diabetes mellitus without complications Davey Gonsales MD 02/23/2021 I10 Essential (primary) hypertension Davey Gonsales MD 02/23/2021 N18.4 Chronic kidney disease, stage 4 (severe) Davey Gonsales MD 02/23/2021 E78.5 Hyperlipidemia, unspecified Fly Gonsales MD 02/23/2021 R06.02 Shortness of breath Davey foley MD 01/27/2021 Z00.00 Encounter for genera l adult medical examination without abnormal findings Davey Gonsales MD 01/27/2021 I63.9 Cerebral infarction, unspecified Davey Gonsales MD 01/27/2021 I10 Essential (primary) hypertension Davey Gonsales MD 01/27/2021 E11.9 Type 2 diabetes mellitus without complications Davey Gonsales MD 01/27/2021 N18.4 Chronic kidney disease, stage 4 (severe) Davey Gonsales MD 01/27/2021 M51.17 Intervertebral disc disorders with radiculopathy, lumbosacral region Dvaey Gonsales MD 01/27/2021 E78.5 Hyperlipidemia, unspecified Fly Gonsales MD Plan of Treatment Future Appointment(s):* 05/25/2021 10:00 am - Davey Gonsales MD at [facility] 04/27/2021 - Dre Curran MD* L02.412 Cutaneous abscess of left axilla* New Xrays:* US Ext Non Vasc LT Limited, Ordered: 04/27/21 * Recommendations:* Impression: Incompletely resolved left axillary abscess. Plan: With the patient settling down and becoming more respectful, I agreed to take care of him and help him with this problem. #1: I advised that we continue the antibiotics from Dr. Gonsales which had been given for 7 days with an additional 7 days of antibiotics, 14 days total of antibiotics. We called Dr. Gonsales's office and cleared the additional antibiotics with him as a patient is status post right nephrectomy and was concerned about his renal function. #2: The patient was referred for an ultrasound of his left axilla, to be done today, in radiology at [facility]. Results returned showing "complex cystic lesion in the subcutaneous fat measuring up to 5 mm. This is nonspecific. It could be sterile or infected." I called the patient with results. Unfortunately, reached a generic voicemail and asked them to call my office to review this further. #3: Warm compresses frequently throughout the day. #4: Follow-up in one week. Functional Status Description No Information Available Mental Status Description No Information Available Referrals Refer to Reason for Referral Status Appt Date [facility] 65 year old male with pain and weakness throughout his left lower extremity following a stroke 3 months ago. He gets pain maximally in his Achilles, peroneal, and posterior tibial tendon. He would jolanta efit from physical therapy. Please evaluate and treat as appropriate. Thank you. Sent [address] [place] [address] [phone] Ubaldo Bell, 65 y/o M with SOB and abnorm al PFT, referred for full evaluation. Eval and treat. Patient Notified 04/13/2021 [place] [address] [phone] [facility] 65 y/o M with hx of type 2 diabetes, referred for diabetic eye care. Eval and treat. Sent [address] [place], [place] [id number] [phone] [facility] Podiatry Clinic 65 y/o M with hx of type 2 d iabetes, referred for diabetic foot care. Eval and treat. Sent [address] [place] [address] [phone] [facility] Cardiopulmonary/Sleep Lab 65 y/o M with hx of smok ing, shortness of breath. Referred for PFT with and without albuterol. Rule out COPD. Eval and treat. Closed 03/09/2021 [address] [place], [place] [id number] [phone] [facility] Sleep Center 65 y/o M with hx of snoring, CVA, diabetes, snoring, fatigue and tiredness. Referred for sleep study. Eval and treat. Sent [address] [place], [place] [id number] [phone]
--- OUTSIDE RECORDS SUMMARY | 2021-05-27 15:37 | CCD ---
Continuity of Care Document (CCD) Created on: 05/12/2021 Zach Floyd External Reference #: [id number] : 1955 Sex: Male Author Author Zach DANIEL P.A. Organization Unknown Address [address] [place] [address] Phone [phone] Care Team Providers Care Electric Wirer Name Role Phone AUTM Unavailable Davey Gonsales M.D. AUTM [phone] AUTM Unavailable Problems Active Problems Provider Date Essential hypertension Don Cook, Onset: 7 Chronic obstructive lung disease Aquiles Daniel PZahraa Onset: 05/11/2021 Social History Type Date Description Comments Sex Unknown ETOH Use 8 A Week Tobacco Use Start: 07/16/71 End: 07/16/20 Patient is a forme r smoker 1 PPD HISTORY FOR A TOTAL OF 42 YEARS PT STATES THAT HE QUIT SMOKING 4 TIMES Smoking Status Reviewed: 05/11/21 Patient is a former smoker 1 PPD HISTORY FOR A TOTAL OF 42 YEARS PT STATES THAT HE QUIT SMOKING 4 TIMES Allergies and adverse reactions Active Allergies Criticality Reaction | Severity Comments Date Lisinopril Unable to assess criticality 03/24/2021 Inactive Allergies NKDA Unable to assess criticality 09/26/2017 Medications Active Medications SIG Qnty Indications Ordering Provide r Date Trelegy Ellipta 200- 62.5-25mcg/Inh Aerosol inhale one puff by mouth every day 60units J44.9 Kemar celis D.OFred 03/24/2021 Proair HFA 108(90Base) mcg/Act Aer osol 2 puffs four times a day as needed 8.500gm J44.9 Kemar Hutton D.O . 03/24/2021 Losartan Potassium 25mg Tablets 1 tab by mouth every day Unknown Amlodipine Besylate 10mg Tablets 1 tab by mouth every day Unknown Colace 100mg Capsules 2 tabs by mouth every day 90caps Unknown Glyburide 1.25mg Tablets 1 tab by mouth every day Unknown Atorvastatin Calcium 40mg Tablets 1 tab by mouth every day Unknown Aspirin 325mg Tablets DR 1 tab by mouth every day Unknown Carvedilol 25mg Tablets 2 tabs by mouth every day Unknown Furosemide 40mg Tablets 1 tab by mouth every day 90tabs Unknown Vitamin C 1000mg Tablets 1 tab by mouth every day Unknown Vitamin E 1 cap by mouth every day Unknown Vitamin D 1000Unit Tablets 1 tab by mouth every day Unknown Immunizations Description No Information Available Vital Signs Date Vital Result Comment 05/11/2021 10:08am BP Systolic 140 mmHg BP Diastolic 60 mmHg Heart Rate 71 /min O2 % BldC Oximetry 98 % Height 68 inches 5'8" Weight 189.00 lb BMI (Body Mass Index) 28.7 kg/m2 [place] Body Weight 154 lb Weight 85.730 kg BSA (Body Surface Area) 2.00 m2 03/24/2021 8:24am BP Systolic 140 mmHg BP Diastolic 70 mmHg Heart Rate 71 /min O2 % BldC Oximetry 98 % Height 68 inches 5'8" Weight 186.00 lb BMI (Body Mass Index) 28.3 kg/m2 [place] Body Weight 154 lb Weight 84.370 kg BSA (Body Surface Area) 1.98 m2 Results Test Acquired Date Facility Test Result H/L Range Note [facility] 05/11/2021 [facility] SEE IMAGE FVC-Pred 4.20 L FVC-Pre 2.57 L FVC-%Pred-Pre 61 L FVC-LLN 3.32 L Fev1-Pred 3.11 L Fev1-Pre 1.97 L Fev1-%Pred-Pre 63 L Fev1-LLN 2.37 L Fev6-Pred 3.97 L Fev6-Pre 2.57 L Fev6-%Pred-Pre 64 L Fev6-LLN 3.11 L Isf6uxc-Ruuu 74 % Phj8bvz-Ogw 77 % Ymx3efk-%Pred-Pre 103 % Dqj2lbm-BMZ 65 % Ant8lqs-Eixd 94 % Fho6bbo-Dqj 100 % Dgy1uxf-%Pred-Pre 105 % FEFMax-Pred 8.20 L/E/sec FEFMax-Pre 3.26 L/E/sec FEFMax-%Pred-Pre 39 L/E/sec FEFMax-LLN 6.01 L/E/sec Zly2074-Umyj 2.44 L/E/sec Cxz3012-Jxo 1.79 L/E/sec Wbn3805-%Pred-Pre 73 L/E/sec Xpi4826-VGZ 0.93 L/E/sec ExpTime-Pre 6.49 sec Amg8zzo3-Rntn 78 % Qri0iem2-Bgp 77 % Sby9rjx7-%Pred-Pre 98 % Hnr5aaq0-SXY 69 % Renal Profile 01/26/2021 [facility] Main Lab [address] [place] [address] [phone] Glucose, Fasting 231 mg/dL High 70-100 Blood Urea Nitrogen 52 mg/dL High 7-18 Creatinine For GFR 2.85 mg/dL High 0.70-1.30 Glomerular Filtration Rate 23.8 Low >49 1 Sodium Level 138 mEq/L Normal 136-145 Potassium Serum 4.3 mEq/L Normal 3.5-5.1 Chloride Level 106 mEq/L Normal 98-107 Carbon Dioxide Level 26 mEq/L Normal 21-32 Anion Gap 6 mEq/L Low 8-16 Calcium Level 8.4 mg/dL Low 8.8-10.2 Phosphorus Level 4.0 mg/dL Normal 2.5-4.9 Albumin 3.3 GM/DL Normal 3.2-5.2 Laboratory test finding 01/26/2021 [facility] Main Lab [address] [place] [address] [phone] Magnesium Level 2.2 mg/dL Normal 1.8-2.4 NT-Pro BNP 914 pg/mL High <125 1 Units are mL/min/1.73 m2 Chronic Kidney Disease Staging per NKF: Stage I & II GFR >=60 Normal to Mildly Decreased Stage III GFR 30-59 Moderately Decreased Stage IV GFR 15-29 Severely Decreased Stage V GFR <15 Very Little GFR Left ESRD GFR <15 on [employer]ACLE DISTRIBUTION CONSULTANT Procedures Date Code Description Status 05/11/2021 69952 Office/Outpatient Established Lo w MDM 20-29 Min Completed 05/11/2021 73249 Spirometry Completed 03/24/2021 06036 Office/Outpatient New Moderate M DM 45-59 Minutes Completed 03/24/2021 72510 Inhaler Teaching Completed Medical Devices Description No Information Available Encounters Type Date Location Provider Dx Diagnosis Office Visit 05/11/2021 10:00a [facility] Pulmonary/Thoracic Jam Singer.A. J44.9 Chronic obstructive pulmonary disease, u nspecified Z87.891 Personal history of nicotine dependence Office Visit 03/24/2021 8:30a [facility] Pulmonary/Thoracic Jam Singer.A. J44.9 Chronic obstructive pulmonary disease, u nspecified Z87.891 Personal history of nicotine dependence Assessments Date Code Description Provider 05/11/2021 J44.9 Chronic obstructive pulmonary di sease, unspecified Aquiles Daniel, P.A. 05/11/2021 Z87.891 Personal history of nicotine dep endmelba Daniel P.A. 03/24/2021 J44.9 Chronic obstructive pulmonary di sease, unspecified Aquiles Daniel, P.A. 03/24/2021 Z87.891 Personal history of nicotine dep endence Aquiles Daniel, P.A. Plan of Treatment Future Appointment(s):* 11/10/2021 12:30 pm - Hermes Singer at [facility] Pulmonary/Thoracic 05/11/2021 - Hermes Singer* J44.9 Chronic obstructive pulmonary disease, unspecified * Z87.891 Personal history of nicotine dependence * * New Labs:* FVL/[facility], Scheduled: 11/10/21 * Follow up:* Follow up in 6 months with remi Functional Status Description No Information Available Mental Status Description No Information Available Referrals Refer to Dr Reason for Referral Status Appt Date Aquiles Daniel R.PAbhishek. SOB + PFT Closed 03/2021 [facility]-Pulmonary [address] [place], [place] [address] [phone]
--- OUTSIDE RECORDS SUMMARY | 2021-05-27 15:37 | CCD | Continuity of Care Document ---
Author Author Zach DANIEL P.A. Organization Unknown Address [address] [place] [address] Phone [phone] Care Team Providers Care Sporting Goods Sales Manager Name Role Phone AUTM Unavailable Davey Gonsales M.D. AUTM [phone] AUTM Unavailable Problems Active Problems Provider Date [...] lb BMI (Body Mass Index) 28.7 kg/m2 [place] Body Weight 154 lb Weight 85.730 kg BSA (Body Surface Area) 2.00 m2 03/24/2021 8:24am BP Systolic 140 mmHg BP Diastolic 70 mmHg Heart Rate 71 /min O2 % BldC Oximetry 98 % Height 68 inches 5'8" Weight 186.00 lb BMI (Body Mass Index) 28.3 kg/m2 [place] Body Weight 154 lb Weight 84.370 kg BSA (Body Surface Area) 1.98 m2 Results Test Acquired Date Facility Test Result H/L Range Note FVL/[place] 05/11/2021 [employer] [facility] SEE IMAGE FVC-Pred 4.20 L FVC-Pre 2.57 L FVC-%Pred-Pre 61 L FVC-LLN 3.32 L Fev1-Pred 3.11 L Fev1-Pre 1.97 L Fev1-%Pred-Pre 63 L Fev1-LLN 2.37 L Fev6-Pred 3.97 L Fev6-Pre 2.57 L Fev6-%Pred-Pre 64 L Fev6-LLN 3.11 L Het2daz-Qegh 74 % Nza0slp-Bqj 77 % Psj0ndm-%Pred-Pre 103 % Kip1xbm-YIJ 65 % Lcl9xjf-Qkup 94 % Zdr9znw-Ubq 100 % Jjl7fyi-%Pred-Pre 105 % FEFMax-Pred 8.20 L/E/sec FEFMax-Pre 3.26 L/E/sec FEFMax-%Pred-Pre 39 L/E/sec FEFMax-LLN 6.01 L/E/sec Bhu4623-Czld 2.44 L/E/sec Hpp4932-Ibm 1.79 L/E/sec Rtd7633-%Pred-Pre 73 L/E/sec Xzj5909-MPF 0.93 L/E/sec ExpTime-Pre 6.49 sec Eko9lic7-Mece 78 % Koe0snr1-Jje 77 % Oit3zfp5-%Pred-Pre 98 % Hqg9qgw2-WPM 69 % Renal Profile 01/26/2021 [facility] Main Lab [address] [place] [address] [phone] Glucose, Fasting 231 mg/dL High 70-100 Blood [...] GM/DL Normal 3.2-5.2 Laboratory test finding 01/26/2021 [facility] Main Lab [address] [place] [address] [phone] Magnesium Level 2.2 mg/dL Normal 1.8-2.4 NT-Pro BNP 914 pg/mL High <125 1 Units are mL/min/1.73 m2 Chronic Kidney Disease Staging per NKF: Stage I & II GFR >=60 Normal to Mildly Decreased Stage III GFR 30-59 Moderately Decreased Stage IV GFR 15-29 Severely Decreased Stage V GFR <15 Very Little GFR Left ESRD GFR <15 on MEASUREMENT AND SENSING TECHNICIAN Procedures Date Code Description Status 03/24/2021 99821 Office/Outpatient New Moderate M DM 45-59 Minutes Completed 03/24/2021 31570 Inhaler Teaching Completed Medical Devices Description No Information Available Encounters Type Date Location Provider Dx Diagnosis Office Visit 03/24/2021 8:30a [facility] Pulmonary/Thoracic Hermes Singer J44.9 Chronic obstructive pulmonary disease, u nspecified Z87.891 Personal history of nicotine dependence Assessments Date Code Description Provider 05/11/2021 J44.9 Chronic obstructive pulmonary di sease, unspecified Jam Singer.A. 05/11/2021 Z87.891 Personal history of nicotine dep endence Jam Singer.A. 03/24/2021 J44.9 Chronic obstructive pulmonary di sease, unspecified Jam Singer.A. 03/24/2021 Z87.891 Personal history of nicotine dep rosaence Jam Singer.Joi Plan of Treatment Future Appointment(s):* 11/10/2021 12:30 pm - Hermes Singer at [facility] Pulmonary/Thoracic 05/11/2021 - Hermes Singer* J44.9 Chronic obstructive pulmonary disease, unspecified * Z87.891 Personal history of nicotine dependence * * New Labs:* FVL/[place], Ordered: 05/11/21 * Follow up:* Follow up in 6 months with remi Functional Status Description No Information Available Mental Status Description No Information Available Referrals Refer to Reason for Referral Status Appt Date Aquiles Daniel R.P.A.-C. SOB + PFT Closed 03/2021 [facility]-Pulmonary [address], [address] [place], [place] [address] [phone]
--- OUTSIDE RECORDS SUMMARY | 2021-05-27 15:37 | CCD | Continuity of Care Document ---
Author Author Zach DANIEL P.A. Organization Unknown Address [address] [place] [address] Phone [phone] Care Team Providers Care Rag Cutting Machine Tender Name Role Phone AUTM Unavailable Davey Gonsales M.D. AUTM [phone] AUTM Unavailable Problems Active Problems Provider Date [...] lb BMI (Body Mass Index) 28.7 kg/m2 [place] Body Weight 154 lb Weight 85.730 kg BSA (Body Surface Area) 2.00 m2 03/24/2021 8:24am BP Systolic 140 mmHg BP Diastolic 70 mmHg Heart Rate 71 /min O2 % BldC Oximetry 98 % Height 68 inches 5'8" Weight 186.00 lb BMI (Body Mass Index) 28.3 kg/m2 [place] Body Weight 154 lb Weight 84.370 kg BSA (Body Surface Area) 1.98 m2 Results Test Acquired Date Facility Test Result H/L Range Note FVL/[place] 05/11/2021 [facility] SEE IMAGE FVC-Pred 4.20 L FVC-Pre 2.57 L FVC-%Pred-Pre 61 L FVC-LLN 3.32 L Fev1-Pred 3.11 L Fev1-Pre 1.97 L Fev1-%Pred-Pre 63 L Fev1-LLN 2.37 L Fev6-Pred 3.97 L Fev6-Pre 2.57 L Fev6-%Pred-Pre 64 L Fev6-LLN 3.11 L Bfh9kpe-Srfx 74 % Bdi3nfn-Tvr 77 % Tvy1ewv-%Pred-Pre 103 % Ufm0frj-GVF 65 % Fnv7uml-Ijpn 94 % Rwb7ofn-Ike 100 % Qji0uzf-%Pred-Pre 105 % FEFMax-Pred 8.20 L/E/sec FEFMax-Pre 3.26 L/E/sec FEFMax-%Pred-Pre 39 L/E/sec FEFMax-LLN 6.01 L/E/sec Poc4492-Kboi 2.44 L/E/sec Pyd7010-Ypi 1.79 L/E/sec Xps0751-%Pred-Pre 73 L/E/sec Jmo0360-FLZ 0.93 L/E/sec ExpTime-Pre 6.49 sec Zef0rij5-Qrfr 78 % Rek7pla3-Vbs 77 % Fwq6yoq6-%Pred-Pre 98 % Qva0ufz8-FTQ 69 % Renal Profile 01/26/2021 [facility] Main Lab [address] [place] [address] [phone] Glucose, Fasting 231 mg/dL High 70-100 Blood [...] GM/DL Normal 3.2-5.2 Laboratory test finding 01/26/2021 [facility] Main Lab [address] [place] [address] [phone] Magnesium Level 2.2 mg/dL Normal 1.8-2.4 NT-Pro BNP 914 pg/mL High <125 1 Units are mL/min/1.73 m2 Chronic Kidney Disease Staging per NKF: Stage I & II GFR >=60 Normal to Mildly Decreased Stage III GFR 30-59 Moderately Decreased Stage IV GFR 15-29 Severely Decreased Stage V GFR <15 Very Little GFR Left ESRD GFR <15 on WINE BOTTLE INSPECTOR Procedures Date Code Description Status 03/24/2021 24055 Office/Outpatient New Moderate M DM 45-59 Minutes Completed 03/24/2021 97237 Inhaler Teaching Completed Medical Devices Description No Information Available Encounters Type Date Location Provider Dx Diagnosis Office Visit 03/24/2021 8:30a [facility] Pulmonary/Thoracic Hermes Singer J44.9 Chronic obstructive pulmonary [...] 11/10/2021 12:30 pm - Hermes Singer at [facility] Pulmonary/Thoracic 05/11/2021 - Hermes Singer* J44.9 Chronic obstructive pulmonary disease, unspecified * Z87.891 Personal history of nicotine dependence * * New Labs:* FVL/[place], Scheduled: 11/10/21 * Follow up:* Follow up in 6 months with remi Functional Status Description No Information Available Mental Status Description No Information Available Referrals Refer to Reason for Referral Status Appt Date Aquiles Daniel R.P.A.-C. SOB + PFT Closed 03/2021 [facility]-Pulmonary [address] [place], [place] [address] [phone]
--- OUTSIDE RECORDS SUMMARY | 2021-05-27 15:38 | CCD | Continuity of Care Document ---
Author Author Zach GONSALES M.D. Organization Unknown Address [address] [place] [address] Phone [phone] Care Team Providers Care Information Assoc Name Role Phone Davey Gonsales M.D. 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 Davey Gonsales MD Onset: 01/27/2021 Chronic kidney disease stage 4 Davey Gonsales MD Onset: Type 2 diabetes mellitus Davey Gonsales MD Onset: 01/28/20 21 Essential hypertension Davey Gonsales MD Onset: 01/27/2021 Cerebral artery occlusion Davey Gonsales MD Onset: 021 Social History Type Date Description Comments Sex Unknown Tobacco Use Start: Unknown End: Unknown Quit Tobacco Use Start: Unknown Never Smoked Cigars maybe one or - not really inhaling it Tobacco Use Start: Unknown Never Smoked A Pipe Tobacco Use Start: Unknown Never Used Smokeless Tobacco ETOH Use Occasionally consumes alcohol qu it while he was in [facility] for the stroke Tobacco Use Start: Unknown End: Patient is a former smoker Quit while in the hospital - due to a stroke Recreational Drug Use Denies Drug Use Allergies, Adverse Reactions, Alerts Active Allergies Criticality Reaction | Severity Comments Date Lisinopril Unable to assess criticality 01/27/2021 Metformin Unable to assess criticality kidney funct ion 01/27/2021 Janumet Unable to assess criticality kidney probl ems 01/27/2021 NKFA Unable to assess criticality 01/27/2021 NKEA Unable to assess criticality 01/27/2021 Medications Active Medications SIG Qnty Indications Ordering Provide r Date Furosemide 40mg Tablets Take 1 Tablet By Mouth Once Daily Patient was recently instructed to take 1/2 tab and alternate ever other day (* wants to discuss) N18.4 Unknown Aspirin 325mg Tablets Take 1 Tablet By Mouth Once Daily I63.9 Unknown Hydrocodone-Acetaminophen 5-325mg Tablets as needed 1 tab tid M51.17 Unknown Carvedilol 25mg Tablets Take 1 Tablet By Mouth Twice Daily With Food I10 Unknown Losartan Potassium 25mg Tablets 1 tab daily ( Dr [facility]) [place]10 Unknow n Amlodipine Besylate 10mg Tablets 1/2 tab daily ( Was from [facility] ) I10 Unknown 00 Glyburide 1.25mg Tablets once daily with breakfast E11.9 Unknown Vitamin C 1000mg Tablets 1 by mouth every day OTC Unknown Atorvastatin Calcium 40mg Tablets 1 by mouth every day E78.5 Unknown Vitamin D3 50mcg (2000 Ut) Chewtab s 1 by mouth every day Unknown Vitamin E 180mg (400 Unit) Capsule s 1one daily OTC Unknown Colace 100mg Capsules 100 mg by mouth twice a day ( Hold if has diahrrea) OTC Unkno wn Immunizations Description No Information Available Vital Signs Date Vital Result Comment 02/23/2021 1:16pm BP Systolic 142 mmHg BP Diastolic 60 mmHg Heart Rate 67 /min Body Temperature 97.7 F Respiratory Rate 18 /min O2 % BldC Oximetry 98 % Weight 180.38 lb does walk at times w hen he can in yard Weight 81.818 kg Height 68 inches 5'8" BMI (Body Mass Index) 27.4 kg/m2 BSA (Body Surface Area) 1.96 m2 01/27/2021 3:05pm BP Systolic 156 mmHg BP Diastolic 70 mmHg Heart Rate 76 /min Body Temperature 975.0 F Respiratory Rate 18 /min O2 % BldC Oximetry 98 % Weight 177.00 lb Weight 80.287 kg Height 68 inches 5'8" BMI (Body Mass Index) 26.9 kg/m2 BSA (Body Surface Area) 1.94 m2 Results Test Acquired Date Facility Test Result H/L Range Note Complete Blood Count 03/09/2021 [facility] White Blood Count 7.9 10 Normal 4.0-10.0 [...] 0.0 % Normal 0-0 Differential Automated 03/09/2021 [facility] Neutrophils % 63.4 % Normal 36.0-66.0 Lymph % 18.9 % Low 24.0-44.0 [place] % 9.9 % High 2.0-8.0 Eos % 6.2 % High 0.0-3.0 Baso % 1.1 % High 0.0-1.0 Immature Granulocyte % 0.5 % Normal 0-3.0 Neutrophils # 5.0 10 Normal 1.5-8.5 Lymph # 1.5 10 Normal 1.5-5.0 [place] # 0.8 10 Normal 0.0-0.8 Eos # 0.5 10 Normal 0.0-0.5 Baso # 0.1 10 Normal 0.0-0.2 Comprehensive Metabolic Profil 03/09/2021 [facility] Glucose, Fasting 134 mg/dL High 70-100 Blood Urea Nitrogen 49 mg/dL High 7-18 Creatinine For GFR 2.70 mg/dL High 0.70-1.30 Glomerular Filtration Rate 25.3 Low >49 1 Sodium Level 141 mEq/L Normal 136-145 Potassium [...] Albumin/Globulin Ratio 1.0 Normal Lipid Panel 03/09/2021 [facility] Triglycerides Level 89 mg/dL Normal <150 Cholesterol Level 125 mg/dL Normal <200 HDL Cholesterol 34 mg/dL Low >40 LDL Cholesterol 73 mg/dL Normal <100 Non-HDL-C 91 mg/dL Normal Cholesterol Risk Ratio 3.676 Normal <5 Laboratory test finding 03/09/2021 [facility] Uric Acid 5.9 mg/dL Normal 3.5-7.2 Hemoglobin A1c 03/09/2021 [facility] Hemoglobin A1c 6.4 % Normal 2 Estimated Average Glucose 137 mg/dL High 60-110 Ua Routine 03/09/2021 [facility] Appearance, Urine CLEAR Normal Clear Color, Urine YELLOW Normal Yellow PH,Urine 5.0 units Normal 5.0-9.0 Specific [place] Urine Auto 1.012 Normal 1.002-1.035 Protein, Urine [...] 0 /LPF Normal 0-1 Microalbumin Random 03/09/2021 [facility] Creatinine, Urine 98.6 mg/dL Normal Malb Urine Siemens 3200.0 mg/L Normal Christopher/Creat Ratio 3245.4 MCG/MG High 0.0-30.0 3 Laboratory test finding 03/09/2021 [facility] Urine Culture FULL REPORT IN L <SEE NOTE> Normal 4 PSA Free & Total 03/09/2021 [facility] PSA Total 1.5 ng/mL Normal 0.0-4.0 5 PSA Comment (SEE NOTE) Normal . 6 Xray 02/23/2021 [facility] Ce nter ( )- - Low Dose CT chest W/O contrast <pending> 1 Units are mL/min/1.73 m2 Chronic Kidney Disease Staging per NKF: Stage I & II GFR >=60 Normal to Mildly Decreased Stage III GFR 30-59 Moderately Decreased Stage IV GFR 15-29 Severely Decreased Stage V GFR <15 Very Little GFR Left ESRD GFR <15 on SOLUTIONS SALES CONSULTANT 2 REFERENCE RANGES: <=5.6% NORMAL 5.7-6.4% SUGGESTS IMPAIRED GLUCOSE META BOLISM/PREDIABETIC >= 6.5% ABNORMAL 3 THE [place] [employer] ASS[employer] ATION STATES THAT MICROALBUMINURIA IS PRESENT IF THE MICROALBUMIN/CREATININE RATIO EXCEEDS 30 MCG/MG. THE THRESHOLD FOR CLINICAL ALBUMINURIA IS REACHED AT 300 MCG/MG. THE CLASSIFICATION OF A PATIENT SHOULD BE BASED UPON AT LEAST 2 OF 3 ABNORMAL RESULTS ON SPECIMENS COLLECTED WITHIN A 3 TO 6 MONTH TIME FRAME. 4 FULL REPORT IN LAB NOTES (eC W and [facility]). NO GROWTH 5 Leidy ECLIA methodology. . According to the [place] [employer], Serum PSA should decrease and [...] the presence or absence of malignant disease. 6 . The percent free PSA is performed on a reflex basis only when the total PSA is between 4.0 and 10.0 ng/mL. Performed at: RN - [facility] [address] [id number] Straightener: Petra Rubin MD, Phone: [phone] Procedures Date Code Description Status 03/15/2021 66970 Office/Outpatient Established Lo w MDM 20-29 Min Completed 02/23/2021 82517 Office/Outpatient Established Lo w MDM 20-29 Min Completed 01/27/2021 50645 Preventive Visit New > 65 Years Completed 01/27/2021 64507 Admin Patient Focused Health Ris k Assessment Instrument Completed 01/27/2021 41802 Brief Emotional/Beha v Assessment W/ Scoring Doc Per Standard Inst Completed Medical Devices Description No Information Available Encounters Type Date Location Provider Dx Diagnosis Office Visit 03/15/2021 1:20p [facility] Davey Gonsales MD E1 1.9 Type 2 diabetes mellitus without complications N18.4 Chronic kidney disease, stag e 4 (severe) R06.02 Shortness of breath E78.5 Hyperlipidemia, unspecified Assessments Date Code Description Provider 03/15/2021 E11.9 Type 2 diabetes mellitus without complications Davey Gonsales MD 03/15/2021 N18.4 Chronic kidney disease, stage 4 (severe) Davye Gonsales MD 03/15/2021 R06.02 Shortness of breath [...] Intervertebral disc disorders with radiculopathy, lumbosacral region Davey Gonsales MD 01/27/2021 E78.5 Hyperlipidemia, unspecified Fly Gonsales MD Plan of Treatment Future Appointment(s):* 05/25/2021 10:00 am - Davey Gonsales MD at [facility] 03/15/2021 - Davey Gonsales MD* E11.9 Type 2 diabetes mellitus without complications* Comments:* Glucose 134. The patient was advised to continue with his current medication regimen. Educated regarding glucose readings. Advised the patient to check his blood sugars regularly. Advised to work closely with his DM educator/dietitian to have them well controlled. Advised the patient to regularly follow-up with solutions sales consultant and casing running machine tender for appropriate management. He will benefit from maintaining a diabetic diet and a regular exercise regimen. We will continue to monitor. * N18.4 Chronic kidney disease, stage 4 (severe)* Comments:* Continue current medications. Follow up with musculoskeletal physician. * R06.02 Shortness of breath* Comments:* We will refer him to Dr. Bell for further evaluation. * Referral:* Ubaldo Bell,, Pulmonary Diseases * E78.5 Hyperlipidemia, unspecified* Comments:* Labs reviewed with the patient in detail. He will continue with his current regimen. He was encouraged to maintain a low-cholesterol diet. Include more whole grains, fruits and vegetables in diet. Avoid red meat and include lean meat in diet. Advised the patient about the importance of regular exercise regimen to help control his cholesterol. He is aware of the cardiac risks associated with elevated cholesterol. We will continue to monitor. Functional Status Description No Information Available Mental Status Description No Information Available Referrals Refer to Reason for Referral Status Appt Date Ubaldo Bell, 65 y/o M with abnormal PFT, referred for full evaluation. Eval and treat. Created [place], [place] [id number] [phone] [place] [facility] [place] 65 y/o M with hx of type 2 diabetes, referred for diabetic eye care. Eval and treat. Sent [address] [place], [place] [id number] [phone] [facility] Podiatry Clinic 65 y/o M with hx of type 2 d iabetes, referred for diabetic foot care. Eval and treat. Sent [address] [place] [address] [phone] [facility] Cardiopulmonary/Sleep Lab 65 y/o M with hx of smok ing, shortness of breath. Referred for PFT with and without albuterol. Rule out COPD. Eval and treat. Closed 03/09/2021 [address] [place] [address] [phone] [facility] Sleep Center 65 y/o M with hx of snoring, CVA, diabetes, snoring, fatigue and tiredness. Referred for sleep study. Eval and treat. Sent [address] [place] [address] [phone]
--- OUTSIDE RECORDS SUMMARY | 2021-05-27 15:38 | CCD | Continuity of Care Document ---
Author Author Zach CURRAN MD Organization Unknown Address [address] [place] [address] Phone [phone] Care Team Providers Care Dye Automation Operator Name Role Phone Davey Gonsales M.D. AUTM [phone] [facility] Sleep Center AUTM [phone] 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 Davey Gonsales MD Onset: 01/27/2021 Chronic kidney disease stage 4 Davey Gonsales MD Onset: Type 2 diabetes mellitus Davey Gonsales MD Onset: 01/28/20 21 Essential hypertension aDvey Gonsales MD Onset: 01/27/2021 Cerebral artery occlusion Davey Gonsales MD Onset: 021 Pure hypercholesterolemia Franklin Bailey MD Onset: 021 Social History Type Date [...] alcohol qu it while he was in [facility] for the stroke Tobacco Use Start: Unknown [...] tab daily ( Dr [address] [facility]) [facility] I10 Unknow n Amlodipine Besylate 10mg Tablets 1/2 tab daily ( Was from [facility] ) I10 Unknown 00 Glyburide 1.25mg [...] Date Facility Test Result H/L Range Note Basic Metabolic Profile 04/01/2021 [facility] Glucose, Fasting 147 mg/dL High 70-100 Blood Urea Nitrogen 57 mg/dL High 7-18 Creatinine For GFR 2.75 mg/dL High 0.70-1.30 Glomerular Filtration Rate 24.8 Low >49 1 Sodium Level 143 mEq/L Normal 136-145 Potassium Serum 4.5 mEq/L Normal 3.5-5.1 Chloride Level 112 mEq/L High 98-107 Carbon Dioxide Level 25 mEq/L Normal 21-32 Anion Gap 6 mEq/L Low 8-16 Calcium Level 8.8 mg/dL Normal 8.8-10.2 Complete Blood Count 03/09/2021 [facility] White Blood Count 7.9 10 Normal 4.0-10.0 [...] 0.0 % Normal 0-0 Differential Automated 03/09/2021 [facility] Neutrophils % 63.4 % Normal 36.0-66.0 Lymph % 18.9 % Low 24.0-44.0 [place] % 9.9 % High 2.0-8.0 Eos % 6.2 % High 0.0-3.0 Baso % 1.1 % High 0.0-1.0 Immature Granulocyte % 0.5 % Normal 0-3.0 Neutrophils # 5.0 10 Normal 1.5-8.5 Lymph # 1.5 10 Normal 1.5-5.0 [place] # 0.8 10 Normal 0.0-0.8 Eos # 0.5 10 Normal 0.0-0.5 Baso # 0.1 10 Normal 0.0-0.2 Comprehensive Metabolic Profil 03/09/2021 [facility] Glucose, Fasting 134 mg/dL High 70-100 Blood Urea Nitrogen 49 mg/dL High 7-18 Creatinine For GFR 2.70 mg/dL High 0.70-1.30 Glomerular Filtration Rate 25.3 Low >49 2 Sodium Level 141 mEq/L Normal 136-145 Potassium [...] Albumin/Globulin Ratio 1.0 Normal Lipid Panel 03/09/2021 [facility] Triglycerides Level 89 mg/dL Normal <150 Cholesterol Level 125 mg/dL Normal <200 HDL Cholesterol 34 mg/dL Low >40 LDL Cholesterol 73 mg/dL Normal <100 Non-HDL-C 91 mg/dL Normal Cholesterol Risk Ratio 3.676 Normal <5 Laboratory test finding 03/09/2021 [facility] Uric Acid 5.9 mg/dL Normal 3.5-7.2 Hemoglobin A1c 03/09/2021 [facility] Hemoglobin A1c 6.4 % Normal 3 Estimated Average Glucose 137 mg/dL High 60-110 Ua Routine 03/09/2021 [facility] Appearance, Urine CLEAR Normal Clear Color, Urine YELLOW Normal Yellow PH,Urine 5.0 units Normal 5.0-9.0 Specific [place] Urine Auto 1.012 Normal 1.002-1.035 Protein, Urine [...] 0 /LPF Normal 0-1 Microalbumin Random 03/09/2021 [facility] Creatinine, Urine 98.6 mg/dL Normal Malb Urine Siemens 3200.0 mg/L Normal Christopher/Creat Ratio 3245.4 MCG/MG High 0.0-30.0 4 Laboratory test finding 03/09/2021 [facility] Urine Culture FULL REPORT IN L <SEE NOTE> Normal 5 PSA Free & Total 03/09/2021 [facility] PSA Total 1.5 ng/mL Normal 0.0-4.0 6 PSA Comment (SEE NOTE) Normal . 7 1 Units are mL/min/1.73 m2 Chronic Kidney Disease Staging per NKF: Stage I & II GFR >=60 Normal to Mildly Decreased Stage III GFR 30-59 Moderately Decreased Stage IV GFR 15-29 Severely Decreased Stage V GFR <15 Very Little GFR Left ESRD GFR <15 on USED CAR LOT PORTER 2 Units are mL/min/1.73 m2 Chronic Kidney Disease Staging per NKF: Stage I & II GFR >=60 Normal to Mildly Decreased Stage III GFR 30-59 Moderately Decreased Stage IV GFR 15-29 Severely Decreased Stage V GFR <15 Very Little GFR Left ESRD GFR <15 on USED CAR LOT PORTER 3 REFERENCE RANGES: <=5.6% NORMAL 5.7-6.4% SUGGESTS IMPAIRED GLUCOSE META BOLISM/PREDIABETIC >= 6.5% ABNORMAL 4 THE [employer] [place] DIABETES ASSOCI ATION STATES THAT MICROALBUMINURIA IS PRESENT IF THE MICROALBUMIN/CREATININE RATIO EXCEEDS 30 MCG/MG. THE THRESHOLD FOR CLINICAL ALBUMINURIA IS REACHED AT 300 MCG/MG. THE CLASSIFICATION OF A PATIENT SHOULD BE BASED UPON AT LEAST 2 OF 3 ABNORMAL RESULTS ON SPECIMENS COLLECTED WITHIN A 3 TO 6 MONTH TIME FRAME. 5 FULL REPORT IN LAB NOTES (eC W and Medent). NO GROWTH 6 Leidy ECLIA methodology. . According to the [place] [employer], Serum PSA should decrease and [...] the presence or absence of malignant disease. 7 . The percent free PSA is performed on a reflex basis only when the total PSA is between 4.0 and 10.0 ng/mL. Performed at: RN - [facility] [address] [id number] Chronometer Repairer: Petra Rubin MD, Phone: [phone] Procedures Date Code Description Status 04/22/2021 67181 Office/Outpatient Established SF MDM 10-19 Min Completed 04/22/2021 35598 Office/Outpatient New SF MDM 15- 29 Minutes Completed 04/22/2021 71585 I & D Abscess Simple Completed 03/30/2021 10176 Office/Outpatient New Low MDM 30 -44 Minutes Completed 03/15/2021 94680 Office/Outpatient Established Lo w MDM 20-29 Min Completed 02/23/2021 71271 Office/Outpatient Established Lo w MDM 20-29 Min Completed 01/27/2021 63936 Preventive Visit New > 65 Years Completed 01/27/2021 33642 Admin Patient Focused Health Ris k Assessment Instrument Completed 01/27/2021 05455 Brief Emotional/Beha v Assessment W/ Scoring Doc Per Standard Inst Completed Medical Devices Description No Information Available Encounters Type Date Location Provider Dx Diagnosis Office Visit 04/27/2021 10:00a [facility] Surgical Center Dre Curran MD L 02.412 Cutaneous abscess of left axilla Assessments Date Code Description Provider 04/27/2021 L02.412 Cutaneous abscess of left axilla Dre Curran MD 04/22/2021 L02.412 Cutaneous abscess of left axilla Franklin Bailey MD 04/22/2021 L02.412 Cutaneous abscess of left axilla KAREN Goldstein 03/30/2021 M76.62 Achilles tendinitis, left leg Fabio Onofre, DP 03/30/2021 M76.72 Peroneal tendinitis, left leg Fabio Onofre, [facility] 03/30/2021 M76.822 Posterior tibial tendinitis, lef t leg Pablo Peñatamiko, [facility] 03/30/2021 R53.1 Weakness Pablo Onofre, [facility] 03/30/2021 E11.9 Type 2 diabetes mellitus without complications Pablo Onofre, [facility] 03/30/2021 N18.4 Chronic kidney disease, stage 4 (severe) Pablochinmay Peñatamiko, [facility] 03/30/2021 M79.672 Pain in left foot Caleb Dorantes PM 03/15/2021 E11.9 Type 2 diabetes mellitus [...] Davey Gonsales MD at [facility] 04/27/2021 - Dre Curran MD* L02.412 [...] to be done today, in radiology at [facility]. Results returned showing "complex cystic lesion [...] and treat as appropriate. Thank you. Sent [address] [place] [address] [phone] Ubaldo Bell, 65 y/o M with SOB and abnorm al PFT, referred for full evaluation. Eval and treat. Patient Notified 04/13/2021 [place] [address] [phone] [facility] [place] 65 y/o M with hx of type 2 diabetes, referred for diabetic eye care. Eval and treat. Sent [address] [place] [address] [phone] [facility] Podiatry Clinic 65 y/o M with hx of type 2 d iabetes, referred for diabetic foot care. Eval and treat. Sent [address] [place] [address] [phone] [facility] Cardiopulmonary/Sleep Lab 65 y/o M with hx of smok ing, shortness of breath. Referred for PFT with and without albuterol. Rule out COPD. Eval and treat. Closed 03/09/2021 [address] [place], [place] [id number] [phone] [facility] Sleep Center 65 y/o M with hx of snoring, CVA, diabetes, snoring, fatigue and tiredness. Referred for sleep study. Eval and treat. Sent [address] [place], [place] [id number] [phone]
--- OUTSIDE RECORDS SUMMARY | 2021-05-27 15:38 | CCD ---
Continuity of Care Document (CCD) Created on: 04/04/2021 Zach Floyd External Reference #: [id number] : [id number] Sex: Male Author Author Zach GONSALES M.D. Organization Unknown Address [address] [place] [address] Phone [phone] Care Team Providers Care Parts Counter Sales Person Name Role Phone Davey Gonsales M.D. AUTM [phone] [facility] Sleep Center AUTM [phone] [place] [facility] AUTM [phone] [facility] Podiatry Clinic AUTM [phone] [facility] Cardiopulmonary/Sleep Lab AUTM [phone] [facility] Pulmonary Clinic AUTM [phone] Problems Active Problems Provider Date Hyperlipidemia Davey [...] [facility] Tobacco Use Start: [...] Tablets 1/2 tab daily ( Was from [facility] ) I10 Unknown 00 Glyburide 1.25mg Tablets [...] H/L Range Note Basic Metabolic Profile 04/01/2021 [facility] Glucose, Fasting 147 mg/dL High 70-100 [...] mg/dL Normal 8.8-10.2 Complete Blood Count 03/09/2021 [facility] White Blood Count 7.9 10 Normal [...] 0.0 % Normal 0-0 Differential Automated 03/09/2021 [facility] Neutrophils % 63.4 % Normal 36.0-66.0 Lymph % 18.9 % Low 24.0-44.0 [place] % 9.9 % High 2.0-8.0 Eos % 6.2 % High 0.0-3.0 Baso % 1.1 % High 0.0-1.0 Immature Granulocyte % 0.5 % Normal 0-3.0 Neutrophils # 5.0 10 Normal 1.5-8.5 Lymph # 1.5 10 Normal 1.5-5.0 [place] # 0.8 10 Normal 0.0-0.8 Eos # 0.5 10 Normal 0.0-0.5 Baso # 0.1 10 Normal 0.0-0.2 Comprehensive Metabolic Profil 03/09/2021 [facility] Glucose, Fasting 134 mg/dL High 70-100 [...] Albumin/Globulin Ratio 1.0 Normal Lipid Panel 03/09/2021 [facility] Triglycerides Level 89 mg/dL Normal <150 Cholesterol Level 125 mg/dL Normal <200 HDL Cholesterol 34 mg/dL Low >40 LDL Cholesterol 73 mg/dL Normal <100 Non-HDL-C 91 mg/dL Normal Cholesterol Risk Ratio 3.676 Normal <5 Laboratory test finding 03/09/2021 [facility] Uric Acid 5.9 mg/dL Normal 3.5-7.2 Hemoglobin A1c 03/09/2021 [facility] Hemoglobin A1c 6.4 % Normal 3 Estimated Average Glucose 137 mg/dL High 60-110 Ua Routine 03/09/2021 [facility] Appearance, Urine CLEAR Normal Clear Color, Urine YELLOW Normal Yellow PH,Urine 5.0 units Normal 5.0-9.0 Specific [place] Urine Auto 1.012 Normal 1.002-1.035 Protein, Urine [...] 0 /LPF Normal 0-1 Microalbumin Random 03/09/2021 [facility] Creatinine, Urine 98.6 mg/dL Normal Malb Urine Siemens 3200.0 mg/L Normal Christopher/Creat Ratio 3245.4 MCG/MG High 0.0-30.0 4 Laboratory test finding 03/09/2021 [facility] Urine Culture FULL REPORT IN L <SEE NOTE> Normal 5 PSA Free & Total 03/09/2021 [facility] PSA Total 1.5 ng/mL Normal 0.0-4.0 6 PSA Comment (SEE NOTE) Normal . 7 1 Units are mL/min/1.73 m2 Chronic Kidney Disease Staging per NKF: Stage I & II GFR >=60 Normal to Mildly Decreased Stage III GFR 30-59 Moderately Decreased Stage IV GFR 15-29 Severely Decreased Stage V GFR <15 Very Little GFR Left ESRD GFR <15 on NITROGLYCERIN SUPERVISOR 2 Units are mL/min/1.73 m2 Chronic Kidney Disease Staging per NKF: Stage I & II GFR >=60 Normal to Mildly Decreased Stage III GFR 30-59 Moderately Decreased Stage IV GFR 15-29 Severely Decreased Stage V GFR <15 Very Little GFR Left ESRD GFR <15 on NITROGLYCERIN SUPERVISOR 3 REFERENCE RANGES: <=5.6% NORMAL 5.7-6.4% SUGGESTS IMPAIRED GLUCOSE META BOLISM/PREDIABETIC >= 6.5% ABNORMAL 4 THE [place] DIABETES ASSOCI ATION STATES THAT MICROALBUMINURIA IS PRESENT IF THE MICROALBUMIN/CREATININE RATIO EXCEEDS 30 MCG/MG. THE THRESHOLD FOR CLINICAL ALBUMINURIA IS REACHED AT 300 MCG/MG. THE CLASSIFICATION OF A PATIENT SHOULD BE BASED UPON AT LEAST 2 OF 3 ABNORMAL RESULTS ON SPECIMENS COLLECTED WITHIN A 3 TO 6 MONTH TIME FRAME. 5 FULL REPORT IN LAB NOTES (eC W and Medenrique). NO GROWTH 6 Leidy ECLIA methodology. . According to the [place] [employer], Serum PSA should decrease and [...] between 4.0 and 10.0 ng/mL. Performed at: - [facility] [address] [id number] Wire Twisting Machine Operator: Petra Rubin MD, Phone: [phone] Procedures Date Code Description Status 03/30/2021 95971 Office/Outpatient New Low MDM 30 -44 Minutes Completed 03/15/2021 82609 Office/Outpatient Established Lo w MDM 20-29 Min Completed 02/23/2021 69623 Office/Outpatient Established Lo w MDM 20-29 Min Completed 01/27/2021 83922 Preventive Visit New > 65 Years Completed 01/27/2021 06788 Admin Patient Focused Health Ris k Assessment Instrument Completed 01/27/2021 53075 Brief Emotional/Beha v Assessment W/ Scoring Doc Per Standard Inst Completed Medical Devices Description No Information Available Encounters Type Date Location Provider Dx Diagnosis Office Visit 03/30/2021 1:30p [facility]ry Pablo Onofre DPM M76.62 Achilles tendinitis, left leg M76.72 Peroneal tendinitis, left le g M76.822 Posterior tibial tendinitis, left leg R53.1 Weakness E11.9 Type 2 diabetes mellitus wit hout complications N18.4 Chronic kidney disease, stag e 4 (severe) M79.672 Pain in left foot Assessments Date Code Description Provider 03/30/2021 M76.62 Achilles tendinitis, left leg Fabio Onofre DPM 03/30/2021 M76.72 Peroneal tendinitis, left leg Fabio Onofre DPM 03/30/2021 M76.822 Posterior tibial tendinitis, lef t leg Pablo Peñatamiko, DP 03/30/2021 R53.1 Weakness Pablo Peñatamiko, DP 03/30/2021 E11.9 Type 2 diabetes mellitus without complications Pablo Peñatamiko, DPM 03/30/2021 N18.4 Chronic kidney disease, stage 4 (severe) Pablo Caseytamiko, DP 03/30/2021 M79.672 Pain in left foot Caleb Dorantes 03/15/2021 E11.9 Type 2 diabetes mellitus without [...] disease, stage 4 (severe) Davye Gonsales MD 01/27/2021 M51.17 Intervertebral disc disorders with radiculopathy, lumbosacral region Davey Gonsales MD 01/27/2021 E78.5 Hyperlipidemia, unspecified Fly Gonsales MD Plan of Treatment Future Appointment(s):* 05/25/2021 10:00 am - Davey Gonsales MD at [facility] 03/30/2021 - Pablo Onofre DPM* M76.62 Achilles tendinitis, left leg* Referral:* [facility], * Follow up:* Patient was advised to follow up after six week of physical therapy or sooner should any new issues arise. * Recommendations:* 1. The patient was seen and evaluated. 2. His new area of pain seems to be Achilles' tendon but also gets pain along the peroneal tendon, posterior tibial tendon, and bottom of his foot. He complains of quite a bit of swelling when he is up around at the end of the day. He was not on his feet today, so it is not swollen. He does have some weakness throughout his left leg. All of these began after the stroke which affected his left side. He does see Vascular but has never mentioned the swelling to his vascular doctor. I advised him to let his vascular doctor know about the swelling. He has not seen a neurologist since the stroke. He has difficulty making an appointment with the neurologist in [place]. I encouraged him to try and make this appointment very important. He also has weakness throughout his left lower extremity. He also complains of it in his upper extremities. He has not been to physical therapy. Placed a referral to help them rehabilitate his strength. I believe much of his pain is due to his weakness and overusing his tendons. We will have him start with this and follow up with me after he has gone for six weeks of therapy. He may continue to follow up with his vascular doctor, get establish with a neurologist, and follow up with his PCP for continued recovery and rehabilitation following his stroke. * M76.72 Peroneal tendinitis, left leg * M76.822 Posterior tibial tendinitis, left leg * R53.1 Weakness * E11.9 Type 2 diabetes mellitus without complications * N18.4 Chronic kidney disease, stage 4 (severe) * M79.672 Pain in left foot Functional Status Description No Information Available Mental [...] treat as appropriate. Thank you. Sent [address] [place] [id number] [phone] Ubaldo Bell, 65 y/o M with SOB and abnorm al PFT, referred for full evaluation. Eval and treat. Patient Notified 04/13/2021 [place] [address] [phone] [facility] [facility] [place] 65 y/o M with hx of type 2 diabetes, referred for diabetic eye care. Eval and treat. Sent [address] [place] [address] [phone] [facility] Podiatry Clinic 65 y/o M with hx of type 2 d iabetes, referred for diabetic foot care. Eval and treat. Sent [address] [place] [address] [phone] [facility] Cardiopulmonary/Sleep Lab 65 y/o M with hx of smok ing, shortness of breath. Referred for PFT with and without albuterol. Rule out COPD. Eval and treat. Closed 03/09/2021 [address] [place] [address] [phone] [facility] Sleep Center 65 y/o M with hx of snoring, CVA, diabetes, snoring, fatigue and tiredness. Referred for sleep study. Eval and treat. Sent [address] [place] [address] [phone]
--- OUTSIDE RECORDS SUMMARY | 2021-05-27 15:38 | CCD | Continuity of Care Document ---
Author Author Zach HERMAN M.D. Organization Unknown Address [address] [place] [address] Phone [phone] Care Team Providers Care Wheel Assembler Name Role Phone Davey Gonsales M.D. AUTM [phone] Problems Active Problems Provider Date Ischemic stroke Kobi Herman M.D. Onset: 04/19/2021 Fatigue Kobi Herman M.D. Onset: 04/19/2021 Numbness Kobi Herman M.D. Onset: 04/19/2021 Social History Type Date Description Comments Sex Unknown Tobacco Use Start: Unknown End: Unknown Patient is a former smoker Allergies and adverse reactions Active Allergies Criticality Reaction | Severity Comments Date Lisinopril Unable to assess criticality 04/19/2021 Medications Active Medications SIG Qnty Indications Ordering Provide r Date Aspirin 325mg Tablets take 1 by mouth every day Unknown Atorvastatin Calcium 40mg Tablets once a day Unknown Immunizations Description No Information Available Vital Signs Date Vital Result Comment 04/19/2021 1:27pm Respiratory Rate 12 /min Height 68 inches 5'8" Weight 180.00 lb BMI (Body Mass Index) 27.4 kg/m2 [place] Body Weight 154 lb Results Description No Information Available Procedures Date Code Description Status 04/19/2021 77277 Office/Outpatient Established Mo d MDM 30-39 Min Completed 12/16/2020 67496 Hospital Initial Care Level 3 Co mpleted Medical Devices Description No Information Available Encounters Type Date Location Provider Dx Diagnosis Office Visit 04/19/2021 12:45p Main office - [place] Kobi gill M.D. I63.9 Cerebral infarction, unspecified I65.23 Occlusion and stenosis of bi lateral carotid arteries Assessments Date Code Description Provider 04/19/2021 I63.9 Cerebral infarction, unspecified Kobi Herman M.D. 04/19/2021 I65.23 Occlusion and stenosis of bilate ral carotid arteries Kobi Herman M.D. 12/16/2020 I63.9 Cerebral infarction, unspecified Kobi Herman M.D. Plan of Treatment Future Appointment(s):* 08/04/2021 1:30 pm - Kobi Herman M.D. at Main office - [place] Functional Status Description No Information Available Mental Status Description No Information Available Referrals Refer to Dr Reason for Referral Status Appt Date Kobi Herman M.D. Created 0 [address] [place] [address] [phone]
--- OUTSIDE RECORDS SUMMARY | 2021-05-27 15:38 | CCD | Continuity of Care Document ---
Author Author Zach HERMAN M.D. Organization Unknown Address [address] [place] [address] Phone [phone] Care Team Providers Care News Photographer Name Role Phone Henry Sheehan M.D. AUTM [phone] Davey Gonsales M.D. AUTM [phone] Problems Active Problems Provider Date Ischemic stroke [...] lb BMI (Body Mass Index) 27.4 kg/m2 [place] Body Weight 154 lb Results Description No Information Available Procedures Date Code Description Status 12/16/2020 82556 Hospital Initial Care Level 3 Co mpleted Medical Devices Description No Information Available Encounters Description No Information Available Assessments Date Code Description Provider 04/19/2021 I63.9 Cerebral infarction, unspecified Kobi Herman M.D. 04/19/2021 I65.23 Occlusion and stenosis of bilate ral carotid arteries Kobi Herman M.D. 12/16/2020 I63.9 Cerebral infarction, unspecified Kobi Herman M.D. Plan of Treatment Future Appointment(s):* 08/04/2021 1:30 pm - Kobi Herman M.D. at Main office - [place] Functional Status Description No Information Available Mental Status Description No Information Available Referrals Refer to Dr Reason for Referral Status Appt Date Kobi Herman M.D. Created [address] [place] [address] [phone]
--- OUTSIDE RECORDS SUMMARY | 2021-05-27 15:38 | CCD | Continuity of Care Document ---
Author Author Zach CURRAN MD Organization Unknown Address [address] [place] [address] Phone [phone] Care Team Providers Care Supervisor Leaf Spring Repair Name Role Phone Davey Gonsales M.D. AUTM [phone] [facility] Sleep Center AUTM [phone] [facility] [phone] [facility] Podiatry Clinic AUTM [phone] [facility] Cardiopulmonary/Sleep Lab AUTM [facility] Pulmonary Clinic AUTM [phone] Problems Active Problems Provider Date Cellulitis and [...] alcohol qu it while he was in [facility] for the stroke Tobacco Use [...] tab daily ( Dr Epperson Kidney DR) [facility] I10 Unknow n Amlodipine Besylate 10mg Tablets 1/2 tab daily ( Was from [facility] ) I10 Unknown 00 Glyburide 1.25mg [...] 36.0-66.0 Lymph % 18.9 % Low 24.0-44.0 Howell % 9.9 % High 2.0-8.0 Eos % 6.2 % High 0.0-3.0 Baso % 1.1 % High 0.0-1.0 Immature Granulocyte % 0.5 % Normal 0-3.0 Neutrophils # 5.0 10 Normal 1.5-8.5 Lymph # 1.5 10 Normal 1.5-5.0 Howell # 0.8 10 Normal 0.0-0.8 Eos # [...] Yellow PH,Urine 5.0 units Normal 5.0-9.0 Specific [place] Urine Auto 1.012 Normal 1.002-1.035 Protein, Urine [...] Little GFR Left ESRD GFR <15 on CONSTRUCTION EXECUTIVE 2 Units are mL/min/1.73 m2 Chronic Kidney Disease Staging per NKF: Stage I & II GFR >=60 Normal to Mildly Decreased Stage III GFR 30-59 Moderately Decreased Stage IV GFR 15-29 Severely Decreased Stage V GFR <15 Very Little GFR Left ESRD GFR <15 on CONSTRUCTION EXECUTIVE 3 REFERENCE RANGES: <=5.6% NORMAL 5.7-6.4% SUGGESTS IMPAIRED GLUCOSE META BOLISM/PREDIABETIC >= 6.5% ABNORMAL 4 THE [place] DIABETES ASSOCI ATION STATES THAT MICROALBUMINURIA IS [...] Leidy ECLIA methodology. . According to the [place] [employer] Association, Serum PSA should decrease and [...] ng/mL. Performed at: RN - [facility] [address] [id number] Powder Blender And Pourer: Petra Rubin MD, Phone: [phone] Procedures Date Code Description Status 04/22/2021 91175 Office/Outpatient Established SF MDM 10-19 Min Completed 04/22/2021 11165 Office/Outpatient New SF MDM 15- 29 Minutes Completed 04/22/2021 56377 I & D Abscess Simple Completed 03/30/2021 94324 Office/Outpatient New Low MDM 30 -44 Minutes Completed 03/15/2021 29948 Office/Outpatient Established Lo w MDM 20-29 Min Completed 02/23/2021 42606 Office/Outpatient Established Lo w MDM 20-29 Min Completed 01/27/2021 44675 Preventive Visit New > 65 Years Completed 01/27/2021 13963 Admin Patient Focused Health Ris k Assessment Instrument Completed 01/27/2021 42082 Brief Emotional/Beha v Assessment W/ Scoring Doc Per Standard Inst Completed Medical Devices Description No Information Available Encounters Type Date Location Provider Dx Diagnosis Office Visit 04/27/2021 10:00a [facility] Surgical Center Dre Curran MD L [...] M76.72 Peroneal tendinitis, left leg Fabio Onofre, [facility] 03/30/2021 M76.822 Posterior tibial tendinitis, lef t leg Pablo Peñatamiko, [facility] 03/30/2021 R53.1 Weakness Pablo Onofre, [facility] 03/30/2021 E11.9 Type 2 diabetes mellitus without complications Pablo Onofre, [facility] 03/30/2021 N18.4 Chronic kidney disease, stage 4 (severe) Pablochinmay Peñatamiko, [facility] 03/30/2021 M79.672 Pain in left foot Caleb [...] 10:00 am - Davey Gonsales MD at [facility] 04/27/2021 - Dre Curran MD* L02.412 Cutaneous [...] to be done today, in radiology at [facility]. Results returned showing "complex cystic lesion [...] treat as appropriate. Thank you. Sent [address] [place] [address] [phone] Ubaldo Bell, 65 y/o M with SOB and abnorm al PFT, referred for full evaluation. Eval and treat. Patient Notified 04/13/2021 [place] [address] [phone] [facility] [place] 65 y/o M with hx of type 2 diabetes, referred for diabetic eye care. Eval and treat. Sent [address] [place] [address] [phone] [facility] Podiatry Clinic 65 y/o M with hx of type 2 d iabetes, referred for diabetic foot care. Eval and treat. Sent [address] [place] [address] [phone] [facility] Cardiopulmonary/Sleep Lab 65 y/o M with hx of smok ing, shortness of breath. Referred for PFT with and without albuterol. Rule out COPD. Eval and treat. Closed 03/09/2021 [address] [place], [place] [id number] [phone] [facility] Sleep Center 65 y/o M with hx of snoring, CVA, diabetes, snoring, fatigue and tiredness. Referred for sleep study. Eval and treat. Sent [address] [place], [place] [id number] [phone]
--- OUTSIDE RECORDS SUMMARY | 2021-05-27 15:38 | CCD ---
Continuity of Care Document (CCD) Created on: 03/24/2021 Zach Floyd External Reference #: [id number] : [id number] Sex: Male Author Author Zach DANIEL PA Organization Unknown Address [address] [place] [address] Phone [phone] Care Team Providers Care Marketing Technologist Name Role Phone AUTM Unavailable Davey Gonsales M.D. AUTM [phone] AUTM Unavailable Problems Active Problems Provider Date Essential hypertension Don Cook DO Onset: 7 Social History Type Date Description Comments Sex Unknown ETOH Use 8 A Week Tobacco Use Start: 07/16/71 End: 07/16/20 Patient is a forme r smoker 1 PPD HISTORY FOR A TOTAL OF 42 YEARS PT STATES THAT HE QUIT SMOKING 4 TIMES Smoking Status Reviewed: 03/24/21 Patient is a former smoker 1 PPD HISTORY FOR A TOTAL OF 42 YEARS PT STATES THAT HE QUIT SMOKING 4 TIMES Allergies, Adverse Reactions, Alerts Active Allergies Criticality Reaction | Severity Comments Date Lisinopril Unable to assess criticality 03/24/2021 Inactive Allergies NKDA Unable to assess criticality 09/26/2017 Medications Active Medications SIG Qnty Indications Ordering Provide r Date Trelegy Ellipta 200- 62.5-25mcg/Inh Aerosol inhale one puff by mouth every day 60units J44.9 Kemar celis DFredO. 03/24/2021 Proair HFA 108(90Base) mcg/Act Aer osol 2 puffs four times a day as needed 8.500gm J44.9 Lauren BuckO . 03/24/2021 Losartan Potassium 25mg Tablets 1 [...] Available Vital Signs Date Vital Result Comment 03/24/2021 8:24am BP Systolic 140 mmHg BP Diastolic 70 mmHg Heart Rate 71 /min O2 % BldC Oximetry 98 % Height 68 inches 5'8" Weight 186.00 lb BMI (Body Mass Index) 28.3 kg/m2 [place] Body Weight 154 lb Weight 84.370 kg BSA (Body Surface Area) 1.98 m2 01/31/2018 1:39pm BP Systolic 117 mmHg BP Diastolic 65 mmHg Height 65.5 inches 5'5.50" Weight 165.00 lb BMI (Body Mass Index) 27.0 kg/m2 [place] Body Weight 136 lb Weight 74.844 kg BSA (Body Surface Area) 1.83 m2 Results Test Acquired Date Facility Test Result H/L Range Note Renal Profile 01/26/2021 [facility] Main Lab [address] [place] [address] [phone] Glucose, Fasting 231 mg/dL High 70-100 Blood [...] GM/DL Normal 3.2-5.2 Laboratory test finding 01/26/2021 [facility] Main Lab [address] [place] [address] [phone] Magnesium Level 2.2 mg/dL Normal 1.8-2.4 NT-Pro BNP 914 pg/mL High <125 1 Units are mL/min/1.73 m2 Chronic Kidney Disease Staging per NKF: Stage I & II GFR >=60 Normal to Mildly Decreased Stage III GFR 30-59 Moderately Decreased Stage IV GFR 15-29 Severely Decreased Stage V GFR <15 Very Little GFR Left ESRD GFR <15 on MANAGER STRATEGIC DEVELOPMENT Procedures Description No Information Available Medical Devices Description No Information Available Encounters Description No Information Available Assessments Date Code Description Provider 03/24/2021 J44.9 Chronic obstructive pulmonary di sease, unspecified KAREN Singer 03/24/2021 Z87.891 Personal history of nicotine dep endence KAREN Singer Plan of Treatment Future Appointment(s):* 05/11/2021 10:00 am - KAREN Singer at [facility] Pulmonary/Thoracic 03/24/2021 - KAREN Singer* J44.9 Chronic obstructive pulmonary disease, unspecified * Z87.891 Personal history of nicotine dependence * * New Medication:* Trelegy Ellipta 200-62.5-25 mcg/Inh * Proair HFA 108(90 Base) mcg/Act * New Labs:* FVL/Rosalino, Ordered: 03/24/21 * Follow up:* 1. Follow up in 4-6 weeks with rosalino Functional Status Description No Information Available Mental Status Description No Information Available Referrals Refer to Reason for Referral Status Appt Date Aquiles Daniel R.PAbhishek. SOB + PFT Scheduled 03/2021 [facility]-Pulmonary [address] [place], [place] [address] [phone]
--- OUTSIDE RECORDS SUMMARY | 2021-05-27 15:38 | CCD | Continuity of Care Document ---
Author Author Zach CURRAN MD Organization Unknown Address [address] [place] [address] Phone [phone] Care Team Providers Care Plant Guard Name Role Phone Davey Gonsales M.D. AUTM [phone] [facility] Sleep Center AUTM [phone] [facility] AUTM [phone] [facility] Podiatry Clinic AUTM [phone] [facility] Cardiopulmonary/Sleep Lab AUTM [facility] Pulmonary Clinic AUTM [phone] Problems Active Problems Provider Date Cellulitis and [...] alcohol qu it while he was in [facility] for the stroke Tobacco Use Start: Unknown [...] tab daily ( Dr Epperson Kidney DR) [facility] I10 Unknow n Amlodipine Besylate 10mg Tablets 1/2 tab daily ( Was from [facility] ) I10 Unknown 00 Glyburide [...] H/L Range Note Basic Metabolic Profile 04/01/2021 [facility] Glucose, Fasting 147 mg/dL High 70-100 Blood [...] mg/dL Normal 8.8-10.2 Complete Blood Count 03/09/2021 [facility] White Blood Count 7.9 10 Normal 4.0-10.0 [...] 0.0 % Normal 0-0 Differential Automated 03/09/2021 [facility] Neutrophils % 63.4 % Normal 36.0-66.0 Lymph % 18.9 % Low 24.0-44.0 Scott % 9.9 % High 2.0-8.0 Eos % 6.2 % High 0.0-3.0 Baso % 1.1 % High 0.0-1.0 Immature Granulocyte % 0.5 % Normal 0-3.0 Neutrophils # 5.0 10 Normal 1.5-8.5 Lymph # 1.5 10 Normal 1.5-5.0 Scott # 0.8 10 Normal 0.0-0.8 Eos # 0.5 10 Normal 0.0-0.5 Baso # 0.1 10 Normal 0.0-0.2 Comprehensive Metabolic Profil 03/09/2021 [facility] Glucose, Fasting 134 mg/dL High 70-100 Blood [...] Albumin/Globulin Ratio 1.0 Normal Lipid Panel 03/09/2021 [facility] Triglycerides Level 89 mg/dL Normal <150 Cholesterol Level 125 mg/dL Normal <200 HDL Cholesterol 34 mg/dL Low >40 LDL Cholesterol 73 mg/dL Normal <100 Non-HDL-C 91 mg/dL Normal Cholesterol Risk Ratio 3.676 Normal <5 Laboratory test finding 03/09/2021 [facility] Uric Acid 5.9 mg/dL Normal 3.5-7.2 Hemoglobin A1c 03/09/2021 [facility] Hemoglobin A1c 6.4 % Normal 3 Estimated Average Glucose 137 mg/dL High 60-110 Ua Routine 03/09/2021 [facility] Appearance, Urine CLEAR Normal Clear Color, Urine YELLOW Normal Yellow PH,Urine 5.0 units Normal 5.0-9.0 Specific [place] Urine Auto 1.012 Normal 1.002-1.035 Protein, Urine [...] 0 /LPF Normal 0-1 Microalbumin Random 03/09/2021 [facility] Creatinine, Urine 98.6 mg/dL Normal Malb Urine Siemens 3200.0 mg/L Normal Christopher/Creat Ratio 3245.4 MCG/MG High 0.0-30.0 4 Laboratory test finding 03/09/2021 [facility] Urine Culture FULL REPORT IN L <SEE NOTE> Normal 5 PSA Free & Total 03/09/2021 [facility] PSA Total 1.5 ng/mL Normal 0.0-4.0 6 PSA Comment (SEE NOTE) Normal . 7 1 Units are mL/min/1.73 m2 Chronic Kidney Disease Staging per NKF: Stage I & II GFR >=60 Normal to Mildly Decreased Stage III GFR 30-59 Moderately Decreased Stage IV GFR 15-29 Severely Decreased Stage V GFR <15 Very Little GFR Left ESRD GFR <15 on PHYSICAL THERAPY AIDES TEACHER 2 Units are mL/min/1.73 m2 Chronic Kidney Disease Staging per NKF: Stage I & II GFR >=60 Normal to Mildly Decreased Stage III GFR 30-59 Moderately Decreased Stage IV GFR 15-29 Severely Decreased Stage V GFR <15 Very Little GFR Left ESRD GFR <15 on PHYSICAL THERAPY AIDES TEACHER 3 REFERENCE RANGES: <=5.6% NORMAL 5.7-6.4% SUGGESTS IMPAIRED GLUCOSE META BOLISM/PREDIABETIC >= 6.5% ABNORMAL 4 THE [place] DIABETES ASSOCI ATION STATES THAT MICROALBUMINURIA IS [...] Leidy ECLIA methodology. . According to the [place] U[employer], Serum PSA should decrease and [...] 10.0 ng/mL. Performed at: RN - [facility] [address] [id number] Lift Manager: Petra Rubin MD, Phone: [phone] Procedures Date Code Description Status 04/22/2021 45123 Office/Outpatient Established SF MDM 10-19 Min Completed 04/22/2021 05635 Office/Outpatient New SF MDM 15- 29 Minutes Completed 04/22/2021 90993 I & D Abscess Simple Completed 03/30/2021 91696 Office/Outpatient New Low MDM 30 -44 Minutes Completed 03/15/2021 44457 Office/Outpatient Established Lo w MDM 20-29 Min Completed 02/23/2021 32801 Office/Outpatient Established Lo w MDM 20-29 Min Completed 01/27/2021 07638 Preventive Visit New > 65 Years Completed 01/27/2021 51841 Admin Patient Focused Health Ris k Assessment Instrument Completed 01/27/2021 54760 Brief Emotional/Beha v Assessment W/ Scoring Doc Per Standard Inst Completed Medical Devices Description No Information Available Encounters Type Date Location Provider Dx Diagnosis Office Visit 04/27/2021 10:00a [facility] Surgical Center Dre Curran MD L 02.412 Cutaneous abscess of left axilla Assessments Date Code Description Provider 04/27/2021 L02.412 Cutaneous abscess of left axilla Dre Curran MD 04/22/2021 L02.412 Cutaneous abscess of left axilla Franklin Bailey MD 04/22/2021 L02.412 Cutaneous abscess of left axilla KAREN Goldstein 03/30/2021 M76.62 Achilles tendinitis, left leg Fabio Onofre, DP 03/30/2021 M76.72 Peroneal tendinitis, left leg Fabio Onofre, [facility] 03/30/2021 M76.822 Posterior tibial tendinitis, lef t leg Pablo Peñatamiko, [facility] 03/30/2021 R53.1 Weakness Pablo nOofre, [facility] 03/30/2021 E11.9 Type 2 diabetes mellitus without complications Pablo Onofre, [facility] 03/30/2021 N18.4 Chronic kidney disease, stage 4 (severe) Pablochinmay Peñatamiko, [facility] 03/30/2021 M79.672 Pain in left foot Caleb [...] - Davey Gonsales MD at [facility] 04/27/2021 - Dre Curran MD* L02.412 Cutaneous [...] to be done today, in radiology at [facility]. Results returned showing "complex cystic lesion in [...] treat as appropriate. Thank you. Sent [address] [place] [address] [phone] Ubaldo Bell, 65 y/o M with SOB and abnorm al PFT, referred for full evaluation. Eval and treat. Patient Notified 04/13/2021 [place] [address] [phone] [facility] [place] 65 y/o M with hx of type 2 diabetes, referred for diabetic eye care. Eval and treat. Sent [address] [place] [address] [phone] [facility] Podiatry Clinic 65 y/o M with hx of type 2 d iabetes, referred for diabetic foot care. Eval and treat. Sent [address] [place] [address] [phone] [facility] Cardiopulmonary/Sleep Lab 65 y/o M with hx of smok ing, shortness of breath. Referred for PFT with and without albuterol. Rule out COPD. Eval and treat. Closed 03/09/2021 [address] [place], [place] [id number] [phone] [facility] Sleep Center 65 y/o M with hx of snoring, CVA, diabetes, snoring, fatigue and tiredness. Referred for sleep study. Eval and treat. Sent [address] [place], [place] [id number] [phone]
--- OUTSIDE RECORDS SUMMARY | 2021-05-27 15:38 | CCD ---
Continuity of Care Document (CCD) Created on: 04/22/2021 Zach Floyd External Reference #: [id number] : 1955 Sex: Male Author Author Zach NEGRON MD Organization Unknown Address [address] [place] [address] Phone [phone] Care Team Providers Care Area Coordinator Name Role Phone Davey Gonsales M.D. AUTM [phone] [facility] Sleep Center AUTM [phone] [place] [facility] [place] [facility]M [phone] [facility] Podiatry Clinic AUTM [phone] [facility] Cardiopulmonary/Sleep Lab AUTM [phone] [facility] Pulmonary Clinic AUTM [phone] Problems Active Problems Provider Date Hyperlipidemia Davey [...] alcohol qu it while he was in [facility] for the stroke Tobacco Use Start: Unknown [...] Mouth Twice Daily With Food I10 Unknown 00 Losartan Potassium 25mg Tablets 1 tab daily ( Dr Epperson Kidney DR) [facility] I10 Unknow n Amlodipine Besylate 10mg Tablets 1/2 tab daily ( Was from [facility] ) I10 Unknown 00 Glyburide [...] Available Vital Signs Date Vital Result Comment 04/22/2021 1:33pm BP Systolic 142 mmHg BP Diastolic 72 mmHg Heart Rate 73 /min Body Temperature 98.6 F Respiratory Rate 18 /min O2 % BldC Oximetry 98 % Weight 185.00 lb Weight 83.916 kg Height 68 inches 5'8" BMI (Body Mass Index) 28.1 kg/m2 BSA (Body Surface Area) 1.98 m2 04/22/2021 11:08am BP Systolic 140 mmHg BP Diastolic 70 mmHg Heart Rate 70 /min Body Temperature 96.4 F Respiratory Rate 18 /min O2 % BldC Oximetry 97 % Weight 185.00 lb Weight 83.916 kg Height 68 inches 5'8" BMI (Body Mass Index) 28.1 kg/m2 BSA (Body Surface Area) 1.98 m2 Results Test Acquired Date Facility Test Result H/L Range Note Basic Metabolic Profile 04/01/2021 [facility] Glucose, Fasting 147 mg/dL High 70-100 [...] Normal 8.8-10.2 Complete Blood Count 03/09/2021 [facility] White Blood Count 7.9 10 Normal [...] % Normal 0-0 Differential Automated 03/09/2021 [facility] Neutrophils % 63.4 % Normal 36.0-66.0 Lymph % 18.9 % Low 24.0-44.0 [place] % 9.9 % High 2.0-8.0 Eos % 6.2 % High 0.0-3.0 Baso % 1.1 % High 0.0-1.0 Immature Granulocyte % 0.5 % Normal 0-3.0 Neutrophils # 5.0 10 Normal 1.5-8.5 Lymph # 1.5 10 Normal 1.5-5.0 [place] # 0.8 10 Normal 0.0-0.8 Eos # 0.5 10 Normal 0.0-0.5 Baso # 0.1 10 Normal 0.0-0.2 Comprehensive Metabolic Profil 03/09/2021 [facility] Glucose, Fasting 134 mg/dL High 70-100 [...] Ratio 1.0 Normal Lipid Panel 03/09/2021 [facility] Triglycerides Level 89 mg/dL Normal <150 Cholesterol Level 125 mg/dL Normal <200 HDL Cholesterol 34 mg/dL Low >40 LDL Cholesterol 73 mg/dL Normal <100 Non-HDL-C 91 mg/dL Normal Cholesterol Risk Ratio 3.676 Normal <5 Laboratory test finding 03/09/2021 [facility] Uric Acid 5.9 mg/dL Normal 3.5-7.2 Hemoglobin A1c 03/09/2021 [facility] Hemoglobin A1c 6.4 % Normal 3 Estimated Average Glucose 137 mg/dL High 60-110 Ua Routine 03/09/2021 [facility] Appearance, Urine CLEAR Normal Clear Color, Urine YELLOW Normal Yellow PH,Urine 5.0 units Normal 5.0-9.0 Specific [place] Urine Auto 1.012 Normal 1.002-1.035 Protein, Urine [...] /LPF Normal 0-1 Microalbumin Random 03/09/2021 [facility] Creatinine, Urine 98.6 mg/dL Normal Malb Urine Siemens 3200.0 mg/L Normal Christopher/Creat Ratio 3245.4 MCG/MG High 0.0-30.0 4 Laboratory test finding 03/09/2021 [facility] Urine Culture FULL REPORT IN L <SEE NOTE> Normal 5 PSA Free & Total 03/09/2021 [facility] PSA Total 1.5 ng/mL Normal 0.0-4.0 6 PSA Comment (SEE NOTE) Normal . 7 1 Units are mL/min/1.73 m2 Chronic Kidney Disease Staging per NKF: Stage I & II GFR >=60 Normal to Mildly Decreased Stage III GFR 30-59 Moderately Decreased Stage IV GFR 15-29 Severely Decreased Stage V GFR <15 Very Little GFR Left ESRD GFR <15 on COMMUNITY SERVICE MANAGER 2 Units are mL/min/1.73 m2 Chronic Kidney Disease Staging per NKF: Stage I & II GFR >=60 Normal to Mildly Decreased Stage III GFR 30-59 Moderately Decreased Stage IV GFR 15-29 Severely Decreased Stage V GFR <15 Very Little GFR Left ESRD GFR <15 on COMMUNITY SERVICE MANAGER 3 REFERENCE RANGES: <=5.6% NORMAL 5.7-6.4% SUGGESTS IMPAIRED GLUCOSE META BOLISM/PREDIABETIC >= 6.5% ABNORMAL 4 THE [place] DIABETES ASSOCI ATION STATES THAT MICROALBUMINURIA IS [...] Leidy ECLIA methodology. . According to the [place] U[employer], Serum PSA should decrease and [...] 10.0 ng/mL. Performed at: RN - [facility] [address] [id number] Woodworking Machine Feeder: Petra Rubin MD, Phone: [phone] Procedures Date Code Description Status 03/30/2021 25361 Office/Outpatient New Low MDM 30 -44 Minutes Completed 03/15/2021 56537 Office/Outpatient Established Lo w MDM 20-29 Min Completed 02/23/2021 92622 Office/Outpatient Established Lo w MDM 20-29 Min Completed 01/27/2021 68853 Preventive Visit New > 65 Years Completed 01/27/2021 65128 Admin Patient Focused Health Ris k Assessment Instrument Completed 01/27/2021 35274 Brief Emotional/Beha v Assessment W/ Scoring Doc Per Standard Inst Completed Medical Devices Description No Information Available Encounters Description No Information Available Assessments Date Code Description Provider 04/22/2021 L02.412 Cutaneous abscess of left axilla Franklin Negron MD 04/22/2021 L02.412 Cutaneous abscess of left axilla KAREN Goldstein 03/30/2021 M76.62 Achilles tendinitis, left leg Fabio Onofre DPM 03/30/2021 M76.72 Peroneal tendinitis, left leg Fabio Onofre DPM 03/30/2021 M76.822 Posterior tibial tendinitis, lef t leg Pablochinmay Onofre, DPM 03/30/2021 R53.1 Weakness Pablo Onofre, DP 03/30/2021 E11.9 Type 2 diabetes mellitus without complications Pablo Peñatamiko, DPM 03/30/2021 N18.4 Chronic kidney disease, stage 4 (severe) Pablo Onofre, DPM 03/30/2021 M79.672 Pain in left foot Caleb [...] 10:00 am - Davey Gonsales MD at [facility] 04/22/2021 - Franklin Negron MD* L02.412 Cutaneous abscess of left axilla* New Labs:* Culture Other, Ordered: 04/22/21 * Comments:* Incision and drainage. Indications for the procedure. Details of the procedures risks and complications including but not limited to persistent infection an recurrent infection have been explained to the patient. He understands and agrees to proceed.The patient states that he is on anticoagulant but the only medication on his list with anticoagulant property as aspirin.After informed consent was obtained, the skin overlying the cyst was prepared with Betadine and draped free. 2% lidocaine with epinephrine was used for local infiltration anesthetic. The cyst was unroofed with an elliptical incision. The contents were expressed. The abscess fluid was sent for culture. The wound was dressed with dry gauze. The patient tolerated the procedure well. They were given written instructions for postoperative care.The patient was given written instructions for care of the wound.He will take antibiotics as prescribed by Dr. Gonsales.Follow-up as needed. Functional Status Description No Information Available Mental [...] treat as appropriate. Thank you. Sent [address] [place] [address] [phone] Ubaldo Bell, 65 y/o M with SOB and abnorm al PFT, referred for full evaluation. Eval and treat. Patient Notified 04/13/2021 [place] [address] [phone] [place] [facility] 65 y/o M with hx of type 2 diabetes, referred for diabetic eye care. Eval and treat. Sent [address] [place] [address] [phone] [facility] Podiatry Clinic 65 y/o M with hx of type 2 d iabeallyssa, referred for diabetic foot care. Eval and treat. Sent [address] [place] [address] [phone] [facility] Cardiopulmonary/Sleep Lab 65 y/o M with hx of smok ing, shortness of breath. Referred for PFT with and without albuterol. Rule out COPD. Eval and treat. Closed 03/09/2021 [address] [place] [address] [phone] [facility] Sleep Center 65 y/o M with hx of snoring, CVA, diabetes, snoring, fatigue and tiredness. Referred for sleep study. Eval and treat. Sent [address] [place], [place] [address] [phone]
--- OUTSIDE RECORDS SUMMARY | 2021-05-27 15:38 | CCD | Continuity of Care Document ---
Author Author Zach ONOFRE DPM Organization Unknown Address [address] [place] [address] Phone [phone] Care Team Providers Care Parking Garage Manager Name Role Phone Davey Gonsales M.D. AUTM [phone] [facility] Sleep Center AUTM [phone] [facility] [place] AUTM [phone] [facility] Podiatry Clinic AUTM [phone] [facility] Cardiopulmonary/Sleep Lab AUTM [facility] Pulmonary Clinic AUTM [phone] Problems Active Problems Provider Date Hyperlipidemia Davey [...] alcohol qu it while he was in [facility] for the stroke Tobacco Use Start: [...] tab daily ( Dr Epperson Kidney DR) [facility] I10 Unknow n Amlodipine Besylate 10mg Tablets 1/2 tab daily ( Was from [facility] ) I10 Unknown 00 Glyburide 1.25mg [...] H/L Range Note Complete Blood Count 03/09/2021 [facility] White Blood Count 7.9 10 Normal [...] 0.0 % Normal 0-0 Differential Automated 03/09/2021 [facility] Neutrophils % 63.4 % Normal 36.0-66.0 Lymph % 18.9 % Low 24.0-44.0 [place] % 9.9 % High 2.0-8.0 Eos % 6.2 % High 0.0-3.0 Baso % 1.1 % High 0.0-1.0 Immature Granulocyte % 0.5 % Normal 0-3.0 Neutrophils # 5.0 10 Normal 1.5-8.5 Lymph # 1.5 10 Normal 1.5-5.0 [place] # 0.8 10 Normal 0.0-0.8 Eos # 0.5 10 Normal 0.0-0.5 Baso # 0.1 10 Normal 0.0-0.2 Comprehensive Metabolic Profil 03/09/2021 [facility] Glucose, Fasting 134 mg/dL High 70-100 [...] Albumin/Globulin Ratio 1.0 Normal Lipid Panel 03/09/2021 [facility] Triglycerides Level 89 mg/dL Normal <150 Cholesterol Level 125 mg/dL Normal <200 HDL Cholesterol 34 mg/dL Low >40 LDL Cholesterol 73 mg/dL Normal <100 Non-HDL-C 91 mg/dL Normal Cholesterol Risk Ratio 3.676 Normal <5 Laboratory test finding 03/09/2021 [facility] Uric Acid 5.9 mg/dL Normal 3.5-7.2 Hemoglobin A1c 03/09/2021 [facility] Hemoglobin A1c 6.4 % Normal 2 Estimated Average Glucose 137 mg/dL High 60-110 Ua Routine 03/09/2021 [facility] Appearance, Urine CLEAR Normal Clear Color, Urine YELLOW Normal Yellow PH,Urine 5.0 units Normal 5.0-9.0 Specific [place] Urine Auto 1.012 Normal 1.002-1.035 Protein, Urine [...] 0 /LPF Normal 0-1 Microalbumin Random 03/09/2021 [facility] Creatinine, Urine 98.6 mg/dL Normal Malb Urine Siemens 3200.0 mg/L Normal [place]/Creat Ratio 3245.4 MCG/MG High 0.0-30.0 3 Laboratory test finding 03/09/2021 [facility] Urine Culture FULL REPORT IN L <SEE NOTE> Normal 4 PSA Free & Total 03/09/2021 [facility] PSA Total 1.5 ng/mL Normal 0.0-4.0 5 PSA Comment (SEE NOTE) Normal . 6 1 Units are mL/min/1.73 m2 Chronic Kidney Disease Staging per NKF: Stage I & II GFR >=60 Normal to Mildly Decreased Stage III GFR 30-59 Moderately Decreased Stage IV GFR 15-29 Severely Decreased Stage V GFR <15 Very Little GFR Left ESRD GFR <15 on WHEEL BUFFER 2 REFERENCE RANGES: <=5.6% NORMAL 5.7-6.4% SUGGESTS IMPAIRED GLUCOSE META BOLISM/PREDIABETIC >= 6.5% ABNORMAL 3 THE [place] DIABETES ASSOCI ATION STATES THAT MICROALBUMINURIA IS [...] Leidy ECLIA methodology. . According to the [place] Urological Association, Serum PSA should decrease and [...] 10.0 ng/mL. Performed at: RN - [facility] [address] [id number] Precision Machine Operator: Petra Rubin MD, Phone: [phone] Procedures Date Code Description Status 03/30/2021 95734 Office/Outpatient New Low MDM 30 -44 Minutes Completed 03/15/2021 53090 Office/Outpatient Established Lo w MDM 20-29 Min Completed 02/23/2021 11072 Office/Outpatient Established Lo w MDM 20-29 Min Completed 01/27/2021 33412 Preventive Visit New > 65 Years Completed 01/27/2021 26941 Admin Patient Focused Health Ris k Assessment Instrument Completed 01/27/2021 17559 Brief Emotional/Beha v Assessment W/ Scoring Doc Per Standard Inst Completed Medical Devices Description No Information Available Encounters Type Date Location Provider Dx Diagnosis Office Visit 03/30/2021 1:30p [facility] Pablochinmay PeñaFELIPE morrison M76.62 Achilles tendinitis, left leg M76.72 Peroneal tendinitis, left le g M76.822 Posterior tibial tendinitis, left leg R53.1 Weakness E11.9 Type 2 diabetes mellitus wit hout complications N18.4 Chronic kidney disease, stag e 4 (severe) M79.672 Pain in left foot Assessments Date Code Description Provider 03/30/2021 M76.62 Achilles tendinitis, left leg Fabio Onofre, DP 03/30/2021 M76.72 Peroneal tendinitis, left leg Fabio Onofre, [facility] 03/30/2021 M76.822 Posterior tibial tendinitis, lef t leg Pablochinmay Peñatamiko, [facility] 03/30/2021 R53.1 Weakness Pablo Onofre, CAROLINE 03/30/2021 E11.9 Type 2 diabetes mellitus without complications Pablo Onofre DPM 03/30/2021 N18.4 Chronic kidney disease, stage 4 (severe) Pablo Caseytamiko, [facility] 03/30/2021 M79.672 Pain in left [...] Gonsales MD 01/27/2021 I63.9 Cerebral infarction, unspecified aDvey Gonsales MD 01/27/2021 I10 Essential (primary) hypertension [...] 10:00 am - Davey Gonsales MD at [facility] 03/30/2021 - Pablo Onofre DPM* M76.62 Achilles tendinitis, left leg* Referral:* [facility], * M76.72 Peroneal tendinitis, left leg * [...] evaluate and treat as appropriate. Thank you. Created [address] [place] [address] [phone] Ubaldo Bell, 65 y/o M with SOB and abnorm al PFT, referred for full evaluation. Eval and treat. Patient Notified 04/13/2021 [place] [address] [phone] [place] [facility] [place] 65 y/o M with hx of type 2 diabetes, referred for diabetic eye care. Eval and treat. Sent [address] [place] [address] [phone] [facility] Podiatry Clinic 65 y/o M with hx of type 2 d iabetes, referred for diabetic foot care. Eval and treat. Sent [address] [place] [address] [phone] [facility] Cardiopulmonary/Sleep Lab 65 y/o M with hx of smok ing, shortness of breath. Referred for PFT with and without albuterol. Rule out COPD. Eval and treat. Closed 03/09/2021 [address] [place] [address] [phone] [facility] Sleep Center 65 y/o M with hx of snoring, CVA, diabetes, snoring, fatigue and tiredness. Referred for sleep study. Eval and treat. Sent [address] [place] [address] [phone]
--- OUTSIDE RECORDS SUMMARY | 2021-05-27 15:38 | CCD ---
Continuity of Care Document (CCD) Created on: 04/27/2021 Zach Floyd External Reference #: [id number] : 1955 Sex: Male Author Author Zach CURRAN MD Organization Unknown Address [address] [place] [address] Phone [phone] Care Team Providers Care Scaling Machine Operator Name Role Phone Davey Gonsales M.D. AUTM [phone] [facility] Sleep Center AUTM [phone] [place] 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 Davey Gonsales MD Onset: 01/27/2021 Chronic kidney disease stage 4 Davey Gonsaels MD Onset: Type 2 diabetes mellitus Davey [...] alcohol qu it while he was in [facility] for the stroke Tobacco Use Start: [...] tab daily ( Dr Epperson Kidney DR) [facility] I10 Unknow n Amlodipine Besylate 10mg Tablets 1/2 tab daily ( Was from [facility] ) I10 Unknown 00 Glyburide [...] H/L Range Note Basic Metabolic Profile 04/01/2021 [facility] Glucose, Fasting 147 mg/dL High 70-100 [...] mg/dL Normal 8.8-10.2 Complete Blood Count 03/09/2021 [facility] White Blood Count 7.9 10 Normal [...] 0.0 % Normal 0-0 Differential Automated 03/09/2021 [facility] Neutrophils % 63.4 % Normal 36.0-66.0 Lymph % 18.9 % Low 24.0-44.0 [place] % 9.9 % High 2.0-8.0 Eos % 6.2 % High 0.0-3.0 Baso % 1.1 % High 0.0-1.0 Immature Granulocyte % 0.5 % Normal 0-3.0 Neutrophils # 5.0 10 Normal 1.5-8.5 Lymph # 1.5 10 Normal 1.5-5.0 [place] # 0.8 10 Normal 0.0-0.8 Eos # 0.5 10 Normal 0.0-0.5 Baso # 0.1 10 Normal 0.0-0.2 Comprehensive Metabolic Profil 03/09/2021 [facility] Glucose, Fasting 134 mg/dL High 70-100 [...] Albumin/Globulin Ratio 1.0 Normal Lipid Panel 03/09/2021 [facility] Triglycerides Level 89 mg/dL Normal <150 Cholesterol Level 125 mg/dL Normal <200 HDL Cholesterol 34 mg/dL Low >40 LDL Cholesterol 73 mg/dL Normal <100 Non-HDL-C 91 mg/dL Normal Cholesterol Risk Ratio 3.676 Normal <5 Laboratory test finding 03/09/2021 [facility] Uric Acid 5.9 mg/dL Normal 3.5-7.2 Hemoglobin A1c 03/09/2021 [facility] Hemoglobin A1c 6.4 % Normal 3 Estimated Average Glucose 137 mg/dL High 60-110 Ua Routine 03/09/2021 [facility] Appearance, Urine CLEAR Normal Clear Color, Urine YELLOW Normal Yellow PH,Urine 5.0 units Normal 5.0-9.0 Specific [place] Urine Auto 1.012 Normal 1.002-1.035 Protein, Urine [...] 0 /LPF Normal 0-1 Microalbumin Random 03/09/2021 [facility] Creatinine, Urine 98.6 mg/dL Normal Malb Urine Siemens 3200.0 mg/L Normal Christopher/Creat Ratio 3245.4 MCG/MG High 0.0-30.0 4 Laboratory test finding 03/09/2021 [facility] Urine Culture FULL REPORT IN L <SEE NOTE> Normal 5 PSA Free & Total 03/09/2021 [facility] PSA Total 1.5 ng/mL Normal 0.0-4.0 6 PSA Comment (SEE NOTE) Normal . 7 1 Units are mL/min/1.73 m2 Chronic Kidney Disease Staging per NKF: Stage I & II GFR >=60 Normal to Mildly Decreased Stage III GFR 30-59 Moderately Decreased Stage IV GFR 15-29 Severely Decreased Stage V GFR <15 Very Little GFR Left ESRD GFR <15 on VEHICLE OPERATOR TECHNICIAN 2 Units are mL/min/1.73 m2 Chronic Kidney Disease Staging per NKF: Stage I & II GFR >=60 Normal to Mildly Decreased Stage III GFR 30-59 Moderately Decreased Stage IV GFR 15-29 Severely Decreased Stage V GFR <15 Very Little GFR Left ESRD GFR <15 on VEHICLE OPERATOR TECHNICIAN 3 REFERENCE RANGES: <=5.6% NORMAL 5.7-6.4% SUGGESTS IMPAIRED GLUCOSE META BOLISM/PREDIABETIC >= 6.5% ABNORMAL 4 THE [place] DIABETES ASSOCI ATION STATES THAT MICROALBUMINURIA IS [...] Leidy ECLIA methodology. . According to the [place] U[employer] Association, Serum PSA should decrease and [...] 10.0 ng/mL. Performed at: RN - [facility] [address] [id number] Imaging Tech: Petra Rubin MD, Phone: [phone] Procedures Date Code Description Status 04/22/2021 33183 Office/Outpatient Established SF MDM 10-19 Min Completed 04/22/2021 54105 Office/Outpatient New SF MDM 15- 29 Minutes Completed 04/22/2021 92967 I & D Abscess Simple Completed 03/30/2021 57391 Office/Outpatient New Low MDM 30 -44 Minutes Completed 03/15/2021 61980 Office/Outpatient Established Lo w MDM 20-29 Min Completed 02/23/2021 22332 Office/Outpatient Established Lo w MDM 20-29 Min Completed 01/27/2021 15555 Preventive Visit New > 65 Years Completed 01/27/2021 21969 Admin Patient Focused Health Ris k Assessment Instrument Completed 01/27/2021 65152 Brief Emotional/Beha v Assessment W/ Scoring Doc Per Standard Inst Completed Medical Devices Description No Information Available Encounters Type Date Location Provider Dx Diagnosis Office Visit 04/27/2021 10:00a [facility] Surgical Center Dre Curran MD L 02.412 Cutaneous abscess of left axilla Assessments Date Code Description Provider 04/27/2021 L02.412 Cutaneous abscess of left axilla Dre Curran MD 04/22/2021 L02.412 Cutaneous abscess of left axilla Franklin Bailey MD 04/22/2021 L02.412 Cutaneous abscess of left axilla KAREN Goldstein 03/30/2021 M76.62 Achilles tendinitis, left leg Fabio Onofre, DP 03/30/2021 M76.72 Peroneal tendinitis, left leg Fabio Onofre, [facility] 03/30/2021 M76.822 Posterior tibial tendinitis, lef t leg Pablo Peñatamiko, [facility] 03/30/2021 R53.1 Weakness Pablo Onofre, [facility] 03/30/2021 E11.9 Type 2 diabetes mellitus without complications Pablo Onofre, [facility] 03/30/2021 N18.4 Chronic kidney disease, stage 4 (severe) Pablochinmay Peñatamiko, [facility] 03/30/2021 M79.672 Pain in left foot [...] 10:00 am - Davey Gonsales MD at [facility] 04/27/2021 - Dre Curran MD* L02.412 Cutaneous [...] to be done today, in radiology at [facility]. Results returned showing "complex cystic lesion in [...] treat as appropriate. Thank you. Sent [address] [place] [address] [phone] Ubaldo Bell, 65 y/o M with SOB and abnorm al PFT, referred for full evaluation. Eval and treat. Patient Notified 04/13/2021 [place] [address] [phone] [facility] [place] 65 y/o M with hx of type 2 diabetes, referred for diabetic eye care. Eval and treat. Sent [address] [place] [address] [phone] [facility] Podiatry Clinic 65 y/o M with hx of type 2 d iabetes, referred for diabetic foot care. Eval and treat. Sent [address] [place] [address] [phone] [facility] Cardiopulmonary/Sleep Lab 65 y/o M with hx of smok ing, shortness of breath. Referred for PFT with and without albuterol. Rule out COPD. Eval and treat. Closed 03/09/2021 [address] [place], [place] [address] [phone] [facility] Sleep Center 65 y/o M with hx of snoring, CVA, diabetes, snoring, fatigue and tiredness. Referred for sleep study. Eval and treat. Sent [address] [place], [place] [address] [phone]
--- OUTSIDE RECORDS SUMMARY | 2021-05-27 15:38 | CCD | Continuity of Care Document ---
Author Author Zach ONOFRE DPM Organization Unknown Address [address] [place] [address] Phone [phone] Care Team Providers Care Spare Hand Name Role Phone Davey Gonsales M.D. AUTM [phone] [facility] Sleep Center AUTM [phone] [facility] [phone] [facility] Podiatry Clinic AUTM [phone] [facility] Cardiopulmonary/Sleep Lab AUTM [facility] Pulmonary Clinic AUTM [phone] Problems Active Problems Provider Date Hyperlipidemia Davey [...] alcohol qu it while he was in [facility] for the stroke Tobacco Use Start: Unknown [...] Tablets 1/2 tab daily ( Was from [facility] ) I10 Unknown 00 Glyburide [...] H/L Range Note Complete Blood Count 03/09/2021 [facility] White Blood Count 7.9 10 Normal 4.0-10.0 [...] 0.0 % Normal 0-0 Differential Automated 03/09/2021 [facility] Neutrophils % 63.4 % Normal 36.0-66.0 Lymph % 18.9 % Low 24.0-44.0 Mclean % 9.9 % High 2.0-8.0 Eos % 6.2 % High 0.0-3.0 Baso % 1.1 % High 0.0-1.0 Immature Granulocyte % 0.5 % Normal 0-3.0 Neutrophils # 5.0 10 Normal 1.5-8.5 Lymph # 1.5 10 Normal 1.5-5.0 Mclean # 0.8 10 Normal 0.0-0.8 Eos # 0.5 10 Normal 0.0-0.5 Baso # 0.1 10 Normal 0.0-0.2 Comprehensive Metabolic Profil 03/09/2021 [facility] Glucose, Fasting 134 mg/dL High 70-100 Blood [...] Albumin/Globulin Ratio 1.0 Normal Lipid Panel 03/09/2021 [facility] Triglycerides Level 89 mg/dL Normal <150 Cholesterol Level 125 mg/dL Normal <200 HDL Cholesterol 34 mg/dL Low >40 LDL Cholesterol 73 mg/dL Normal <100 Non-HDL-C 91 mg/dL Normal Cholesterol Risk Ratio 3.676 Normal <5 Laboratory test finding 03/09/2021 [facility] Uric Acid 5.9 mg/dL Normal 3.5-7.2 Hemoglobin A1c 03/09/2021 [facility] Hemoglobin A1c 6.4 % Normal 2 Estimated Average Glucose 137 mg/dL High 60-110 Ua Routine 03/09/2021 [facility] Appearance, Urine CLEAR Normal Clear Color, Urine YELLOW Normal Yellow PH,Urine 5.0 units Normal 5.0-9.0 Specific [place] Urine Auto 1.012 Normal 1.002-1.035 Protein, Urine [...] 0 /LPF Normal 0-1 Microalbumin Random 03/09/2021 [facility] Creatinine, Urine 98.6 mg/dL Normal Malb Urine Siemens 3200.0 mg/L Normal Christopher/Creat Ratio 3245.4 MCG/MG High 0.0-30.0 3 Laboratory test finding 03/09/2021 [facility] Urine Culture FULL REPORT IN L <SEE NOTE> Normal 4 PSA Free & Total 03/09/2021 [facility] PSA Total 1.5 ng/mL Normal 0.0-4.0 5 PSA Comment (SEE NOTE) Normal . 6 1 Units are mL/min/1.73 m2 Chronic Kidney Disease Staging per NKF: Stage I & II GFR >=60 Normal to Mildly Decreased Stage III GFR 30-59 Moderately Decreased Stage IV GFR 15-29 Severely Decreased Stage V GFR <15 Very Little GFR Left ESRD GFR <15 on HOOKMAN 2 REFERENCE RANGES: <=5.6% NORMAL 5.7-6.4% SUGGESTS IMPAIRED GLUCOSE META BOLISM/PREDIABETIC >= 6.5% ABNORMAL 3 THE [place] DIABETES ASSOCI ATION STATES THAT MICROALBUMINURIA IS [...] Leidy ECLIA methodology. . According to the [place] U[employer] Association, Serum PSA should decrease and [...] 10.0 ng/mL. Performed at: RN - [facility] [address] [id number] Vocational Nurse: Petra Rubin MD, Phone: [phone] Procedures Date Code Description Status 03/30/2021 15985 Office/Outpatient New Low MDM 30 -44 Minutes Completed 03/15/2021 02203 Office/Outpatient Established Lo w MDM 20-29 Min Completed 02/23/2021 43371 Office/Outpatient Established Lo w MDM 20-29 Min Completed 01/27/2021 57637 Preventive Visit New > 65 Years Completed 01/27/2021 13625 Admin Patient Focused Health Ris k Assessment Instrument Completed 01/27/2021 85125 Brief Emotional/Beha v Assessment W/ Scoring Doc [...] 03/30/2021 M76.62 Achilles tendinitis, left leg Fabio son Jemima, CAROLINE 03/30/2021 M76.72 Peroneal tendinitis, left leg Fabio chinmay PeñaFELIPE morrison 03/30/2021 M76.822 Posterior tibial tendinitis, lef t leg Pablo Onofre DPM 03/30/2021 R53.1 Weakness Pablo Onofre DPM 03/30/2021 E11.9 Type 2 diabetes mellitus without complications Pablo Onofre DPM 03/30/2021 N18.4 Chronic kidney disease, stage 4 (severe) Pablo Onofre DPM 03/30/2021 M79.672 Pain in left foot Caleb Dorantes PM 03/15/2021 E11.9 Type 2 diabetes mellitus without complications Davey Gonsales MD 03/15/2021 N18.4 Chronic kidney disease, stage 4 (severe) Davey Gonsales MD 03/15/2021 R06.02 Shortness of breath Davey foley MD 03/15/2021 E78.5 Hyperlipidemia, unspecified Hard angela Gonsales, MD 02/23/2021 E11.9 Type 2 diabetes mellitus [...] 10:00 am - Davey Gonsales MD at [facility] 03/30/2021 - Pablo Onofre DPM* M76.62 [...] making an appointment with the neurologist in [place]. I encouraged him to try and make [...] treat as appropriate. Thank you. Sent [address] [place] [address] [phone] Ubaldo Bell, 65 y/o M with SOB and abnorm al PFT, referred for full evaluation. Eval and treat. Patient Notified 04/13/2021 [place] [address] [phone] [facility] [place] 65 y/o M with hx of type 2 diabetes, referred for diabetic eye care. Eval and treat. Sent [address] [place] [address] [phone] [facility] Podiatry Clinic 65 y/o M with hx of type 2 d sanam, referred for diabetic foot care. Eval and treat. Sent [address] [place] [address] [phone] [facility] Cardiopulmonary/Sleep Lab 65 y/o M with hx of smok ing, shortness of breath. Referred for PFT with and without albuterol. Rule out COPD. Eval and treat. Closed 03/09/2021 [address] [place] [address] [phone] [facility] Sleep Center 65 y/o M with hx of snoring, CVA, diabetes, snoring, fatigue and tiredness. Referred for sleep study. Eval and treat. Sent [address] [place], [place] [id number] [phone]
--- OUTSIDE RECORDS SUMMARY | 2021-05-27 15:38 | CCD | Continuity of Care Document ---
Author Author Zach RUIZ NE Organization Unknown Address [address] [place] [address] Phone [phone] Care Team Providers Care Fast Food Sales Assistant Name Role Phone Davey Gonsales M.D. AUTM [phone] [facility] Sleep Center AUTM [phone] [facility] [place] AUTM [phone] [facility] Podiatry Clinic AUTM [phone] [facility] Cardiopulmonary/Sleep Lab AUTM [phone] [facility] Pulmonary Clinic AUTM [phone] Problems Active Problems Provider Date Hyperlipidemia Davey [...] alcohol qu it while he was in [facility] for the stroke Tobacco Use Start: [...] Tablets 1/2 tab daily ( Was from [facility] ) I10 Unknown 00 Glyburide 1.25mg Tablets [...] Vital Signs Date Vital Result Comment 04/22/2021 11:08am BP Systolic 140 mmHg BP Diastolic 70 mmHg Heart Rate 70 /min Body Temperature 96.4 F Respiratory Rate 18 /min O2 % BldC Oximetry 97 % Weight 185.00 lb Weight 83.916 kg Height 68 inches 5'8" BMI (Body Mass Index) 28.1 kg/m2 BSA (Body Surface Area) 1.98 m2 02/23/2021 1:16pm BP Systolic 142 mmHg BP Diastolic 60 mmHg Heart Rate 67 /min Body Temperature 97.7 F Respiratory Rate 18 /min O2 % BldC Oximetry 98 % Weight 180.38 lb does walk at times w hen he can in yard Weight 81.818 kg Height 68 inches 5'8" BMI (Body Mass Index) 27.4 kg/m2 BSA (Body Surface Area) 1.96 m2 Results Test Acquired Date Facility Test Result H/L Range Note Basic Metabolic Profile 04/01/2021 [facility] Glucose, Fasting 147 mg/dL High 70-100 [...] Normal 8.8-10.2 Complete Blood Count 03/09/2021 [facility] White Blood Count 7.9 10 Normal [...] % Normal 0-0 Differential Automated 03/09/2021 [facility] Neutrophils % 63.4 % Normal 36.0-66.0 Lymph % 18.9 % Low 24.0-44.0 [place] % 9.9 % High 2.0-8.0 Eos % 6.2 % High 0.0-3.0 Baso % 1.1 % High 0.0-1.0 Immature Granulocyte % 0.5 % Normal 0-3.0 Neutrophils # 5.0 10 Normal 1.5-8.5 Lymph # 1.5 10 Normal 1.5-5.0 [place] # 0.8 10 Normal 0.0-0.8 Eos # 0.5 10 Normal 0.0-0.5 Baso # 0.1 10 Normal 0.0-0.2 Comprehensive Metabolic Profil 03/09/2021 [facility] Glucose, Fasting 134 mg/dL High 70-100 [...] Ratio 1.0 Normal Lipid Panel 03/09/2021 [facility] Triglycerides Level 89 mg/dL Normal <150 Cholesterol Level 125 mg/dL Normal <200 HDL Cholesterol 34 mg/dL Low >40 LDL Cholesterol 73 mg/dL Normal <100 Non-HDL-C 91 mg/dL Normal Cholesterol Risk Ratio 3.676 Normal <5 Laboratory test finding 03/09/2021 [facility] Uric Acid 5.9 mg/dL Normal 3.5-7.2 Hemoglobin A1c 03/09/2021 [facility] Hemoglobin A1c 6.4 % Normal 3 Estimated Average Glucose 137 mg/dL High 60-110 Ua Routine 03/09/2021 [facility] Appearance, Urine CLEAR Normal Clear Color, Urine YELLOW Normal Yellow PH,Urine 5.0 units Normal 5.0-9.0 Specific [place] Urine Auto 1.012 Normal 1.002-1.035 Protein, Urine [...] /LPF Normal 0-1 Microalbumin Random 03/09/2021 [facility] Creatinine, Urine 98.6 mg/dL Normal Malb Urine Siemens 3200.0 mg/L Normal Christopher/Creat Ratio 3245.4 MCG/MG High 0.0-30.0 4 Laboratory test finding 03/09/2021 [facility] Urine Culture FULL REPORT IN L <SEE NOTE> Normal 5 PSA Free & Total 03/09/2021 [facility] PSA Total 1.5 ng/mL Normal 0.0-4.0 6 PSA Comment (SEE NOTE) Normal . 7 1 Units are mL/min/1.73 m2 Chronic Kidney Disease Staging per NKF: Stage I & II GFR >=60 Normal to Mildly Decreased Stage III GFR 30-59 Moderately Decreased Stage IV GFR 15-29 Severely Decreased Stage V GFR <15 Very Little GFR Left ESRD GFR <15 on PATCHING MACHINE OPERATOR 2 Units are mL/min/1.73 m2 Chronic Kidney Disease Staging per NKF: Stage I & II GFR >=60 Normal to Mildly Decreased Stage III GFR 30-59 Moderately Decreased Stage IV GFR 15-29 Severely Decreased Stage V GFR <15 Very Little GFR Left ESRD GFR <15 on PATCHING MACHINE OPERATOR 3 REFERENCE RANGES: <=5.6% NORMAL 5.7-6.4% SUGGESTS IMPAIRED GLUCOSE META BOLISM/PREDIABETIC >= 6.5% ABNORMAL 4 THE [place] DIABETES ASSOCI ATION STATES THAT MICROALBUMINURIA IS PRESENT IF THE MICROALBUMIN/CREATININE RATIO EXCEEDS 30 MCG/MG. THE THRESHOLD FOR CLINICAL ALBUMINURIA IS REACHED AT 300 MCG/MG. THE CLASSIFICATION OF A PATIENT SHOULD BE BASED UPON AT LEAST 2 OF 3 ABNORMAL RESULTS ON SPECIMENS COLLECTED WITHIN A 3 TO 6 MONTH TIME FRAME. 5 FULL REPORT IN LAB NOTES (Jad Aponte and Benji). NO GROWTH 6 Leidy ECLIA methodology. . According to the [place] U[employer] Association, Serum PSA should decrease and [...] and 10.0 ng/mL. Performed at: - [facility] [address] [id number] Employee Communications Manager: Petra Rubin MD, Phone: [phone] Procedures Date Code Description Status 03/30/2021 54289 Office/Outpatient New Low MDM 30 -44 Minutes Completed 03/15/2021 35839 Office/Outpatient Established Lo w MDM 20-29 Min Completed 02/23/2021 57286 Office/Outpatient Established Lo w MDM 20-29 Min Completed 01/27/2021 17692 Preventive Visit New > 65 Years Completed 01/27/2021 96104 Admin Patient Focused Health Ris k Assessment Instrument Completed 01/27/2021 64918 Brief Emotional/Beha v Assessment W/ Scoring Doc Per Standard Inst Completed Medical Devices Description No Information Available Encounters Description No Information Available Assessments Date Code Description Provider 03/30/2021 M76.62 [...] DPM 03/30/2021 M79.672 Pain in left foot Pablo OnofreCaleb PM 03/15/2021 E11.9 Type 2 diabetes mellitus [...] Davey foley MD 01/27/2021 Z00.00 Encounter for [facility] adult medical examination without abnormal findings [...] Davey Gonsales MD at [facility] Functional Status Description No Information Available Mental [...] treat as appropriate. Thank you. Sent [address] [place] [address] [phone] BellUbaldo Mauro, 65 y/o M with SOB and abnorm al PFT, referred for full evaluation. Eval and treat. Patient Notified 04/13/2021 [place] [address] [phone] [facility] [place] 65 y/o M with hx of type 2 diabetes, referred for diabetic eye care. Eval and treat. Sent [address] [place] [address] [phone] [facility] Podiatry Clinic 65 y/o M with hx of type 2 d iabetes, referred for diabetic foot care. Eval and treat. Sent [address] [place] [address] [phone] [facility] Cardiopulmonary/Sleep Lab 65 y/o M with hx of smok ing, shortness of breath. Referred for PFT with and without albuterol. Rule out COPD. Eval and treat. Closed 03/09/2021 [address] [place] [id number] [phone] [facility] Sleep Center 65 y/o M with hx of snoring, CVA, diabetes, snoring, fatigue and tiredness. Referred for sleep study. Eval and treat. Sent [address] [place] [address] [phone]
--- OUTSIDE RECORDS SUMMARY | 2021-05-27 15:39 | CCD | Continuity of Care Document ---
Author Author Zach GONSALES M.D. Organization Unknown Address [address] [place] [address] Phone [phone] Care Team Providers Care Sports Medicine Coordinator Name Role Phone Davey Gonsales M.D. AUTM [phone] [facility] Sleep Center AUTM [phone] [place] [facility] AUTM [phone] [facility] Podiatry Clinic AUTM [phone] [facility] Cardiopulmonary/Sleep Lab AUTM [phone] Problems Active Problems Provider Date Hyperlipidemia Davey [...] alcohol qu it while he was in [facility] for the stroke Tobacco Use [...] Tablets 1/2 tab daily ( Was from [facility] ) I10 Unknown 00 Glyburide 1.25mg [...] H/L Range Note Complete Blood Count 03/09/2021 [facility] White Blood Count 7.9 10 Normal [...] 0.0 % Normal 0-0 Differential Automated 03/09/2021 [facility] Neutrophils % 63.4 % Normal 36.0-66.0 Lymph % 18.9 % Low 24.0-44.0 [place] % 9.9 % High 2.0-8.0 Eos % 6.2 % High 0.0-3.0 Baso % 1.1 % High 0.0-1.0 Immature Granulocyte % 0.5 % Normal 0-3.0 Neutrophils # 5.0 10 Normal 1.5-8.5 Lymph # 1.5 10 Normal 1.5-5.0 [place] # 0.8 10 Normal 0.0-0.8 Eos # 0.5 10 Normal 0.0-0.5 Baso # 0.1 10 Normal 0.0-0.2 Comprehensive Metabolic Profil 03/09/2021 [facility] Glucose, Fasting 134 mg/dL High 70-100 [...] Albumin/Globulin Ratio 1.0 Normal Lipid Panel 03/09/2021 [facility] Triglycerides Level 89 mg/dL Normal <150 Cholesterol Level 125 mg/dL Normal <200 HDL Cholesterol 34 mg/dL Low >40 LDL Cholesterol 73 mg/dL Normal <100 Non-HDL-C 91 mg/dL Normal Cholesterol Risk Ratio 3.676 Normal <5 Laboratory test finding 03/09/2021 [facility] Uric Acid 5.9 mg/dL Normal 3.5-7.2 Hemoglobin A1c 03/09/2021 [facility] Hemoglobin A1c 6.4 % Normal 2 Estimated Average Glucose 137 mg/dL High 60-110 Ua Routine 03/09/2021 [facility] Appearance, Urine CLEAR Normal Clear Color, Urine YELLOW Normal Yellow PH,Urine 5.0 units Normal 5.0-9.0 Specific [place] Urine Auto 1.012 Normal 1.002-1.035 Protein, Urine [...] 0 /LPF Normal 0-1 Microalbumin Random 03/09/2021 [facility] Creatinine, Urine 98.6 mg/dL Normal Malb Urine Siemens 3200.0 mg/L Normal Christopher/Creat Ratio 3245.4 MCG/MG High 0.0-30.0 3 Laboratory test finding 03/09/2021 [facility] Urine Culture FULL REPORT IN L <SEE NOTE> Normal 4 PSA Free & Total 03/09/2021 [facility] PSA Total 1.5 ng/mL Normal 0.0-4.0 5 PSA Comment (SEE NOTE) Normal . 6 Xray 02/23/2021 [facility] Ce nter ( )- - Low Dose CT chest W/O contrast <pending> 1 Units are mL/min/1.73 m2 Chronic Kidney Disease Staging per NKF: Stage I & II GFR >=60 Normal to Mildly Decreased Stage III GFR 30-59 Moderately Decreased Stage IV GFR 15-29 Severely Decreased Stage V GFR <15 Very Little GFR Left ESRD GFR <15 on ASSET AVAILABILITY LEADER 2 REFERENCE RANGES: <=5.6% NORMAL 5.7-6.4% SUGGESTS IMPAIRED GLUCOSE META BOLISM/PREDIABETIC >= 6.5% ABNORMAL 3 THE [place] DIABETES ASSOCI ATION STATES THAT MICROALBUMINURIA IS [...] Leidy ECLIA methodology. . According to the [place] Urological Association, Serum PSA should decrease and [...] 10.0 ng/mL. Performed at: RN - [facility] [address] [id number] Engineering And Development Director: Petra Rubin MD, Phone: [phone] Procedures Date Code Description Status 03/15/2021 79656 Office/Outpatient Established Lo w MDM 20-29 Min Completed 02/23/2021 15798 Office/Outpatient Established Lo w MDM 20-29 Min Completed 01/27/2021 47912 Preventive Visit New > 65 Years Completed 01/27/2021 07588 Admin Patient Focused Health Ris k Assessment Instrument Completed 01/27/2021 18114 Brief Emotional/Beha v Assessment W/ Scoring Doc Per Standard Inst Completed Medical Devices Description No Information Available Encounters Type Date Location Provider Dx Diagnosis Office Visit 03/15/2021 1:20p [facility] Davey Gonsales MD E1 1.9 Type [...] 10:00 am - Davey Gonsales MD at [facility] 03/15/2021 - Davey Gonsales MD* E11.9 Type 2 diabetes mellitus without complications* Comments:* Glucose 134. The patient was advised to continue with his current medication regimen. Educated regarding glucose readings. Advised the patient to check his blood sugars regularly. Advised to work closely with his DM educator/dietitian to have them well controlled. Advised the patient to regularly follow-up with rn hospice and director drug safety for appropriate management. He will benefit from maintaining a diabetic diet and a regular exercise regimen. We will continue to monitor. * N18.4 Chronic kidney disease, stage 4 (severe)* Comments:* Continue current medications. Follow up with [facility]. * R06.02 Shortness of breath* Comments:* We [...] for full evaluation. Eval and treat. Created [place], [place] [id number] [phone] [place] [facility] [place] 65 y/o M with hx of type 2 diabetes, referred for diabetic eye care. Eval and treat. Sent [address] [place], [place] [id number] [phone] [facility] Podiatry Clinic 65 y/o M with hx of type 2 d iabetes, referred for diabetic foot care. Eval and treat. Sent [address] [place] [address] [phone] [facility] Cardiopulmonary/Sleep Lab 65 y/o M with hx of smok ing, shortness of breath. Referred for PFT with and without albuterol. Rule out COPD. Eval and treat. Closed 03/09/2021 [address] [place] [address] [phone] [facility] Sleep Center 65 y/o M with hx of snoring, CVA, diabetes, snoring, fatigue and tiredness. Referred for sleep study. Eval and treat. Sent [address] [place] [address] [phone]
--- OUTSIDE RECORDS SUMMARY | 2021-05-27 15:39 | CCD ---
Continuity of Care Document (CCD) Created on: 03/14/2021 Zach Floyd External Reference #: [id number] : [id number] Sex: Male Author Author Zach GONSALES M.D. Organization Unknown Address [address] [place] [address] Phone [phone] Care Team Providers Care Feature Writer Name Role Phone Davey Gonsales M.D. AUTM [phone] [facility] AUTM [phone] [place] [facility] AUTM [phone] [facility] AUTM [phone] [facility] Cardiopulmonary/Sleep Lab AUTM Problems Active Problems Provider [...] alcohol qu it while he was in [facility] for the stroke Tobacco Use Start: [...] Tablets 1/2 tab daily ( Was from [facility] ) I10 Unknown 00 Glyburide [...] H/L Range Note Complete Blood Count 03/09/2021 [facility] White Blood Count 7.9 10 Normal 4.0-10.0 [...] 0.0 % Normal 0-0 Differential Automated 03/09/2021 [facility] Neutrophils % 63.4 % Normal 36.0-66.0 Lymph % 18.9 % Low 24.0-44.0 [place] % 9.9 % High 2.0-8.0 Eos % 6.2 % High 0.0-3.0 Baso % 1.1 % High 0.0-1.0 Immature Granulocyte % 0.5 % Normal 0-3.0 Neutrophils # 5.0 10 Normal 1.5-8.5 Lymph # 1.5 10 Normal 1.5-5.0 [place] # 0.8 10 Normal 0.0-0.8 Eos # 0.5 10 Normal 0.0-0.5 Baso # 0.1 10 Normal 0.0-0.2 Comprehensive Metabolic Profil 03/09/2021 [facility] Glucose, Fasting 134 mg/dL High 70-100 Blood [...] Albumin/Globulin Ratio 1.0 Normal Lipid Panel 03/09/2021 [facility] Triglycerides Level 89 mg/dL Normal <150 Cholesterol Level 125 mg/dL Normal <200 HDL Cholesterol 34 mg/dL Low >40 LDL Cholesterol 73 mg/dL Normal <100 Non-HDL-C 91 mg/dL Normal Cholesterol Risk Ratio 3.676 Normal <5 Laboratory test finding 03/09/2021 [facility] Uric Acid 5.9 mg/dL Normal 3.5-7.2 Hemoglobin A1c 03/09/2021 [facility] Hemoglobin A1c 6.4 % Normal 2 Estimated Average Glucose 137 mg/dL High 60-110 Ua Routine 03/09/2021 [facility] Appearance, Urine CLEAR Normal Clear Color, Urine YELLOW Normal Yellow PH,Urine 5.0 units Normal 5.0-9.0 Specific [place] Urine Auto 1.012 Normal 1.002-1.035 Protein, Urine [...] 0 /LPF Normal 0-1 Microalbumin Random 03/09/2021 [facility] Creatinine, Urine 98.6 mg/dL Normal [place] Urine Siemens 3200.0 mg/L Normal Christopher/Creat Ratio 3245.4 MCG/MG High 0.0-30.0 3 Laboratory test finding 03/09/2021 [facility] Urine Culture FULL REPORT IN L <SEE NOTE> Normal 4 PSA Free & Total 03/09/2021 [facility] PSA Total 1.5 ng/mL Normal 0.0-4.0 5 PSA Comment (SEE NOTE) Normal . 6 Xray 02/23/2021 [facility] ( )- - Low Dose CT chest W/O contrast <pending> 1 Units are mL/min/1.73 m2 Chronic Kidney Disease Staging per NKF: Stage I & II GFR >=60 Normal to Mildly Decreased Stage III GFR 30-59 Moderately Decreased Stage IV GFR 15-29 Severely Decreased Stage V GFR <15 Very Little GFR Left ESRD GFR <15 on GRATED CHEESE MAKER 2 REFERENCE RANGES: <=5.6% NORMAL 5.7-6.4% SUGGESTS IMPAIRED GLUCOSE META BOLISM/PREDIABETIC >= 6.5% ABNORMAL 3 THE [place] [employer] ATION STATES THAT MICROALBUMINURIA IS [...] Leidy ECLIA methodology. . According to the [employer] [employer], Serum PSA should decrease and [...] 10.0 ng/mL. Performed at: RN - [facility] [address] [id number] Institutional Commodity Analyst: Petra Rubin MD, Phone: [phone] Procedures Date Code Description Status 02/23/2021 88565 Office/Outpatient Established Lo w MDM 20-29 Min Completed 01/27/2021 63431 Preventive Visit New > 65 Years Completed 01/27/2021 76376 Admin Patient Focused Health Ris k Assessment Instrument Completed 01/27/2021 41418 Brief Emotional/Beha v Assessment W/ Scoring Doc Per Standard Inst Completed Medical Devices Description No Information Available Encounters Description No Information Available Assessments Date Code Description Provider 02/23/2021 E11.9 Type 2 diabetes mellitus without [...] Gonsales MD Plan of Treatment Future Appointment(s):* 03/15/2021 1:20 pm - Davey Gonsales MD at [facility] * 05/25/2021 10:00 am - Davey Gonsales MD at [facility] 02/23/2021 - Davey Gonsales MD* E11.9 Type 2 diabetes mellitus without complications* Comments:* His HbA1c 5.7 when last checked per patient. The patient was advised to continue with his current medication regimen. Educated regarding glucose readings. Advised the patient to check his blood sugars regularly. Advised to work closely with his DM educator/dietitian to have them well controlled. Advised the patient to regularly follow-up with cocoa powder mixer operator and import specialist for appropriate management. He will benefit from maintaining a diabetic diet and a regular exercise regimen. We will continue to monitor. * Referral:* [facility], * [facility], * Follow up:* 3 months * I10 Essential (primary) hypertension* Comments:* Blood pressure today is 142/60 mmHg. He was advised to continue with his current line of therapies. Advised him to regularly monitor his blood pressure. He will benefit from maintaining a low-sodium diet. We will continue to monitor. * N18.4 Chronic kidney disease, stage 4 (severe)* Comments:* Continue current medications. Follow up with tax evaluator. * E78.5 Hyperlipidemia, unspecified* Comments:* Labs reviewed [...] elevated cholesterol. We will continue to monitor. * R06.02 Shortness of breath* Comments:* He is not currently SOB today but when he ambulates, he tends to be SOB and wheezing. He smoked 1pk/day over 45 years and quit 2-3 years ago. He does not have hx of CHF but there is a question if he ever had IN. He states that over 9 months ago he had cardiac work up by Dr. Buckley. Will try to obtain results. He will need PFT with/w/o albuterol and full pulmonary work up to t/o COPD or Emphysema. He is being referred to a Art Coordinator for full evaluation. * Referral:* [facility] Cardiopulmonary/Sleep Lab, * All * Comments:* We will refer him to pulmonary for breathing test. Ordered low dose CT of the chest due to history of smoking. Functional Status Description No Information Available Mental Status Description No Information Available Referrals Refer to Reason for Referral Status Appt Date [facility] 65 y/o M with hx of type 2 diabetes, referred for diabetic eye care. Eval and treat. Sent [address] [place] [address] [phone] [facility] 65 y/o M with hx of type 2 d iabetes, referred for diabetic foot care. Eval and treat. Sent [address] [place] [address] [phone] [facility] Cardiopulmonary/Sleep Lab 65 y/o M with hx of smok ing, shortness of breath. Referred for PFT with and without albuterol. Rule out COPD. Eval and treat. Closed 03/09/2021 [address] [place] [address] [phone] [facility] 65 y/o M with hx of snoring, CVA, diabetes, snoring, fatigue and tiredness. Referred for sleep study. Eval and treat. Sent [address] [place] [address] [phone]
--- OUTSIDE RECORDS SUMMARY | 2021-05-27 15:40 | CCD ---
Author Author [facility] Organization [facility] Address Unknown Phone Unavailable Care Team Providers Care Agricultural Agent Name Role Phone Cecilia House Unavailable Unavailable Cecilia House Unavailable Unavailable Cecilia House PA Unavailable Unavailable Cecilia House PA Unavailable Unavailable Cecilia House PA Unavailable Unavailable Cecilia House Unavailable Unavailable Cecilia House PA Unavailable Unavailable Cecilia House PA Unavailable Unavailable Cecilia House PA Unavailable Unavailable Cecilia House PA Unavailable Unavailable Arik Epperson MD Unavailable Unavailable Arik Epperson MD Unavailable Unavailable Arik Epperson MD Unavailable Unavailable Arik Epperson MD Unavailable Unavailable Arik Epperson MD Unavailable Unavailable Arik Epperson MD Unavailable Unavailable Arik Epperson MD Unavailable Unavailable Arik Epperson MD Unavailable Unavailable Arik Epperson MD Unavailable Unavailable Arik Epperson MD Unavailable Unavailable Arik Epperson MD Unavailable Unavailable Arik Epperson MD Unavailable Unavailable Arik Epperson MD Unavailable Unavailable Arik Epperson MD Unavailable Unavailable Arik Epperson MD Unavailable Unavailable Zhou, H R Juan Miguellisandra ESPINO Unavailable Unavailable Zhou, H R Juan Miguel Unavailable Unavailable Zhou, H R Juan Miguel ESPINO Unavailable Unavailable Zhou, H R Juan Miguel Unavailable Unavailable Zhou, H R Juan Miguel Unavailable Unavailable Zhou, H R Juan Miguel Unavailable Unavailable Zhou, H R Juan Miguel ESPINO Unavailable Unavailable Zhou, H R Juan Miguel ESPINO Unavailable Unavailable Suman NEGRON MD Unavailable Unavailable Suman NEGRON MD Unavailable Unavailable Suman NEGRON MD Unavailable Unavailable Suman NEGRON MD Unavailable Unavailable ZSuman GARCÍA MD Unavailable Unavailable ZSuman GARCÍA MD Unavailable Unavailable Suman NEGRON MD Unavailable Unavailable Suman NEGRON MD Unavailable Unavailable Suman NEGRON MD Unavailable Unavailable Suman NEGRON MD Unavailable Unavailable ZSuman GARCÍA MD Unavailable Unavailable Suman NEGRON MD Unavailable Unavailable Suman NEGRON MD Unavailable Unavailable Suman NEGRON MD Unavailable Unavailable Suman NEGRON MD Unavailable Unavailable Suman NEGRON MD Unavailable Unavailable BELLKELI ESTEVEZ MD Unavailable Unavailable BELLKELI ESTEVEZ MD Unavailable Unavailable BELLKELI ESTEVEZ MD Unavailable Unavailable BELLKELI ESTEVEZ MD Unavailable Unavailable BELLKELI ESTEVEZ MD Unavailable Unavailable BELLKELI ESTEVEZ MD Unavailable Unavailable BELLKELI ESTEVEZ MD Unavailable Unavailable BELLKLEI ESTEVEZ MD Unavailable Unavailable BELLKELI ESTEVEZ MD Unavailable Unavailable BELLKELI ESTEVEZ MD Unavailable Unavailable BELLKELI ESTEVEZ MD Unavailable Unavailable BELLKELI ESTEVEZ MD Unavailable Unavailable BELLKELI ESTEVEZ MD Unavailable Unavailable BELLKELI ESTEVEZ MD Unavailable Unavailable BELLKELI ESTEVEZ MD Unavailable Unavailable BELLKELI ESTEVEZ MD Unavailable Unavailable BELLKELI ESTEVEZ MD Unavailable Unavailable BELLKELI ESTEVEZ MD Unavailable Unavailable BELLKELI ESTEVEZ MD Unavailable Unavailable BELLKELI ESTEVEZ MD Unavailable Unavailable BELLKELI ESTEVEZ MD Unavailable Unavailable BELLKELI ESTEVEZ MD Unavailable Unavailable BELLKELI ESTEVEZ MD Unavailable Unavailable BELLKELI ESTEVEZ MD Unavailable Unavailable BELLKELI ESTEVEZ MD Unavailable Unavailable BELLKELI ESTEVEZ MD Unavailable Unavailable BELLKELI ESTEVEZ MD Unavailable Unavailable BELLKELI ESTEVEZ MD Unavailable Unavailable BELLKELI ESTEVEZ MD Unavailable Unavailable BELLKELI ESTEVEZ MD Unavailable Unavailable BELLKELI ESTEVEZ MD Unavailable Unavailable BELLKELI ESTEVEZ MD Unavailable Unavailable BELL, KELI MD Unavailable Unavailable BELLKELI ESTEVEZ MD Unavailable Unavailable BELLKELI ESTEVEZ MD Unavailable Unavailable BELLKELI ESTEVEZ MD Unavailable Unavailable BELLKELI ESTEVEZ MD Unavailable Unavailable BELLKELI ESTEVEZ MD Unavailable Unavailable BELLKELI ESTEVEZ MD Unavailable Unavailable BELLKELI ESTEVEZ MD Unavailable Unavailable BELLKELI MD Unavailable Unavailable BELLKELI MD Unavailable Unavailable BELLKELI MD Unavailable Unavailable BELLKELI MD Unavailable Unavailable BELLKELI MD Unavailable Unavailable BELLKELI ESTEVEZ MD Unavailable Unavailable BELLKELI ESTEVEZ MD Unavailable Unavailable BELLKELI ESTEVEZ MD Unavailable Unavailable BELLKELI MD Unavailable Unavailable BELLKELI MD Unavailable Unavailable BELLKELI ESTEVEZ MD Unavailable Unavailable BELLKELI ESTEVEZ MD Unavailable Unavailable BELLKELI ESTEVEZ MD Unavailable Unavailable BELLKELI ESTEVEZ MD Unavailable Unavailable BELLKELI ESTEVEZ MD Unavailable Unavailable BELLKELI ESTEVEZ MD Unavailable Unavailable BELLKELI ESTEVEZ MD Unavailable Unavailable BELLKELI ESTEVEZ MD Unavailable Unavailable BELLKELI ESTEVEZ MD Unavailable Unavailable BELLKELI ESTEVEZ MD Unavailable Unavailable BELLKELI ESTEVEZ MD Unavailable Unavailable BELLKELI ESTEVEZ MD Unavailable Unavailable BELLKELI ESTEVEZ MD Unavailable Unavailable BELLKELI ESTEVEZ MD Unavailable Unavailable BELLKELI ESTEVEZ MD Unavailable Unavailable BELLKELI ESTEVEZ MD Unavailable Unavailable BELLKELI ESTEVEZ MD Unavailable Unavailable BLELKELI ESTEVEZ MD Unavailable Unavailable BELLKELI ESTEVEZ MD Unavailable Unavailable BELLKELI ESTEVEZ MD Unavailable Unavailable BELLKELI ESTEVEZ MD Unavailable Unavailable Nicole Curran MD Unavailable Unavailable Nicole Curran MD Unavailable Unavailable Nicole Curran MD Unavailable Unavailable Nicole Curran MD Unavailable Unavailable Nicole Curran MD Unavailable Unavailable Nicole Curran MD Unavailable Unavailable Nicole Curran MD Unavailable Unavailable Nicole Curran MD Unavailable Unavailable Nicole Curran MD Unavailable Unavailable Nicole Curran MD Unavailable Unavailable Nicole Curran MD Unavailable Unavailable Nicole Curran MD Unavailable Unavailable Nicole Curran MD Unavailable Unavailable Nicole Curran MD Unavailable Unavailable Nicole Curran MD Unavailable Unavailable Nicole Curran MD Unavailable Unavailable Nicole Curran MD Unavailable Unavailable Nicole Curran MD Unavailable Unavailable Nicole Curran MD Unavailable Unavailable Nicole Curran MD Unavailable Unavailable Nicole Curran MD Unavailable Unavailable Nicole Curran MD Unavailable Unavailable Nicole Curran MD Unavailable Unavailable Nicole Curran MD Unavailable Unavailable Nicole Curran MD Unavailable Unavailable Bina, Nicole Erickson MD Unavailable Unavailable Bina, Nicole Erickson MD Unavailable Unavailable Bina, F Dre ESPINO Unavailable Unavailable Bina, F Dre ESPINO Unavailable Unavailable Bina, Nicole Erickson MD Unavailable Unavailable Bina, F Dre ESPINO Unavailable Unavailable Bina, Nicole Erickson MD Unavailable Unavailable Bina, Nicole Erickson MD Unavailable Unavailable Bina, Nicole Erickson MD Unavailable Unavailable Bina, F Dre ESPINO Unavailable Unavailable Bina, F Dre ESPINO Unavailable Unavailable Bina, F Dre ESPINO Unavailable Unavailable Bina, F Dre ESPINO Unavailable Unavailable Bina, F Dre ESPINO Unavailable Unavailable Bina, F Dre ESPINO Unavailable Unavailable Bina, F Dre ESPINO Unavailable Unavailable Bina, F Dre ESPINO Unavailable Unavailable Skipton, E Evangelina MD Unavailable Unavailable Skipton, E Evangelina MD Unavailable Unavailable Skipton, E Evangelina MD Unavailable Unavailable Skipton, E Evangelina MD Unavailable Unavailable Skipton, E Evangelina MD Unavailable Unavailable Skipton, E Evangelina MD Unavailable Unavailable Skipton, E Evangelina MD Unavailable Unavailable Skipton, E Evangelina MD Unavailable Unavailable Skipton, E Evangelina MD Unavailable Unavailable Skipton, E Evangelina MD Unavailable Unavailable Skipton, E Evangelina MD Unavailable Unavailable Skipton, E Evangelina MD Unavailable Unavailable Skipton, E Evangelina MD Unavailable Unavailable Skipton, E Evangelina MD Unavailable Unavailable Skipton, E Evangelina MD Unavailable Unavailable Skipton, E Evangelina MD Unavailable Unavailable Skipton, E Evangelina MD Unavailable Unavailable Skipton, E Evangelina MD Unavailable Unavailable Skipton, E Evangelina MD Unavailable Unavailable Skipton, E Evangelina MD Unavailable Unavailable Skipton, E Evangelina MD Unavailable Unavailable Skipton, E Evangelina MD Unavailable Unavailable Skipton, E Evangelina MD Unavailable Unavailable Skipton, E Evangelina MD Unavailable Unavailable Skipton, E Evangelina MD Unavailable Unavailable Skipton, E Evangelina MD Unavailable Unavailable Skipton, E Evangelina MD Unavailable Unavailable Skipton, E Evangelina MD Unavailable Unavailable Skipton, E Evangelina MD Unavailable Unavailable Skipton, E Evangelina MD Unavailable Unavailable Skipton, E Evangelina MD Unavailable Unavailable Skipton, E Evangelina MD Unavailable Unavailable Skipton, E Evangelina MD Unavailable Unavailable Skipton, E Evangelina MD Unavailable Unavailable Skipton, E Evangelina MD Unavailable Unavailable Skipton, E Evangelina MD Unavailable Unavailable Skipton, E Evangelina MD Unavailable Unavailable Skipton, E Evangelina MD Unavailable Unavailable Skipton, E Evangelina MD Unavailable Unavailable Skipton, E Evangelina MD Unavailable Unavailable Skipton, E Evangelina MD Unavailable Unavailable Skipton, E Evangelina MD Unavailable Unavailable Skipton, E Evangelina MD Unavailable Unavailable Skipton, E Evangelina MD Unavailable Unavailable Skipton, E Evangelina MD Unavailable Unavailable Skipton, E Evangelina MD Unavailable Unavailable Skipton, E Evangelina MD Unavailable Unavailable Skipton, E Evangelina MD Unavailable Unavailable Skipton, E Evangelina MD Unavailable Unavailable Skipton, E Evangelina MD Unavailable Unavailable Skipton, E Evangelina MD Unavailable Unavailable Skipton, E Evangelina MD Unavailable Unavailable Skipton, E Evangelina MD Unavailable Unavailable Skipton, E Evangelina MD Unavailable Unavailable Skipton, E Evangelina MD Unavailable Unavailable Skipton, E Evangelina MD Unavailable Unavailable Skipton, E Evangelina MD Unavailable Unavailable Skipton, E Evangelina MD Unavailable Unavailable Skipton, E Evangelina MD Unavailable Unavailable Skipton, E Evangelina MD Unavailable Unavailable Shahida STEEN MD Unavailable Unavailable Shahida STEEN MD Unavailable Unavailable Shahida STEEN MD Unavailable Unavailable Shahida STEEN MD Unavailable Unavailable Shahida STEEN MD Unavailable Unavailable Shahida STEEN MD Unavailable Unavailable Shahida STEEN MD Unavailable Unavailable Shahida STEEN MD Unavailable Unavailable Shahida STEEN MD Unavailable Unavailable Shahida STEEN MD Unavailable Unavailable Shahida STEEN MD Unavailable Unavailable Shahida STEEN MD Unavailable Unavailable Shahida STEEN MD Unavailable Unavailable Shahida STEEN MD Unavailable Unavailable Shahida STEEN MD Unavailable Unavailable Shahida STEEN MD Unavailable Unavailable Shahida STEEN MD Unavailable Unavailable Shahida STEEN MD Unavailable Unavailable Shahida STEEN MD Unavailable Unavailable Shahida STEEN MD Unavailable Unavailable Shahida STEEN MD Unavailable Unavailable Shahida STEEN MD Unavailable Unavailable Shahida STEEN MD Unavailable Unavailable Shahida STEEN MD Unavailable Unavailable Shahida STEEN MD Unavailable Unavailable Shahida STEEN MD Unavailable Unavailable Shahida STEEN MD Unavailable Unavailable Shahida STEEN MD Unavailable Unavailable Shahida STEEN MD Unavailable Unavailable Shahida STEEN MD Unavailable Unavailable Shahida STEEN MD Unavailable Unavailable Shahida STEEN MD Unavailable Unavailable Shahida STEEN MD Unavailable Unavailable Shahida STEEN MD Unavailable Unavailable Shahida STEEN MD Unavailable Unavailable Shahida STEEN MD Unavailable Unavailable Shahida STEEN MD Unavailable Unavailable Shahida STEEN MD Unavailable Unavailable Shahida STEEN MD Unavailable Unavailable Shahida STEEN MD Unavailable Unavailable Shahida STEEN MD Unavailable Unavailable Shahida STEEN MD Unavailable Unavailable Shahida STEEN MD Unavailable Unavailable Shahida STEEN MD Unavailable Unavailable Shahida STEEN MD Unavailable Unavailable Shahida STEEN MD Unavailable Unavailable Shahida STEEN MD Unavailable Unavailable Shahida STEEN MD Unavailable Unavailable Shahida STEEN MD Unavailable Unavailable Shahida STEEN MD Unavailable Unavailable Shahida STEEN MD Unavailable Unavailable Shahida STEEN MD Unavailable Unavailable Shahida STEEN MD Unavailable Unavailable Shahida STEEN MD Unavailable Unavailable Shahida STEEN MD Unavailable Unavailable Shahida STEEN MD Unavailable Unavailable Shahida STEEN MD Unavailable Unavailable Shahida STEEN MD Unavailable Unavailable Shahida STEEN MD Unavailable Unavailable Shahida STEEN MD Unavailable Unavailable Shahida STEEN MD Unavailable Unavailable Shahida STEEN MD Unavailable Unavailable Shahida STEEN MD Unavailable Unavailable Shahida STEEN MD Unavailable Unavailable Shahida STEEN MD Unavailable Unavailable Shahida STEEN MD Unavailable Unavailable Joaquín Humphrey MD Unavailable Unavailable Joaquín Humphrey MD Unavailable Unavailable Joaquín Humphrey MD Unavailable Unavailable Joaquín Humphrey MD Unavailable Unavailable Joaquín Humphrey MD Unavailable Unavailable Joaquín Humphrey MD Unavailable Unavailable Joaquín Humphrey MD Unavailable Unavailable Joaquín Humphrey MD Unavailable Unavailable Joaquín Humphrey MD Unavailable Unavailable Joaquín Humphrey MD Unavailable Unavailable Joaquín Humphrey MD Unavailable Unavailable Joaquín Humphrey MD Unavailable Unavailable Joaquín Humphrey MD Unavailable Unavailable Joaquín Humphrey MD Unavailable Unavailable Joaquín Humphrey MD Unavailable Unavailable Joaquín Humphrey MD Unavailable Unavailable Joaquín Humphrey MD Unavailable Unavailable Joaquín Humphrey MD Unavailable Unavailable Joaquín Humphrey MD Unavailable Unavailable Joaquín Humphrey MD Unavailable Unavailable Joaquín Humphrey MD Unavailable Unavailable Joaquín Humphrey MD Unavailable Unavailable Joaquín Humphrey MD Unavailable Unavailable Joaquín Humphrey MD Unavailable Unavailable Joaquín Humphrey MD Unavailable Unavailable Joaquín Humphrey MD Unavailable Unavailable Joaquín Humphrey MD Unavailable Unavailable Joaquín Humphrey MD Unavailable Unavailable Kam O Kevinah Unavailable Unavailable Joaquín Humphrey MD Unavailable Unavailable Joaquín Humphrey MD Unavailable Unavailable Joaquín Humphrey MD Unavailable Unavailable Joaquín Humphrey MD Unavailable Unavailable Joaquín Humphrey MD Unavailable Unavailable Joaquín Humphrey MD Unavailable Unavailable Joaquín Humphrey MD Unavailable Unavailable Joaquín Humphrey MD Unavailable Unavailable Joaquín Humphrey MD Unavailable Unavailable Joaquín Humphrey MD Unavailable Unavailable Joaquín Humphrey MD Unavailable Unavailable Joaquín Humphrey MD Unavailable Unavailable Joaquín Humphrey MD Unavailable Unavailable Joaquín Humphrey MD Unavailable Unavailable Joaquín Humphrey MD Unavailable Unavailable Joaquín Humphrey MD Unavailable Unavailable Joaquín Humphrey MD Unavailable Unavailable Joaquín Humphrey MD Unavailable Unavailable Joaquín Humphrey MD Unavailable Unavailable Joaquín Humphrey MD Unavailable Unavailable Joaquín Humphrey MD Unavailable Unavailable Joaquín Humphrey MD Unavailable Unavailable Joaquín Humphrey MD Unavailable Unavailable Joaquín Humphrey MD Unavailable Unavailable Joaquín Humphrey MD Unavailable Unavailable Joaquín Humphrey MD Unavailable Unavailable Joaquín Humphrey MD Unavailable Unavailable Joaquín Humphrey MD Unavailable Unavailable Joaquín Humphrey MD Unavailable Unavailable Joaquín Humphrey MD Unavailable Unavailable Joaquín Hupmhrey MD Unavailable Unavailable Joaquín Humphrey MD Unavailable Unavailable Joaquín Humphrey MD Unavailable Unavailable Joaquín Humphrey MD Unavailable Unavailable Joaquín Humphrey MD Unavailable Unavailable Joaquín Humphrey MD Unavailable Unavailable Kam, O Samah MD Unavailable Unavailable Kam, O Kevinah MD Unavailable Unavailable Kam, O Samah MD Unavailable Unavailable Kam, O Samah MD Unavailable Unavailable Kam, O Samah MD Unavailable Unavailable Kam, O Samah MD Unavailable Unavailable Kam, O Samah MD Unavailable Unavailable Kam, O Samah MD Unavailable Unavailable Kam, O Samah MD Unavailable Unavailable Kam, O Samah MD Unavailable Unavailable Kam, O Samah MD Unavailable Unavailable Kam, O Samah MD Unavailable Unavailable Kam, O Samah MD Unavailable Unavailable Kam, O Samah MD Unavailable Unavailable FORNI, R CHRISTOPHER DPM Unavailable Unavailable FORNI, R CHRISTOPHER DPM Unavailable Unavailable FORNI, R CHRISTOPHER DPM Unavailable Unavailable FORNI, R CHRISTOPHER DPM Unavailable Unavailable FORNI, R CHRISTOPHER DPM Unavailable Unavailable FORNI, R CHRISTOPHER DPM Unavailable Unavailable FORNI, R CHRISTOPHER DPM Unavailable Unavailable FORNI, R CHRISTOPHER DPM Unavailable Unavailable FORNI, R CHRISTOPHER DPM Unavailable Unavailable FORNI, R CHRISTOPHER DPM Unavailable Unavailable FORNI, R CHRISTOPHER DPM Unavailable Unavailable FORNI, R CHRISTOPHER DPM Unavailable Unavailable FORNI, R CHRISTOPHER DPM Unavailable Unavailable FORNI, R CHRISTOPHER DPM Unavailable Unavailable FORNI, R CHRISTOPHER DPM Unavailable Unavailable FORNI, R CHRISTOPHER DPM Unavailable Unavailable FORNI, R CHRISTOPHER DPM Unavailable Unavailable FORNI, R CHRISTOPHER DPM Unavailable Unavailable FORNI, R CHRISTOPHER DPM Unavailable Unavailable FORNI, R CHRISTOPHER DPM Unavailable Unavailable Nicole Curran MD Unavailable Unavailable Nicole Curran MD Unavailable Unavailable Nicole Curran MD Unavailable Unavailable Nciole Curran MD Unavailable Unavailable Nicole Curran MD Unavailable Unavailable Nicole Curran MD Unavailable Unavailable Nicole Curran MD Unavailable Unavailable Nicole Curran MD Unavailable Unavailable Nicole Curran MD Unavailable Unavailable Nicole Curran MD Unavailable Unavailable Nicole Curran MD Unavailable Unavailable Nicole Curran MD Unavailable Unavailable Nicole Curran MD Unavailable Unavailable Nicole Curran MD Unavailable Unavailable Nicole Curran MD Unavailable Unavailable Nicole Curran MD Unavailable Unavailable Nicole Curran MD Unavailable Unavailable Nicole Curran MD Unavailable Unavailable Nicole Curran MD Unavailable Unavailable Nicole Curran MD Unavailable Unavailable Nicole Curran MD Unavailable Unavailable Nicole Curran MD Unavailable Unavailable Nicole Curran MD Unavailable Unavailable Nicole Curran MD Unavailable Unavailable Nicole Curran MD Unavailable Unavailable Nicole Curran MD Unavailable Unavailable Nicole Curran MD Unavailable Unavailable Nicole Curran MD Unavailable Unavailable Nicole Curran MD Unavailable Unavailable Nicole Curran MD Unavailable Unavailable Nicole Curran MD Unavailable Unavailable Nicole Curran MD Unavailable Unavailable Nicole Curran MD Unavailable Unavailable Nicole Curran MD Unavailable Unavailable Nicole Curran MD Unavailable Unavailable Nicole Curran MD Unavailable Unavailable Nicole Curran MD Unavailable Unavailable Nicole Curran MD Unavailable Unavailable Nicole Curran MD Unavailable Unavailable Nicole Curran MD Unavailable Unavailable Nicole Curran MD Unavailable Unavailable Nicole Curran MD Unavailable Unavailable COLEMAN, M TERRELL PA Unavailable Unavailable COLEMAN, M TERRELL PA Unavailable Unavailable COLEMAN, M TERRELL PA Unavailable Unavailable COLEMAN, M TERRELL PA Unavailable Unavailable COLEMAN, M TERRELL PA Unavailable Unavailable COLEMAN, M TERRELL PA Unavailable Unavailable COLEMAN, M TERRELL PA Unavailable Unavailable COLEMAN, M TERRELL PA Unavailable Unavailable COLEMAN, M TERRELL PA Unavailable Unavailable COLEMAN, M TERRELL PA Unavailable Unavailable COLEMAN, M TERRELL PA Unavailable Unavailable COLEMAN, M TERRELL PA Unavailable Unavailable COLEMAN, M TERRELL PA Unavailable Unavailable COLEMAN, M TERRELL PA Unavailable Unavailable COLEMAN, M TERRELL PA Unavailable Unavailable COLEMAN, M TERRELL PA Unavailable Unavailable COLEMAN, M TERRELL PA Unavailable Unavailable COLEMAN, M TERRELL PA Unavailable Unavailable COLEMAN, M TERRELL PA Unavailable Unavailable COLEMAN, M TERRELL PA Unavailable Unavailable COLEMAN, M TERRELL PA Unavailable Unavailable COLEMAN, M TERRELL PA Unavailable Unavailable COLEMAN, M TERRELL PA Unavailable Unavailable COLEMAN, M TERRELL PA Unavailable Unavailable COLEMAN, M TERRELL PA Unavailable Unavailable COLEMAN, M TERRELL PA Unavailable Unavailable COLEMAN, M TERRELL PA Unavailable Unavailable COLEMAN, M TERRELL PA Unavailable Unavailable COLEMAN, M TERRELL PA Unavailable Unavailable COLEMAN, M TERRELL PA Unavailable Unavailable COLEMAN, M TERRELL PA Unavailable Unavailable COLEMAN, M TERRELL PA Unavailable Unavailable COLEMAN, M TERRELL PA Unavailable Unavailable COLEMAN, M TERRELL PA Unavailable Unavailable COLEMAN, M TERRELL PA Unavailable Unavailable Re-disclosure Warning The records that you are about to access may contain information from federally-assisted alcohol or drug abuse programs. If such information is present, then the following federally mandated warning applies: This information has been disclosed to you from records protected by federal confidentiality rules (42 CFR part 2). The federal rules prohibit you from making any further disclosure of this information unless further disclosure is expressly permitted by the written consent of the person to whom it pertains or as otherwise permitted by 42 CFR part 2. A general authorization for the release of medical or other information is NOT sufficient for this purpose. The Federal rules restrict any use of the information to criminally investigate or prosecute any alcohol or drug abuse patient.The records that you are about to access may contain highly sensitive health information, the redisclosure of which is protected by Article 27-F of the [place] Public Health law. If you continue you may have access to information: Regarding HIV / AIDS; Provided by facilities licensed or operated by the [facility] [facility] Office of Mental Health; or Provided by the [facility] Office for People With Developmental Disabilities. If such information is present, then the following [facility] mandated warning applies: This information has been disclosed to you from confidential records which are protected by state law. State law prohibits you from making any further disclosure of this information without the specific written consent of the person to whom it pertains, or as otherwise permitted by law. Any unauthorized further disclosure in violation of state law may result in a fine or custodial sentence or both. A general authorization for the release of medical or other information is NOT sufficient authorization for further disc losure. Allergies and Adverse Reactions Type Description Substance Reaction Status Data Source(s ) Drug Allergy NKDA NKDA [facility] ([facility], ) Family History Family Member Name Family Member Gender Family Member Status Date o f Status Description Data Source(s) Unknown Male Problem [facility] ([facility]) Unknown Unknown Problem [facility] ([facility], ) Father Unknown Male Problem [facility] ([facility] ) Unknown Male Problem [facility] ([facility] Unknown Male Problem [facility] ([facility] Encounters Encounter Providers Location Date Indications Data Source(s ) Outpatient Attender: Juan Miguel Epperson MD 06/23/2021 12:00:00 A [facility] Outpatient Attender: TERRELL Orozco/Bracey/Gil/Rein dl 05/11/2021 10:00:00 AM EDT [facility] ([facility] Outpatient Attender: Dre Curran MD 2020 10:05:00 AM EDT - 04/27/2021 10:05:00 AM EDT [facility] Office Visit Attender: Dre Curran MD Family Practice 2020 10:00:00 AM EDT [facility] ([facility]) Outpatient Attender: JILL Cleveland veronique: Cecilia House PAConsultant: Cecilia JONES 04/22/2021 01:20:00 PM EDT - 04/22/2021 01:20 :00 PM EDT [facility] Outpatient Attender: Cecilia JONES 02/2021 11:05:00 AM EDT - 04/22/2021 11:05:00 AM EDT [facility] Outpatient Attender: Kobi Humphrey MD Main office - [facility] 04/19/2021 12:45:00 PM EDT [facility] ([place] [facility] Out[facility] Attender: CHRISTOPHER WITT DPM Family Practice 03/30/2021 0 1:30:00 PM EDT MEDENT ([facility]) Outpatient Attender: CHRISTOPHER VELAZQUEZMAttender: KELI BELL MD 03/30/2021 01:15:00 PM EDT - 03/30/2021 01:15:00 PM EDT [facility] Outpatient Attender: TERRELL Orozco/Soraya/Gil/Rein dl 03/24/2021 08:30:00 AM EDT MED[facility] ([facility] Outpatient Attender: KELI BELL MD 2020 01:47:00 PM EDT - 03/15/2021 01:47:00 PM EDT [facility] Outpatient Attender: KELI BELL MD Family Practice 03/15/2021 0 1:20:00 PM EDT MEDENT ([facility]) Outpatient Attender: KELI BELL MD Family Practice 02/23/2021 0 1:20:00 PM EDT MEDENT ([facility]) Outpatient Attender: KELI BELL MD 2020 01:06:00 PM EDT - 02/23/2021 01:06:00 PM EDT [facility] [place] [address] [facility] [address] 02/11/2021 12:00:00 AM EDT eCW1 ([facility]) Outpatient Attender: KELI BELL MD 2020 02:31:00 PM EDT - 01/27/2021 02:31:00 PM EDT [facility] [place] [address] [facility] [address] 01/27/2021 12:00:00 AM EDT eCW1 ([facility]) [place] [address] [facility] [address] 01/27/2021 12:00:00 AM EDT eCW1 ([facility]) [place] [address] [facility] [address] 01/26/2021 12:00:00 AM EDT eCW1 ([facility]) [place] [address] [facility] [address] 01/26/2021 12:00:00 AM EDT eCW1 ([facility]) [place]patient [address] [facility] [address] 01/18/2021 12:00:00 AM EDT eCW1 ([facility]) [place] [address] [facility] [facility] [address] 01/18/2021 12:00:00 AM EDT eCW1 ([facility]) [place] [address] [facility] [facility] [address] 01/10/2021 12:00:00 AM EDT eCW1 ([facility]) [place] [address] [facility] [facility] [address] 01/07/2021 12:00:00 AM EDT eCW1 ([facility]) Outpatient Attender: CED STEEN MD 01/04/2021 12:00: 00 PM [facility] [address] [facility] [facility] [address] 01/03/2021 12:00:00 AM EDT eCW1 ([facility]) [place] [address] [facility] [address] 01/03/2021 12:00:00 AM EDT eCW1 ([facility]) Outpatient [address] [facility] [address] 12/27/2020 12:00:00 AM EDT eCW1 ([facility]) Outpatient Attender: Juan Miguel Epperson MDReferrer: Evangelina Salazar MD [id number] 12/23/2020 12:00:00 AM EDT - 12/23/2020 01:07:40 PM EDT Chronic kidney disease, stage 4 (severe) [facility] Chronic kidney disease, stage 4 (severe) Office Visit, Est Pt., Level 2 FC [address] [place] [address] 12/21/2020 12:00:00 AM EDT eCW1 ([facility]) Unknown [address] [facility] [facility] [address] 12/20/2020 12:00:00 AM EDT eCW1 ([facility]) [place] [address] [facility] [address] 12/17/2020 12:00:00 AM EDT eCW1 ([facility]) Unknown [address] [facility] [facility] [address] 12/17/2020 12:00:00 AM EDT eCW1 ([facility]) Unknown [address] [facility] [facility] [address] 12/15/2020 12:00:00 AM EDT eCW1 ([facility]) Unknown [address] [facility] [facility] [address] 12/07/2020 12:00:00 AM EDT eCW1 ([facility]) Unknown [address] [facility] [facility] [address] 12/07/2020 12:00:00 AM EDT eCW1 ([facility]) [place] [address] [facility] [address] 11/23/2020 12:00:00 AM EDT eCW1 ([facility]) Outpatient Attender: Juan Miguel Epperson MD 11/16/2020 12:00:00 A M [facility] Unknown [address] [facility] [facility] [address] 11/09/2020 12:00:00 AM EDT eCW1 ([facility]) Unknown [address] [facility] [facility] [address] 11/05/2020 12:00:00 AM EDT eCW1 ([facility]) Unknown [address] [facility] [facility] [address] 10/26/2020 12:00:00 AM EDT eCW1 ([facility]) Unknown [address] [facility] [address] 10/06/2020 12:00:00 AM EDT eCW1 ([facility]) Unknown [address] [facility] [address] 10/05/2020 12:00:00 AM EDT eCW1 ([facility]) Outpatient [address] [facility] [facility] [address] 09/22/2020 12:00:00 AM EST eCW1 ([facility]) Unknown [address] [facility] [facility] [address] 09/07/2020 12:00:00 AM EST eCW1 ([facility]) Unknown [address] [facility] [facility] [address] 09/07/2020 12:00:00 AM EST eCW1 ([facility]) Unknown [address] [facility] [address] 08/10/2020 12:00:00 AM EST eCW1 ([facility]) Unknown [address] [facility] [address] 08/10/2020 12:00:00 AM EST eCW1 ([facility]) Unknown [address] [facility] [address] 08/10/2020 12:00:00 AM EST eCW1 ([facility]) Unknown [address] [facility] [address] 08/10/2020 12:00:00 AM EST eCW1 ([facility]) Unknown [address] [facility] [address] 07/12/2020 12:00:00 AM EST eCW1 ([facility]) Unknown [address] [facility] [address] 07/01/2020 12:00:00 AM EST eCW1 ([facility]) Unknown [address] [facility] [address] 06/23/2020 12:00:00 AM EST eCW1 ([facility]) Outpatient [address] [facility] [address] 06/18/2020 12:00:00 AM EST eCW1 ([facility]) Unknown [address] [facility] [address] 06/08/2020 12:00:00 AM EST eCW1 ([facility]) Unknown [address] [facility] [place] [address] 06/08/2020 12:00:00 AM EST eCW1 ([facility]) Unknown [address] [facility] [address] 05/28/2020 12:00:00 AM EST eCW1 ([facility]) Unknown [address] [facility] [address] 05/20/2020 12:00:00 AM EST eCW1 ([facility]) Unknown [address] [facility] [address] 05/11/2020 12:00:00 AM EDT eCW1 ([facility]) Outpatient [address] [facility] [address] 04/30/2020 12:00:00 AM EDT eCW1 ([facility]) Unknown [address] [facility] [address] 04/30/2020 12:00:00 AM EDT eCW1 ([facility]) Unknown [address] [facility] [address] 04/28/2020 12:00:00 AM EDT eCW1 ([facility]) Unknown [address] [facility] [address] 04/19/2020 12:00:00 AM EDT eCW1 ([facility]) Immunizations Vaccine Date Status Description Data Source(s) COVID-19 VACCINE Moderna 11/17/2020 12:00:00 AM EDT completed [facility] Vaccine Series Complete: YESThis Data wa s Submitted to [facility] Via [employer]. COVID-19 VACC,MRNA(MODERNA)/PF 11/17/2020 12:00:00 AM EDT completed [facility] COVID-19 VACCINE Moderna 10/24/2020 12:00:00 AM EDT completed [facility] Vaccine Series Complete: NOThis Data was Submitted to [facility] Via [employer]. COVID-19 VACCINE, MRNA-1273, LNP-S (MODERNA)/PF 10/24/2020 1 2:00:00 AM EDT completed [facility] Medications Medication Brand Name Start Date Product Form Dose Route Admi nistrative Instructions Pharmacy Instructions Status Indications Reaction Description Data Source(s) cefdinir 300 MG Oral Capsule Cefdinir 04/22/2021 12:00:00 AM EDT ORAL active MEDENT ([facility]) 200 ACTUAT Albuterol 0.09 MG/ACTUAT Metered Dose Inhaler [Pr oAir] Proair HFA 03/24/2021 12:00:00 AM EDT RESPIRATORY active MEDENT ([facility]) Trelegy Ellipta Trelegy Ellipta 03/24/2021 12:00:00 AM EDT ORAL active MEDENT ([facility] ) Acetaminophen 325 MG / Hydrocodone Bharti trate 5 MG Oral Tablet HYDROcodone- Acetaminophen 5-325 MG HYDROcodone-Acetaminophen 5-325 MG 01/08/2021 12:00:00 AM EDT 1.0 {tablet_as_needed} active HYDROcodone-Acetaminophen 5-325 MG eCW1 ([facility]) Acetaminophen 325 MG / Hydrocodone Bharti trate 5 MG Oral Tablet HYDROcodone- Acetaminophen 5-325 MG HYDROcodone-Acetaminophen 5-325 MG 01/08/2021 12:00:00 AM EDT 1.0 {tablet_as_needed} active HYDROcodone-Acetaminophen 5-325 MG eCW1 ([facility]) Acetaminophen 325 MG / Hydrocodone Bharti trate 5 MG Oral Tablet HYDROcodone- Acetaminophen 5-325 MG HYDROcodone-Acetaminophen 5-325 MG 01/08/2021 12:00:00 AM EDT 1.0 {tablet_as_needed} active HYDROcodone-Acetaminophen 5-325 MG eCW1 ([facility]) Acetaminophen 325 MG / Hydrocodone Bharti trate 5 MG Oral Tablet HYDROcodone- Acetaminophen 5-325 MG HYDROcodone-Acetaminophen 5-325 MG 01/08/2021 12:00:00 AM EDT 1.0 {tablet_as_needed} active HYDROcodone-Acetaminophen 5-325 MG eCW1 ([facility]) Acetaminophen 325 MG / Hydrocodone Bharti trate 5 MG Oral Tablet HYDROcodone- Acetaminophen 5-325 MG HYDROcodone-Acetaminophen 5-325 MG 01/08/2021 12:00:00 AM EDT 1.0 {tablet_as_needed} active HYDROcodone-Acetaminophen 5-325 MG eCW1 ([facility]) Acetaminophen 325 MG / Hydrocodone Bharti trate 5 MG Oral Tablet HYDROcodone- Acetaminophen 5-325 MG HYDROcodone-Acetaminophen 5-325 MG 01/08/2021 12:00:00 AM EDT 1.0 {tablet_as_needed} active HYDROcodone-Acetaminophen 5-325 MG eCW1 ([facility]) Acetaminophen 325 MG / Hydrocodone Bharti trate 5 MG Oral Tablet HYDROcodone- Acetaminophen 5-325 MG HYDROcodone-Acetaminophen 5-325 MG 01/08/2021 12:00:00 AM EDT 1.0 {tablet_as_needed} active HYDROcodone-Acetaminophen 5-325 MG eCW1 ([facility]) Acetaminophen 325 MG / Hydrocodone Bharti trate 5 MG Oral Tablet HYDROcodone- Acetaminophen 5-325 MG HYDROcodone-Acetaminophen 5-325 MG 01/08/2021 12:00:00 AM EDT 1.0 {tablet_as_needed} active HYDROcodone-Acetaminophen 5-325 MG eCW1 ([facility]) Acetaminophen 325 MG / Hydrocodone Bharti trate 5 MG Oral Tablet HYDROcodone- Acetaminophen 5-325 MG HYDROcodone-Acetaminophen 5-325 MG 01/08/2021 12:00:00 AM EDT 1.0 {tablet_as_needed} active HYDROcodone-Acetaminophen 5-325 MG eCW1 ([facility]) Furosemide 40 MG Oral Tablet Furosemide 40 MG 01/03/2021 12:00:00 A M EDT 1.0 {tablet} active Furosemide 40 MG eCW1 ( [facility]) Furosemide 40 MG Oral Tablet Furosemide 40 MG 01/03/2021 12:00:00 A M EDT 1.0 {tablet} active Furosemide 40 MG eCW1 ( [facility]) Furosemide 40 MG Oral Tablet Furosemide 40 MG 01/03/2021 12:00:00 A M EDT 1.0 {tablet} active Furosemide 40 MG eCW1 ( [facility]) Furosemide 20 MG Oral Tablet Furosemide 20 MG 01/03/2021 12:00:00 A M EDT 1.0 {tablet} active Furosemide 20 MG eCW1 ( [facility]) Furosemide 40 MG Oral Tablet Furosemide 40 MG 01/03/2021 12:00:00 A M EDT 1.0 {tablet} active Furosemide 40 MG eCW1 ( [facility]) Furosemide 40 MG Oral Tablet Furosemide 40 MG 01/03/2021 12:00:00 A M EDT 1.0 {tablet} active Furosemide 40 MG eCW1 ( [facility]) Furosemide 40 MG Oral Tablet Furosemide 40 MG 01/03/2021 12:00:00 A M EDT 1.0 {tablet} active Furosemide 40 MG eCW1 ( [facility]) Furosemide 20 MG Oral Tablet Furosemide 20 MG 01/03/2021 12:00:00 A M EDT 1.0 {tablet} active Furosemide 20 MG eCW1 ( [facility]) Furosemide 20 MG Oral Tablet Furosemide 20 MG 01/03/2021 12:00:00 A M EDT 1.0 {tablet} active Furosemide 20 MG eCW1 ( [facility]) Furosemide 20 MG Oral Tablet Furosemide 20 MG 01/03/2021 12:00:00 A M EDT 1.0 {tablet} active Furosemide 20 MG eCW1 ( [facility]) Furosemide 20 MG Oral Tablet Furosemide 20 MG 01/03/2021 12:00:00 A M EDT 1.0 {tablet} active Furosemide 20 MG eCW1 ( [facility]) Furosemide 40 MG Oral Tablet Furosemide 40 MG 01/03/2021 12:00:00 A M EDT 1.0 {tablet} active Furosemide 40 MG eCW1 ( [facility]) Losartan Potassium 25 MG Oral Tablet [place] Potassium 25 MG Oral Tablet (Cozaar) Losartan Potassium 25 MG Oral Tablet (Cozaar) 12/24/19 12:00:00 AM EDT 25 mg Oral active Take 1 tablet by mouth daily [facility] Hydralazine Hydrochloride 50 MG Oral Tab let hydrALAZINE HCl 50 MG Oral Tablet (APRESOLINE) hydrALAZINE HCl 50 MG Oral Tablet (APRESOLINE) 021 12:00:00 AM EDT 50 mg Oral active Take 50 mg by joey th Three times daily [facility] Aspirin 325 MG Delayed Release Oral Tabl et Aspirin EC 325 MG Oral Tablet Delayed Release Aspirin EC 325 MG Oral Tablet Delayed Release 12/18/19 21 12:00:00 AM EDT 325 mg Oral active Take 325 mg by mo [facility] daily [facility] Aspirin 325 MG Oral Tablet Aspirin 325 MG 12/16/2020 12:00:00 AM ED T 1.0 {tablet} active Aspirin 325 MG eCW1 ([facility]) Aspirin 325 MG Oral Tablet Aspirin 325 MG 12/16/2020 12:00:00 AM ED T 1.0 {tablet} active Aspirin 325 MG eCW1 ([facility]) Aspirin 325 MG Oral Tablet Aspirin 325 MG 12/16/2020 12:00:00 AM ED T 1.0 {tablet} active Aspirin 325 MG eCW1 ([facility]) Aspirin 325 MG Oral Tablet Aspirin 325 MG 12/16/2020 12:00:00 AM ED T 1.0 {tablet} active Aspirin 325 MG eCW1 ([facility]) Aspirin 325 MG Oral Tablet Aspirin 325 MG 12/16/2020 12:00:00 AM ED T 1.0 {tablet} active Aspirin 325 MG eCW1 ([facility]) Hydralazine Hydrochloride 50 MG Oral Tablet HydrALAZIN E HCl 50 MG HydrALAZINE HCl 50 MG 12/16/2020 12:00:00 AM EDT 1.0 {tablet_with_food} active HydrALAZINE HCl 50 MG eCW1 ([facility]) Aspirin 325 MG Oral Tablet Aspirin 325 MG 12/16/2020 12:00:00 AM ED T 1.0 {tablet} active Aspirin 325 MG eCW1 ([facility]) Hydralazine Hydrochloride 50 MG Oral Tablet hydrALAZIN E HCl 50 MG hydrALAZINE HCl 50 MG 12/16/2020 12:00:00 AM EDT 1.0 {tablet_with_food} active hydrALAZINE HCl 50 MG eCW1 ([facility]) Aspirin 325 MG Oral Tablet Aspirin 325 MG 12/16/2020 12:00:00 AM ED T 1.0 {tablet} active Aspirin 325 MG eCW1 ([facility]) Aspirin 325 MG Oral Tablet Aspirin 325 MG 12/16/2020 12:00:00 AM ED T 1.0 {tablet} active Aspirin 325 MG eCW1 ([facility]) Aspirin 325 MG Oral Tablet Aspirin 325 MG 12/16/2020 12:00:00 AM ED T 1.0 {tablet} active Aspirin 325 MG eCW1 ([facility]) Aspirin 325 MG Oral Tablet Aspirin 325 MG 12/16/2020 12:00:00 AM ED T 1.0 {tablet} active Aspirin 325 MG eCW1 ([facility]) Aspirin 325 MG Oral Tablet Aspirin 325 MG 12/16/2020 12:00:00 AM ED T 1.0 {tablet} active Aspirin 325 MG eCW1 ([facility]) Aspirin 325 MG Oral Tablet Aspirin 325 MG 12/16/2020 12:00:00 AM ED T 1.0 {tablet} active Aspirin 325 MG eCW1 ([facility]) Aspirin 325 MG Oral Tablet Aspirin 325 MG 12/16/2020 12:00:00 AM ED T 1.0 {tablet} active Aspirin 325 MG eCW1 ([facility]) Aspirin 325 MG Oral Tablet Aspirin 325 MG 12/16/2020 12:00:00 AM ED T 1.0 {tablet} active Aspirin 325 MG eCW1 ([facility]) Hydralazine Hydrochloride 50 MG Oral Tablet hydrALAZIN E HCl 50 MG hydrALAZINE HCl 50 MG 12/16/2020 12:00:00 AM EDT 1.0 {tablet_with_food} active hydrALAZINE HCl 50 MG eCW1 ([facility]) Aspirin 325 MG Oral Tablet Aspirin 325 MG 12/16/2020 12:00:00 AM ED T 1.0 {tablet} active Aspirin 325 MG eCW1 ([facility]) Glyburide 1.25 MG Oral Tablet glyBURIDE 1.25 MG Oral T ablet (DIABETA) glyBURIDE 1.25 MG Oral Tablet (DIABETA) 11/10/2020 12:00:00 AM EDT active TAKE 1 TABLET BY MOUTH ONCE DAILY WITH BREAKFAST OR THE FIRST MAIN MEAL OF THE DAY [facility] Acetaminophen 325 MG / Hydrocodone Bharti trate 5 MG Oral Tablet Hydrocodone- Acetaminophen 5-325 MG Hydrocodone-Acetaminophen 5-325 MG 11/05/2020 12:00:00 AM EDT 1.0 {tablet_as_needed} active Hydrocodone-Acetaminophen 5-325 MG eCW1 ([facility]) Acetaminophen 325 MG / Hydrocodone Bharti trate 5 MG Oral Tablet Hydrocodone- Acetaminophen 5-325 MG Hydrocodone-Acetaminophen 5-325 MG 11/05/2020 12:00:00 AM EDT 1.0 {tablet_as_needed} active Hydrocodone-Acetaminophen 5-325 MG eCW1 ([facility]) Acetaminophen 325 MG / Hydrocodone Bharti trate 5 MG Oral Tablet HYDROcodone- Acetaminophen 5-325 MG HYDROcodone-Acetaminophen 5-325 MG 11/05/2020 12:00:00 AM EDT 1.0 {tablet_as_needed} suspended HYDROcodone-Acetaminophen 5- 325 MG eCW1 ([facility]) Acetaminophen 325 MG / Hydrocodone Bharti trate 5 MG Oral Tablet HYDROcodone- Acetaminophen 5-325 MG HYDROcodone-Acetaminophen 5-325 MG 11/05/2020 12:00:00 AM EDT 1.0 {tablet_as_needed} suspended HYDROcodone-Acetaminophen 5- 325 MG eCW1 ([facility]) Acetaminophen 325 MG / Hydrocodone Bharti trate 5 MG Oral Tablet Hydrocodone- Acetaminophen 5-325 MG Hydrocodone-Acetaminophen 5-325 MG 11/05/2020 12:00:00 AM EDT 1.0 {tablet_as_needed} suspended Hydrocodone-Acetaminophen 5- 325 MG eCW1 ([facility]) Acetaminophen 325 MG / Hydrocodone Bharti trate 5 MG Oral Tablet HYDROcodone- Acetaminophen 5-325 MG HYDROcodone-Acetaminophen 5-325 MG 11/05/2020 12:00:00 AM EDT 1.0 {tablet_as_needed} suspended HYDROcodone-Acetaminophen 5- 325 MG eCW1 ([facility]) Acetaminophen 325 MG / Hydrocodone Bharti trate 5 MG Oral Tablet HYDROcodone- Acetaminophen 5-325 MG HYDROcodone-Acetaminophen 5-325 MG 11/05/2020 12:00:00 AM EDT 1.0 {tablet_as_needed} suspended HYDROcodone-Acetaminophen 5- 325 MG eCW1 ([facility]) Acetaminophen 325 MG / Hydrocodone Bharti trate 5 MG Oral Tablet Hydrocodone- Acetaminophen 5-325 MG Hydrocodone-Acetaminophen 5-325 MG 11/05/2020 12:00:00 AM EDT 1.0 {tablet_as_needed} active Hydrocodone-Acetaminophen 5-325 MG eCW1 ([facility]) Acetaminophen 325 MG / Hydrocodone Bharti trate 5 MG Oral Tablet HYDROcodone- Acetaminophen 5-325 MG HYDROcodone-Acetaminophen 5-325 MG 11/05/2020 12:00:00 AM EDT 1.0 {tablet_as_needed} suspended HYDROcodone-Acetaminophen 5- 325 MG eCW1 ([facility]) Acetaminophen 325 MG / Hydrocodone Bahrti trate 5 MG Oral Tablet HYDROcodone- Acetaminophen 5-325 MG HYDROcodone-Acetaminophen 5-325 MG 11/05/2020 12:00:00 AM EDT 1.0 {tablet_as_needed} suspended HYDROcodone-Acetaminophen 5- 325 MG eCW1 ([facility]) Acetaminophen 325 MG / Hydrocodone Bharti trate 5 MG Oral Tablet HYDROcodone- Acetaminophen 5-325 MG HYDROcodone-Acetaminophen 5-325 MG 11/05/2020 12:00:00 AM EDT 1.0 {tablet_as_needed} suspended HYDROcodone-Acetaminophen 5- 325 MG eCW1 ([facility]) Acetaminophen 325 MG / Hydrocodone Bharti trate 5 MG Oral Tablet Hydrocodone- Acetaminophen 5-325 MG Hydrocodone-Acetaminophen 5-325 MG 11/05/2020 12:00:00 AM EDT 1.0 {tablet_as_needed} active Hydrocodone-Acetaminophen 5-325 MG eCW1 ([facility]) Acetaminophen 325 MG / Hydrocodone Bharti trate 5 MG Oral Tablet HYDROcodone- Acetaminophen 5-325 MG HYDROcodone-Acetaminophen 5-325 MG 11/05/2020 12:00:00 AM EDT 1.0 {tablet_as_needed} suspended HYDROcodone-Acetaminophen 5- 325 MG eCW1 ([facility]) Acetaminophen 325 MG / Hydrocodone Bharti trate 5 MG Oral Tablet HYDROcodone- Acetaminophen 5-325 MG HYDROcodone-Acetaminophen 5-325 MG 11/05/2020 12:00:00 AM EDT 1.0 {tablet_as_needed} suspended HYDROcodone-Acetaminophen 5- 325 MG eCW1 ([facility]) Acetaminophen 325 MG / Hydrocodone Bharti trate 5 MG Oral Tablet HYDROcodone- Acetaminophen 5-325 MG HYDROcodone-Acetaminophen 5-325 MG 11/05/2020 12:00:00 AM EDT 1.0 {tablet_as_needed} suspended HYDROcodone-Acetaminophen 5- 325 MG eCW1 ([facility]) Acetaminophen 325 MG / Hydrocodone Bharti trate 5 MG Oral Tablet Hydrocodone- Acetaminophen 5-325 MG Hydrocodone-Acetaminophen 5-325 MG 11/05/2020 12:00:00 AM EDT 1.0 {tablet_as_needed} active Hydrocodone-Acetaminophen 5-325 MG eCW1 ([facility]) Acetaminophen 325 MG / Hydrocodone Bharti trate 5 MG Oral Tablet HYDROcodone- Acetaminophen 5-325 MG HYDROcodone-Acetaminophen 5-325 MG 11/05/2020 12:00:00 AM EDT 1.0 {tablet_as_needed} suspended HYDROcodone-Acetaminophen 5- 325 MG eCW1 ([facility]) Acetaminophen 325 MG / Hydrocodone Bharti trate 5 MG Oral Tablet Hydrocodone- Acetaminophen 5-325 MG Hydrocodone-Acetaminophen 5-325 MG 11/05/2020 12:00:00 AM EDT 1.0 {tablet_as_needed} active Hydrocodone-Acetaminophen 5-325 MG eCW1 ([facility]) Acetaminophen 325 MG / Hydrocodone Bharti trate 5 MG Oral Tablet Hydrocodone- Acetaminophen 5-325 MG Hydrocodone-Acetaminophen 5-325 MG 11/05/2020 12:00:00 AM EDT 1.0 {tablet_as_needed} active Hydrocodone-Acetaminophen 5-325 MG eCW1 ([facility]) Acetaminophen 325 MG / Hydrocodone Bharti trate 5 MG Oral Tablet HYDROcodone- Acetaminophen 5-325 MG HYDROcodone-Acetaminophen 5-325 MG 11/05/2020 12:00:00 AM EDT 1.0 {tablet_as_needed} suspended HYDROcodone-Acetaminophen 5- 325 MG eCW1 ([facility]) Acetaminophen 325 MG / Hydrocodone Bharti trate 5 MG Oral Tablet HYDROcodone- Acetaminophen 5-325 MG HYDROcodone-Acetaminophen 5-325 MG 11/05/2020 12:00:00 AM EDT 1.0 {tablet_as_needed} suspended HYDROcodone-Acetaminophen 5- 325 MG eCW1 ([facility]) Acetaminophen 325 MG / Hydrocodone Bharti trate 5 MG Oral Tablet HYDROcodone- Acetaminophen 5-325 MG HYDROcodone-Acetaminophen 5-325 MG 11/05/2020 12:00:00 AM EDT 1.0 {tablet_as_needed} suspended HYDROcodone-Acetaminophen 5- 325 MG eCW1 ([facility]) Acetaminophen 325 MG / Hydrocodone Bharti trate 5 MG Oral Tablet Hydrocodone- Acetaminophen 5-325 MG Hydrocodone-Acetaminophen 5-325 MG 10/06/2020 12:00:00 AM EDT 1.0 {tablet_as_needed} active Hydrocodone-Acetaminophen 5-325 MG eCW1 ([facility]) Acetaminophen 325 MG / Hydrocodone Bharti trate 5 MG Oral Tablet Hydrocodone- Acetaminophen 5-325 MG Hydrocodone-Acetaminophen 5-325 MG 10/06/2020 12:00:00 AM EDT 1.0 {tablet_as_needed} active Hydrocodone-Acetaminophen 5-325 MG eCW1 ([facility]) Fourmile 5-325 MG UNK 10/05/2020 12:00:00 AM EDT 1.0 {tablet_as _needed} active Fourmile 5-325 MG eCW1 ([facility]) Glyburide 1.25 MG Oral Tablet GlyBURIDE 1.25 MG GlyBURIDE 1. 25 MG 08/10/2020 12:00:00 AM EST 1.0 {tablet_with_breakfast_or_the_first_ main_meal_of_the_day} active GlyBURIDE 1.25 MG eC W1 ([facility]) Glyburide 1.25 MG Oral Tablet glyBURIDE 1.25 MG glyBURIDE 1. 25 MG 08/10/2020 12:00:00 AM EST 1.0 {tablet_with_breakfast_or_the_first_ main_meal_of_the_day} active glyBURIDE 1.25 MG eC W1 ([facility]) Glyburide 1.25 MG Oral Tablet glyBURIDE 1.25 MG glyBURIDE 1. 25 MG 08/10/2020 12:00:00 AM EST 1.0 {tablet_with_breakfast_or_the_first_ main_meal_of_the_day} active glyBURIDE 1.25 MG eC W1 ([facility]) Glyburide 1.25 MG Oral Tablet glyBURIDE 1.25 MG glyBURIDE 1. 25 MG 08/10/2020 12:00:00 AM EST 1.0 {tablet_with_breakfast_or_the_first_ main_meal_of_the_day} active glyBURIDE 1.25 MG eC W1 ([facility]) Glyburide 1.25 MG Oral Tablet glyBURIDE 1.25 MG glyBURIDE 1. 25 MG 08/10/2020 12:00:00 AM EST 1.0 {tablet_with_breakfast_or_the_first_ main_meal_of_the_day} active glyBURIDE 1.25 MG eC W1 ([facility]) Glyburide 1.25 MG Oral Tablet glyBURIDE 1.25 MG glyBURIDE 1. 25 MG 08/10/2020 12:00:00 AM EST 1.0 {tablet_with_breakfast_or_the_first_ main_meal_of_the_day} active glyBURIDE 1.25 MG eC W1 ([facility]) Glyburide 1.25 MG Oral Tablet GlyBURIDE 1.25 MG GlyBURIDE 1. 25 MG 08/10/2020 12:00:00 AM EST 1.0 {tablet_with_breakfast_or_the_first_ main_meal_of_the_day} active GlyBURIDE 1.25 MG eC W1 ([facility]) Glyburide 1.25 MG Oral Tablet GlyBURIDE 1.25 MG GlyBURIDE 1. 25 MG 08/10/2020 12:00:00 AM EST 1.0 {tablet_with_breakfast_or_the_first_ main_meal_of_the_day} active GlyBURIDE 1.25 MG eC W1 ([facility]) Glyburide 1.25 MG Oral Tablet glyBURIDE 1.25 MG glyBURIDE 1. 25 MG 08/10/2020 12:00:00 AM EST 1.0 {tablet_with_breakfast_or_the_first_ main_meal_of_the_day} active glyBURIDE 1.25 MG eC W1 ([facility]) Glyburide 1.25 MG Oral Tablet GlyBURIDE 1.25 MG GlyBURIDE 1. 25 MG 08/10/2020 12:00:00 AM EST 1.0 {tablet_with_breakfast_or_the_first_ main_meal_of_the_day} active GlyBURIDE 1.25 MG eC W1 ([facility]) Glyburide 1.25 MG Oral Tablet glyBURIDE 1.25 MG glyBURIDE 1. 25 MG 08/10/2020 12:00:00 AM EST 1.0 {tablet_with_breakfast_or_the_first_ main_meal_of_the_day} active glyBURIDE 1.25 MG eC W1 ([facility]) Glyburide 1.25 MG Oral Tablet GlyBURIDE 1.25 MG GlyBURIDE 1. 25 MG 08/10/2020 12:00:00 AM EST 1.0 {tablet_with_breakfast_or_the_first_ main_meal_of_the_day} active GlyBURIDE 1.25 MG eC W1 ([facility]) Acetaminophen 325 MG / Hydrocodone Bharti trate 5 MG Oral Tablet Hydrocodone- Acetaminophen 5-325 MG Hydrocodone-Acetaminophen 5-325 MG 08/10/2020 12:00:00 AM EST 1.0 {tablet_as_needed} active Hydrocodone-Acetaminophen 5-325 MG eCW1 ([facility]) Acetaminophen 325 MG / Hydrocodone Bharti trate 5 MG Oral Tablet Hydrocodone- Acetaminophen 5-325 MG Hydrocodone-Acetaminophen 5-325 MG 08/10/2020 12:00:00 AM EST 1.0 {tablet_as_needed} active Hydrocodone-Acetaminophen 5-325 MG eCW1 ([facility]) Glyburide 1.25 MG Oral Tablet GlyBURIDE 1.25 MG GlyBURIDE 1. 25 MG 08/10/2020 12:00:00 AM EST 1.0 {tablet_with_breakfast_or_the_first_ main_meal_of_the_day} active GlyBURIDE 1.25 MG eC W1 ([facility]) Glyburide 1.25 MG Oral Tablet GlyBURIDE 1.25 MG GlyBURIDE 1. 25 MG 08/10/2020 12:00:00 AM EST 1.0 {tablet_with_breakfast_or_the_first_ main_meal_of_the_day} active GlyBURIDE 1.25 MG eC W1 ([facility]) Glyburide 1.25 MG Oral Tablet glyBURIDE 1.25 MG glyBURIDE 1. 25 MG 08/10/2020 12:00:00 AM EST 1.0 {tablet_with_breakfast_or_the_first_ main_meal_of_the_day} active glyBURIDE 1.25 MG eC W1 ([facility]) Glyburide 1.25 MG Oral Tablet GlyBURIDE 1.25 MG GlyBURIDE 1. 25 MG 08/10/2020 12:00:00 AM EST 1.0 {tablet_with_breakfast_or_the_first_ main_meal_of_the_day} active GlyBURIDE 1.25 MG eC W1 ([facility]) Acetaminophen 325 MG / Hydrocodone Bharti trate 5 MG Oral Tablet Hydrocodone- Acetaminophen 5-325 MG Hydrocodone-Acetaminophen 5-325 MG 08/10/2020 12:00:00 AM EST 1.0 {tablet_as_needed} active Hydrocodone-Acetaminophen 5-325 MG eCW1 ([facility]) Glyburide 1.25 MG Oral Tablet GlyBURIDE 1.25 MG GlyBURIDE 1. 25 MG 08/10/2020 12:00:00 AM EST 1.0 {tablet_with_breakfast_or_the_first_ main_meal_of_the_day} active GlyBURIDE 1.25 MG eC W1 ([facility]) Glyburide 1.25 MG Oral Tablet GlyBURIDE 1.25 MG GlyBURIDE 1. 25 MG 08/10/2020 12:00:00 AM EST 1.0 {tablet_with_breakfast_or_the_first_ main_meal_of_the_day} active GlyBURIDE 1.25 MG eC W1 ([facility]) Glyburide 1.25 MG Oral Tablet GlyBURIDE 1.25 MG GlyBURIDE 1. 25 MG 08/10/2020 12:00:00 AM EST 1.0 {tablet_with_breakfast_or_the_first_ main_meal_of_the_day} active GlyBURIDE 1.25 MG eC W1 ([facility]) Glyburide 1.25 MG Oral Tablet GlyBURIDE 1.25 MG GlyBURIDE 1. 25 MG 08/10/2020 12:00:00 AM EST 1.0 {tablet_with_breakfast_or_the_first_ main_meal_of_the_day} active GlyBURIDE 1.25 MG eC W1 ([facility]) Acetaminophen 325 MG / Hydrocodone Bharti trate 5 MG Oral Tablet Hydrocodone- Acetaminophen 5-325 MG Hydrocodone-Acetaminophen 5-325 MG 08/10/2020 12:00:00 AM EST 1.0 {tablet_as_needed} active Hydrocodone-Acetaminophen 5-325 MG eCW1 ([facility]) Glyburide 1.25 MG Oral Tablet glyBURIDE 1.25 MG glyBURIDE 1. 25 MG 08/10/2020 12:00:00 AM EST 1.0 {tablet_with_breakfast_or_the_first_ main_meal_of_the_day} active glyBURIDE 1.25 MG eC W1 ([facility]) Glyburide 1.25 MG Oral Tablet GlyBURIDE 1.25 MG GlyBURIDE 1. 25 MG 08/10/2020 12:00:00 AM EST 1.0 {tablet_with_breakfast_or_the_first_ main_meal_of_the_day} active GlyBURIDE 1.25 MG eC W1 ([facility]) Glyburide 1.25 MG Oral Tablet GlyBURIDE 1.25 MG GlyBURIDE 1. 25 MG 08/10/2020 12:00:00 AM EST 1.0 {tablet_with_breakfast_or_the_first_ main_meal_of_the_day} active GlyBURIDE 1.25 MG eC W1 ([facility]) Acetaminophen 325 MG / Hydrocodone Bharti trate 5 MG Oral Tablet Hydrocodone- Acetaminophen 5-325 MG Hydrocodone-Acetaminophen 5-325 MG 08/10/2020 12:00:00 AM EST 1.0 {tablet_as_needed} active Hydrocodone-Acetaminophen 5-325 MG eCW1 ([facility]) Acetaminophen 325 MG / Hydrocodone Bharti trate 5 MG Oral Tablet Hydrocodone- Acetaminophen 5-325 MG Hydrocodone-Acetaminophen 5-325 MG 08/10/2020 12:00:00 AM EST 1.0 {tablet_as_needed} active Hydrocodone-Acetaminophen 5-325 MG eCW1 ([facility]) Glyburide 1.25 MG Oral Tablet GlyBURIDE 1.25 MG GlyBURIDE 1. 25 MG 08/10/2020 12:00:00 AM EST 1.0 {tablet_with_breakfast_or_the_first_ main_meal_of_the_day} active GlyBURIDE 1.25 MG eC W1 ([facility]) Glyburide 1.25 MG Oral Tablet GlyBURIDE 1.25 MG GlyBURIDE 1. 25 MG 08/10/2020 12:00:00 AM EST 1.0 {tablet_with_breakfast_or_the_first_ main_meal_of_the_day} active GlyBURIDE 1.25 MG eC W1 ([facility]) Glyburide 1.25 MG Oral Tablet glyBURIDE 1.25 MG glyBURIDE 1. 25 MG 08/10/2020 12:00:00 AM EST 1.0 {tablet_with_breakfast_or_the_first_ main_meal_of_the_day} active glyBURIDE 1.25 MG eC W1 ([facility]) Glyburide 1.25 MG Oral Tablet glyBURIDE 1.25 MG glyBURIDE 1. 25 MG 08/10/2020 12:00:00 AM EST 1.0 {tablet_with_breakfast_or_the_first_ main_meal_of_the_day} active glyBURIDE 1.25 MG eC W1 ([facility]) Acetaminophen 325 MG / Hydrocodone Bharti trate 5 MG Oral Tablet Hydrocodone- Acetaminophen 5-325 MG Hydrocodone-Acetaminophen 5-325 MG 08/10/2020 12:00:00 AM EST 1.0 {tablet_as_needed} active Hydrocodone-Acetaminophen 5-325 MG eCW1 ([facility]) Glyburide 1.25 MG Oral Tablet glyBURIDE 1.25 MG glyBURIDE 1. 25 MG 08/10/2020 12:00:00 AM EST 1.0 {tablet_with_breakfast_or_the_first_ main_meal_of_the_day} active glyBURIDE 1.25 MG eC W1 ([facility]) Glyburide 1.25 MG Oral Tablet glyBURIDE 1.25 MG glyBURIDE 1. 25 MG 08/10/2020 12:00:00 AM EST 1.0 {tablet_with_breakfast_or_the_first_ main_meal_of_the_day} active glyBURIDE 1.25 MG eC W1 ([facility]) Glyburide 1.25 MG Oral Tablet GlyBURIDE 1.25 MG GlyBURIDE 1. 25 MG 08/10/2020 12:00:00 AM EST 1.0 {tablet_with_breakfast_or_the_first_ main_meal_of_the_day} active GlyBURIDE 1.25 MG eC W1 ([facility]) Glyburide 1.25 MG Oral Tablet GlyBURIDE 1.25 MG GlyBURIDE 1. 25 MG 08/10/2020 12:00:00 AM EST 1.0 {tablet_with_breakfast_or_the_first_ main_meal_of_the_day} active GlyBURIDE 1.25 MG eC W1 ([facility]) Glyburide 1.25 MG Oral Tablet GlyBURIDE 1.25 MG GlyBURIDE 1. 25 MG 08/10/2020 12:00:00 AM EST 1.0 {tablet_with_breakfast_or_the_first_ main_meal_of_the_day} active GlyBURIDE 1.25 MG eC W1 ([facility]) Glyburide 1.25 MG Oral Tablet glyBURIDE 1.25 MG glyBURIDE 1. 25 MG 08/10/2020 12:00:00 AM EST 1.0 {tablet_with_breakfast_or_the_first_ main_meal_of_the_day} active glyBURIDE 1.25 MG eC W1 ([facility]) Acetaminophen 325 MG / Hydrocodone Bharti trate 5 MG Oral Tablet [Fourmile] Fourmile 5- 325 MG Fourmile 5-325 MG 07/12/2020 12:00:00 AM EST 1.0 {tablet_as_needed} active Fourmile 5-325 MG eCW1 ([facility]) Acetaminophen 325 MG / Hydrocodone Bharti trate 5 MG Oral Tablet [Fourmile] Fourmile 5- 325 MG Fourmile 5-325 MG 07/12/2020 12:00:00 AM EST 1.0 {tablet_as_needed} active Fourmile 5-325 MG eCW1 ([facility]) Fourmile 5-325 MG UNK 07/12/2020 12:00:00 AM EST 1.0 {tablet_as _needed} active Fourmile 5-325 MG eCW1 ([facility]) Fourmile 5-325 MG UNK 07/12/2020 12:00:00 AM EST 1.0 {tablet_as _needed} active Fourmile 5-325 MG eCW1 ([facility]) Acetaminophen 325 MG / Hydrocodone Bharti trate 5 MG Oral Tablet [Fourmile] Fourmile 5- 325 MG Fourmile 5-325 MG 07/12/2020 12:00:00 AM EST 1.0 {tablet_as_needed} active Fourmile 5-325 MG eCW1 ([facility]) Acetaminophen 325 MG / Hydrocodone Bharti trate 5 MG Oral Tablet [Fourmile] Fourmile 5- 325 MG Fourmile 5-325 MG 07/12/2020 12:00:00 AM EST 1.0 {tablet_as_needed} active Fourmile 5-325 MG eCW1 ([facility]) Fourmile 5-325 MG UNK 07/12/2020 12:00:00 AM EST 1.0 {tablet_as _needed} active Fourmile 5-325 MG eCW1 ([facility]) Fourmile 5-325 MG UNK 07/12/2020 12:00:00 AM EST 1.0 {tablet_as _needed} active Fourmile 5-325 MG eCW1 ([facility]) Acetaminophen 325 MG / Hydrocodone Bharti trate 5 MG Oral Tablet [Fourmile] Fourmile 5- 325 MG Fourmile 5-325 MG 07/12/2020 12:00:00 AM EST 1.0 {tablet_as_needed} active Fourmile 5-325 MG eCW1 ([facility]) Sitagliptin Phosphate 25 MG UNK 07/01/2020 12:00:00 AM EST active Sitagliptin Phosphate 25 MG eCW1 ([facility]) Sitagliptin Phosphate 25 MG UNK 07/01/2020 12:00:00 AM EST active Sitagliptin Phosphate 25 MG eCW1 ([facility]) Sitagliptin Phosphate 25 MG UNK 07/01/2020 12:00:00 AM EST active Sitagliptin Phosphate 25 MG eCW1 ([facility]) SITagliptin Phosphate 25 MG UNK 07/01/2020 12:00:00 AM EST suspended SITagliptin Phosphate 25 MG eCW1 ([facility]) Sitagliptin Phosphate 25 MG UNK 07/01/2020 12:00:00 AM EST active Sitagliptin Phosphate 25 MG eCW1 ([facility]) SITagliptin Phosphate 25 MG UNK 07/01/2020 12:00:00 AM EST suspended SITagliptin Phosphate 25 MG eCW1 ([facility]) SITagliptin Phosphate 25 MG UNK 07/01/2020 12:00:00 AM EST suspended SITagliptin Phosphate 25 MG eCW1 ([facility]) Sitagliptin Phosphate 25 MG UNK 07/01/2020 12:00:00 AM EST active Sitagliptin Phosphate 25 MG eCW1 ([facility]) Sitagliptin Phosphate 25 MG UNK 07/01/2020 12:00:00 AM EST active Sitagliptin Phosphate 25 MG eCW1 ([facility]) Sitagliptin Phosphate 25 MG UNK 07/01/2020 12:00:00 AM EST active Sitagliptin Phosphate 25 MG eCW1 ([facility]) Sitagliptin Phosphate 25 MG UNK 07/01/2020 12:00:00 AM EST active Sitagliptin Phosphate 25 MG eCW1 ([facility]) SITagliptin Phosphate 25 MG UNK 07/01/2020 12:00:00 AM EST suspended SITagliptin Phosphate 25 MG eCW1 ([facility]) SITagliptin Phosphate 25 MG UNK 07/01/2020 12:00:00 AM EST active SITagliptin Phosphate 25 MG eCW1 ([facility]) Sitagliptin Phosphate 25 MG UNK 07/01/2020 12:00:00 AM EST active Sitagliptin Phosphate 25 MG eCW1 ([facility]) Sitagliptin Phosphate 25 MG UNK 07/01/2020 12:00:00 AM EST active Sitagliptin Phosphate 25 MG eCW1 ([facility]) Sitagliptin Phosphate 25 MG UNK 07/01/2020 12:00:00 AM EST active Sitagliptin Phosphate 25 MG eCW1 ([facility]) Sitagliptin Phosphate 25 MG UNK 07/01/2020 12:00:00 AM EST active Sitagliptin Phosphate 25 MG eCW1 ([facility]) Sitagliptin Phosphate 25 MG UNK 07/01/2020 12:00:00 AM EST active Sitagliptin Phosphate 25 MG eCW1 ([facility]) Sitagliptin Phosphate 25 MG UNK 07/01/2020 12:00:00 AM EST active Sitagliptin Phosphate 25 MG eCW1 ([facility]) SITagliptin Phosphate 25 MG UNK 07/01/2020 12:00:00 AM EST suspended SITagliptin Phosphate 25 MG eCW1 ([facility]) SITagliptin Phosphate 25 MG UNK 07/01/2020 12:00:00 AM EST suspended SITagliptin Phosphate 25 MG eCW1 ([facility]) SITagliptin Phosphate 25 MG UNK 07/01/2020 12:00:00 AM EST suspended SITagliptin Phosphate 25 MG eCW1 ([facility]) SITagliptin Phosphate 25 MG UNK 07/01/2020 12:00:00 AM EST suspended SITagliptin Phosphate 25 MG eCW1 ([facility]) SITagliptin Phosphate 25 MG UNK 07/01/2020 12:00:00 AM EST suspended SITagliptin Phosphate 25 MG eCW1 ([facility]) Sitagliptin Phosphate 25 MG UNK 07/01/2020 12:00:00 AM EST active Sitagliptin Phosphate 25 MG eCW1 ([facility]) Sitagliptin Phosphate 25 MG UNK 07/01/2020 12:00:00 AM EST active Sitagliptin Phosphate 25 MG eCW1 ([facility]) SITagliptin Phosphate 25 MG UNK 07/01/2020 12:00:00 AM EST suspended SITagliptin Phosphate 25 MG eCW1 ([facility]) SITagliptin Phosphate 25 MG UNK 07/01/2020 12:00:00 AM EST suspended SITagliptin Phosphate 25 MG eCW1 ([facility]) Sitagliptin Phosphate 25 MG UNK 07/01/2020 12:00:00 AM EST active Sitagliptin Phosphate 25 MG eCW1 ([facility]) Sitagliptin Phosphate 25 MG UNK 07/01/2020 12:00:00 AM EST active Sitagliptin Phosphate 25 MG eCW1 ([facility]) Sitagliptin Phosphate 25 MG UNK 07/01/2020 12:00:00 AM EST active Sitagliptin Phosphate 25 MG eCW1 ([facility]) Sitagliptin Phosphate 25 MG UNK 07/01/2020 12:00:00 AM EST active Sitagliptin Phosphate 25 MG eCW1 ([facility]) SITagliptin Phosphate 25 MG UNK 07/01/2020 12:00:00 AM EST suspended SITagliptin Phosphate 25 MG eCW1 ([facility]) Sitagliptin Phosphate 25 MG UNK 07/01/2020 12:00:00 AM EST active Sitagliptin Phosphate 25 MG eCW1 ([facility]) SITagliptin Phosphate 25 MG UNK 07/01/2020 12:00:00 AM EST suspended SITagliptin Phosphate 25 MG eCW1 ([facility]) Acetaminophen 325 MG / Hydrocodone Bharti trate 5 MG Oral Tablet [Fourmile] Fourmile 5- 325 MG Fourmile 5-325 MG 06/09/2020 12:00:00 AM EST 1.0 {tablet_as_needed} active Fourmile 5-325 MG eCW1 ([facility]) Acetaminophen 325 MG / Hydrocodone Bharti trate 5 MG Oral Tablet [Fourmile] Fourmile 5- 325 MG Fourmile 5-325 MG 06/09/2020 12:00:00 AM EST 1.0 {tablet_as_needed} active Fourmile 5-325 MG eCW1 ([facility]) Acetaminophen 325 MG / Hydrocodone Bharti trate 5 MG Oral Tablet [Fourmile] Fourmile 5- 325 MG Fourmile 5-325 MG 06/09/2020 12:00:00 AM EST 1.0 {tablet_as_needed} active Fourmile 5-325 MG eCW1 ([facility]) Acetaminophen 325 MG / Hydrocodone Bharti trate 5 MG Oral Tablet [Fourmile] Fourmile 5- 325 MG Fourmile 5-325 MG 06/09/2020 12:00:00 AM EST 1.0 {tablet_as_needed} active Fourmile 5-325 MG eCW1 ([facility]) Acetaminophen 325 MG / Hydrocodone Bharti trate 5 MG Oral Tablet [Fourmile] Fourmile 5- 325 MG Fourmile 5-325 MG 05/11/2020 12:00:00 AM EDT 1.0 {tablet_as_needed} active Fourmile 5-325 MG eCW1 ([facility]) Acetaminophen 325 MG / Hydrocodone Bharti trate 5 MG Oral Tablet [Fourmile] Fourmile 5- 325 MG Fourmile 5-325 MG 05/11/2020 12:00:00 AM EDT 1.0 {tablet_as_needed} active Fourmile 5-325 MG eCW1 ([facility]) Acetaminophen 325 MG / Hydrocodone Bharti trate 5 MG Oral Tablet [Fourmile] Fourmile 5- 325 MG Fourmile 5-325 MG 05/11/2020 12:00:00 AM EDT 1.0 {tablet_as_needed} active Fourmile 5-325 MG eCW1 ([facility]) Acetaminophen 325 MG / Hydrocodone Bharti trate 5 MG Oral Tablet [Fourmile] Fourmile 5- 325 MG Fourmile 5-325 MG 05/11/2020 12:00:00 AM EDT 1.0 {tablet_as_needed} active Fourmile 5-325 MG eCW1 ([facility]) carvedilol 25 MG Oral Tablet Carvedilol 25 MG Oral Tab let (Coreg) Carvedilol 25 MG Oral Tablet (Coreg) 04/01/2020 12:00:00 AM EDT 25 mg Oral active Take 1 tablet by mouth Two times daily with meals [facility] Aspirin 81 MG Delayed Release Oral Table t Aspirin EC 81 MG Oral Tablet Delayed Release Aspirin EC 81 MG Oral Tablet Delayed Release 10/22/2017 12:0 0:00 AM EDT Oral aborted Take by mouth [facility] Chlorthalidone 25 MG Oral Tablet Chlorthalidone 25 MG Oral Tablet (HYGROTON) Chlorthalidone 25 MG Oral Tablet (HYGROTON) 10/22/2017 12:00:00 AM EDT Oral aborted Take by mouth [facility] Losartan Potassium 100 MG Oral Tablet Lo sartan Potassium 100 MG Oral Tablet (COZAAR) Losartan Potassium 100 MG Oral Tablet (COZAAR) 018 12:00:00 AM EDT Oral aborted Take by mouth [facility] Insurance Providers Payer name Policy type / Coverage type Policy ID Covered republican ID Covered republican's relationship to juarez Policy Juarez Plan Information [facility] 304/804 [id number] SP [id number] [facility] [id number] SP [id number] [employer] () Workers Compensation [id number] Self [employer] () Workers Compensation [id number] Self [employer] () Workers Compensation [id number] Self [id number] [employer] () Workers Compensation [id number] Self [employer] () Workers Compensation [id number] Self [id number] BS [facility] Part B [id number] Self [id number] BS [facility] Part B [id number] Self [id number] BS [facility] Part B [id number] Self [id number] BS [place] [id number] Self [id number] BS [place] [id number] Self [id number] [facility] [id number] SP [id number] [facility] [place] Medicaid [id number] Self [id number] [facility] Health Maintenance Organization (HMO) [id number] Self [id number] COUNTS INCLUDE 234 BEDS AT THE [facility] [id number] SP [id number] [facility] [id number] SP [id number] [facility] MEDICARE COMPLETE G [id number] Self [id number] [employer]IC[employer] BLUE PPO G [id number] Self [id number] [facility] MEDICARE COMPLETE G [id number] Self [id number] [facility] MEDICARE COMPLETE G [id number] Self [id number] [place] MEDIC[place] COMPLE[place] [id number] 18 [id number] [place] [id number] 18 [id number] [facility] [id number] S [id number] ANSI-Commercial [id number] ANSI-Commercial [id number] ANSI-Commercial [id number] ANSI-Commercial [id number] ANSI-Commercial [id number] ANSI-Commercial [id number] ANSI-Commercial [id number] ANSI-Commercial [id number] ANSI-Commercial [id number] ANSI-Commercial [id number] ANSI-Commercial [id number] ANSI-Commercial [id number]-[id number] ANSI-Commercial [id number] ANSI-Commercial [id number]-[id number] ANSI-Commercial [id number]-[id number]-[id number] ANSI-Commercial [id number]-yex8-20f5-1btn-[id number] ANSI-Commercial [id number]-09sk-0fu4-w545-[id number] [id number]-9me9-[id number] ANSI-Commercial [id number]-[id number]-[id number] ANSI-Commercial 41pndi30-[id number] 84vzel76-[id number] ANSI-Commercial [id number] ANSI-Commercial [id number]-[id number] 529p93tz-d0d7-259m-[id number] ANSI-Commercial [id number]-[id number] [id number]-4ju0-1435-[id number] ANSI-Commercial [id number]-[id number] [id number]-[id number] ANSI-Commercial [id number]-jlt0-[id number] ANSI-Commercial [id number] ANSI-Commercial [id number]-0z77-[id number] [id number]-992q-7o75-hw9iz56uxn99 ANSI-Commercial [id number] [id number]se7bflk0i55 ANSI-Commercial [id number]-[id number] ANSI-Commercial [id number] 1x8p52jk-4r09-0690-[id number] ANSI-Commercial [id number]-[id number] ANSI-Commercial [id number] [id number]-[id number] ANSI-Commercial [id number] [id number]-z78o4198pfnr ANSI-Commercial [id number] ANSI-Commercial [id number]-[id number]-[id number] ANSI-Commercial [id number] ANSI-Commercial [id number]-[id number] [employer] P [id number] S [id number] ANSI-Commercial k464232c-343p-4441-gw16-0r098811h632 q441532b-244v-4743-pv58-7a088775c502 ANSI-Commercial 8m87688l-p59r-643r-57wc-7p41e0369y5q 3a85729r-w70g-279o-56lb-1o92v7400g1o ANSI-Commercial 2180k4t9-j1ja-323l-3472-7pra3x834iw7 8922g0j5-h9af-408f-9838-0sqk4x978mb3 ANSI-Commercial 1h239147-5m33-6mq7-t55c-fo36y8x1ht40 3f655254-3i73-3ku6-f76o-dn70x5w6tu89 ANSI-Commercial 20042474-2v9i-8k65-oks0-93p5236l49ld 83999842-7a4m-5j33-pcr6-38f7261u80ym ANSI-Commercial 1xw27288-9860-1571-fv92-85wm74zo28k9 4jq70444-1932-6982-bs36-50ny48iz88e9 ANSI-Commercial x38m727d-64t7-367c-2b20-y984vw4050bv z47o698p-60m5-501q-1x34-u527xi2559ca ANSI-Commercial 2p8uw1q5-2m71-16iq-b607-271a49c1zbms 4z8pu6x5-1n16-51qp-l746-268p85v2xmpn ANSI-Commercial 08w8m7a9-1tse-7g24-pv2u-32o0db8n7h52 66j3b1z2-9vtm-3m22-kd9e-00w8jw9g2a13 ANSI-Commercial z9h02889-3hyx-76j0-7n52-d23add290q01 i3i92265-7fug-65w4-8t27-f92gfi271g06 ANSI-Commercial y58k9974-710a-6t66-w505-3x45t2ap6kf2 h76q9941-024z-3x36-b462-1m12b9fu2zv6 ANSI-Commercial 60861925-4v82-3a5q-3xq6-0o275h895gx3 74209753-7c13-0t5e-9kk7-4m532b517ff4 ANSI-Commercial 0f019s7c-829r-4r56-txw6-09v8gc3y96k6 4s341n5g-555f-7r88-oeo5-60p5df6r06w8 ANSI-Commercial uhg78h5f-x176-7739-3099-jp7l1nz89n7s ezl30n9y-m033-5456-0321-td4m9us44v9h ANSI-Commercial f2670oo6-m965-59u1-42p5-55917199ujq8 h7211mx4-x240-79y6-38p6-35036718omp0 ANSI-Commercial lk91589m-x945-757i-b7b3-0206we974386 uf00687e-b652-021y-y9k6-6573wf287003 ANSI-Commercial 4r07sf9y-3y25-8x76-u625-3z4z5253n4q1 0l89ps4k-4v41-6w37-h327-3f6c4584s6d3 ANSI-Commercial 91q20739-35qn-1h61-6457-s13p905yu51m 53j02126-31bh-2a38-2274-n13w691lt65n ANSI-Commercial n0315rzj-p3u2-6d51-4269-82s07852z407 g5974itj-l5k7-8i07-1180-38z10552g744 ANSI-Commercial 9124vp77-a8fr-9w0s-4e67-04h73g76g2v6 3548pc41-y6hr-7a8b-1p29-64n06q26n6u0 ANSI-Commercial a45k1u4b-0fnp-9vvg-0601-972887z0ivkz v38t4i3f-6yqw-7ydd-0111-956410c9biun ANSI-Commercial vb2tkxh0-18mj-255w-0404-ua13x50a1985 ip1iwkm4-74vl-883z-4208-oc88m93s6940 ANSI-Commercial 75j78505-f937-71n6-r457-e168160k58d0 22s47178-p856-97g0-w305-r451176u06i1 ANSI-Commercial 405mz08j-0151-298y-r084-038hi12972i2 013qp47u-2905-626j-w126-970bh60543z1 [facility] [id number] 7 [id number] ANSI-Commercial 0ta2to65-d43n-06mn-6510-0acr6251j99p 4aq4wc26-r83w-64cv-1850-5sgx3752f05u ANSI-Commercial 356o0n1o-09z0-71ku-t094-t783o879c631 901i8z0q-44o8-61hh-u064-z884y423o485 ANSI-Commercial 21201d30-8280-9062-l596-4ypb799012d9 61696q92-8726-7095-h824-6bmi678449l0 ANSI-Commercial c780y665-7277-6j50-rk28-twrc67f95056 w945t449-3035-2a98-jr29-myfe52v56198 ANSI-Commercial a43v17v3-33rp-31xy-0i5p-262gc2125s5m o66y37e0-11lp-26et-3n3h-083zc4507c7g ANSI-Commercial v24mm23v-2p07-7fs7-mmta-19w2u8f36690 f89cl52c-9r89-7ia7-hsif-23j6v0j34101 ANSI-Commercial 0yh8x07u-ykn9-88pp-1beu-m9u8r206737f 6be1p50s-xpy8-40cv-5dji-w6f1r781676x ANSI-Commercial q1039z2v-u11j-5vjl-35t7-z0z075i67281 f6105e8n-y70y-9ypb-95g0-s5t228e29415 ANSI-Commercial 2kik7s37-17mr-257e-c721-6zq9r89771ls 2zes2x51-27ty-092b-c464-7bm1q28675vt ANSI-Commercial 380312u0-1958-25h4-e225-9837i3c4p81i 390765q6-4607-06c6-j146-4247w7a2t29m [facility] [id number] 7 [id number] ANSI-Commercial 244ob3k8-18o0-6858-ko28-2e1574b444jy 397df8h0-28h7-1515-hu94-6y0385c331dk ANSI-Commercial 03329429-5631-6835-swuo-4li8m1o25tp8 17765534-9703-2079-ldob-8if2i2o76gp9 ANSI-Commercial 104n3ji7-vsw9-37c3-7n58-23k4aavr231b 210v9hs7-adp3-36z1-6d54-76z7djto123j ANSI-Commercial 76440e40-64lt-275r-j325-d226r2680408 98925l21-64ae-712h-w776-y746z9773606 [employer] [place] [facility] PPO 302/307 [id number] ANSI-Commercial h95890d3-3a8s-7knt-h175-9nksgp4q5732 t97818h3-2n4f-6tjh-i480-2qgyce5h9233 ANSI-Commercial 21d34571-3alp-5690-3i2n-685p9001gp6w 77t91415-4dvu-2759-2k1h-923i5426rf2t ANSI-Commercial 97ue81lz-236f-22w3-7c3z-9p6mi554h132 31hd70gd-287x-44y2-9f9o-1b9ev248p476 ANSI-Commercial 0dh77696-r02x-3su8-57p3-2r0560r80491 5db59390-n29h-8xv1-80p9-4w3566p40965 [facility] [id number] S Y[place] [id number] [facility]307 [id number] SP [id number] [facility] Organization (HMO) [id number] 900 [id number] Self [id number] [place] [id number] Self [id number] [place] [id number] Self [id number] [facility] [id number] S [id number] [facility] Maintenance Organization (O) [id number] Self [id number] [facility] Health Maintenance Organization (O) [id number] Self [id number] [facility] Health Maintenance Organization (O) [id number] Self [id number] UNK MEDICARE COMPLETE [id number] SP [id number] MEDICARE [id number] SP [id number] MEDICARE COMPLETE [id number] SP [id number] MEDICARE COMPLETE [id number] SP [id number] [facility] MEDICARE [id number] S [id number] UNAVAILABLE UNAVAILA BLE UNHC MEDICARE COMPLETE -PHYS [id number] 18 [id number] UNHC MEDICARE COMPLETE [id number] 18 [id number] MEDICARE PART A [facility] [id number] 18 [id number] MEDICARE COMPLETE-UHC O [id number] S [id number] MEDICARE BLUE PPO 306 [id number] SP [id number] MEDICARE BLUE PPO 306 [id number] SP [id number] [facility] [id number] S [id number] BCBS 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 [id number] SP [id number] MEDICARE [id number] SP [id number] KEKE [id number] SP [id number] MEDICAID [id number] SP [id number] [place] P[place] 302/307 [id number] SP [id number] [place] P[place] 302/307 [id number] SP [id number] 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 [id number] SP [id number] BCBS [place] [id number]/804 [id number] SP [id number] Problems, Conditions, and Diagnoses Code Display Name Description Problem Type Effective Dates Data Source(s) H27999 Cutaneous abscess of left axilla Cutaneous absce ss of left axilla Diagnosis 04/22/2021 01:20:00 PM EDT [facility] J71049 Pain in left foot Pain in left foot Diagnosis 03/30/2021 01:15:00 PM EDT [facility] N184 Chronic kidney disease, stage 4 (severe) Chronic kidney disease, stage 4 (severe) Diagnosis 03/30/2021 01:15:00 PM EDT [facility] E119 Type 2 diabetes mellitus without complic ations Type 2 diabetes mellitus without complications Diagnosis 03/30/2021 01:15:00 PM EDT [facility] R531 Weakness Weakness Diagnosis 03/30/2021 01:15:00 PM ED T [facility] E75096 Posterior tibial tendinitis, left leg Po sterior tibial tendinitis, left leg Diagnosis 03/30/2021 01:15:00 PM EDT [facility] M7672 Peroneal tendinitis, left leg Peroneal tendinitis, lef t leg Diagnosis 03/30/2021 01:15:00 PM EDT [facility] M7662 Achilles tendinitis, left leg Achilles tendinitis, lef t leg Diagnosis 03/30/2021 01:15:[address] [facility] E785 Hyperlipidemia, unspecified Hyperlipidemia, unspecifie d Diagnosis 03/15/2021 01:47:[address] [facility] R0602 Shortness of breath Shortness of breath Diagnosis 0 03/15/2021 01:47:[address] [facility] I10 Essential (primary) hypertension Essential (primary) h ypertension Diagnosis 02/23/2021 01:06:[address] 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 I639 Cerebral infarction, unspecified Cerebral infarc tion, unspecified Diagnosis 01/27/2021 02:31:[address] 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 Hyperuricemia without signs of inflammat ory arthritis and tophaceous disease Diagnosis 12/23/2020 11:32:04 AM [facility] I10 Essential (primary) hypertension Essential (primary) h ypertension Diagnosis 12/23/2020 11:32:04 AM [facility] 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 Diagnosis 12/23/2020 11:32:04 AM [facility] Z90.5 Acquired absence of kidney Acquired absence of kidney Diagnosis 12/23/2020 11:32:04 AM [facility] R80.1 Persistent proteinuria, unspecified Persistent p roteinuria, unspecified Diagnosis 12/23/2020 11:32:04 AM [facility] N18.4 Chronic kidney disease, stage 4 (severe) Chronic kidney disease, stage 4 (severe) Diagnosis 12/23/2020 11:32:04 AM EDT [facility] J44.9 Chronic obstructive lung disease Chronic obstructive l connie disease Problem 05/11/2021 12:00:00 AM EDT [facility] ([facility]) L02.412 Cellulitis and abscess of upper limb Tiffany lulitis and abscess of upper limb Problem 04/27/2021 12:00:00 AM EDT [facility] ([facility]) [id number] Pure hypercholesterolemia Pure hypercholesterolemia Pr oblem 04/22/2021 12:00:00 AM EDT [facility] ([facility]) [id number] Numbness Numbness Problem 04/19/2021 12:00:00 AM ED T [facility] ([facility] ) [id number] Fatigue Fatigue Problem 04/19/2021 12:00:00 AM ED T [facility] ([facility] ) [id number] Ischemic stroke Ischemic stroke Problem 04/19/2021 12:0 0:00 AM EDT [facility] ([facility] ) I63.9 Cerebral artery occlusion Cerebral artery occlusion Pr oblem 01/27/2021 12:00:00 AM EDT [facility] ([facility]) I10 Essential hypertension Essential hypertension Problem 01/27/2021 12:00:00 AM EDT [facility] ([facility]) E11.9 Type 2 diabetes mellitus Type 2 diabetes mellitus Prob alli 01/27/2021 12:00:00 AM EDT [facility] ([facility]) N18.4 Chronic kidney disease stage 4 Chronic kidney disease stage 4 Problem 01/27/2021 12:00:00 AM EDT [facility] ([facility]) 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 Problem 01/27/2021 12:00:00 AM EDT [facility] ([facility]) E78.5 Hyperlipidemia Hyperlipidemia Problem 01/27/2021 12:00: 00 AM EDT [facility] ([facility]) I63.9 [id number] Right thalamic infarction Problem 12/21/2020 12:00:00 AM EDT eCW1 ([facility]) I65.23 [id number] Bilateral carotid artery stenosis Problem 12/17/2020 12:00:00 AM EDT eCW1 ([facility]) N18.4 [id number] Stage 4 chronic kidney disease Problem 09/22/2020 12:00:00 AM EST eCW1 ([facility]) Surgeries/Procedures Procedure Description Date Indications Data Source(s) Spirometry 05/11/2021 12:00:00 AM EDT M [facility]ENT ([facility], ) OFFICE OUTPATIENT VISIT 15 MINUTES 05/11/2021 12:00:00 AM EDT [facility] ([facility]) I & D Abscess Simple 04/22/2021 12:00:00 AM EDT [facility] ([facility]) OFFICE OUTPATIENT NEW 20 MINUTES 04/22/2021 12:00:00 A M EDT [facility] ([facility]) OFFICE OUTPATIENT VISIT 10 MINUTES 04/22/2021 12:00:00 AM EDT [facility] ([facility]) OFFICE OUTPATIENT VISIT 25 MINUTES 04/19/2021 12:00:00 AM EDT [facility] ([facility] ) OFFICE OUTPATIENT NEW 30 MINUTES 03/30/2021 12:00:00 A M EDT [facility] ([facility]) DEMO&/EVAL OF PT UTILIZ AERSL GEN/NEB/INHLR/IPPB 03/24 12:00:00 AM EDT [facility] ([facility], ) OFFICE OUTPATIENT NEW 45 MINUTES 03/24/2021 12:00:00 A M EDT [facility] ([facility], ) OFFICE OUTPATIENT VISIT 15 MINUTES 03/15/2021 12:00:00 AM EDT [facility] ([facility]) OFFICE OUTPATIENT VISIT 15 MINUTES 02/23/2021 12:00:00 AM EDT [facility] ([facility]) Brief Emotional/Behav Assessment W/ Scoring Doc Per Standard Inst 01/27/2021 12:00:00 AM EDT [facility] ([facility]) Admin Patient Focused Health Risk Assessment Instrument 01/27/2021 12:00:00 AM EDT [facility] ([facility]) INITIAL PREVENTIVE MEDICINE NEW PATIENT 64YRS&> 2020 12:00:00 AM EDT [facility] ([facility]) URINE RANDOM TP/CRE RATIO <td>URINE RANDOM TP/CRE RATIO</td><td>Routine</td><td>12/22/2020</td><td></td><td></td> 12/22/2020 12:00:00 AM [facility] VITAMIN D 25 HYDROXY, TOTAL <td>VITAMIN D 25 HYDROXY, TOTAL</td><td>Routine</td><td>12/22/2020</td><td></td><td></td> 12/22/2020 12:00:00 AM [facility] URIC ACID BLOOD <td>URIC ACID</td><td>Routine</td><td>12/22/2020</td><td></td><td></td> 12/22/2020 12:00:00 AM [facility] MAGNESIUM <td>MAGNESIUM LEVEL</td><td>Routine</td><td>12/22/2020</td><td></td><td></td> 12/22/2020 12:00:00 AM [facility] FERRITIN <td>FERRITIN LEVEL</td><td>Routine</td><td>12/22/2020</td><td></td><td></td> 12/22/2020 12:00:00 AM [facility] BASIC METABOLIC PANEL CALCIUM TOTAL <td>BASIC METABOLI C PANEL</td><td>Routine</td><td>12/22/2020</td><td></td><td></td> 12/22/2020 12:00:00 AM [facility] BLOOD COUNT COMPLETE AUTOMATED <td>CBC</td><td>Routine</td><td>12/21/2020</td><td></td><td></td> 12/21/2020 12:00:00 AM [facility] INITIAL HOSPITAL CARE/DAY 70 MINUTES 12/16/2020 12:00: 00 AM EDT [facility] ([facility], ) Results ID Date Data Source [id number] 05/11/2021 10:02:00 AM EDT [facility] ([facility], ) Name Value Range Interpretation Code Description Data Parul rce(s) Supporting Document(s) FVC-Pred 4.20 L [facility] ([facility], ) PDFReport Laboratory test result [facility] ([facility], ) FVC-Pre 2.57 L [facility] ([facility], ) FVC-LLN 3.32 L [facility] ([facility]) FVC-%Pred-Pre 61 L [facility] ([facility], ) Fev1-Pre 1.97 L [facility] ([facility]) Fev1-%Pred-Pre 63 L [facility] ([facility], ) Fev1-Pred 3.11 L [facility] ([facility]) Fev1-LLN 2.37 L [facility] ([facility]) Fev6-Pre 2.57 L [facility] ([facility]) Fev6-Pred 3.97 L [facility] ([facility]) Fev6-LLN 3.11 L [facility] ([facility]) Fev6-%Pred-Pre 64 L [facility] ([facility], ) Kny5vov-Esyj 74 % [facility] ([facility]) Cgn5kng-Cfg 77 % [facility] ([facility]) Hpr1bhr-%Pred-Pre 103 % [facility] ([facility], ) Dnn0cww-Qrb 100 % [facility] ([facility]) Dxc3iqn-SLY 65 % [facility] ([facility]) Gbu6qhh-Uslp 94 % [facility] ([facility], ) FEFMax-Pre 3.26 L/E/sec [facility] ([facility], ) Grr6urt-%Pred-Pre 105 % [facility] ([facility], ) FEFMax-Pred 8.20 L/E/sec [facility] ([facility]) FEFMax-LLN 6.01 L/E/sec [facility] ([facility]) Kto8160-Dbbu 2.44 L/E/sec [facility] ([facility]) FEFMax-%Pred-Pre 39 L/E/sec [facility] ([facility]) Hky9588-Njy 1.79 L/E/sec [facility] ([facility]) Rwz5297-%Pred-Pre 73 L/E/sec [facility] ([facility]) Ysl5854-BXN 0.93 L/E/sec [facility] ([facility]) ExpTime-Pre 6.49 sec [facility] ([facility]) Wgx1qyp7-Vjhk 78 % [facility] ([facility]) Dck5rew3-Suc 77 % [facility] ([facility]) Ovu9iwd8-%Pred-Pre 98 % [facility] ([facility]) Umj4bno2-CWU 69 % [facility] ([facility]) ID Date Data Source [id number] 04/27/2021 02:15:00 [place] [address] PHONE: [phone] FAX: [phone] Name .................. : FLOWER BLUM Acct Number.................. : [id number] ROOM. ................. : MR Number ................... : [id number] Stay type ............. : CLINIC Discharge Date......... ... : 04/27/21 Admit Date ......... : 04/27/21 Admit Phys .................... : BINA SHEPARD Date of ....... : 1955 Family Phys ................... : Phone .................. : [phone] Age ................................ : 66 Film# .................. .:[id number] Sex ................................. : M Unsigned transcriptions are preliminary reports and do not represent a medical or legal document US EXT NON VASC LT LIMITED 87099 COMPLETE:04/27/21 11:49 ADB 85722 Reason for Exam: CUTANEOUS ABSCESS OF LT AXILLA EXAM: Ultrasound left upper extremity nonvascular limited HISTORY: Cutaneous abscess left axilla COMPARISON: None. FINDINGS: There is a well-circumscribed oval lesion in the subcutaneous fat in the area of palpable concern in the left axilla. This measures 5 x 5 x 3 mm. It has low-level internal echoes. Sharp posterior wall with increased through transmission. No internal flow seen on color flow imaging. IMPRESSION: Complex cystic lesion in the subcutaneous fat measuring up to 5 mm. This is nonspecific. It could be sterile or infected. Electronically Reviewed and Signed By Jose Angel Bailey MD , 04/27/21 14:15, ELEANOR Transcribe Initials: SABI, Transcribe Date: 04/27/21 12:37, Dictation Date: Page 1 of 1 Name Value Range Interpretation Code Description Data Parul rce(s) Supporting Document(s) ID Date Data Source [id number] 04/22/2021 02:00:00 PM EDT [facility] ([facility]) Name Value Range Interpretation Code Description Data Parul rce(s) Supporting Document(s) Culture Wound Laboratory test result [facility] ([facility]) {SPECIMEN SOURCE : LEFT AXILLA ID Date Data Source [id number] 04/27/2021 08:15:00 PM EDT [facility] Name Value Range Interpretation Code Description Data Parul rce(s) Supporting Document(s) CULTURE WOUND [facility] _CULTURE WOUND_$$[id number]$$[id number]$$[id number] DATE/TIME: 04/27/2021 15:06Culture: CULTURE WOUND Status: FinalIsolate 1 Enterococcus faecalis Flag: A . . . . . . .7Moderate growth Previous result entered on 04/26/2021 15:14 ET Microbiological testing to rule out the presence of possible pathogensis in progress.Aerobic Bacterial Culture: [id number] faecalis Flag: APatient: FLOWER BLUM Order: [id number] Page 2Culture: CULTURE WOUND Status: Final ISOLATE 1 Enterococcus faecalis Isolate 1Antibiotic JUSTICE IntUnits ug/mL ----Penicillin S S . . . . . .6932-8Vancomycin S S . . . . . .524-9P1 Test performed by: [facility] #: [id number] [address] [place] [address] [id number] [facility] [id number] Director : Scottie Lau MD NPI #:Electric Power Machine Operator : 04/27/21.0736.XMT.SENT REF 04/27/21.XMT.SENT REF 04/27/21.DW .to FENGHaroldo via fax ID Date Data Source [id number] 04/01/2021 07:54:00 AM EDT [facility] ([facility]) Name Value Range Interpretation Code Description Data Parul rce(s) Supporting Document(s) Blood Urea Nitrogen 57 mg/dL 7-18 Above high normal [facility] ([facility]) Glucose, Fasting 147 mg/dL 70-100 Above high normal M [facility]ENT ([facility]) Glomerular Filtration Rate 24.8 Below low normal [facility] ([facility]) <content>Units are mL/min/1.73 m2</content>
<content></content>
<content>Chronic Kidney Disease Staging per NKF:</content>
<content></content>
<content>Stage I & II GFR >=60 Normal to Mildly Decreased</content>
<content>Stage III GFR 30- 59 Moderately Decreased</content>
<content>Stage IV GFR 15-29 Severely Decreased</content>
<content>Stage V GFR <15 Very Little GFR Left</content>
<content>ESRD GFR <15 on TAPPER SUPERVISOR</content>
<content></content> Creatinine For GFR 2.75 mg/dL 0.70-1.30 Above high normal [facility] ([facility]) Potassium Serum 4.5 meq/L 3.5-5.1 Normal (applies to non-numeric results) [facility] ([facility]) Sodium Level 143 meq/L 136-145 Normal (applies to non-numeric res ults) [facility] ([facility]) Chloride Level 112 meq/L 98-107 Above high normal [facility] ([facility]) Carbon Dioxide Level 25 meq/L 21-32 Normal (applies to non-num nuzhat results) [facility] ([facility]) Calcium Level 8.8 mg/dL 8.8-10.2 Normal (applies to non-numeric re sults) [facility] ([facility]) Anion Gap 6 meq/L 8-16 Below low normal [facility] ( [facility]) ID Date Data Source [id number] 03/09/2021 09:14:00 AM EDT [facility] ([facility]) Name Value Range Interpretation Code Description Data Parul rce(s) Supporting Document(s) PSA Total 1.5 ng/mL 0.0-4.0 Normal (applies to non-numeric resul ts) [facility] ([facility]) Leidy ECLIA methodology. . According to the [place] [employer], Serum PSA should decrease and [...] the presence or absence of malignant disease. PSA Comment Laboratory test result Normal (applies to non- numeric results) [facility]) . The percent free PSA is performed on a reflex basis only when the total PSA is between 4.0 and 10.0 ng/mL. Performed at: RN - [facility] [address] [id number] Electric [employer] Machine Operator: Petra Rubin MD, Phone: [phone] ID Date Data Source [id number] 03/09/2021 09:14:00 AM EDT [facility] ([facility]) Name Value Range Interpretation Code Description Data Parul rce(s) Supporting Document(s) Bacteria identified in Urine by Culture Laboratory test result Normal (applies to non-numeric results) [facility] ([facility]) FULL REPORT IN LAB NOTES (eCW and [facility] ). NO GROWTH ID Date Data Source [id number] 03/09/2021 09:14:00 AM EDT [facility] ([facility]) Name Value Range Interpretation Code Description Data Parul rce(s) Supporting Document(s) Malb Urine Siemens 3200.0 mg/L Normal (applies to non-nume adrian results) [facility] ([facility]) Christopher/Creat Ratio 3245.4 MCG/MG 0.0-30.0 Above high normal [facility] ([facility]) THE [employer]ATION STATES THAT MICROALBUMINURIA IS PRESENT IF THE MICROALBUMIN/CREATININE RATIO EXCEEDS 30 MCG/MG. THE THRESHOLD FOR CLINICAL ALBUMINURIA IS REACHED AT 300 MCG/MG. THE CLASSIFICATION OF A PATIENT SHOULD BE BASED UPON AT LEAST 2 OF 3 ABNORMAL RESULTS ON SPECIMENS COLLECTED WITHIN A 3 TO 6 MONTH TIME FRAME. Creatinine, Urine 98.6 mg/dL Normal (applies to non-numeri c results) [facility]) ID Date Data Source [id number] 03/09/2021 09:14:00 AM EDT [facility] ([facility]) Name Value Range Interpretation Code Description Data Parul rce(s) Supporting Document(s) Appearance, Urine Laboratory test result Normal (applies to non-numeric results) [facility]) PH,Urine 5.0 units 5.0-9.0 Normal (applies to non-numeric resul ts) [facility]) Color, Urine Laboratory test result Normal (applies to non -numeric results) [facility] ([facility]) Specific Bennett Urine Auto 1.012 1.002-1.035 Norm al (applies to non-numeric results) [facility] ([facility]) Protein, Urine Auto Laboratory test result Above high norm al [facility] ([facility]) Glucose, Urine (Ua) Auto Laboratory test result Above high normal [facility] ([facility]) Bilirubin, Urine Auto Laboratory test result Nor mal (applies to non-numeric results) [facility]) Ketone, Urine Auto Laboratory test result Normal (applies to non-numeric results) [facility]) Urobilinogen, Urine Auto 0.2 mg/dL 0.0-2.0 Normal (applies to non-numeric results) [facility]) Nitrite, Urine Auto Laboratory test result Marylin l (applies to non-numeric results) [facility]) Leukocyte Esterase, Urine Auto Laboratory test result Normal (applies to non- numeric results) [facility] ([facility]) Blood, Urine Blood Laboratory test result Normal (applies to non-numeric results) [facility]) WBC, Urine Auto 1 /HPF 0-3 Normal (applies to non-numeric results) [facility] ([facility]) RBC, Urine Auto 1 /HPF 0-3 Normal (applies to non-numeric results) [facility] ([facility]) Squamous Epithelial Cell Ur AU 0 /HPF 0-6 N ormal (applies to non-numeric results) [facility] ([facility]) Bacteria, Urine Auto Laboratory test result Norm al (applies to non-numeric results) [facility]) Mucus, Urine Laboratory test result Normal (applies to non -numeric results) [facility]) Hyaline Cast, Urine Auto 0 /LPF 0-1 Normal (applies to non -numeric results) [facility]) ID Date Data Source [id number] 03/09/2021 09:14:00 AM EDT [facility]) Name Value Range Interpretation Code Description Data Parul rce(s) Supporting Document(s) Hemoglobin A1c 6.4 % Normal (applies to non-numeric r esults) [facility]) <content>REFERENCE RANGES:</content><br/ ><content></content>
<content><=5.6% NORMAL</content>
<content>5.7-6.4% SUGGESTS IMPAIRED GLUCOSE METABOLISM/PREDIABETIC</content>
<content>>= 6.5% ABNORMAL</content>
<content></content> Estimated Average Glucose 137 mg/dL 60-110 Above high normal [facility] ([facility]) ID Date Data Source [id number] 03/09/2021 09:14:00 AM EDT [facility] ([facility]) Name Value Range Interpretation Code Description Data Parul rce(s) Supporting Document(s) Urate [Mass/volume] in Serum or Plasma 5.9 mg/dL 3.5-7.2 Normal (applies to non- numeric results) [facility]) ID Date Data Source [id number] 03/09/2021 09:14:00 AM EDT [facility]) Name Value Range Interpretation Code Description Data Parul rce(s) Supporting Document(s) Triglycerides Level 89 mg/dL Normal (applies to non-nume adrian results) [facility] ([facility]) HDL Cholesterol 34 mg/dL Below low normal [facility] ([facility]) Cholesterol Level 125 mg/dL Normal (applies to non-numeri c results) [facility] ([facility]) LDL Cholesterol 73 mg/dL Normal (applies to non-numeric results) [facility] ([facility]) Cholesterol Risk Ratio 3.676 Normal (applies to non-n umeric results) [facility] ([facility]) Non-HDL-C 91 mg/dL Normal (applies to non-numeric resul ts) [facility] ([facility]) ID Date Data Source [id number] 03/09/2021 09:14:00 AM EDT [facility] Name Value Range Interpretation Code Description Data Parul rce(s) Supporting Document(s) Glucose, Fasting 134 mg/dL 70-100 Above high normal M [facility] ([facility]) Blood Urea Nitrogen 49 mg/dL 7-18 Above high normal [facility] Creatinine For GFR 2.70 mg/dL 0.70-1.30 Above high normal [facility]) Glomerular Filtration Rate 25.3 Below low normal [facility] ([facility]) <content>Units are mL/min/1.73 m2</content>
<content></content>
<content>Chronic Kidney Disease Staging per NKF:</content>
<content></content>
<content>Stage I & II GFR >=60 Normal to Mildly Decreased</content>
<content>Stage III GFR 30- 59 Moderately Decreased</content>
<content>Stage IV GFR 15-29 Severely Decreased</content>
<content>Stage V GFR <15 Very Little GFR Left</content>
<content>ESRD GFR <15 on [employer]</content>
<content></content> Sodium Level 141 meq/L 136-145 Normal (applies to non-numeric res ults) [facility] ([facility]) Chloride Level 112 meq/L 98-107 Above high normal [facility] ([facility]) Potassium Serum 4.5 meq/L 3.5-5.1 Normal (applies to non-numeric results) [facility] ([facility]) Carbon Dioxide Level 24 meq/L 21-32 Normal (applies to non-num nuzhat results) [facility] ([facility]) Anion Gap 5 meq/L 8-16 Below low normal [facility] ( [facility]) Alt/SGPT 47 U/L 12-78 Normal (applies to non-numeric resul ts) [facility] ([facility]) Calcium Level 8.5 mg/dL 8.8-10.2 Below low normal [facility] ([facility]) Ast/Sgot 14 U/L 7-37 Normal (applies to non-numeric resul ts) [facility] ([facility]) Alkaline Phosphatase 101 U/L 45-117 Normal (applies to non-num nuzhat results) [facility] ([facility]) Bilirubin,Total 0.3 mg/dL 0.2-1.0 Normal (applies to non-numeric results) [facility] ([facility]) Albumin/Globulin Ratio 1.0 Normal (applies to non-n umeric results) [facility] ([facility]) Albumin 3.3 GM/DL 3.2-5.2 Normal (applies to non-numeric resul ts) [facility] ([facility]) Total Protein 6.7 GM/DL 6.4-8.2 Normal (applies to non-numeric re sults) [facility] ([facility]) ID Date Data Source [id number] 03/09/2021 09:14:00 AM EDT [facility] ([facility]) Name Value Range Interpretation Code Description Data Parul rce(s) Supporting Document(s) Lymph % 18.9 % 24.0-44.0 Below low normal [facility] ( [facility]) [place] % 9.9 % 2.0-8.0 Above high normal [facility] ([facility]) Neutrophils % 63.4 % 36.0-66.0 Normal (applies to non-numeric re sults) [facility] ([facility]) Eos % 6.2 % 0.0-3.0 Above high normal [facility] ([facility]) Baso % 1.1 % 0.0-1.0 Above high normal [facility] ([facility]) Lymph # 1.5 10 1.5-5.0 Normal (applies to non-numeric resul ts) [facility] ([facility]) Neutrophils # 5.0 10 1.5-8.5 Normal (applies to non-numeric re sults) [facility] ([facility]) Immature Granulocyte % 0.5 % 0-3.0 Normal (applies to non-n umeric results) [facility] ([facility]) [place] # 0.8 10 0.0-0.8 Normal (applies to non-numeric resul ts) [facility] ([facility]) Eos # 0.5 10 0.0-0.5 Normal (applies to non-numeric resul ts) [facility] ([facility]) Baso # 0.1 10 0.0-0.2 Normal (applies to non-numeric resul ts) [facility] ([facility]) ID Date Data Source [id number] 03/09/2021 09:14:00 AM EDT [facility] ([facility]) Name Value Range Interpretation Code Description Data Parul rce(s) Supporting Document(s) White Blood Count 7.9 10 4.0-10.0 Normal (applies to non-numeri c results) [facility] ([facility]) Red Blood Count 3.63 10 4.30-6.10 Below low normal [facility] ([facility]) Hematocrit 33.6 % 42.0-52.0 Below low normal [facility] ( [facility]) Hemoglobin 11.6 g/dL 13.5-17.5 Below low normal [facility] ( [facility]) Mean Corpuscular HGB Conc 34.5 g/dL 32.0-36.5 Normal (applies to non-numeric results) [facility] ([facility]) Mean Corpuscular Hemoglobin 32.0 pg 27.0-33.0 Norm al (applies to non-numeric results) [facility] ([facility]) Mean Corpuscular Volume 92.6 fl 80.0-96.0 Normal ( applies to non-numeric results) [facility] ([facility]) Red Cell Distribution Width 12.0 % 11.5-14.5 Norm al (applies to non-numeric results) [facility] ([facility]) Platelet Count, Automated 201 10 150-450 Normal (applies to non-numeric results) [facility] ([facility]) Nucleated Red Blood Cell % 0.0 % 0-0 Normal (applies to n on-numeric results) [facility] ([facility]) ID Date Data Source [id number] 02/23/2021 02:01:00 PM EDT [facility] ([facility]) Name Value Range Interpretation Code Description Data Parul rce(s) Supporting Document(s) Laboratory test finding (navigational concept) Laboratory test result [facility]) ID Date Data Source [id number] 01/26/2021 10:24:00 AM EDT [facility] ([facility]) Name Value Range Interpretation Code Description Data Parul rce(s) Supporting Document(s) Magnesium [Mass/volume] in Serum or Plasma 2.2 mg/dL 1.8-2 .4 Normal (applies to non-numeric results) [facility] ([facility]) Natriuretic peptide.B prohormone N-Terminal [Mass/volu me] in Serum or Plasma 914 pg/mL Above high normal [facility] ([facility]) ID Date Data Source [id number] 01/26/2021 10:24:00 AM EDT [facility] ([facility]) Name Value Range Interpretation Code Description Data Parul rce(s) Supporting Document(s) Glucose, Fasting 231 mg/dL 70-100 Above high normal [facility]) Blood Urea Nitrogen 52 mg/dL 7-18 Above high normal [facility] ([facility]) Sodium Level 138 meq/L 136-145 Normal (applies to non-numeric res ults) [facility] ([facility]) Glomerular Filtration Rate 23.8 Below low normal [facility] ([facility]) <content>Units are mL/min/1.73 m2</content>
<content></content>
<content>Chronic Kidney Disease Staging per NKF:</content>
<content></content>
<content>Stage I & II GFR >=60 Normal to Mildly Decreased</content>
<content>Stage III GFR 30- 59 Moderately Decreased</content>
<content>Stage IV GFR 15-29 Severely Decreased</content>
<content>Stage V GFR <15 Very Little GFR Left</content>
<content>ESRD GFR <15 on [employer]</content>
<content></content> Creatinine For GFR 2.85 mg/dL 0.70-1.30 Above high normal [facility] ([facility], ) Chloride Level 106 meq/L 98-107 Normal (applies to non-numeric r esults) [facility] ([facility]) Potassium Serum 4.3 meq/L 3.5-5.1 Normal (applies to non-numeric results) [facility] ([facility]) Calcium Level 8.4 mg/dL 8.8-10.2 Below low normal [facility] ([facility]) Carbon Dioxide Level 26 meq/L 21-32 Normal (applies to non-num nuzhat results) [facility] ([facility]) Anion Gap 6 meq/L 8-16 Below low normal [facility] ( [facility]) Albumin 3.3 GM/DL 3.2-5.2 Normal (applies to non-numeric resul ts) [facility] ([facility]) Phosphorus Level 4.0 mg/dL 2.5-4.9 Normal (applies to non-numeric results) [facility] (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+wEfoptftzVmHl0rD+VmSkycEzA5rtGStFLXDep9 [file] F7YtC/x1Ca7FVL/HydGP6EtDdzReuxdx6Ox1+Román/Ouh62uws5bmnjKcDm7a/1w5p64l/HQ6TrfJ1Ic [file] ICAgICAgICAgICAgICAgICAgICAgICAgICAgICAgICAgICAgICAgICAgICAgICAgICAgICAgICAgICAg ICAgICAgICAgICAgICAgICAgICAgDQogICAgICAgICAgICAgICAgICAgICAgICAgICAgICAgICAgICAg ICAgICAgICAgICAgICAgICAgICAgICAgICAgICAgIC AgICAgICAgICAgICAgICAgICAgICAgICAgICAgICAgDQogICAgICAgICAgICAgICAgICAgICAgICAgIC AgICAgICAgICAgICAgICAgICAgICAgICAgICAgICAgICAgICAgICAgICAgICAgICAgICAgICAgICAgIC AgICAgICAgICAgICAgDQogICAgICAgICAgICAgICAg ICAgICAgICAgICAgICAgICAgICAgICAgICAgICAgICAgICAgICAgICAgICAgICAgICAgICAgICAgICAg ICAgICAgICAgICAgICAgICAgICAgICAgDQogICAgICAgICAgICAgICAgICAgICAgICAgICAgICAgICAg ICAgICAgICAgICAgICAgICAgICAgICAgICAgICAgIC AgICAgICAgICAgICAgICAgICAgICAgICAgICAgICAgICAgDQogICAgICAgICAgICAgICAgICAgICAgIC AgICAgICAgICAgICAgICAgICAgICAgICAgICAgICAgICAgICAgICAgICAgICAgICAgICAgICAgICAgIC AgICAgICAgICAgICAgICAgDQogICAgICAgICAgICAg ICAgICAgICAgICAgICAgICAgICAgICAgICAgICAgICAgICAgICAgICAgICAgICAgICAgICAgICAgICAg ICAgICAgICAgICAgICAgICAgICAgICAgICAgDQogICAgICAgICAgICAgICAgICAgICAgICAgICAgICAg ICAgICAgICAgICAgICAgICAgICAgICAgICAgICAgIC AgICAgICAgICAgICAgICAgICAgICAgICAgICAgICAgICAgICAgDQogICAgICAgICAgICAgICAgICAgIC AgICAgICAgICAgICAgICAgICAgICAgICAgICAgICAgICAgICAgICAgICAgICAgICAgICAgICAgICAgIC AgICAgICAgICAgICAgICAgICAgDQogICAgICAgICAg ICAgICAgICAgICAgICAgICAgICAgICAgICAgICAgICAgICAgICAgICAgICAgICAgICAgICAgICAgICAg TZYeAXFwFOOwMYWqIKAgENXyJWFzVDAlBQDdYTHrGZi0T3rnVURbGMIlVA7hSLe7Wz4+DQoNCmVuZHN0 paZjdI7CGU5xi9LgZWsiYZTqp6EsJBr6VB4SUCHrRN uqOW3SPQylmg9TBBRgYTViwEHGo7lcTfQvAHX2PHUbTnsoVP9IAGErP6nmuiLwIWHsIMGMZHemHGZONR muPTOQYKKqYUWjHfLvEPsmIV3Rx3TdbNQ0ASh+Zy1SGE0jj6TgZFehNAOvRU7bxp0GMBuINeZpD8Lidq L2VJC4KEWwFk6YVGEbOKDfsAYoOWRfGTPBUbPoY6Gl zW20OCNTXu9+YMzqfiUqRdzQLdW7KNDtl0NwHQg0KC3DOXRdBRx0uNQqAHQbR1Mia5CkOa05LMDnHpik D8vdEAKXIXA2i2juxmxuCY4XTAB3VBYfOTHpXnKkHFEnZunwYKHHTJaPDqNeI3Rlt1TmVtB3GHJlLvEo MKipRRLiAmL6YT71dQlcRN6FGYCbESIeFJ20JDJ5FZ JvHm8JHh9MRaUiRK0ztb8SDtIsMGOcDvqIPds3NSwpEO2YiYInB1FjqXBdu5tZQdQoI6ZYFSVxHFFcWw 8HQDKkDbUyDPUnQFadEF8xQWJyZNPWaNroqwG1TS9IER7btpGbOK3KUgKoPm0oTa1XMhYgD3LrH2GzRR OeFULMKNyxZV5AHUnaKU9gIM1Fh0GFeBLnjU8nkz6Y CDOuRBQtEmnauq8PAmtfE7X4mOilXOKfZsXtNEXPAIleKD7LHOIoVXN5KEQbFpFfZNSHLjVzH93bYI6S J7Kjc54zHiA9YUPnEpVeWFmtFK38rZhptyBmlPNabWtsGR3HLt4+DQplbmRvYmoNCnhyZWYNCjAgMzcN ZpPdCAWtDOVqWBXmGvN0LsZgFd7WFZTzMGSrCDBvOm XwBAZpHOIkNXwmNXNnETPlZqy3NIFtEAUzAV3GTiSsGOGkRvF0JHFpAQHyQPXuyj0FCFVrKDHoKPR9Do RmYUUdCDJwJMycQHPwEQKfXAAdIMSbZNAeJM6WKyJxVSPdVSWyAhjzZJRpZEIdxi2VEMMhEFMyQgvbNn HgNAFmPZYkQHxjGNFuUQM3ELJ7KXEfZSDxCV3AOgNh NJGbPVu1JIlyWQBgGPRxtc9HNCZcPYXwPIinMWSwEDOxYVHdRRjrHRFdYBKnOVdfCGVjJNWkZD1RMeNj KXQbXXM8ZWprGUCmPSQibm3AKNDaYPDqDyf9LQIiVTCzKHNjREdnOBYhEOHnPZD4KTLoMAMnYE1KHtPb NRVlGGHkSjhmZTUdQBAegp8EENUpKEYiHEP0DWHnLH XvJBEiOJojVNTtCGZ2XzNfMSTmCDFeBI9YExWxPFOjKES4QAlxKEZpPQIxmx7MBSOyTUNhMVpjNJBrVF CnYKSwHFijGHYoQPQ7NcTeZFIaVFYxST3ULdGiUYYyCrO7EQIiMAWvONDocp5FMFOsKOAbOiovNpXqDP GnDHKlYVkmIDNmGEJ3WOG1WIFuPKDxRT1PVaRdUVYo Not2SKMgCKWpAXNlen2SMCUlDFVoKfk7ElOeWBIwRGPxQDrnPIPmHNJ2EVW2ZEKvHESzSR5DAmDkWWPe InpkROlzSPYiTYBoih1MMPOvZBMbVQM5DKEjXMEiQTFkSSbtNKZhQJM4COS1UBYpWFBpXQ5LNiYsOIFr PdF7DMKjHOIaCTIale2PGOWlVSHiIZA7HTEiGPZiWF WdRFjyHQNcFODrAtB0VFKyIJFnWX6DKmSvEQAzJgAdGKZtKTCoCVEugx5SQRFfIMCiBiD2AwZiZCJkQE GlZIutACYnEFBbSnCrWPHbUKCePK4VRoDjGJYtRxJ0CPIwCFIkJMQgiu6VoJDjsQskvr7FTYyIPl7OaC joKDL7XLooUq4guLGoAdBiCKWVGt7HxsTbBZXzUNFI ALamIPFmVNb1WOVnKqRaSeBeJpV0HDNiFzAlUBUbYClkMFBrBiZ5TjN2WVRzXAMqIBMqXGJvEdNpBRFf DnCiUDF0AVS8XBJpFAi+LC3ySGq+Fr1Rp5CogbR2yzQhBCodWaFvWu2VGAHLX3RWGu== ID Date Data Source [id number] 12/15/2020 02:41:00 PM EDT [facility] Name Value Range Interpretation Code Description Data Parul rce(s) Supporting Document(s) SARS coronavirus 2 RNA [Presence] in Res piratory specimen by CEASAR with probe detection NEGATIVE [facility] This lab was ordered by [facility] a nd reported by [facility]. ID Date Data Source Low Dose Lung Screening CT Chest 07/01/2020 12:00:00 AM EST eCW1 ([facility]) Name Value Range Interpretation Code Description Data Parul rce(s) Supporting Document(s) Low Dose Lung Screening CT [address] eCW1 ([facility]) ID Date Data Source Basic Metabolic Profile (BMP) 07/01/2020 12:00:00 AM EST eCW 1 ([facility]) Name Value Range Interpretation Code Description Data Parul rce(s) Supporting Document(s) 2.56 0.70-1.30 CREATININE FOR GFR eCW1 ([facility]) 42 7-18 BLOOD UREA NITROGEN eCW1 (Count includes the [facility]) 172 70-100 GLUCOSE, FASTING eCW1 ([facility]) 26.9 >49 GLOMERULAR FILTRATION RATE eCW 1 ([facility]) 142 136-145 SODIUM LEVEL eCW1 ([facility]) 4.2 3.5-5.1 POTASSIUM SERUM eCW1 ([facility]) 26 21-32 CARBON DIOXIDE LEVEL eCW1 ([facility]) 8.7 8.8-10.2 CALCIUM LEVEL eCW1 ([facility]) 107 98-107 CHLORIDE LEVEL eCW1 ([facility]) ID Date Data Source [id number] 07/01/2020 12:00:00 AM EST eCW1 ([facility]) Name Value Range Interpretation Code Description Data Parul rce(s) Supporting Document(s) Hemoglobin A1c/Hemoglobin.total in Blood 5.9 HEMOGLOBIN A1c eCW1 ([facility]) ID Date Data Source CBC - Complete Blood Count 07/01/2020 12:00:00 AM EST eCW1 ( [facility]) Name Value Range Interpretation Code Description Data Parul rce(s) Supporting Document(s) 8.2 4.0-10.0 WHITE BLOOD COUNT eCW1 ([facility]) 3.75 4.30-6.10 RED BLOOD COUNT eCW1 ([facility]) 33.9 27.0-33.0 MEAN CORPUSCULAR HEMOGLOB IN eCW1 ([facility]) 35.8 42.0-52.0 HEMATOCRIT eCW1 ([facility]) 12.7 13.5-17.5 HEMOGLOBIN eCW1 ([facility]) 95.5 80.0-96.0 MEAN CORPUSCULAR VOLUME e CW1 ([facility]) 35.5 32.0-36.5 MEAN CORPUSCULAR HGB CONC eCW1 ([facility]) 11.9 11.5-14.5 RED CELL DISTRIBUTION WID TH eCW1 ([facility]) 191 150-450 PLATELET COUNT, AUTOMATED eCW1 ([facility]) ID Date Data Source PSA SCREENING 04/20/2020 10:42:15 AM EDT eCW1 ([facility]) Name Value Range Interpretation Code Description Data Parul rce(s) Supporting Document(s) 1.05 PSA SCREENING eCW1 ([facility]) Procedure Social History Code Duration Value Status Description Data Source(s ) Smoking 05/11/2021 12:00:00 AM EDT Patient is a former smoker completed Patient is a former smoker [facility] ([facility], ) Smoking 03/30/2021 12:00:00 AM EDT Never Smoked A Pipe complet ed Never Smoked A Pipe [facility] ([facility]) Smoking 02/11/2021 12:00:00 AM EDT Current Smoker completed Curre nt Smoker eCW1 ([facility]) Smoking 01/18/2021 12:00:00 AM EDT Current Smoker completed Curre nt Smoker eCW1 ([facility]) Smoking 01/18/2021 12:00:00 AM EDT Current Smoker completed Curre nt Smoker eCW1 ([facility]) Smoking 01/18/2021 12:00:00 AM EDT Current Smoker completed Curre nt Smoker eCW1 ([facility]) Smoking 01/18/2021 12:00:00 AM EDT Current Smoker completed Curre nt Smoker eCW1 ([facility]) Smoking 01/18/2021 12:00:00 AM EDT Current Smoker completed Curre nt Smoker eCW1 ([facility]) Smoking 01/18/2021 12:00:00 AM EDT Current Smoker completed Curre nt Smoker eCW1 ([facility]) Smoking 01/03/2021 12:00:00 AM EDT Current Smoker completed Curre nt Smoker eCW1 ([facility]) Smoking 01/03/2021 12:00:00 AM EDT Current Smoker completed Curre nt Smoker eCW1 ([facility]) Smoking 01/03/2021 12:00:00 AM EDT Current Smoker completed Curre nt Smoker eCW1 ([facility]) Smoking 01/03/2021 12:00:00 AM EDT Current Smoker completed Curre nt Smoker eCW1 ([facility]) Smoking 01/03/2021 12:00:00 AM EDT Current Smoker completed Curre nt Smoker eCW1 ([facility]) Smoking 12/27/2020 12:00:00 AM EDT Current Smoker completed Curre nt Smoker eCW1 ([facility]) Tobacco use and exposure 12/23/2020 12:00:00 AM EDT Never used co mpleted Never used [facility] Smoking 12/23/2020 12:00:00 AM EDT Current some day smoker com pleted Current some day smoker [facility] Smoking 12/21/2020 12:00:00 AM EDT Current Smoker completed Curre nt Smoker eCW1 ([facility]) Smoking 12/20/2020 12:00:00 AM EDT Current Smoker completed Curre nt Smoker eCW1 ([facility]) Smoking 09/22/2020 12:00:00 AM EST Current Smoker completed Curre nt Smoker eCW1 ([facility]) Smoking 09/22/2020 12:00:00 AM EST Current Smoker completed Curre nt Smoker eCW1 ([facility]) Smoking 09/22/2020 12:00:00 AM EST Current Smoker completed Curre nt Smoker eCW1 ([facility]) Smoking 09/22/2020 12:00:00 AM EST Current Smoker completed Curre nt Smoker eCW1 ([facility]) Smoking 09/22/2020 12:00:00 AM EST Current Smoker completed Curre nt Smoker eCW1 ([facility]) Smoking 09/22/2020 12:00:00 AM EST Current Smoker completed Curre nt Smoker eCW1 ([facility]) Smoking 09/22/2020 12:00:00 AM EST Current Smoker completed Curre nt Smoker eCW1 ([facility]) Smoking 09/22/2020 12:00:00 AM EST Current Smoker completed Curre nt Smoker eCW1 ([facility]) Smoking 09/22/2020 12:00:00 AM EST Current Smoker completed Curre nt Smoker eCW1 ([facility]) Smoking 09/22/2020 12:00:00 AM EST Current Smoker completed Curre nt Smoker eCW1 ([facility]) Smoking 09/22/2020 12:00:00 AM EST Current Smoker completed Curre nt Smoker eCW1 ([facility]) Smoking 06/18/2020 12:00:00 AM EST Current Smoker completed Curre nt Smoker eCW1 ([facility]) Smoking 06/18/2020 12:00:00 AM EST Current Smoker completed Curre nt Smoker eCW1 ([facility]) Smoking 06/18/2020 12:00:00 AM EST Current Smoker completed Curre nt Smoker eCW1 ([facility]) Smoking 06/18/2020 12:00:00 AM EST Current Smoker completed Curre nt Smoker eCW1 ([facility]) Smoking 06/18/2020 12:00:00 AM EST Current Smoker completed Curre nt Smoker eCW1 ([facility]) Smoking 06/18/2020 12:00:00 AM EST Current Smoker completed Curre nt Smoker eCW1 ([facility]) Smoking 06/18/2020 12:00:00 AM EST Current Smoker completed Curre nt Smoker eCW1 ([facility]) Smoking 06/18/2020 12:00:00 AM EST Current Smoker completed Curre nt Smoker eCW1 ([facility]) Smoking 06/18/2020 12:00:00 AM EST Current Smoker completed Curre nt Smoker eCW1 ([facility]) Smoking 06/18/2020 12:00:00 AM EST Current Smoker completed Curre nt Smoker eCW1 ([facility]) Smoking 04/30/2020 12:00:00 AM EDT Former Smoker completed Former Smoker eCW1 ([facility]) Smoking 04/30/2020 12:00:00 AM EDT Former Smoker completed Former Smoker eCW1 ([facility]) Smoking 04/30/2020 12:00:00 AM EDT Former Smoker completed Former Smoker eCW1 ([facility]) Smoking 04/30/2020 12:00:00 AM EDT Former Smoker completed Former Smoker eCW1 ([facility]) Smoking 04/30/2020 12:00:00 AM EDT Former Smoker completed Former Smoker eCW1 ([facility]) Smoking 04/30/2020 12:00:00 AM EDT Former Smoker completed Former Smoker eCW1 ([facility]) Smoking 04/30/2020 12:00:00 AM EDT Former Smoker completed Former Smoker eCW1 ([facility]) Vital Signs ID Date Data Source UNK Name Value Range Interpretation Code Description Data Source(s) Systolic blood pressure 140 mm[Hg] 140 mm[Hg] M [facility] ([facility]) Diastolic blood pressure 60 mm[Hg] 60 mm[Hg] [facility] ([facility]) Heart rate 71 /min 71 /min [facility] ([facility]) Oxygen saturation in Arterial blood by Pulse oximetry 98 % 98 % [facility] ([facility]) Body height 68 [in_i] 68 [in_i] [facility] ([facility]) 5'8" Body weight 189.00 [lb_av] 189.00 [lb_av] [facility] Body mass index (BMI) [Ratio] 28.7 kg/m2 28.7 k g/m2 [facility] ([facility]) [place] body weight 154 [lb_av] 154 [lb_av] [facility] Body weight 85.730 kg 85.730 kg [facility] ([facility]) Body surface area Derived from formula 2.00 m2 2.00 m2 [facility] ([facility]) Systolic blood pressure 150 mm[Hg] 150 mm[Hg] M [facility] ([facility]) Body temperature 98.6 [degF] 98.6 [degF] [facility] ([facility]) Respiratory rate 18 /min 18 /min [facility] ( [facility]) Body height 68 [in_i] 68 [in_i] [facility] ([facility]) 5'8" Diastolic blood pressure 82 mm[Hg] 82 mm[Hg] [facility] ([facility]) Heart rate 78 /min 78 /min [facility] ([facility]) Oxygen saturation in Arterial blood by Pulse oximetry 98 % 98 % [facility] ([facility]) Systolic blood pressure 156 mm[Hg] 156 mm[Hg] M [facility] ([facility]) dr doherty ok to leave Body temperature 98.6 [degF] 98.6 [degF] [facility] ([facility]) Body weight 83.916 kg 83.916 kg [facility] ([facility]) Body height 68 [in_i] 68 [in_i] [facility] ([facility]) 5'8" Body surface area Derived from formula 1.98 m2 1.98 m2 [facility] ([facility]) Respiratory rate 18 /min 18 /min [facility] ( [facility]) Systolic blood pressure 142 mm[Hg] 142 mm[Hg] M [facility] ([facility]) Diastolic blood pressure 72 mm[Hg] 72 mm[Hg] [facility] ([facility]) Body weight 185.00 [lb_av] 185.00 [lb_av] [facility] ([facility]) Diastolic blood pressure 82 mm[Hg] 82 mm[Hg] [facility] ([facility]) freddy bello to leave Heart rate 73 /min 73 /min [facility] ([facility]) Oxygen saturation in Arterial blood by Pulse oximetry 98 % 98 % [facility] ([facility]) Body mass index (BMI) [Ratio] 28.1 kg/m2 28.1 k g/m2 [facility] ([facility]) Heart rate 70 /min 70 /min [facility] ([facility]) Respiratory rate 18 /min 18 /min [facility] ( [facility]) Oxygen saturation in Arterial blood by Pulse oximetry 97 % 97 % [facility] ([facility]) Body weight 185.00 [lb_av] 185.00 [lb_av] [facility] ([facility]) Body weight 83.916 kg 83.916 kg [facility] ([facility]) Body height 68 [in_i] 68 [in_i] [facility] ([facility]) 5'8" Body mass index (BMI) [Ratio] 28.1 kg/m2 28.1 k g/m2 [facility] ([facility]) Body surface area Derived from formula 1.98 m2 1.98 m2 [facility] ([facility]) Diastolic blood pressure 70 mm[Hg] 70 mm[Hg] [facility] ([facility]) Body temperature 96.4 [degF] 96.4 [degF] [facility] ([facility]) Systolic blood pressure 140 mm[Hg] 140 mm[Hg] M EDENT ([facility]) Body mass index (BMI) [Ratio] 27.4 kg/m2 27.4 k g/m2 [facility] ([facility]) Respiratory rate 12 /min 12 /[facility] Body height 68 [in_i] 68 [in_i] [facility] ([facility]) 5'8" Body weight 180.00 [lb_av] 180.00 [lb_av] MEDEN T ([facility]) [place] body weight 154 [lb_av] 154 [lb_av] [facility] T ([facility]) Body surface area Derived from formula 1.98 m2 1.98 m2 [facility] ([facility]) Systolic blood pressure 140 mm[Hg] 140 mm[Hg] [facility] Diastolic blood pressure 70 mm[Hg] 70 mm[Hg] [facility] Heart rate 71 /min 71 /min [facility] Oxygen saturation in Arterial blood by Pulse oximetry 98 % 98 % [facility] Body height 68 [in_i] 68 [in_i] [facility] ([facility]) 5'8" Body weight 186.00 [lb_av] 186.00 [lb_av] [facility] T ([facility]) Body mass index (BMI) [Ratio] 28.3 kg/m2 28.3 k g/m2 [facility] ([facility]) [place] body weight 154 [lb_av] 154 [lb_av] [facility] T ([facility]) Body weight 84.370 kg 84.370 kg [facility] ([facility]) Body temperature 97.7 [degF] 97.7 [degF] [facility] ([facility]) Oxygen saturation in Arterial blood by Pulse oximetry 98 % 98 % [facility] [facility]) Body surface area Derived from formula 1.96 m2 1.96 m2 [facility] ([facility]) Diastolic blood pressure 60 mm[Hg] 60 mm[Hg] MEDENT ([facility]) Heart rate 67 /min 67 /min MEDENT ([facility]) Respiratory rate 18 /min 18 /min MEDENT ( [facility]) Body weight 180.38 [lb_av] 180.38 [lb_av] MEDEN T ([facility]) does walk at times when he can in yard Body mass index (BMI) [Ratio] 27.4 kg/m2 27.4 k g/m2 MEDENT ([facility]) Systolic blood pressure 142 mm[Hg] 142 mm[Hg] M EDENT ([facility]) Body weight 81.818 kg 81.818 kg MEDENT ([facility]) Body height 68 [in_i] 68 [in_i] MEDENT ([facility]) 5'8" Body weight 1 [lb_av] 1 [lb_av] eCW1 ([facility]) Respiratory rate 18 /min 18 /min eCW1 ([facility]) Body temperature 97.3 [degF] 97.3 [degF] eCW1 ( [facility]) Diastolic blood pressure 82 mm[Hg] 82 mm[Hg] eCW1 ([facility]) Body height 68 [in_i] 68 [in_i] eCW1 ([facility]) Body mass index (BMI) [Ratio] 0.15 kg/m2 0.15 k g/m2 eCW1 ([facility]) Heart rate 70 /min 70 /min eCW1 ([facility]) Systolic blood pressure 126 mm[Hg] 126 mm[Hg] e CW1 ([facility]) Body weight 80.287 kg 80.287 kg MEDENT ([facility]) Body height 68 [in_i] 68 [in_i] MEDENT ([facility]) 5'8" Systolic blood pressure 156 mm[Hg] 156 mm[Hg] M EDENT ([facility]) Diastolic blood pressure 70 mm[Hg] 70 mm[Hg] MEDENT ([facility]) Heart rate 76 /min 76 /min MEDENT ([facility]) Body temperature 975.0 [degF] 975.0 [degF] MEDE NT ([facility]) Respiratory rate 18 /min 18 /min MEDENT ( [facility]) Oxygen saturation in Arterial blood by Pulse oximetry 98 % 98 % MEDENT ([facility]) Body weight 177.00 [lb_av] 177.00 [lb_av] MEDEN T ([facility]) Body surface area Derived from formula 1.94 m2 1.94 m2 MEDENT ([facility]) Body mass index (BMI) [Ratio] 26.9 kg/m2 26.9 k g/m2 MEDENT ([facility]) Body weight 182.4 [lb_av] 182.4 [lb_av] eCW1 ([facility]) Body height 68 [in_i] 68 [in_i] eCW1 ([facility]) Body mass index (BMI) [Ratio] 27.73 kg/m2 27.73 kg/m2 W1 ([facility]) Heart rate 78 /min 78 /min eCW1 ([facility]) Respiratory rate 18 /min 18 /min eCW1 ([facility]) Body temperature 98.0 [degF] 98.0 [degF] eCW1 ( [facility]) Systolic blood pressure 138 mm[Hg] 138 mm[Hg] e CW1 ([facility]) Diastolic blood pressure 78 mm[Hg] 78 mm[Hg] eCW1 ([facility]) Body weight 182.2 [lb_av] 182.2 [lb_av] eCW1 ([facility]) Body height 68 [in_i] 68 [in_i] eCW1 ([facility]) Body mass index (BMI) [Ratio] 27.70 kg/m2 27.70 kg/m2 W1 ([facility]) Heart rate 84 /min 84 /min eCW1 ([facility]) Respiratory rate 18 /min 18 /min eCW1 ([facility]) Body temperature 98.2 [degF] 98.2 [degF] eCW1 ( [facility]) Systolic blood pressure 132 mm[Hg] 132 mm[Hg] e CW1 ([facility]) Diastolic blood pressure 58 mm[Hg] 58 mm[Hg] eCW1 ([facility]) Body weight 183.0 [lb_av] 183.0 [lb_av] eCW1 ([facility]) Body height 68 [in_i] 68 [in_i] eCW1 ([facility]) Body mass index (BMI) [Ratio] 27.82 kg/m2 27.82 kg/m2 eCW1 ([facility]) Heart rate 77 /min 77 /min eCW1 ([facility]) Respiratory rate 18 /min 18 /min eCW1 ([facility]) Body temperature 98.0 [degF] 98.0 [degF] eCW1 ( [facility]) Systolic blood pressure 136 mm[Hg] 136 mm[Hg] e CW1 ([facility]) Diastolic blood pressure 68 mm[Hg] 68 mm[Hg] eCW1 ([facility]) Body weight 178.2 [lb_av] 178.2 [lb_av] eCW1 ([facility]) Body height 68 [in_i] 68 [in_i] eCW1 ([facility]) Body mass index (BMI) [Ratio] 27.09 kg/m2 27.09 kg/m2 eCW1 ([facility]) Heart rate 82 /min 82 /min eCW1 ([facility]) Respiratory rate 18 /min 18 /min eCW1 ([facility]) Body temperature 97.9 [degF] 97.9 [degF] eCW1 ( [facility]) Systolic blood pressure 138 mm[Hg] 138 mm[Hg] e CW1 ([facility]) Diastolic blood pressure 66 mm[Hg] 66 mm[Hg] eCW1 ([facility]) Body weight 176.8 [lb_av] 176.8 [lb_av] eCW1 ([facility]) Body height 68 [in_i] 68 [in_i] eCW1 ([facility]) Body mass index (BMI) [Ratio] 26.88 kg/m2 26.88 kg/m2 eCW1 ([facility]) Heart rate 85 /min 85 /min eCW1 ([facility]) Respiratory rate 18 /min 18 /min eCW1 ([facility]) Body temperature 96.8 [degF] 96.8 [degF] eCW1 ( [facility]) Systolic blood pressure 122 mm[Hg] 122 mm[Hg] e CW1 ([facility]) Diastolic blood pressure 82 mm[Hg] 82 mm[Hg] eCW1 ([facility]) Body height 68 [in_i] 68 [in_i] eCW1 ([facility]) Body weight 177 [lb_av] 177 [lb_av] eCW1 ([facility]) Systolic blood pressure 146 mm[Hg] 146 mm[Hg] e CW1 ([facility]) Diastolic blood pressure 76 mm[Hg] 76 mm[Hg] eCW1 ([facility]) Body mass index (BMI) [Ratio] 26.91 kg/m2 26.91 kg/m2 eCW1 ([facility]) Heart rate 95 /min 95 /min eCW1 ([facility]) Respiratory rate 18 /min 18 /min eCW1 ([facility]) Body temperature 97.3 [degF] 97.3 [degF] eCW1 ( [facility]) Body mass index (BMI) [Ratio] 26.45 kg/m2 26.45 kg/m2 eCW1 ([facility]) Heart rate 84 /min 84 /min eCW1 ([facility]) Body weight 174 [lb_av] 174 [lb_av] eCW1 ([facility]) Body height 68 [in_i] 68 [in_i] eCW1 ([facility]) Respiratory rate 18 /min 18 /min eCW1 ([facility]) Body temperature 97.8 [degF] 97.8 [degF] eCW1 ( [facility]) Systolic blood pressure 142 mm[Hg] 142 mm[Hg] e CW1 ([facility]) Diastolic blood pressure 76 mm[Hg] 76 mm[Hg] eCW1 ([facility]) ID Date Data Source [id number] 01/26/2021 04:09:50 PM EDT [facility] Name Value Range Interpretation Code Description Data Source(s) WEIGHT RECORDED 178 lb 178 lb [facility] Body height Measured 67.99 in 67.99 in [facility] Patient Treatment Plan of Care Planned Activity Planned Date Details Description Data Source (s) Acetaminophen 325 MG / Hydrocodone Bitartrate 5 MG Ora l Tablet 01/08/2021 12:00:00 AM EDT eCW1 (Formerly [facility]) Acetaminophen 325 MG / Hydrocodone Bitartrate 5 MG Ora l Tablet 01/08/2021 12:00:00 AM EDT eCW1 (Formerly [facility]) Furosemide 40 MG Oral Tablet 01/03/2021 12:00:00 AM EDT eCW1 ([facility]) Furosemide 40 MG Oral Tablet 01/03/2021 12:00:00 AM EDT eCW1 ([facility]) Furosemide 40 MG Oral Tablet 01/03/2021 12:00:00 AM EDT eCW1 ([facility]) Furosemide 40 MG Oral Tablet 01/03/2021 12:00:00 AM EDT eCW1 ([facility]) Furosemide 20 MG Oral Tablet 01/03/2021 12:00:00 AM EDT eCW1 ([facility]) Furosemide 20 MG Oral Tablet 01/03/2021 12:00:00 AM EDT eCW1 ([facility]) Furosemide 20 MG Oral Tablet 01/03/2021 12:00:00 AM EDT eCW1 ([facility]) Furosemide 20 MG Oral Tablet 01/03/2021 12:00:00 AM EDT eCW1 ([facility]) Furosemide 40 MG Oral Tablet 01/03/2021 12:00:00 AM EDT eCW1 ([facility]) Furosemide 40 MG Oral Tablet 01/03/2021 12:00:00 AM EDT eCW1 ([facility]) Furosemide 20 MG Oral Tablet 01/03/2021 12:00:00 AM EDT eCW1 ([facility]) Losartan Potassium 25 MG Oral Tablet 12/23/2020 12:00:00 AM [facility] Hydralazine Hydrochloride 50 MG Oral Tablet 12/17/2020 12:00:00 AM [facility] Aspirin 325 MG Delayed Release Oral Tablet 12/17/2020 12:00:00 AM [facility] Aspirin 325 MG Oral Tablet 12/16/2020 12:00:00 AM EDT eCW1 ([facility]) Glyburide 1.25 MG Oral Tablet 11/10/2020 12:00:00 AM [facility] Acetaminophen 325 MG / Hydrocodone Bitartrate 5 MG Ora l Tablet 11/05/2020 12:00:00 AM EDT eCW1 ([facility]) Acetaminophen 325 MG / Hydrocodone Bitartrate 5 MG Ora l Tablet 11/05/2020 12:00:00 AM EDT eCW1 ([facility]) Acetaminophen 325 MG / Hydrocodone Bitartrate 5 MG Ora l Tablet 11/05/2020 12:00:00 AM EDT eCW1 ([facility]) Acetaminophen 325 MG / Hydrocodone Bitartrate 5 MG Ora l Tablet 11/05/2020 12:00:00 AM EDT eCW1 ([facility]) Acetaminophen 325 MG / Hydrocodone Bitartrate 5 MG Ora l Tablet 11/05/2020 12:00:00 AM EDT eCW1 ([facility]) Acetaminophen 325 MG / Hydrocodone Bitartrate 5 MG Ora l Tablet 11/05/2020 12:00:00 AM EDT eCW1 ([facility]) Acetaminophen 325 MG / Hydrocodone Bitartrate 5 MG Ora l Tablet 11/05/2020 12:00:00 AM EDT eCW1 ([facility]) Acetaminophen 325 MG / Hydrocodone Bitartrate 5 MG Ora l Tablet 10/06/2020 12:00:00 AM EDT eCW1 ([facility]) Acetaminophen 325 MG / Hydrocodone Bitartrate 5 MG Ora l Tablet 10/06/2020 12:00:00 AM EDT eCW1 ([facility]ly [facility]) Fourmile 5-325 MG 10/05/2020 12:00:00 AM EDT eCW1 ([facility]) Glyburide 1.25 MG Oral Tablet 08/10/2020 12:00:00 AM EST eCW1 ([facility]) Glyburide 1.25 MG Oral Tablet 08/10/2020 12:00:00 AM EST eCW1 ([facility]) Glyburide 1.25 MG Oral Tablet 08/10/2020 12:00:00 AM EST eCW1 ([facility]) Glyburide 1.25 MG Oral Tablet 08/10/2020 12:00:00 AM EST eCW1 ([facility]) Glyburide 1.25 MG Oral Tablet 08/10/2020 12:00:00 AM EST eCW1 ([facility]) Glyburide 1.25 MG Oral Tablet 08/10/2020 12:00:00 AM EST eCW1 ([facility]) Glyburide 1.25 MG Oral Tablet 08/10/2020 12:00:00 AM EST eCW1 ([facility]) Acetaminophen 325 MG / Hydrocodone Bitartrate 5 MG Ora l Tablet 08/10/2020 12:00:00 AM EST eCW1 ([facility]) Glyburide 1.25 MG Oral Tablet 08/10/2020 12:00:00 AM EST eCW1 ([facility]) Acetaminophen 325 MG / Hydrocodone Bitartrate 5 MG Ora l Tablet 08/10/2020 12:00:00 AM EST eCW1 ([facility]) Glyburide 1.25 MG Oral Tablet 08/10/2020 12:00:00 AM EST eCW1 ([facility]) Acetaminophen 325 MG / Hydrocodone Bitartrate 5 MG Ora l Tablet 08/10/2020 12:00:00 AM EST eCW1 ([facility]) Glyburide 1.25 MG Oral Tablet 08/10/2020 12:00:00 AM EST eCW1 ([facility]) Acetaminophen 325 MG / Hydrocodone Bitartrate 5 MG Ora l Tablet 08/10/2020 12:00:00 AM EST eCW1 ([facility]) Glyburide 1.25 MG Oral Tablet 08/10/2020 12:00:00 AM EST eCW1 ([facility]) Acetaminophen 325 MG / Hydrocodone Bitartrate 5 MG Ora l Tablet 08/10/2020 12:00:00 AM EST eCW1 ([facility]) Glyburide 1.25 MG Oral Tablet 08/10/2020 12:00:00 AM EST eCW1 ([facility]) Acetaminophen 325 MG / Hydrocodone Bitartrate 5 MG Ora l Tablet 08/10/2020 12:00:00 AM EST eCW1 ([facility]) Glyburide 1.25 MG Oral Tablet 08/10/2020 12:00:00 AM EST eCW1 ([facility]) Acetaminophen 325 MG / Hydrocodone Bitartrate 5 MG Ora l Tablet 08/10/2020 12:00:00 AM EST eCW1 ([facility]ly [facility]) Fourmile 5-325 MG 07/12/2020 12:00:00 AM EST eCW1 ([facility]) Fourmile 5-325 MG 07/12/2020 12:00:00 AM EST eCW1 ([facility]) Fourmile 5-325 MG 07/12/2020 12:00:00 AM EST eCW1 ([facility]) Acetaminophen 325 MG / Hydrocodone Bitartrate 5 MG Ora l Tablet [[place]] 07/12/2020 12:00:00 AM EST eCW1 ([facility]ly [facility]) Acetaminophen 325 MG / Hydrocodone Bitartrate 5 MG Ora l Tablet [[place]] 07/12/2020 12:00:00 AM EST eCW1 ([facility]) Acetaminophen 325 MG / Hydrocodone Bitartrate 5 MG Ora l Tablet [[place]] 07/12/2020 12:00:00 AM EST eCW1 ([facility]) Acetaminophen 325 MG / Hydrocodone Bitartrate 5 MG Ora l Tablet [[place]] 07/12/2020 12:00:00 AM EST eCW1 ([facility]) Acetaminophen 325 MG / Hydrocodone Bitartrate 5 MG Ora l Tablet [[place]] 07/12/2020 12:00:00 AM EST eCW1 ([facility]) Sitagliptin Phosphate 25 MG 07/01/2020 12:00:00 AM EST eCW1 ([facility]) Sitagliptin Phosphate 25 MG 07/01/2020 12:00:00 AM EST eCW1 ([facility]) Sitagliptin Phosphate 25 MG 07/01/2020 12:00:00 AM EST eCW1 ([facility]) Sitagliptin Phosphate 25 MG 07/01/2020 12:00:00 AM EST eCW1 ([facility]) Sitagliptin Phosphate 25 MG 07/01/2020 12:00:00 AM EST eCW1 ([facility]) Sitagliptin Phosphate 25 MG 07/01/2020 12:00:00 AM EST eCW1 ([facility]) Sitagliptin Phosphate 25 MG 07/01/2020 12:00:00 AM EST eCW1 ([facility]) Sitagliptin Phosphate 25 MG 07/01/2020 12:00:00 AM EST eCW1 ([facility]) Sitagliptin Phosphate 25 MG 07/01/2020 12:00:00 AM EST eCW1 ([facility]) Acetaminophen 325 MG / Hydrocodone Bitartrate 5 MG Ora l Tablet [[place]] 06/09/2020 12:00:00 AM EST eCW1 ([facility]) Acetaminophen 325 MG / Hydrocodone Bitartrate 5 MG Ora l Tablet [[place]] 06/09/2020 12:00:00 AM EST eCW1 ([facility]) Acetaminophen 325 MG / Hydrocodone Bitartrate 5 MG Ora l Tablet [[place]] 05/11/2020 12:00:00 AM EDT eCW1 ([facility]) Acetaminophen 325 MG / Hydrocodone Bitartrate 5 MG Ora l Tablet [[place]] 05/11/2020 12:00:00 AM EDT eCW1 ([facility]) Acetaminophen 325 MG / Hydrocodone Bitartrate 5 MG Ora l Tablet [[place]] 05/11/2020 12:00:00 AM EDT eCW1 ([facility]) Acetaminophen 325 MG / Hydrocodone Bitartrate 5 MG Ora l Tablet [[place]] 05/11/2020 12:00:00 AM EDT eCW1 ([facility]) carvedilol 25 MG Oral Tablet 04/01/2020 12:00:00 AM [facility] Aspirin 81 MG Delayed Release Oral Tablet 10/22/2017 12:00:00 AM [facility] Losartan Potassium 100 MG Oral Tablet 10/22/2017 12:00:00 AM [facility] Chlorthalidone 25 MG Oral Tablet 10/22/2017 12:00:00 AM [facility]
--- OUTSIDE RECORDS SUMMARY | 2021-05-27 18:58 | CCD ---
Author Author [facility] Organization [facility] Address Unknown Phone Unavailable Care Team Providers Care Management Internship Name Role Phone Cecilia House PA Unavailable Unavailable HouseCecilia stokes PA Unavailable Unavailable HouseCecilia stokes PA Unavailable Unavailable HouseCecilia stokes PA Unavailable Unavailable HouseCecilia stokes PA Unavailable Unavailable HouseCecilia stokes PA Unavailable Unavailable HouseCecilia stokes PA Unavailable Unavailable HouseCecilia PA Unavailable Unavailable HouseCecilia stokes PA Unavailable Unavailable HouseCecilia stokes PA Unavailable Unavailable KELI BELL MD Unavailable Unavailable KELI BELL MD Unavailable Unavailable KELI BELL MD Unavailable Unavailable KELI BELL MD Unavailable Unavailable KELI BELL MD Unavailable Unavailable KELI BELL MD Unavailable Unavailable KELI BELL MD Unavailable Unavailable KELI BELL MD Unavailable Unavailable KELI BELL MD Unavailable Unavailable KELI BELL MD Unavailable Unavailable KELI BELL MD Unavailable Unavailable KELI BELL MD Unavailable Unavailable KELI BELL MD Unavailable Unavailable KELI BELL MD Unavailable Unavailable KELI BELL MD Unavailable Unavailable KELI BELL MD Unavailable Unavailable KELI BELL MD Unavailable Unavailable KELI BELL MD Unavailable Unavailable KELI BELL MD Unavailable Unavailable KELI BELL MD Unavailable Unavailable BELL, KELI MD Unavailable Unavailable BELL, KELI MD Unavailable Unavailable BELL, KELI MD Unavailable Unavailable BELL, KELI MD Unavailable Unavailable BELL, KELI MD Unavailable Unavailable BELL, KELI MD Unavailable Unavailable BELL, KELI MD Unavailable Unavailable BELL, KELI MD Unavailable Unavailable BELL, KELI MD Unavailable Unavailable BELL, KELI MD Unavailable Unavailable BELL, KELI MD Unavailable Unavailable BELL, KELI MD Unavailable Unavailable BELL, KELI MD Unavailable Unavailable BELL, KELI MD Unavailable Unavailable BELL, KELI MD Unavailable Unavailable BELL, KELI MD Unavailable Unavailable BELL, KELI MD Unavailable Unavailable BELL, KELI MD Unavailable Unavailable BELL, KELI MD Unavailable Unavailable BELL, KELI MD Unavailable Unavailable BLEL, KELI MD Unavailable Unavailable BELL, KELI MD Unavailable Unavailable BELL, KELI MD Unavailable Unavailable BELL, KELI MD Unavailable Unavailable BELL, KELI MD Unavailable Unavailable BELL, KELI MD Unavailable Unavailable BELL, KELI MD Unavailable Unavailable BELL, KELI MD Unavailable Unavailable BELL, KELI MD Unavailable Unavailable BELL, KELI MD Unavailable Unavailable BELL, KELI MD Unavailable Unavailable BELL, KELI MD Unavailable Unavailable BELL, KELI MD Unavailable Unavailable BELL, KELI MD Unavailable Unavailable BELL, KELI MD Unavailable Unavailable BELL, KELI MD Unavailable Unavailable BELL, KELI MD Unavailable Unavailable BELL, KELI MD Unavailable Unavailable BELL, KELI MD Unavailable Unavailable BELL, KELI MD Unavailable Unavailable BELL, KELI MD Unavailable Unavailable BELL, KELI MD Unavailable Unavailable BELL, KELI MD Unavailable Unavailable BELL, KELI MD Unavailable Unavailable BELL, KELI MD Unavailable Unavailable BELL, KELI MD Unavailable Unavailable BELL, KELI MD Unavailable Unavailable BELL, KELI MD Unavailable Unavailable BELL, KELI MD Unavailable Unavailable BELL, KELI MD Unavailable Unavailable BELL, KELI MD Unavailable Unavailable Zhou H R Juan Miguel Unavailable Unavailable Zhou H R Juan Miguel Unavailable Unavailable Zhou H R Juan Miguellisandra ESPINO Unavailable Unavailable Zhou H R Juan Miguel Unavailable Unavailable Zhou H R Juan Miguel Unavailable Unavailable Zhou H R Juan Miguel Unavailable Unavailable Zhou H R Juan Miguel Unavailable Unavailable Zhou H R Juan Miguel Unavailable Unavailable Zhou H R Juan Miguel MD Unavailable Unavailable Zhou, H R Juan Miguel MD Unavailable Unavailable Zhou, H R Juan Miguel MD Unavailable Unavailable Zhou, H R Juan Miguel MD Unavailable Unavailable Zhou, H R Juan Miguel MD Unavailable Unavailable Zhou, H R Juan Miguel MD Unavailable Unavailable Zhou, H R Juan Miguel MD Unavailable Unavailable Zhou, H R Juan Miguel MD Unavailable Unavailable Zhou, H R Juan Miguel MD Unavailable Unavailable Zhou, H R Juan Miguel MD Unavailable Unavailable Zhou, H R Juan Miguel MD Unavailable Unavailable Zhou, H R Juan Miguel MD Unavailable Unavailable Zhou, H R Juan Miguel MD Unavailable Unavailable Zhou, H R Juan Miguel MD Unavailable Unavailable Zhou, H R Juan Miguel [...] Unavailable Unavailable Suman NEGRON MD Unavailable Unavailable Nicole Curran MD Unavailable [...] Unavailable Skipton, E Evangelina MD Unavailable Unavailable Skieric, E Evangelina MD Unavailable Unavailable Joaquín Humphrey MD Unavailable Unavailable Joaquín Humphrey MD Unavailable Unavailable Joaquín Humphrey MD Unavailable Unavailable Joaquín Hmuphrey MD Unavailable Unavailable Joaquín Humphrey MD Unavailable [...] Unavailable Unavailable Joaquín Humphrey MD Unavailable Unavailable FORNI, R CHRISTOPHER DPM Unavailable Unavailable FORNI, R CHRISTOPHER DPM Unavailable Unavailable FORNI, R CHRISTOPHER DPM Unavailable Unavailable FORNI, R CHRISTOPHER DPM Unavailable Unavailable FORNI, R CHRISTOPHER DPM Unavailable Unavailable FORNI, R CHRISTOPHER DPM Unavailable Unavailable FORNI, R CHRISTOPHER DPM Unavailable Unavailable FORNI, R CHRISTOPHER DPM Unavailable Unavailable FORNI, R CHIRSTOPHER DPM Unavailable Unavailable FORNI, R CHRISTOPHER DPM Unavailable Unavailable COLEMAN, M TERRELL PA Unavailable Unavailable COLEMAN, M TERRELL PA Unavailable Unavailable COLEMAN, M TERRELL PA Unavailable Unavailable COLEMAN, M TERRELL PA Unavailable Unavailable COLEMAN, M TERRELL PA Unavailable Unavailable COLEMAN, M TERRELL PA Unavailable Unavailable COLEMAN, M TERRELL PA Unavailable Unavailable COLEAMN, M TERRELL PA Unavailable Unavailable COLEMAN, M [...] Unavailable COLEMAN, M TERRELL PA Unavailable Unavailable KELI BELL MD Unavailable Unavailable KELI BELL MD Unavailable Unavailable KELI BELL MD Unavailable Unavailable KELI BELL MD Unavailable Unavailable BELL, KELI MD Unavailable Unavailable BELL, KELI MD Unavailable Unavailable BELL, KELI MD Unavailable Unavailable BELL, KELI MD Unavailable Unavailable BELL, KELI MD Unavailable Unavailable BELL, KELI MD Unavailable Unavailable BELL, KELI MD Unavailable Unavailable BELL, KELI MD Unavailable Unavailable BELL, KELI MD Unavailable Unavailable BELL, KELI MD Unavailable Unavailable BELL, KELI MD Unavailable Unavailable BELL, KELI MD Unavailable Unavailable BELL, KELI MD Unavailable Unavailable BELL, KELI MD Unavailable Unavailable BELL, KELI MD Unavailable Unavailable BELL, KELI MD Unavailable Unavailable BELL, KELI MD Unavailable Unavailable BELL, KELI MD Unavailable Unavailable BELL, KELI MD Unavailable Unavailable BELL, KELI MD Unavailable Unavailable BELL, KELI MD Unavailable Unavailable BELL, KELI MD Unavailable Unavailable BELL, KELI MD Unavailable Unavailable BELL, KELI MD Unavailable Unavailable BELL, KELI MD Unavailable Unavailable BELL, KELI MD Unavailable Unavailable BELL, KELI MD Unavailable Unavailable BELL, KELI MD Unavailable Unavailable BELL, KELI MD Unavailable Unavailable BELL, KELI MD Unavailable Unavailable BELL, KELI MD Unavailable Unavailable BELL, KELI MD Unavailable Unavailable BELL, KELI MD Unavailable Unavailable BELL, KELI MD Unavailable Unavailable BELL, KELI MD Unavailable Unavailable BELL, KELI MD Unavailable Unavailable BELL, KELI MD Unavailable Unavailable BELL, KELI MD Unavailable Unavailable BELL, KELI MD Unavailable Unavailable BELL, KELI MD Unavailable Unavailable BELL, KELI MD Unavailable Unavailable BELL, KELI MD Unavailable Unavailable BELL, KELI MD Unavailable Unavailable BELL, KELI MD Unavailable Unavailable BELL, KELI MD Unavailable Unavailable BELL, KELI MD Unavailable Unavailable BELL, KELI MD Unavailable Unavailable BELL, KELI MD Unavailable Unavailable BELL, KELI MD Unavailable Unavailable BELL, KELI MD Unavailable Unavailable BELL, KELI MD Unavailable Unavailable BELL, KELI MD Unavailable Unavailable BELL, KELI MD Unavailable Unavailable BELL, KELI MD Unavailable Unavailable BELL, KELI MD Unavailable Unavailable BELL, KELI MD Unavailable Unavailable BELL, KELI MD Unavailable Unavailable BELL, KELI MD Unavailable Unavailable BELL, KELI MD Unavailable Unavailable BELL, KELI MD Unavailable Unavailable BELL, KELI MD Unavailable Unavailable BELL, KELI MD Unavailable Unavailable BELL, KELI MD Unavailable Unavailable BELL, KELI MD Unavailable Unavailable KELI BELL MD Unavailable Unavailable KELI BELL MD Unavailable Unavailable KELI BELL MD Unavailable Unavailable Shahida STEEN MD Unavailable [...] Unavailable Unavailable Shahida STEEN MD Unavailable Unavailable FORNI, R CHRISTOPHER DPM [...] Unavailable Unavailable Nicole Curran MD Unavailable Unavailable Nicoel Curran MD Unavailable Unavailable Nicole Curran MD [...] Unavailable Unavailable Nicole Curran MD Unavailable Unavailable BinaNicole barnes MD Unavailable Unavailable Bina, F Dre MD Unavailable Unavailable Nicole Curran MD Unavailable Unavailable Nicole Curran MD Unavailable Unavailable Nicole Curran MD Unavailable Unavailable Nicole Curran MD Unavailable Unavailable Nicole Curran MD Unavailable Unavailable Nicole Curran MD Unavailable Unavailable Re-disclosure Warning The records that [...] is protected by Article 27-F of the [employer] Public Health law. If you continue you may have access to information: Regarding HIV / AIDS; Provided by facilities licensed or operated by the [employer] Office of Mental Health; or Provided by the [employer] Office for People With Developmental Disabilities. If such information is present, then the following [employer] mandated warning applies: This information has [...] law may result in a fine or intermediate sentence or both. A general authorization for the release of medical or other information is NOT sufficient authorization for further disc losure. Allergies and Adverse Reactions Type Description Substance Reaction Status Data Source(s ) Drug Allergy NKDA NKDA MED[facility] ([facility], ) Family History Family Member Name Family Member Gender Family Member Status Date o f Status Description Data Source(s) Unknown Male Problem [facility] ([facility]) Unknown Unknown Problem [facility] Father Unknown Male Problem [facility] ([facility]) Unknown Male Problem [facility] ([facility] Unknown Male Problem [facility] ([facility] Encounters Encounter Providers Location Date Indications Data Source(s ) Outpatient Attender: Juan Miguel Epperson MD 06/23/2021 12:00:00 A [facility] Outpatient Attender: TERRELL Orozco/Hunters/Gil/Rein dl 05/11/2021 10:00:00 AM EDT [facility] ([facility]) Outpatient Attender: Dre Curran MD 2020 10:05:00 AM EDT - 04/27/2021 10:05:00 AM EDT [facility] Office Visit Attender: Dre Curran MD Family Practice 2020 10:00:00 AM EDT [facility] ([facility] Outpatient Attender: JILL [place] veronique: Cecilia House PAConsultant: Cecilia JONES 04/22/2021 01:20:00 PM EDT - 04/22/2021 01:20 :00 PM EDT [facility] Outpatient Attender: Cecilia JONES 02/2021 11:05:00 AM EDT - 04/22/2021 11:05:00 AM EDT [facility] Outpatient Attender: Kobi Humphrey MD Main office - [facility] 04/19/2021 12:45:00 PM EDT [facility] ([facility] Outpatient Attender: CHRISTOPHER WITT DPM Family Practice 03/30/2021 0 1:30:00 PM EDT MED[facility] ([facility]) Outpatient Attender: CHRISTOPHER WITT DPMAttender: KELI BELL MD 03/30/2021 01:15:00 PM EDT - 03/30/2021 01:15:00 PM EDT [facility] Outpatient Attender: TERRELL Orozco/Soraya/Gil/Rein dl 03/24/2021 08:30:00 AM EDT [facility] ([facility] Outpatient Attender: KELI BELL MD 2020 01:47:00 PM EDT - 03/15/2021 01:47:00 PM EDT [facility] Outpatient Attender: KELI BELL MD Family Practice 03/15/2021 0 1:20:00 PM EDT MED[facility] ([facility]) Outpatient Attender: KELI BELL MD Family Practice 02/23/2021 0 1:20:00 PM EDT [facility] ([facility]) Outpatient Attender: KELI BELL MD 2020 01:06:00 PM EDT - 02/23/2021 01:06:00 PM EDT [facility] Out[place] [address] [facility] [address] 02/11/2021 12:00:00 AM EDT eCW1 ([facility]) Outpatient Attender: KELI BELL MD 2020 02:31:00 PM EDT - 01/27/2021 02:31:00 PM EDT [facility] Unknown [address] [facility] [address] 01/27/2021 12:00:00 AM EDT eCW1 ([facility]) Unknown [address] [facility] [facility] [address] 01/27/2021 12:00:00 AM EDT eCW1 ([facility]) Unknown [address] [facility] [facility] [address] 01/26/2021 12:00:00 AM EDT eCW1 ([facility]) [place] [address] [facility] [facility] [address] 01/26/2021 12:00:00 AM EDT eCW1 ([facility]) Outpatient [address] [facility] [address] 01/18/2021 12:00:00 AM EDT eCW1 ([facility]) [place] [address] [facility] [facility] [address] 01/18/2021 12:00:00 AM EDT eCW1 ([facility]) [place] [address] [facility] [facility] [address] 01/10/2021 12:00:00 AM EDT [facility] [place] [address] [facility] [address] 01/07/2021 12:00:00 AM EDT eCW1 ([facility]) Outpatient Attender: CED STEEN MD 01/04/2021 12:00: 00 PM [facility] Outpatient [address] [facility] [facility] [address] 01/03/2021 12:00:00 AM EDT eCW1 ([facility]) Unknown [address] [facility] [address] 01/03/2021 12:00:00 AM EDT eCW1 ([facility]) [place] [address] [facility] [facility] [address] 12/27/2020 12:00:00 AM EDT eCW1 ([facility]) Outpatient Attender: Juan Miguel AWADeferrer: Evangelina Salazar MD [id number] 12/23/2020 12:00:00 AM EDT - 12/23/2020 01:07:40 PM EDT Chronic kidney disease, stage 4 (severe) [facility] Chronic kidney disease, stage 4 (severe) Office Visit, Est Pt., Level 2 FC [address] [place] [address] 12/21/2020 12:00:00 AM EDT eCW1 ([facility]) Unknown [address] [facility] [address] 12/20/2020 12:00:00 AM EDT eCW1 ([facility]) Unknown [address] [facility] [address] 12/17/2020 12:00:00 AM EDT eCW1 ([facility]) Unknown [address] [facility] [place] [address] 12/17/2020 12:00:00 AM EDT eCW1 ([facility]) Unknown [address] [facility] [facility] [address] 12/15/2020 12:00:00 AM EDT eCW1 ([facility]) Unknown [address] [facility] [facility] [address] 12/07/2020 12:00:00 AM EDT eCW1 ([facility]) Unknown [address] [facility] [address] 12/07/2020 12:00:00 AM EDT eCW1 ([facility]) Unknown [address] [facility] [address] 11/23/2020 12:00:00 AM EDT eCW1 ([facility]) Outpatient Attender: Juan Miguel Epperson MD 11/16/2020 12:00:[address] [facility] Unknown [address] [facility] [facility] [address] 11/09/2020 12:00:00 AM EDT eCW1 ([facility]) Unknown [address] [facility] [facility] [address] 11/05/2020 12:00:00 AM EDT eCW1 ([facility]) Unknown [address] [facility] [address] 10/26/2020 12:00:00 AM EDT eCW1 ([facility]) Unknown [address] [facility] [address] 10/06/2020 12:00:00 AM EDT eCW1 ([facility]) Unknown [address] [facility] [address] 10/05/2020 12:00:00 AM EDT eCW1 ([facility]) Outpatient [address] [facility] [address] 09/22/2020 12:00:00 AM EST eCW1 ([facility]) Unknown [address] [facility] [address] 09/07/2020 12:00:00 AM EST eCW1 ([facility]) Unknown [address] [facility] [address] 09/07/2020 12:00:00 AM EST eCW1 ([facility]) Unknown [address] [facility] [address] 08/10/2020 12:00:00 AM EST eCW1 ([facility]) Unknown [address] [facility] [address] 08/10/2020 12:00:00 AM EST eCW1 ([facility]) Unknown [address] [facility] [address] 08/10/2020 12:00:00 AM EST eCW1 ([facility]) Unknown [address] [facility] [address] 08/10/2020 12:00:00 AM EST eCW1 ([facility]) Unknown [address] [facility] [address] 07/12/2020 12:00:00 AM EST eCW1 ([facility]) Unknown [address] [facility] [address] 07/01/2020 12:00:00 AM EST eCW1 ([facility]) Unknown [address] [facility] [address] 06/23/2020 12:00:00 AM EST eCW1 ([facility]) Outpatient [address] [facility] [address] 06/18/2020 12:00:00 AM EST eCW1 ([facility]) Unknown [address] [facility] [address] 06/08/2020 12:00:00 AM EST eCW1 ([facility]) Unknown [address] [facility] [address] 06/08/2020 12:00:00 AM EST eCW1 ([facility]) Unknown [address] [facility] [address] 05/28/2020 12:00:00 AM EST eCW1 ([facility]) Unknown [address] [facility] [address] 05/20/2020 12:00:00 AM EST eCW1 ([facility]) Unknown [address] [facility] [address] 05/11/2020 12:00:00 AM EDT eCW1 ([facility]) Out[place] [address] [facility] [address] 04/30/2020 12:00:00 AM EDT eCW1 ([facility]) Unknown [address] [facility] [address] 04/30/2020 12:00:00 AM EDT eCW1 ([facility]) Unknown [address] [facility] [address] 04/28/2020 12:00:00 AM EDT eCW1 ([facility]) Unknown [address] [facility] [address] 04/19/2020 12:00:00 AM EDT eCW1 ([facility]) Immunizations Vaccine Date Status Description Data Source(s) COVID-19 VACCINE Moderna 11/17/2020 12:00:00 AM EDT completed [facility] Vaccine Series Complete: YESThis Data wa s Submitted to [facility] Via [facility]. COVID-19 VACC,MRNA(MODERNA)/PF 11/17/2020 12:00:00 AM EDT completed [facility] COVID-19 VACCINE Moderna 10/24/2020 12:00:00 AM EDT completed [facility] Vaccine Series Complete: NOThis Data was Submitted to [facility] Via [employer]. COVID-19 VACCINE, MRNA-1273, LNP-S (MODERNA)/PF 10/24/2020 1 2:00:00 AM EDT completed [facility] Medications Medication Brand Name Start Date Product Form Dose Route Admi nistrative Instructions Pharmacy Instructions Status Indications Reaction Description Data Source(s) cefdinir 300 MG Oral Capsule Cefdinir 04/22/2021 12:00:00 AM EDT ORAL active MEDENT ([facility]) 200 ACTUAT Albuterol 0.09 MG/ACTUAT Metered Dose Inhaler [Pr oAir] Proair HFA 03/24/2021 12:00:00 AM EDT RESPIRATORY active [facility] ([facility], ) Trelegy Ellipta Trelegy Ellipta 03/24/2021 12:00:00 AM EDT ORAL active MED[facility] ([facility], ) Acetaminophen 325 MG / Hydrocodone Bharti trate 5 MG Oral Tablet HYDROcodone- Acetaminophen 5-325 MG HYDROcodone-Acetaminophen 5-325 MG 01/08/2021 12:00:00 AM EDT 1.0 {tablet_as_needed} active HYDROcodone-Acetaminophen 5-325 MG eCW1 ([facility]) Acetaminophen 325 MG / Hydrocodone Bharti trate 5 MG Oral Tablet HYDROcodone- Acetaminophen 5-325 MG HYDROcodone-Acetaminophen 5-325 MG 01/08/2021 12:00:00 AM EDT 1.0 {tablet_as_needed} active HYDROcodone-Acetaminophen 5-325 MG eCW1 ([facility]) Acetaminophen 325 MG / Hydrocodone Bharti trate 5 MG Oral Tablet HYDROcodone- Acetaminophen 5-325 MG HYDROcodone-Acetaminophen 5-325 MG 01/08/2021 12:00:00 AM EDT 1.0 {tablet_as_needed} active HYDROcodone-Acetaminophen 5-325 MG eCW1 ([facility]) Acetaminophen 325 MG / Hydrocodone Bharti trate 5 MG Oral Tablet HYDROcodone- Acetaminophen 5-325 MG HYDROcodone-Acetaminophen 5-325 MG 01/08/2021 12:00:00 AM EDT 1.0 {tablet_as_needed} active HYDROcodone-Acetaminophen 5-325 MG eCW1 ([facility]) Acetaminophen 325 MG / Hydrocodone Bharti trate 5 MG Oral Tablet HYDROcodone- Acetaminophen 5-325 MG HYDROcodone-Acetaminophen 5-325 MG 01/08/2021 12:00:00 AM EDT 1.0 {tablet_as_needed} active HYDROcodone-Acetaminophen 5-325 MG eCW1 ([facility]) Acetaminophen 325 MG / Hydrocodone Bharti trate 5 MG Oral Tablet HYDROcodone- Acetaminophen 5-325 MG HYDROcodone-Acetaminophen 5-325 MG 01/08/2021 12:00:00 AM EDT 1.0 {tablet_as_needed} active HYDROcodone-Acetaminophen 5-325 MG eCW1 ([facility]) Acetaminophen 325 MG / Hydrocodone Bharti trate 5 MG Oral Tablet HYDROcodone- Acetaminophen 5-325 MG HYDROcodone-Acetaminophen 5-325 MG 01/08/2021 12:00:00 AM EDT 1.0 {tablet_as_needed} active HYDROcodone-Acetaminophen 5-325 MG eCW1 ([facility]) Acetaminophen 325 MG / Hydrocodone Bharti trate 5 MG Oral Tablet HYDROcodone- Acetaminophen 5-325 MG HYDROcodone-Acetaminophen 5-325 MG 01/08/2021 12:00:00 AM EDT 1.0 {tablet_as_needed} active HYDROcodone-Acetaminophen 5-325 MG eCW1 ([facility]) Acetaminophen 325 MG / Hydrocodone Bharti trate 5 MG Oral Tablet HYDROcodone- Acetaminophen 5-325 MG HYDROcodone-Acetaminophen 5-325 MG 01/08/2021 12:00:00 AM EDT 1.0 {tablet_as_needed} active HYDROcodone-Acetaminophen 5-325 MG eCW1 ([facility]) Furosemide 40 MG Oral Tablet Furosemide 40 MG 01/03/2021 12:00:00 A M EDT 1.0 {tablet} active Furosemide 40 MG eCW1 ( [facility]) Furosemide 40 MG Oral Tablet Furosemide 40 MG 01/03/2021 12:00:00 A M EDT 1.0 {tablet} active Furosemide 40 MG eCW1 ( [facility]) Furosemide 40 MG Oral Tablet Furosemide 40 MG 01/03/2021 12:00:00 A M EDT 1.0 {tablet} active Furosemide 40 MG eCW1 ( [facility]) Furosemide 20 MG Oral Tablet Furosemide 20 MG 01/03/2021 12:00:00 A M EDT 1.0 {tablet} active Furosemide 20 MG eCW1 ( [facility]) Furosemide 40 MG Oral Tablet Furosemide 40 MG 01/03/2021 12:00:00 A M EDT 1.0 {tablet} active Furosemide 40 MG eCW1 ( [facility]) Furosemide 40 MG Oral Tablet Furosemide 40 MG 01/03/2021 12:00:00 A M EDT 1.0 {tablet} active Furosemide 40 MG eCW1 ( [facility]) Furosemide 40 MG Oral Tablet Furosemide 40 MG 01/03/2021 12:00:00 A M EDT 1.0 {tablet} active Furosemide 40 MG eCW1 ( [facility]) Furosemide 20 MG Oral Tablet Furosemide 20 MG 01/03/2021 12:00:00 A M EDT 1.0 {tablet} active Furosemide 20 MG eCW1 ( [facility]) Furosemide 20 MG Oral Tablet Furosemide 20 MG 01/03/2021 12:00:00 A M EDT 1.0 {tablet} active Furosemide 20 MG eCW1 ( [facility]) Furosemide 20 MG Oral Tablet Furosemide 20 MG 01/03/2021 12:00:00 A M EDT 1.0 {tablet} active Furosemide 20 MG eCW1 ( [facility]) Furosemide 20 MG Oral Tablet Furosemide 20 MG 01/03/2021 12:00:00 A M EDT 1.0 {tablet} active Furosemide 20 MG eCW1 ( [facility]) Furosemide 40 MG Oral Tablet Furosemide 40 MG 01/03/2021 12:00:00 A M EDT 1.0 {tablet} active Furosemide 40 MG eCW1 ( [facility]) Losartan Potassium 25 MG Oral Tablet Los manny Potassium 25 MG Oral Tablet (Cozaar) Losartan Potassium 25 MG Oral Tablet (Cozaar) 12/24/19 12:00:00 AM EDT 25 mg Oral active Take 1 tablet by mouth daily [facility] Hydralazine Hydrochloride 50 MG Oral Tab let hydrALAZINE HCl 50 MG Oral Tablet (APRESOLINE) hydrALAZINE HCl 50 MG Oral Tablet (APRESOLINE) 021 12:00:00 AM EDT 50 mg Oral active Take 50 mg by joey th Three times daily [facility] Aspirin 325 MG Delayed Release Oral Tabl et Aspirin EC 325 MG Oral Tablet Delayed Release Aspirin EC 325 MG Oral Tablet Delayed Release 12/18/19 12:00:00 AM EDT 325 mg Oral active Take 325 mg by [facility] daily [facility] Aspirin 325 MG Oral Tablet Aspirin 325 MG 12/16/2020 12:00:00 AM ED T 1.0 {tablet} active Aspirin 325 MG eCW1 ([facility]) Aspirin 325 MG Oral Tablet Aspirin 325 MG 12/16/2020 12:00:00 AM ED T 1.0 {tablet} active Aspirin 325 MG eCW1 ([facility]) Aspirin 325 MG Oral Tablet Aspirin 325 MG 12/16/2020 12:00:00 AM ED T 1.0 {tablet} active Aspirin 325 MG eCW1 ([facility]) Aspirin 325 MG Oral Tablet Aspirin 325 MG 12/16/2020 12:00:00 AM ED T 1.0 {tablet} active Aspirin 325 MG eCW1 ([facility]) Aspirin 325 MG Oral Tablet Aspirin 325 MG 12/16/2020 12:00:00 AM ED T 1.0 {tablet} active Aspirin 325 MG eCW1 ([facility]) Hydralazine Hydrochloride 50 MG Oral Tablet HydrALAZIN E HCl 50 MG HydrALAZINE HCl 50 MG 12/16/2020 12:00:00 AM EDT 1.0 {tablet_with_food} active HydrALAZINE HCl 50 MG eCW1 ([facility]) Aspirin 325 MG Oral Tablet Aspirin 325 MG 12/16/2020 12:00:00 AM ED T 1.0 {tablet} active Aspirin 325 MG eCW1 ([facility]) Hydralazine Hydrochloride 50 MG Oral Tablet hydrALAZIN E HCl 50 MG hydrALAZINE HCl 50 MG 12/16/2020 12:00:00 AM EDT 1.0 {tablet_with_food} active hydrALAZINE HCl 50 MG eCW1 ([facility]) Aspirin 325 MG Oral Tablet Aspirin 325 MG 12/16/2020 12:00:00 AM ED T 1.0 {tablet} active Aspirin 325 MG eCW1 ([facility]) Aspirin 325 MG Oral Tablet Aspirin 325 MG 12/16/2020 12:00:00 AM ED T 1.0 {tablet} active Aspirin 325 MG eCW1 ([facility]) Aspirin 325 MG Oral Tablet Aspirin 325 MG 12/16/2020 12:00:00 AM ED T 1.0 {tablet} active Aspirin 325 MG eCW1 ([facility]) Aspirin 325 MG Oral Tablet Aspirin 325 MG 12/16/2020 12:00:00 AM ED T 1.0 {tablet} active Aspirin 325 MG eCW1 ([facility]) Aspirin 325 MG Oral Tablet Aspirin 325 MG 12/16/2020 12:00:00 AM ED T 1.0 {tablet} active Aspirin 325 MG eCW1 ([facility]) Aspirin 325 MG Oral Tablet Aspirin 325 MG 12/16/2020 12:00:00 AM ED T 1.0 {tablet} active Aspirin 325 MG eCW1 ([facility]) Aspirin 325 MG Oral Tablet Aspirin 325 MG 12/16/2020 12:00:00 AM ED T 1.0 {tablet} active Aspirin 325 MG eCW1 ([facility]) Aspirin 325 MG Oral Tablet Aspirin 325 MG 12/16/2020 12:00:00 AM ED T 1.0 {tablet} active Aspirin 325 MG eCW1 ([facility]) Hydralazine Hydrochloride 50 MG Oral Tablet hydrALAZIN E HCl 50 MG hydrALAZINE HCl 50 MG 12/16/2020 12:00:00 AM EDT 1.0 {tablet_with_food} active hydrALAZINE HCl 50 MG eCW1 ([facility]) Aspirin 325 MG Oral Tablet Aspirin 325 MG 12/16/2020 12:00:00 AM ED T 1.0 {tablet} active Aspirin 325 MG eCW1 ([facility]) Glyburide 1.25 MG Oral Tablet glyBURIDE 1.25 MG Oral T ablet (DIABETA) glyBURIDE 1.25 MG Oral Tablet (DIABETA) 11/10/2020 12:00:00 AM EDT active TAKE 1 TABLET BY MOUTH ONCE DAILY WITH BREAKFAST OR THE FIRST MAIN MEAL OF THE DAY [facility] Acetaminophen 325 MG / Hydrocodone Bharti trate 5 MG Oral Tablet Hydrocodone- Acetaminophen 5-325 MG Hydrocodone-Acetaminophen 5-325 MG 11/05/2020 12:00:00 AM EDT 1.0 {tablet_as_needed} active Hydrocodone-Acetaminophen 5-325 MG eCW1 ([facility]) Acetaminophen 325 MG / Hydrocodone Bharti trate 5 MG Oral Tablet Hydrocodone- Acetaminophen 5-325 MG Hydrocodone-Acetaminophen 5-325 MG 11/05/2020 12:00:00 AM EDT 1.0 {tablet_as_needed} active Hydrocodone-Acetaminophen 5-325 MG eCW1 ([facility]) Acetaminophen 325 MG / Hydrocodone Bharti trate 5 MG Oral Tablet HYDROcodone- Acetaminophen 5-325 MG HYDROcodone-Acetaminophen 5-325 MG 11/05/2020 12:00:00 AM EDT 1.0 {tablet_as_needed} suspended HYDROcodone-Acetaminophen 5- 325 MG eCW1 ([facility]) Acetaminophen 325 MG / Hydrocodone Bharti trate 5 MG Oral Tablet HYDROcodone- Acetaminophen 5-325 MG HYDROcodone-Acetaminophen 5-325 MG 11/05/2020 12:00:00 AM EDT 1.0 {tablet_as_needed} suspended HYDROcodone-Acetaminophen 5- 325 MG eCW1 ([facility]) Acetaminophen 325 MG / Hydrocodone Bharti trate 5 MG Oral Tablet Hydrocodone- Acetaminophen 5-325 MG Hydrocodone-Acetaminophen 5-325 MG 11/05/2020 12:00:00 AM EDT 1.0 {tablet_as_needed} suspended Hydrocodone-Acetaminophen 5- 325 MG eCW1 ([facility]) Acetaminophen 325 MG / Hydrocodone Bharti trate 5 MG Oral Tablet HYDROcodone- Acetaminophen 5-325 MG HYDROcodone-Acetaminophen 5-325 MG 11/05/2020 12:00:00 AM EDT 1.0 {tablet_as_needed} suspended HYDROcodone-Acetaminophen 5- 325 MG eCW1 ([facility]) Acetaminophen 325 MG / Hydrocodone Bharti trate 5 MG Oral Tablet HYDROcodone- Acetaminophen 5-325 MG HYDROcodone-Acetaminophen 5-325 MG 11/05/2020 12:00:00 AM EDT 1.0 {tablet_as_needed} suspended HYDROcodone-Acetaminophen 5- 325 MG eCW1 ([facility]) Acetaminophen 325 MG / Hydrocodone Bharti trate 5 MG Oral Tablet Hydrocodone- Acetaminophen 5-325 MG Hydrocodone-Acetaminophen 5-325 MG 11/05/2020 12:00:00 AM EDT 1.0 {tablet_as_needed} active Hydrocodone-Acetaminophen 5-325 MG eCW1 ([facility]) Acetaminophen 325 MG / Hydrocodone Bharti trate 5 MG Oral Tablet HYDROcodone- Acetaminophen 5-325 MG HYDROcodone-Acetaminophen 5-325 MG 11/05/2020 12:00:00 AM EDT 1.0 {tablet_as_needed} suspended HYDROcodone-Acetaminophen 5- 325 MG eCW1 ([facility]) Acetaminophen 325 MG / Hydrocodone Bharti trate 5 MG Oral Tablet HYDROcodone- Acetaminophen 5-325 MG HYDROcodone-Acetaminophen 5-325 MG 11/05/2020 12:00:00 AM EDT 1.0 {tablet_as_needed} suspended HYDROcodone-Acetaminophen 5- 325 MG eCW1 ([facility]) Acetaminophen 325 MG / Hydrocodone Bharti trate 5 MG Oral Tablet HYDROcodone- Acetaminophen 5-325 MG HYDROcodone-Acetaminophen 5-325 MG 11/05/2020 12:00:00 AM EDT 1.0 {tablet_as_needed} suspended HYDROcodone-Acetaminophen 5- 325 MG eCW1 ([facility]) Acetaminophen 325 MG / Hydrocodone Bharti trate 5 MG Oral Tablet Hydrocodone- Acetaminophen 5-325 MG Hydrocodone-Acetaminophen 5-325 MG 11/05/2020 12:00:00 AM EDT 1.0 {tablet_as_needed} active Hydrocodone-Acetaminophen 5-325 MG eCW1 ([facility]) Acetaminophen 325 MG / Hydrocodone Bharti trate 5 MG Oral Tablet HYDROcodone- Acetaminophen 5-325 MG HYDROcodone-Acetaminophen 5-325 MG 11/05/2020 12:00:00 AM EDT 1.0 {tablet_as_needed} suspended HYDROcodone-Acetaminophen 5- 325 MG eCW1 ([facility]) Acetaminophen 325 MG / Hydrocodone Bharti trate 5 MG Oral Tablet HYDROcodone- Acetaminophen 5-325 MG HYDROcodone-Acetaminophen 5-325 MG 11/05/2020 12:00:00 AM EDT 1.0 {tablet_as_needed} suspended HYDROcodone-Acetaminophen 5- 325 MG eCW1 ([facility]) Acetaminophen 325 MG / Hydrocodone Bharti trate 5 MG Oral Tablet HYDROcodone- Acetaminophen 5-325 MG HYDROcodone-Acetaminophen 5-325 MG 11/05/2020 12:00:00 AM EDT 1.0 {tablet_as_needed} suspended HYDROcodone-Acetaminophen 5- 325 MG eCW1 ([facility]) Acetaminophen 325 MG / Hydrocodone Bharti trate 5 MG Oral Tablet Hydrocodone- Acetaminophen 5-325 MG Hydrocodone-Acetaminophen 5-325 MG 11/05/2020 12:00:00 AM EDT 1.0 {tablet_as_needed} active Hydrocodone-Acetaminophen 5-325 MG eCW1 ([facility]) Acetaminophen 325 MG / Hydrocodone Bharti trate 5 MG Oral Tablet HYDROcodone- Acetaminophen 5-325 MG HYDROcodone-Acetaminophen 5-325 MG 11/05/2020 12:00:00 AM EDT 1.0 {tablet_as_needed} suspended HYDROcodone-Acetaminophen 5- 325 MG eCW1 ([facility]) Acetaminophen 325 MG / Hydrocodone Bharti trate 5 MG Oral Tablet Hydrocodone- Acetaminophen 5-325 MG Hydrocodone-Acetaminophen 5-325 MG 11/05/2020 12:00:00 AM EDT 1.0 {tablet_as_needed} active Hydrocodone-Acetaminophen 5-325 MG eCW1 ([facility]) Acetaminophen 325 MG / Hydrocodone Bharti trate 5 MG Oral Tablet Hydrocodone- Acetaminophen 5-325 MG Hydrocodone-Acetaminophen 5-325 MG 11/05/2020 12:00:00 AM EDT 1.0 {tablet_as_needed} active Hydrocodone-Acetaminophen 5-325 MG eCW1 ([facility]) Acetaminophen 325 MG / Hydrocodone Bharti trate 5 MG Oral Tablet HYDROcodone- Acetaminophen 5-325 MG HYDROcodone-Acetaminophen 5-325 MG 11/05/2020 12:00:00 AM EDT 1.0 {tablet_as_needed} suspended HYDROcodone-Acetaminophen 5- 325 MG eCW1 ([facility]) Acetaminophen 325 MG / Hydrocodone Bharti trate 5 MG Oral Tablet HYDROcodone- Acetaminophen 5-325 MG HYDROcodone-Acetaminophen 5-325 MG 11/05/2020 12:00:00 AM EDT 1.0 {tablet_as_needed} suspended HYDROcodone-Acetaminophen 5- 325 MG eCW1 ([facility]) Acetaminophen 325 MG / Hydrocodone Bharti trate 5 MG Oral Tablet HYDROcodone- Acetaminophen 5-325 MG HYDROcodone-Acetaminophen 5-325 MG 11/05/2020 12:00:00 AM EDT 1.0 {tablet_as_needed} suspended HYDROcodone-Acetaminophen 5- 325 MG eCW1 ([facility]) Acetaminophen 325 MG / Hydrocodone Bharti trate 5 MG Oral Tablet Hydrocodone- Acetaminophen 5-325 MG Hydrocodone-Acetaminophen 5-325 MG 10/06/2020 12:00:00 AM EDT 1.0 {tablet_as_needed} active Hydrocodone-Acetaminophen 5-325 MG eCW1 ([facility]) Acetaminophen 325 MG / Hydrocodone Bharti trate 5 MG Oral Tablet Hydrocodone- Acetaminophen 5-325 MG Hydrocodone-Acetaminophen 5-325 MG 10/06/2020 12:00:00 AM EDT 1.0 {tablet_as_needed} active Hydrocodone-Acetaminophen 5-325 MG eCW1 ([facility]) [place] 5-325 MG UNK 10/05/2020 12:00:00 AM EDT 1.0 {tablet_as _needed} active [place] 5-325 MG eCW1 ([facility]) Glyburide 1.25 MG Oral Tablet GlyBURIDE 1.25 MG GlyBURIDE 1. 25 MG 08/10/2020 12:00:00 AM EST 1.0 {tablet_with_breakfast_or_the_first_ main_meal_of_the_day} active GlyBURIDE 1.25 MG eC W1 ([facility]) Glyburide 1.25 MG Oral Tablet glyBURIDE 1.25 MG glyBURIDE 1. 25 MG 08/10/2020 12:00:00 AM EST 1.0 {tablet_with_breakfast_or_the_first_ main_meal_of_the_day} active glyBURIDE 1.25 MG eC W1 ([facility]) Glyburide 1.25 MG Oral Tablet glyBURIDE 1.25 MG glyBURIDE 1. 25 MG 08/10/2020 12:00:00 AM EST 1.0 {tablet_with_breakfast_or_the_first_ main_meal_of_the_day} active glyBURIDE 1.25 MG eC W1 ([facility]) Glyburide 1.25 MG Oral Tablet glyBURIDE 1.25 MG glyBURIDE 1. 25 MG 08/10/2020 12:00:00 AM EST 1.0 {tablet_with_breakfast_or_the_first_ main_meal_of_the_day} active glyBURIDE 1.25 MG eC W1 ([facility]) Glyburide 1.25 MG Oral Tablet glyBURIDE 1.25 MG glyBURIDE 1. 25 MG 08/10/2020 12:00:00 AM EST 1.0 {tablet_with_breakfast_or_the_first_ main_meal_of_the_day} active glyBURIDE 1.25 MG eC W1 ([facility]) Glyburide 1.25 MG Oral Tablet glyBURIDE 1.25 MG glyBURIDE 1. 25 MG 08/10/2020 12:00:00 AM EST 1.0 {tablet_with_breakfast_or_the_first_ main_meal_of_the_day} active glyBURIDE 1.25 MG eC W1 ([facility]) Glyburide 1.25 MG Oral Tablet GlyBURIDE 1.25 MG GlyBURIDE 1. 25 MG 08/10/2020 12:00:00 AM EST 1.0 {tablet_with_breakfast_or_the_first_ main_meal_of_the_day} active GlyBURIDE 1.25 MG eC W1 ([facility]) Glyburide 1.25 MG Oral Tablet GlyBURIDE 1.25 MG GlyBURIDE 1. 25 MG 08/10/2020 12:00:00 AM EST 1.0 {tablet_with_breakfast_or_the_first_ main_meal_of_the_day} active GlyBURIDE 1.25 MG eC W1 ([facility]) Glyburide 1.25 MG Oral Tablet glyBURIDE 1.25 MG glyBURIDE 1. 25 MG 08/10/2020 12:00:00 AM EST 1.0 {tablet_with_breakfast_or_the_first_ main_meal_of_the_day} active glyBURIDE 1.25 MG eC W1 ([facility]) Glyburide 1.25 MG Oral Tablet GlyBURIDE 1.25 MG GlyBURIDE 1. 25 MG 08/10/2020 12:00:00 AM EST 1.0 {tablet_with_breakfast_or_the_first_ main_meal_of_the_day} active GlyBURIDE 1.25 MG eC W1 ([facility]) Glyburide 1.25 MG Oral Tablet glyBURIDE 1.25 MG glyBURIDE 1. 25 MG 08/10/2020 12:00:00 AM EST 1.0 {tablet_with_breakfast_or_the_first_ main_meal_of_the_day} active glyBURIDE 1.25 MG eC W1 ([facility]) Glyburide 1.25 MG Oral Tablet GlyBURIDE 1.25 MG GlyBURIDE 1. 25 MG 08/10/2020 12:00:00 AM EST 1.0 {tablet_with_breakfast_or_the_first_ main_meal_of_the_day} active GlyBURIDE 1.25 MG eC W1 ([facility]) Acetaminophen 325 MG / Hydrocodone Bharti trate 5 MG Oral Tablet Hydrocodone- Acetaminophen 5-325 MG Hydrocodone-Acetaminophen 5-325 MG 08/10/2020 12:00:00 AM EST 1.0 {tablet_as_needed} active Hydrocodone-Acetaminophen 5-325 MG eCW1 ([facility]) Acetaminophen 325 MG / Hydrocodone Bharti trate 5 MG Oral Tablet Hydrocodone- Acetaminophen 5-325 MG Hydrocodone-Acetaminophen 5-325 MG 08/10/2020 12:00:00 AM EST 1.0 {tablet_as_needed} active Hydrocodone-Acetaminophen 5-325 MG eCW1 ([facility]) Glyburide 1.25 MG Oral Tablet GlyBURIDE 1.25 MG GlyBURIDE 1. 25 MG 08/10/2020 12:00:00 AM EST 1.0 {tablet_with_breakfast_or_the_first_ main_meal_of_the_day} active GlyBURIDE 1.25 MG eC W1 ([facility]) Glyburide 1.25 MG Oral Tablet GlyBURIDE 1.25 MG GlyBURIDE 1. 25 MG 08/10/2020 12:00:00 AM EST 1.0 {tablet_with_breakfast_or_the_first_ main_meal_of_the_day} active GlyBURIDE 1.25 MG eC W1 ([facility]) Glyburide 1.25 MG Oral Tablet glyBURIDE 1.25 MG glyBURIDE 1. 25 MG 08/10/2020 12:00:00 AM EST 1.0 {tablet_with_breakfast_or_the_first_ main_meal_of_the_day} active glyBURIDE 1.25 MG eC W1 ([facility]) Glyburide 1.25 MG Oral Tablet GlyBURIDE 1.25 MG GlyBURIDE 1. 25 MG 08/10/2020 12:00:00 AM EST 1.0 {tablet_with_breakfast_or_the_first_ main_meal_of_the_day} active GlyBURIDE 1.25 MG eC W1 ([facility]) Acetaminophen 325 MG / Hydrocodone Bharti trate 5 MG Oral Tablet Hydrocodone- Acetaminophen 5-325 MG Hydrocodone-Acetaminophen 5-325 MG 08/10/2020 12:00:00 AM EST 1.0 {tablet_as_needed} active Hydrocodone-Acetaminophen 5-325 MG eCW1 ([facility]) Glyburide 1.25 MG Oral Tablet GlyBURIDE 1.25 MG GlyBURIDE 1. 25 MG 08/10/2020 12:00:00 AM EST 1.0 {tablet_with_breakfast_or_the_first_ main_meal_of_the_day} active GlyBURIDE 1.25 MG eC W1 ([facility]) Glyburide 1.25 MG Oral Tablet GlyBURIDE 1.25 MG GlyBURIDE 1. 25 MG 08/10/2020 12:00:00 AM EST 1.0 {tablet_with_breakfast_or_the_first_ main_meal_of_the_day} active GlyBURIDE 1.25 MG eC W1 ([facility]) Glyburide 1.25 MG Oral Tablet GlyBURIDE 1.25 MG GlyBURIDE 1. 25 MG 08/10/2020 12:00:00 AM EST 1.0 {tablet_with_breakfast_or_the_first_ main_meal_of_the_day} active GlyBURIDE 1.25 MG eC W1 ([facility]) Glyburide 1.25 MG Oral Tablet GlyBURIDE 1.25 MG GlyBURIDE 1. 25 MG 08/10/2020 12:00:00 AM EST 1.0 {tablet_with_breakfast_or_the_first_ main_meal_of_the_day} active GlyBURIDE 1.25 MG eC W1 ([facility]) Acetaminophen 325 MG / Hydrocodone Bharti trate 5 MG Oral Tablet Hydrocodone- Acetaminophen 5-325 MG Hydrocodone-Acetaminophen 5-325 MG 08/10/2020 12:00:00 AM EST 1.0 {tablet_as_needed} active Hydrocodone-Acetaminophen 5-325 MG eCW1 ([facility]) Glyburide 1.25 MG Oral Tablet glyBURIDE 1.25 MG glyBURIDE 1. 25 MG 08/10/2020 12:00:00 AM EST 1.0 {tablet_with_breakfast_or_the_first_ main_meal_of_the_day} active glyBURIDE 1.25 MG eC W1 ([facility]) Glyburide 1.25 MG Oral Tablet GlyBURIDE 1.25 MG GlyBURIDE 1. 25 MG 08/10/2020 12:00:00 AM EST 1.0 {tablet_with_breakfast_or_the_first_ main_meal_of_the_day} active GlyBURIDE 1.25 MG eC W1 ([facility]) Glyburide 1.25 MG Oral Tablet GlyBURIDE 1.25 MG GlyBURIDE 1. 25 MG 08/10/2020 12:00:00 AM EST 1.0 {tablet_with_breakfast_or_the_first_ main_meal_of_the_day} active GlyBURIDE 1.25 MG eC W1 ([facility]) Acetaminophen 325 MG / Hydrocodone Bharti trate 5 MG Oral Tablet Hydrocodone- Acetaminophen 5-325 MG Hydrocodone-Acetaminophen 5-325 MG 08/10/2020 12:00:00 AM EST 1.0 {tablet_as_needed} active Hydrocodone-Acetaminophen 5-325 MG eCW1 ([facility]) Acetaminophen 325 MG / Hydrocodone Bharti trate 5 MG Oral Tablet Hydrocodone- Acetaminophen 5-325 MG Hydrocodone-Acetaminophen 5-325 MG 08/10/2020 12:00:00 AM EST 1.0 {tablet_as_needed} active Hydrocodone-Acetaminophen 5-325 MG eCW1 ([facility]) Glyburide 1.25 MG Oral Tablet GlyBURIDE 1.25 MG GlyBURIDE 1. 25 MG 08/10/2020 12:00:00 AM EST 1.0 {tablet_with_breakfast_or_the_first_ main_meal_of_the_day} active GlyBURIDE 1.25 MG eC W1 ([facility]) Glyburide 1.25 MG Oral Tablet GlyBURIDE 1.25 MG GlyBURIDE 1. 25 MG 08/10/2020 12:00:00 AM EST 1.0 {tablet_with_breakfast_or_the_first_ main_meal_of_the_day} active GlyBURIDE 1.25 MG eC W1 ([facility]) Glyburide 1.25 MG Oral Tablet glyBURIDE 1.25 MG glyBURIDE 1. 25 MG 08/10/2020 12:00:00 AM EST 1.0 {tablet_with_breakfast_or_the_first_ main_meal_of_the_day} active glyBURIDE 1.25 MG eC W1 ([facility]) Glyburide 1.25 MG Oral Tablet glyBURIDE 1.25 MG glyBURIDE 1. 25 MG 08/10/2020 12:00:00 AM EST 1.0 {tablet_with_breakfast_or_the_first_ main_meal_of_the_day} active glyBURIDE 1.25 MG eC W1 ([facility]) Acetaminophen 325 MG / Hydrocodone Bharti trate 5 MG Oral Tablet Hydrocodone- Acetaminophen 5-325 MG Hydrocodone-Acetaminophen 5-325 MG 08/10/2020 12:00:00 AM EST 1.0 {tablet_as_needed} active Hydrocodone-Acetaminophen 5-325 MG eCW1 ([facility]) Glyburide 1.25 MG Oral Tablet glyBURIDE 1.25 MG glyBURIDE 1. 25 MG 08/10/2020 12:00:00 AM EST 1.0 {tablet_with_breakfast_or_the_first_ main_meal_of_the_day} active glyBURIDE 1.25 MG eC W1 ([facility]) Glyburide 1.25 MG Oral Tablet glyBURIDE 1.25 MG glyBURIDE 1. 25 MG 08/10/2020 12:00:00 AM EST 1.0 {tablet_with_breakfast_or_the_first_ main_meal_of_the_day} active glyBURIDE 1.25 MG eC W1 ([facility]) Glyburide 1.25 MG Oral Tablet GlyBURIDE 1.25 MG GlyBURIDE 1. 25 MG 08/10/2020 12:00:00 AM EST 1.0 {tablet_with_breakfast_or_the_first_ main_meal_of_the_day} active GlyBURIDE 1.25 MG eC W1 ([facility]) Glyburide 1.25 MG Oral Tablet GlyBURIDE 1.25 MG GlyBURIDE 1. 25 MG 08/10/2020 12:00:00 AM EST 1.0 {tablet_with_breakfast_or_the_first_ main_meal_of_the_day} active GlyBURIDE 1.25 MG eC W1 ([facility]) Glyburide 1.25 MG Oral Tablet GlyBURIDE 1.25 MG GlyBURIDE 1. 25 MG 08/10/2020 12:00:00 AM EST 1.0 {tablet_with_breakfast_or_the_first_ main_meal_of_the_day} active GlyBURIDE 1.25 MG eC W1 ([facility]) Glyburide 1.25 MG Oral Tablet glyBURIDE 1.25 MG glyBURIDE 1. 25 MG 08/10/2020 12:00:00 AM EST 1.0 {tablet_with_breakfast_or_the_first_ main_meal_of_the_day} active glyBURIDE 1.25 MG eC W1 ([facility]) Acetaminophen 325 MG / Hydrocodone Bharti trate 5 MG Oral Tablet [[place]] [place] 5- 325 MG [place] 5-325 MG 07/12/2020 12:00:00 AM EST 1.0 {tablet_as_needed} active [place] 5-325 MG eCW1 ([facility]) Acetaminophen 325 MG / Hydrocodone Bharti trate 5 MG Oral Tablet [[place]] [place] 5- 325 MG [place] 5-325 MG 07/12/2020 12:00:00 AM EST 1.0 {tablet_as_needed} active [place] 5-325 MG eCW1 ([facility]) [place] 5-325 MG UNK 07/12/2020 12:00:00 AM EST 1.0 {tablet_as _needed} active [place] 5-325 MG eCW1 ([facility]) [place] 5-325 MG UNK 07/12/2020 12:00:00 AM EST 1.0 {tablet_as _needed} active [place] 5-325 MG eCW1 ([facility]) Acetaminophen 325 MG / Hydrocodone Bharti trate 5 MG Oral Tablet [[place]] [place] 5- 325 MG [place] 5-325 MG 07/12/2020 12:00:00 AM EST 1.0 {tablet_as_needed} active [place] 5-325 MG eCW1 ([facility]) Acetaminophen 325 MG / Hydrocodone Bharti trate 5 MG Oral Tablet [[place]] [place] 5- 325 MG [place] 5-325 MG 07/12/2020 12:00:00 AM EST 1.0 {tablet_as_needed} active [place] 5-325 MG eCW1 ([facility]) [place] 5-325 MG UNK 07/12/2020 12:00:00 AM EST 1.0 {tablet_as _needed} active [place] 5-325 MG eCW1 ([facility]) [place] 5-325 MG UNK 07/12/2020 12:00:00 AM EST 1.0 {tablet_as _needed} active [place] 5-325 MG eCW1 ([facility]) Acetaminophen 325 MG / Hydrocodone Bharti trate 5 MG Oral Tablet [[place]] [place] 5- 325 MG [place] 5-325 MG 07/12/2020 12:00:00 AM EST 1.0 {tablet_as_needed} active [place] 5-325 MG eCW1 ([facility]) Sitagliptin Phosphate 25 MG UNK 07/01/2020 12:00:00 AM EST active Sitagliptin Phosphate 25 MG eCW1 ([facility]) Sitagliptin Phosphate 25 MG UNK 07/01/2020 12:00:00 AM EST active Sitagliptin Phosphate 25 MG eCW1 ([facility]) Sitagliptin Phosphate 25 MG UNK 07/01/2020 12:00:00 AM EST active Sitagliptin Phosphate 25 MG eCW1 ([facility]) SITagliptin Phosphate 25 MG UNK 07/01/2020 12:00:00 AM EST suspended SITagliptin Phosphate 25 MG eCW1 ([facility]) Sitagliptin Phosphate 25 MG UNK 07/01/2020 12:00:00 AM EST active Sitagliptin Phosphate 25 MG eCW1 ([facility]) SITagliptin Phosphate 25 MG UNK 07/01/2020 12:00:00 AM EST suspended SITagliptin Phosphate 25 MG eCW1 ([facility]) SITagliptin Phosphate 25 MG UNK 07/01/2020 12:00:00 AM EST suspended SITagliptin Phosphate 25 MG eCW1 ([facility]) Sitagliptin Phosphate 25 MG UNK 07/01/2020 12:00:00 AM EST active Sitagliptin Phosphate 25 MG eCW1 ([facility]) Sitagliptin Phosphate 25 MG UNK 07/01/2020 12:00:00 AM EST active Sitagliptin Phosphate 25 MG eCW1 ([facility]) Sitagliptin Phosphate 25 MG UNK 07/01/2020 12:00:00 AM EST active Sitagliptin Phosphate 25 MG eCW1 ([facility]) Sitagliptin Phosphate 25 MG UNK 07/01/2020 12:00:00 AM EST active Sitagliptin Phosphate 25 MG eCW1 ([facility]) SITagliptin Phosphate 25 MG UNK 07/01/2020 12:00:00 AM EST suspended SITagliptin Phosphate 25 MG eCW1 ([facility]) SITagliptin Phosphate 25 MG UNK 07/01/2020 12:00:00 AM EST active SITagliptin Phosphate 25 MG eCW1 ([facility]) Sitagliptin Phosphate 25 MG UNK 07/01/2020 12:00:00 AM EST active Sitagliptin Phosphate 25 MG eCW1 ([facility]) Sitagliptin Phosphate 25 MG UNK 07/01/2020 12:00:00 AM EST active Sitagliptin Phosphate 25 MG eCW1 ([facility]) Sitagliptin Phosphate 25 MG UNK 07/01/2020 12:00:00 AM EST active Sitagliptin Phosphate 25 MG eCW1 ([facility]) Sitagliptin Phosphate 25 MG UNK 07/01/2020 12:00:00 AM EST active Sitagliptin Phosphate 25 MG eCW1 ([facility]) Sitagliptin Phosphate 25 MG UNK 07/01/2020 12:00:00 AM EST active Sitagliptin Phosphate 25 MG eCW1 ([facility]) Sitagliptin Phosphate 25 MG UNK 07/01/2020 12:00:00 AM EST active Sitagliptin Phosphate 25 MG eCW1 ([facility]) SITagliptin Phosphate 25 MG UNK 07/01/2020 12:00:00 AM EST suspended SITagliptin Phosphate 25 MG eCW1 ([facility]) SITagliptin Phosphate 25 MG UNK 07/01/2020 12:00:00 AM EST suspended SITagliptin Phosphate 25 MG eCW1 ([facility]) SITagliptin Phosphate 25 MG UNK 07/01/2020 12:00:00 AM EST suspended SITagliptin Phosphate 25 MG eCW1 ([facility]) SITagliptin Phosphate 25 MG UNK 07/01/2020 12:00:00 AM EST suspended SITagliptin Phosphate 25 MG eCW1 ([facility]) SITagliptin Phosphate 25 MG UNK 07/01/2020 12:00:00 AM EST suspended SITagliptin Phosphate 25 MG eCW1 ([facility]) Sitagliptin Phosphate 25 MG UNK 07/01/2020 12:00:00 AM EST active Sitagliptin Phosphate 25 MG eCW1 ([facility]) Sitagliptin Phosphate 25 MG UNK 07/01/2020 12:00:00 AM EST active Sitagliptin Phosphate 25 MG eCW1 ([facility]) SITagliptin Phosphate 25 MG UNK 07/01/2020 12:00:00 AM EST suspended SITagliptin Phosphate 25 MG eCW1 ([facility]) SITagliptin Phosphate 25 MG UNK 07/01/2020 12:00:00 AM EST suspended SITagliptin Phosphate 25 MG eCW1 ([facility]) Sitagliptin Phosphate 25 MG UNK 07/01/2020 12:00:00 AM EST active Sitagliptin Phosphate 25 MG eCW1 ([facility]) Sitagliptin Phosphate 25 MG UNK 07/01/2020 12:00:00 AM EST active Sitagliptin Phosphate 25 MG eCW1 ([facility]) Sitagliptin Phosphate 25 MG UNK 07/01/2020 12:00:00 AM EST active Sitagliptin Phosphate 25 MG eCW1 ([facility]) Sitagliptin Phosphate 25 MG UNK 07/01/2020 12:00:00 AM EST active Sitagliptin Phosphate 25 MG eCW1 ([facility]) SITagliptin Phosphate 25 MG UNK 07/01/2020 12:00:00 AM EST suspended SITagliptin Phosphate 25 MG eCW1 ([facility]) Sitagliptin Phosphate 25 MG UNK 07/01/2020 12:00:00 AM EST active Sitagliptin Phosphate 25 MG eCW1 ([facility]) SITagliptin Phosphate 25 MG UNK 07/01/2020 12:00:00 AM EST suspended SITagliptin Phosphate 25 MG eCW1 ([facility]) Acetaminophen 325 MG / Hydrocodone Bharti trate 5 MG Oral Tablet [[place]] [place] 5- 325 MG [place] 5-325 MG 06/09/2020 12:00:00 AM EST 1.0 {tablet_as_needed} active [place] 5-325 MG eCW1 ([facility]) Acetaminophen 325 MG / Hydrocodone Bharti trate 5 MG Oral Tablet [[place]] [place] 5- 325 MG [place] 5-325 MG 06/09/2020 12:00:00 AM EST 1.0 {tablet_as_needed} active [place] 5-325 MG eCW1 ([facility]) Acetaminophen 325 MG / Hydrocodone Bharti trate 5 MG Oral Tablet [[place]] [place] 5- 325 MG [place] 5-325 MG 06/09/2020 12:00:00 AM EST 1.0 {tablet_as_needed} active [place] 5-325 MG eCW1 ([facility]) Acetaminophen 325 MG / Hydrocodone Bharti trate 5 MG Oral Tablet [[place]] [place] 5- 325 MG [place] 5-325 MG 06/09/2020 12:00:00 AM EST 1.0 {tablet_as_needed} active [place] 5-325 MG eCW1 ([facility]) Acetaminophen 325 MG / Hydrocodone Bharti trate 5 MG Oral Tablet [[place]] [place] 5- 325 MG [place] 5-325 MG 05/11/2020 12:00:00 AM EDT 1.0 {tablet_as_needed} active [place] 5-325 MG eCW1 ([facility]) Acetaminophen 325 MG / Hydrocodone Bharti trate 5 MG Oral Tablet [[place]] [place] 5- 325 MG [place] 5-325 MG 05/11/2020 12:00:00 AM EDT 1.0 {tablet_as_needed} active [place] 5-325 MG eCW1 ([facility]) Acetaminophen 325 MG / Hydrocodone Bharti trate 5 MG Oral Tablet [[place]] [place] 5- 325 MG [place] 5-325 MG 05/11/2020 12:00:00 AM EDT 1.0 {tablet_as_needed} active [place] 5-325 MG eCW1 ([facility]) Acetaminophen 325 MG / Hydrocodone Bharti trate 5 MG Oral Tablet [[place]] [place] 5- 325 MG [place] 5-325 MG 05/11/2020 12:00:00 AM EDT 1.0 {tablet_as_needed} active [place] 5-325 MG eCW1 ([facility]) carvedilol 25 MG Oral Tablet Carvedilol 25 MG Oral Tab let (Coreg) Carvedilol 25 MG Oral Tablet (Coreg) 04/01/2020 12:00:00 AM EDT 25 mg Oral active Take 1 tablet by mouth Two times daily with meals [facility] Aspirin 81 MG Delayed Release Oral Table t Aspirin EC 81 MG Oral Tablet Delayed Release Aspirin EC 81 MG Oral Tablet Delayed Release 10/22/2017 12:0 0:00 AM EDT Oral aborted Take by mouth [facility] Chlorthalidone 25 MG Oral Tablet Chlorthalidone 25 MG Oral Tablet (HYGROTON) Chlorthalidone 25 MG Oral Tablet (HYGROTON) 10/22/2017 12:00:00 AM EDT Oral aborted Take by mouth [facility] Losartan Potassium 100 MG Oral Tablet Lo sartan Potassium 100 MG Oral Tablet (COZAAR) Losartan Potassium 100 MG Oral Tablet (COZAAR) 018 12:00:00 AM EDT Oral aborted Take by mouth [facility] Insurance Providers Payer name Policy type / Coverage type Policy ID Covered constitution party ID Covered constitution party's relationship to juarez Policy Juarez Plan Information [facility] 304/804 [id number] [id number] 304/804 [id number] SP [id number] [place] [employer] () Workers Compensation [id number] Self [place] [employer] () Workers Compensation [id number] Self [place] [employer] () Workers Compensation [id number] Self [id number] [place] [employer] () Workers Compensation [id number] Self [place] [employer] () Workers Compensation [id number] Self [id number] BS [place] [facility] Part B [id number] Self [id number] BS [place] [facility] Part B [id number] Self [id number] BS [place] [facility] Part B [id number] Self [id number] BS [place] Commercial [id number] Self [id number] BS [place] Commercial [id number] Self [id number] [facility] [id number] SP [id number] [facility] [place] Medicaid [id number] Self [id number] [facility] Health Maintenance Organization (HMO) [id number] Self [id number] [facility] [id number] SP [id number] [facility] [id number] [facility] MEDICARE COMPLETE G [id number] Self [id number] EXCELLUS MEDICARE BLUE PPO G [id number] Self [id number] [facility] MEDICARE COMPLETE G [id number] Self [id number] UHC UNITED MEDICARE COMPLETE G [id number] Self [id number] [place] [id number] 18 [id number] [place] MEDIC[place] COM[place] [id number] 18 [id number] ANSI-Commercial [id number] ANSI-Commercial [id number]-28z7-74q6-[id number] 743xq74l-05z3-48n7-[id number] ANSI-Commercial a5664uze-2y69-389j-fmlj-lb1672e8y5z0 j2903rrj-2y18-066o-gawy-mb6902e3q5p9 ANSI-Commercial h3jq4v8x-83x8-8703-i249-97qn785f5wgi r1wv8k2t-98q9-4253-o276-49oq648z2svr ANSI-Commercial lzlp4ik8-grvy-0712-v991-thradmdg451p taal6ag7-cxrz-3259-j169-lruwyoar274o ANSI-Commercial 08eh4e7s-691r-833g-3fc0-8e25po5xs5f2 98rw7w8x-048s-970u-8pn7-0r49ut1xs7u4 ANSI-Commercial 643t18u5-2fx4-53da-30s3-7jh03hxyei7v 399g39v3-1hj6-23kj-93n4-7gq49flzod9j ANSI-Commercial 98616spq-3vl8-84s2-4t3e-6g27x92v5l71 01587pta-3ea2-14f1-4c3m-8l70t39o8j91 ANSI-Commercial d992snv0-x183-2049-131s-x9h354x2lt71 l527ntv7-k099-9095-156c-x4x821l1um41 ANSI-Commercial 4906t358-e7al-2lz1-8a76-2qc20u554h4m 8700m725-l7ce-6gl8-8e25-7zx03n102l2g ANSI-Commercial 225633q4-6kck-5x24-n113-e30sw867s385 475735s5-6ifz-3p34-e237-h00sj339a639 ANSI-Commercial 0959ug15-3654-1eh9-elb3-m244b4b03o96 9128dy27-3999-7hr1-men1-m034w0o24d35 ANSI-Commercial 7ek2p927-0k2i-77i1-ng37-pnq7g67600i7 6lc7r670-8v7e-54i0-uq13-skp6b55209m4 ANSI-Commercial 944c7ye0-s5s9-14r4-2427-9l2302r982l9 403d5sp1-j6k1-82c0-0480-4o8384k250f6 ANSI-Commercial 50yo66uu-093t-3108-m232-h686etavx78v 86pm90ng-716k-8689-t860-z571rihuq87h ANSI-Commercial 7331h828-shc5-43h4-9olv-2t5k965z9otf 1850q445-amq7-59l5-8cwo-8e9j253b7jdu ANSI-Commercial 38g6b00h-55lw-2lw8-l576-b0k9a0g389pt 90n8z40h-85yz-7qk7-i106-g3d9m6f056jr ANSI-Commercial 7f5n2j5z-n004-4n1r-qctt-91049f88013d 2a1y6a6z-w611-4y2r-fits-47408w54435r ANSI-Commercial 13idby62-my52-2408-7648-1x8u5b4v4743 45bqcc94-rj97-2142-1135-8t3a5l1c4230 ANSI-Commercial 7v926031-259u-5e74-3717-74l548b7o2re 0t420927-030y-8r10-7001-49o117o2o6ms ANSI-Commercial 186c14me-f2a2-048c-9227-3pz6j61p1m5j 124n49eb-p2b0-149v-7071-3lx3s90l8z0v ANSI-Commercial 2t03ck3a-4wm8-0856-qmt6-6krqe3b20jw1 0a08vo3b-0cm5-5256-lxd4-2tvln0a98qh2 ANSI-Commercial 5380w285-8130-7i9u-f722-b94c69w97e66 1273e750-1877-6s3i-h496-p53q05a69o74 ANSI-Commercial 64z105f9-3451-5714-qvi7-fko68i135834 85h786i3-5173-2311-jfb4-bee34w265564 ANSI-Commercial 166u4984-j291-2cy5-7b87-0j2984l65570 135o0883-w409-8ow2-0f94-8o4452h15412 ANSI-Commercial 63280c40-907k-536k-8b22-sv0ql81nhf38 17193f47-492p-186d-6m38-mu2uq24cpu24 ANSI-Commercial 772xi814-0ff5-0l04-35d7-7pd5lvoe0f20 932lh276-4lz2-9j75-17y7-7nb1wyhm4l31 ANSI-Commercial 718634o1-332c-2h28-88wk-400924kr834d 678144s3-161p-1e23-55px-855803gn821t ANSI-Commercial 0j8c20vs-4r51-5160-hn16-7538cx932428 9e2f94hj-5u70-7385-nq91-9409so576168 ANSI-Commercial r36y0664-sz8x-9pu1-358z-v8l2f7863357 q16u8844-tq2z-5bw8-198k-r9t3y2043363 ANSI-Commercial u52h238v-6l12-6k31-05p9-07w5ec64r747 x06y668f-6v01-1e00-55n8-74z6rn90d928 ANSI-Commercial ik556392-y098-91w0-78dm-o60d0429hamp zh637006-d421-04b3-64cg-r46h1745siff ANSI-Commercial zz0k7067-0187-3637-1dxj-0150q159g34x ba6r1063-7245-0065-5jji-4456z702q52h ANSI-Commercial 36046c91-c405-51y3-753a-b293e4348e81 99316d21-b149-64t2-811d-f861b0344k48 ANSI-Commercial 502a70n1-0lb6-4779-0o2i-45b9593mu3a3 740r71i4-0ky5-3559-9e6y-46y1275tl6c4 ANSI-Commercial 0lx56183-87d6-672m-czv2-931721p5980x 1va37361-19u4-216h-qhu1-336965n9485s [employer] BCYO P [id number] S YNC [id number] ANSI-Commercial p655103n-008x-0288-sa78-0t663992v066 x290643d-878b-7494-sp94-6f822455o403 ANSI-Commercial 9g31270o-h77y-744m-84dv-1h70w2700e5l 6y46282b-u12y-608k-12fi-0o88h4184a2s ANSI-Commercial 2961o7j8-e3zx-541q-2388-2ter7z331th0 8527e1s6-a0su-419f-4078-1cgg2u784jy5 ANSI-Commercial 6b157176-8g92-9bz9-f73l-rm47m8u2tp71 9g098149-2s42-3hx5-f07a-jc73d6k4ec30 ANSI-Commercial 33756017-6k5r-3t19-gne1-76i4166o51uh 61431256-1r6t-7m23-mvf7-52t4086v49lc ANSI-Commercial 3mc43856-8118-2411-tx70-49co96bh96v3 6em15169-2169-2995-ev05-19qt41wy33x0 ANSI-Commercial s65l768i-31z7-979s-8g38-c106pb8920rb u77f011n-14j1-306z-8m09-l350so4405rj ANSI-Commercial 5n8un9a2-5z49-83fm-a200-871b13r2hflj 1d5ld4e0-4q19-89uv-c094-493b92z9ovfn ANSI-Commercial 97o9z3t0-9pil-3i36-of1q-13u1vh9x9l11 50f2i5w5-4fjz-4r16-da2k-08t1wc8n5i44 ANSI-Commercial f4q09358-4oit-43t7-2f13-o22qvp864f74 v7b71883-0fzu-45z5-4t10-b43mtx615e82 ANSI-Commercial j93r9425-531a-4a17-l228-1o85a0tu7uq1 x48a1327-663k-4m06-x762-6v96d9tj5pm7 ANSI-Commercial 81440579-7m62-7e1w-5jk6-4f471k117ti2 33153466-6l73-9x2h-1mh0-2u023z954mz0 ANSI-Commercial 4b522l8z-831x-6y86-wno3-84u5vr7p46v4 3k381o5l-530v-4q52-mys5-96e2hm7c19m1 ANSI-Commercial wcw66g9s-r242-5464-9522-vj8l6ra26z4n wox15i7r-f273-6356-1674-rl7n7kg17r4r ANSI-Commercial c7163ch5-k472-12v2-13j7-56874095ewo3 v4337pe7-r686-26w8-63o6-97792574prs9 ANSI-Commercial tq36222y-e190-196h-i0x2-7363qm629714 qk49210g-u318-701a-m8h6-1166ir623623 ANSI-Commercial 4c48hg7s-0w16-3v48-o141-7w9o3841q7f0 4b91wh8f-9s01-0p74-g589-4o7t1778u7g1 ANSI-Commercial 74g48477-69vz-9m58-0251-d10n152tg01i 61k29129-04mt-5m15-0682-l87g178lj58q ANSI-Commercial d3502sui-j6z1-5j56-9386-53z53419w374 h4030vrs-i3y4-6b49-3880-07n70740j749 ANSI-Commercial 1439ac90-c1qm-0j8x-1i57-81s05u38a0y5 3897fe60-n0eb-8u7g-8c16-08g53p14o0n7 ANSI-Commercial g51p4d9h-1qmg-7rca-4873-159504a8ldua a45r3i3c-3xms-5jkn-3988-050539k0sdcp ANSI-Commercial yt1msom1-11ma-058t-4836-de54h31u4624 pc7ijrh3-51ya-714x-9444-vi40h94z4953 ANSI-Commercial 55j81045-o298-40d3-n812-t368745y01h9 67q28957-k007-45w9-n136-z511569s05p2 ANSI-Commercial 896hm37j-9086-552q-t510-697ab26606y3 824zc53e-5343-734d-e694-113hc00606f4 [facility] [id number] SP 7 [id number] ANSI-Commercial 0mc7jb42-a27a-48gs-6935-7zzo8494k91x 2lc1kn43-x77l-03gq-4813-6whl2412l23q ANSI-Commercial 624k8z5k-49d4-97qx-n493-h180r542m308 594x8z2s-18g0-88zt-g591-h876d758r523 ANSI-Commercial 53740y84-9339-3765-n755-0spb175700o2 72242j15-2441-4746-s495-0bxg949554g6 ANSI-Commercial h934x004-2085-0j54-tr29-hlkh42c00891 e611s876-6452-6d44-pm55-zhug51i52122 ANSI-Commercial p26e40m0-20zv-65ul-2m9u-153gu6617n8y n94w40w0-13un-42jd-9t7s-636ic2465h3v ANSI-Commercial v87wz15p-3w90-8cl3-locu-92k9z3z00260 c60fu75v-6d57-8jx3-reck-81u4q4s43394 ANSI-Commercial 3gh8g12i-dgm9-21fh-7rtx-d2d9c234326b 6dj2m00e-zis5-21br-7urj-m4j4s709017b ANSI-Commercial n1390z0q-q19y-1saw-56a7-c7p042e58886 j0453a0j-l27i-2ubg-45x0-k1u040j21025 ANSI-Commercial 3ibl2i16-51tg-741o-u990-9sd0m67789wj 3eog7e78-09mw-402r-j772-5zr8b71558xr ANSI-Commercial 240710q1-6291-70n8-a293-1965q2w4c18s 326121w4-8876-01b8-p407-9109m8i0o63z [facility] [id number] SP 7 [id number] ANSI-Commercial 281kg3r8-80w2-4986-de48-5w9707a754mm 778zg4g9-31r0-7852-jp73-0d4729y543dh ANSI-Commercial 85140612-0030-4959-zfgh-1cg6i5k60uq2 63813075-4792-7399-verh-6lv5e3n55zv8 ANSI-Commercial 906g0sn6-xix9-62w9-9g69-49j4fnov678g 005y3ml2-zus2-71d9-5d93-14y0qtsj793r ANSI-Commercial 06106l18-89li-428t-y936-z287d7968353 73528n38-16zy-139n-s424-y665i3268085 [place] PPO 302/307 [id number] SP [id number] ANSI-Commercial x55736n9-7d1b-3xop-v103-4mhiei7w0229 b78172k8-4n7p-5vaz-u973-6qzmgv6z6604 ANSI-Commercial 22j01743-2gxv-7909-6s2v-038f1868to4d 74j92454-0wna-4615-9s2r-982m6560ob0m ANSI-Commercial 79gb08mm-376o-44l4-4b9o-4x7nk924b670 26ci45qh-234d-70r0-8e5q-2i6fr868w112 ANSI-Commercial 4go88157-f42i-3nv7-35i1-1z3104k00054 8un85025-j96q-6qy6-73o8-4c9184m55815 [facility] [id number] S [id number] [id number] [facility] [place] [facility]/307 [id number] SP [id number] [facility] Health Maintenance Organization (HMO) [id number] Self [id number] Medicaid [place] Medicaid [id number] Self [id number] Medicaid [place] Medicaid [id number] Self [id number] [facility] BCBS B [id number] S [id number] [facility] Health Maintenance Organization (O) [id number] Self [id number] [facility] Health Maintenance [facility] (O) [id number] Self [id number] [facility] Health Maintenance Organization (O) [id number] Self [id number] MEDICARE COMPLETE [id number] SP [id number] [place] MEDICARE [id number] SP [id number] MEDICARE COMPLETE [id number] SP [id number] MEDICARE COMPLETE [id number] SP [id number] [facility] MEDICARE [id number] S [id number] UNAVAILABLE [place] BLE UNHC MEDICARE COMPLETE -PHYS [id number] 18 [id number] UN MEDICARE COMPLETE [id number] 18 [id number] MEDICARE PART A [facility] [id number] 18 [id number] MEDICARE COMPLETE[facility] O [id number] S [id number] MEDICARE BLUE PPO 306 [id number] SP [id number] MEDICARE BLUE PPO 306 [id number] SP [id number] EXCELL BCBS B [id number] S [id number] [id number] BCBS 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 [id number] SP [id number] MEDICARE [id number] SP [id number] SOY [id number] SP [id number] MEDICAID [id number] SP [id number] [employer] [place] PPO 302/307 [id number] SP [id number] BCBS [place] PPO 302/307 [id number] SP [id number] 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 [id number] SP [id number] BCBS [place] 304/804 [id number] SP [id number] [place] O [id number] S [id number] Problems, Conditions, and Diagnoses Code Display Name Description Problem Type Effective Dates Data Source(s) F47349 Cutaneous abscess of left axilla Cutaneous absce ss of left axilla Diagnosis 04/22/2021 01:20:00 PM EDT [facility] P86313 Pain in left foot Pain in left foot Diagnosis 03/30/2021 01:15:00 PM EDT [facility] N184 Chronic kidney disease, stage 4 (severe) Chronic kidney disease, stage 4 (severe) Diagnosis 03/30/2021 01:15:00 PM EDT [facility] E119 Type 2 diabetes mellitus without complic ations Type 2 diabetes mellitus without complications Diagnosis 03/30/2021 01:15:00 PM EDT [facility] R531 Weakness Weakness Diagnosis 03/30/2021 01:15:00 PM ED T [facility] [id number] Posterior tibial tendinitis, left leg Po sterior tibial tendinitis, left leg Diagnosis 03/30/2021 01:15:00 PM EDT [facility] M7672 Peroneal tendinitis, left leg Peroneal tendinitis, lef t leg Diagnosis 03/30/2021 01:15:00 PM [facility] M7662 Achilles tendinitis, left leg Achilles tendinitis, lef t leg Diagnosis 03/30/2021 01:15:00 PM [facility] E785 Hyperlipidemia, unspecified Hyperlipidemia, unspecifie d Diagnosis 03/15/2021 01:47:00 PM [facility] R0602 Shortness of breath Shortness of breath Diagnosis 0 03/15/2021 01:47:00 PM [facility] I10 Essential (primary) hypertension Essential (primary) h ypertension Diagnosis 02/23/2021 01:06:00 PM [facility] 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 E55.9 Vitamin D deficiency, unspecified Vitamin D defi ciency, unspecified Diagnosis 12/23/2020 11:32:[address] [facility] E79.0 Hyperuricemia without signs of inflammatory arthritis and tophaceous disease Hyperuricemia without signs of inflammat ory arthritis and tophaceous disease Diagnosis 12/23/2020 11:32:04 AM [facility] I10 Essential (primary) hypertension Essential (primary) h ypertension Diagnosis 12/23/2020 11:32:[address] 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 R80.1 Persistent proteinuria, unspecified Persistent p roteinuria, unspecified Diagnosis 12/23/2020 11:32:[address] [facility] N18.4 Chronic kidney disease, stage 4 (severe) Chronic kidney disease, stage 4 (severe) Diagnosis 12/23/2020 11:32:04 AM EDT [facility] J44.9 Chronic obstructive lung disease Chronic obstructive l connie disease Problem 05/11/2021 12:00:00 AM EDT [facility] ([facility]) L02.412 Cellulitis and abscess of upper limb Tiffany lulitis and abscess of upper limb Problem 04/27/2021 12:00:00 AM EDT [facility] ([facility]) [id number] Pure hypercholesterolemia Pure hypercholesterolemia Pr oblem 04/22/2021 12:00:00 AM EDT [facility] ([facility]) [id number] Numbness Numbness Problem 04/19/2021 12:00:00 AM ED T [facility] ([facility] ) [id number] Fatigue Fatigue Problem 04/19/2021 12:00:00 AM ED T [facility] ([facility]) [id number] Ischemic stroke Ischemic stroke Problem 04/19/2021 12:0 0:00 AM EDT [facility] ([facility] ) I63.9 Cerebral artery occlusion Cerebral artery occlusion Pr oblem 01/27/2021 12:00:00 AM EDT [facility] ([facility]) I10 Essential hypertension Essential hypertension Problem 01/27/2021 12:00:00 AM EDT [facility] ([facility]) E11.9 Type 2 diabetes mellitus Type 2 diabetes mellitus Prob alli 01/27/2021 12:00:00 AM EDT [facility] ([facility]) N18.4 Chronic kidney disease stage 4 Chronic kidney disease stage 4 Problem 01/27/2021 12:00:00 AM EDT [facility] ([facility]) 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 Problem 01/27/2021 12:00:00 AM EDT [facility] ([facility]) E78.5 Hyperlipidemia Hyperlipidemia Problem 01/27/2021 12:00: 00 AM EDT [facility] ([facility]) I63.9 [id number] Right thalamic infarction Problem 12/21/2020 12:00:00 AM EDT eCW1 ([facility]) I65.23 [id number] Bilateral carotid artery stenosis Problem 12/17/2020 12:00:00 AM EDT eCW1 ([facility]) N18.4 [id number] Stage 4 chronic kidney disease Problem 09/22/2020 12:00:00 AM EST eCW1 ([facility]) Surgeries/Procedures Procedure Description Date Indications Data Source(s) Spirometry 05/11/2021 12:00:00 AM EDT M LISANDRAENT ([facility], ) OFFICE OUTPATIENT VISIT 15 MINUTES 05/11/2021 12:00:00 AM EDT [facility] ([facility], ) I & D Abscess Simple 04/22/2021 12:00:00 AM EDT [facility] ([facility]) OFFICE OUTPATIENT NEW 20 MINUTES 04/22/2021 12:00:00 A M EDT [facility] ([facility]) OFFICE OUTPATIENT VISIT 10 MINUTES 04/22/2021 12:00:00 AM EDT [facility] ([facility]) OFFICE OUTPATIENT VISIT 25 MINUTES 04/19/2021 12:00:00 AM EDT [facility] ([facility] ) OFFICE OUTPATIENT NEW 30 MINUTES 03/30/2021 12:00:00 A M EDT [facility] ([facility]) DEMO&/EVAL OF PT UTILIZ AERSL GEN/NEB/INHLR/IPPB 03/24 12:00:00 AM EDT [facility] ([facility], ) OFFICE OUTPATIENT NEW 45 MINUTES 03/24/2021 12:00:00 A M EDT [facility] ([facility], ) OFFICE OUTPATIENT VISIT 15 MINUTES 03/15/2021 12:00:00 AM EDT [facility] ([facility]) OFFICE OUTPATIENT VISIT 15 MINUTES 02/23/2021 12:00:00 AM EDT [facility] ([facility]) Brief Emotional/Behav Assessment W/ Scoring Doc Per Standard Inst 01/27/2021 12:00:00 AM EDT [facility] ([facility]) Admin Patient Focused Health Risk Assessment Instrument 01/27[facility] INITIAL PREVENTIVE MEDICINE NEW PATIENT 64YRS&> 2020 12:00:00 AM EDT [facility] ([facility]) URINE RANDOM TP/CRE RATIO <td>URINE RANDOM TP/CRE RATIO</td><td>Routine</td><td>12/22/2020</td><td></td><td></td> 12/22/2020 12:00:[address] [facility] VITAMIN D 25 HYDROXY, TOTAL <td>VITAMIN D 25 HYDROXY, TOTAL</td><td>Routine</td><td>12/22/2020</td><td></td><td></td> 12/22/2020 12:00:[address] [facility] URIC ACID BLOOD <td>URIC ACID</td><td>Routine</td><td>12/22/2020</td><td></td><td></td> 12/22/2020 12:00:[address] [facility] MAGNESIUM <td>MAGNESIUM LEVEL</td><td>Routine</td><td>12/22/2020</td><td></td><td></td> 12/22/2020 12:00:[address] [facility] FERRITIN <td>FERRITIN LEVEL</td><td>Routine</td><td>12/22/2020</td><td></td><td></td> 12/22/2020 12:00:[address] [facility] BASIC METABOLIC PANEL CALCIUM TOTAL <td>BASIC METABOLI C PANEL</td><td>Routine</td><td>12/22/2020</td><td></td><td></td> 12/22/2020 12:00:[address] [facility] BLOOD COUNT COMPLETE AUTOMATED <td>CBC</td><td>Routine</td><td>12/21/2020</td><td></td><td></td> 12/21/2020 12:00:[address] [facility] INITIAL HOSPITAL CARE/DAY 70 MINUTES 12/16/2020 12:00: 00 AM EDT [facility] ([facility] ) Results ID Date Data Source [id number] 05/11/2021 10:02:00 AM EDT [facility] ([facility], ) Name Value Range Interpretation Code Description Data Parul rce(s) Supporting Document(s) FVC-Pred 4.20 L [facility] ([facility], ) PDFReport Laboratory test result [facility] ([facility], ) FVC-Pre 2.57 L [facility] ([facility], ) FVC-LLN 3.32 L [facility] ([facility]) FVC-%Pred-Pre 61 L [facility] ([facility], ) Fev1-Pre 1.97 L [facility] ([facility]) Fev1-%Pred-Pre 63 L [facility] ([facility], ) Fev1-Pred 3.11 L [facility] ([facility]) Fev1-LLN 2.37 L [facility] ([facility]) Fev6-Pre 2.57 L [facility] ([facility], ) Fev6-Pred 3.97 L [facility] ([facility]) Fev6-LLN 3.11 L [facility] ([facility]) Fev6-%Pred-Pre 64 L [facility] ([facility], ) Upr5mpp-Kjby 74 % [facility] ([facility]) Uiq6izi-Koz 77 % [facility] ([facility]) Piv2hgb-%Pred-Pre 103 % [facility] ([facility], ) Ihq8jgr-Ppo 100 % [facility] ([facility]) Lzi6dhc-OBP 65 % [facility] ([facility]) Cfi8aso-Aplo 94 % [facility] ([facility]) FEFMax-Pre 3.26 L/E/sec [facility] ([facility]) Phl1krs-%Pred-Pre 105 % [facility] ([facility]) FEFMax-Pred 8.20 L/E/sec MED[facility] ([facility]) FEFMax-LLN 6.01 L/E/sec [facility] ([facility]) [id number] 2.44 L/E/sec [facility] ([facility]) FEFMax-%Pred-Pre 39 L/E/sec [facility] ([facility]) [id number]-Luk 1.79 L/E/sec [facility] ([facility]) Mwc4594-%Pred-Pre 73 L/E/sec [facility] ([facility]) [id number]-FZR 0.93 L/E/sec [facility] ([facility]) ExpTime-Pre 6.49 sec MED[facility] ([facility]) [id number]-Irfe 78 % [facility] ([facility]) Suz7rpk5-Huv 77 % [facility] ([facility]) Xhz1ixi5-%Pred-Pre 98 % [facility] ([facility]) [id number]-FSJ 69 % [facility] ([facility]) ID Date Data Source [id number] 04/27/2021 02:15:00 [place] [address] PHONE: [phone] FAX: [phone] Name .................. : FLOWER BLUM Acct Number.................. : [id number] ROOM. ................. : MR Number ................... : [id number] Stay type ............. : CLINIC Discharge Date......... ... : 04/27/21 Admit Date ......... : 04/27/21 Admit Phys .................... : BINA SHEPARD Date of ....... : 1955 Family Phys ................... : Phone .................. : [phone] Age ................................ : 66 Film# .................. .:[id number] Sex ................................. : M Unsigned transcriptions are preliminary reports and do not represent a medical or legal document US EXT NON VASC LT LIMITED [id number] COMPLETE:04/27/21 11:49 ADB [id number] Reason for Exam: CUTANEOUS ABSCESS OF LT [...] rce(s) Supporting Document(s) ID Date Data Source [id number] 04/22/2021 02:00:00 PM EDT [facility] ([facility]) Name Value Range Interpretation Code Description Data Parul rce(s) Supporting Document(s) Culture Wound Laboratory test result [facility] ([facility]) {SPECIMEN SOURCE : LEFT AXILLA ID Date Data Source [id number] 04/27/2021 08:15:00 PM EDT [facility] Name Value Range Interpretation Code Description Data Parul rce(s) Supporting Document(s) CULTURE WOUND [facility] _CULTURE WOUND_$$[id number]$$[id number]$$[id number]$$[id number]$$[id number]$$[id number] DATE/TIME: 04/27/2021 15:06Culture: CULTURE WOUND Status: FinalIsolate 1 Enterococcus faecalis Flag: A . . . . . . .7Moderate growth Previous result entered on 04/26/2021 15:14 ET Microbiological testing to rule out the presence of possible pathogensis in progress.Aerobic Bacterial Culture: [id number] faecalis Flag: Ed: FLOWER BLUM Order: [id number] Page 2Culture: CULTURE WOUND Status: Final ISOLATE 1 Enterococcus faecalis Isolate 1Antibiotic JUSTICE IntUnits ug/mL ----Penicillin S S . . . . . .6932-8Vancomycin S S . . . . . .524-9P1 Test performed by: [facility] [place] #: [id number] [address] [id number] [facility] [place] [id number] Director : Scottie Lau MD NPI #:Hide Salter : 04/27/21.0736.XMT.SENT REF 04/27/21.XMT.SENT REF 04/27/21.DW .to [facility] via fax ID Date Data Source [id number] 04/01/2021 07:54:00 AM EDT [facility] ([facility]) Name Value Range Interpretation Code Description Data Parul rce(s) Supporting Document(s) Blood Urea Nitrogen 57 mg/dL 7-18 Above high normal [facility] ([facility]) Glucose, Fasting 147 mg/dL 70-100 Above high normal M EDENT ([facility]) Glomerular Filtration Rate 24.8 Below low normal [facility] ([facility]) <content>Units are mL/min/1.73 m2</content>
<content></content>
<content>Chronic Kidney Disease Staging per NKF:</content>
<content></content>
<content>Stage I & II GFR >=60 Normal to Mildly Decreased</content>
<content>Stage III GFR 30- 59 Moderately Decreased</content>
<content>Stage IV GFR 15-29 Severely Decreased</content>
<content>Stage V GFR <15 Very Little GFR Left</content>
<content>ESRD GFR <15 on CESSATION SYSTEMS OUTREACH SPECIALIST</content>
<content></content> Creatinine For GFR 2.75 mg/dL 0.70-1.30 Above high normal [facility] ([facility]) Potassium Serum 4.5 meq/L 3.5-5.1 Normal (applies to non-numeric results) [facility] ([facility]) Sodium Level 143 meq/L 136-145 Normal (applies to non-numeric res ults) [facility] ([facility]) Chloride Level 112 meq/L 98-107 Above high normal MED ENT ([facility]) Carbon Dioxide Level 25 meq/L 21-32 Normal (applies to non-num nuzhat results) [facility] ([facility]) Calcium Level 8.8 mg/dL 8.8-10.2 Normal (applies to non-numeric re sults) [facility] ([facility]) Anion Gap 6 meq/L 8-16 Below low [facility] ID Date Data Source [id number] 03/09/2021 09:14:00 AM EDT [facility] ([facility]) Name Value Range Interpretation Code Description Data Parul rce(s) Supporting Document(s) PSA Total 1.5 ng/mL 0.0-4.0 Normal (applies to non-numeric resul ts) [facility] ([facility]) Leidy ECLIA methodology. . According to the [place] [employer], Serum PSA should decrease and [...] result Normal (applies to non- numeric results) [facility] ([facility]) . The percent free PSA is performed on a reflex basis only when the total PSA is between 4.0 and 10.0 ng/mL. Performed at: RN - [facility] [address] [id number] Hide Salter: Petra Rubin MD, Phone: [phone] ID Date Data Source [id number] 03/09/2021 09:14:00 AM EDT [facility] ([facility]) Name Value Range Interpretation Code Description Data Parul rce(s) Supporting Document(s) Bacteria identified in Urine by Culture Laboratory test result Normal (applies to non-numeric results) [facility] ([facility]) FULL REPORT IN LAB NOTES (eCW and Medent ). NO GROWTH ID Date Data Source [id number] 03/09/2021 09:14:00 AM EDT [facility] ([facility]) Name Value Range Interpretation Code Description Data Parul rce(s) Supporting Document(s) Malb Urine Siemens 3200.0 mg/L Normal (applies to non-nume adrian results) [facility] ([facility]) Christopher/Creat Ratio 3245.4 MCG/MG 0.0-30.0 Above high normal [facility] ([facility]) THE [place] [employer] STATES THAT MICROALBUMINURIA IS PRESENT IF THE MICROALBUMIN/CREATININE RATIO EXCEEDS 30 MCG/MG. THE THRESHOLD FOR CLINICAL ALBUMINURIA IS REACHED AT 300 MCG/MG. THE CLASSIFICATION OF A PATIENT SHOULD BE BASED UPON AT LEAST 2 OF 3 ABNORMAL RESULTS ON SPECIMENS COLLECTED WITHIN A 3 TO 6 MONTH TIME FRAME. Creatinine, Urine 98.6 mg/dL Normal (applies to non-numeri c results) [facility]) ID Date Data Source [id number] 03/09/2021 09:14:00 AM EDT [facility]) Name Value Range Interpretation Code Description Data [facility] rce(s) Supporting Document(s) Appearance, Urine Laboratory test result Normal (applies to non-numeric results) [facility] ([facility]) PH,Urine 5.0 units 5.0-9.0 Normal (applies to non-numeric resul ts) [facility] Color, Urine Laboratory test result Normal (applies to non -numeric results) [facility]) Specific [place] Urine Auto 1.012 1.002-1.035 Norm al (applies to non-numeric results) [facility]) Protein, Urine Auto Laboratory test result Above high norm al [facility] ([facility]) Glucose, Urine (Ua) Auto Laboratory test result Above high normal [facility] ([facility]) Bilirubin, Urine Auto Laboratory test result Nor mal (applies to non-numeric results) [facility]) Ketone, Urine Auto Laboratory test result Normal (applies to non-numeric results) [facility]) Urobilinogen, Urine Auto 0.2 mg/dL 0.0-2.0 Normal (applies to non-numeric results) [facility]) Nitrite, Urine Auto Laboratory test result Marylin l (applies to non-numeric results) [facility]) Leukocyte Esterase, Urine Auto Laboratory test result Normal (applies to non- numeric results) [facility] ([facility]) Blood, Urine Blood Laboratory test result Normal (applies to non-numeric results) [facility] ([facility]) WBC, Urine Auto 1 /HPF 0-3 Normal (applies to non-numeric results) [facility] ([facility]) RBC, Urine Auto 1 /HPF 0-3 Normal (applies to non-numeric results) [facility] ([facility]) Squamous Epithelial Cell Ur AU 0 /HPF 0-6 N ormal (applies to non-numeric results) [facility] ([facility]) Bacteria, Urine Auto Laboratory test result Norm al (applies to non-numeric results) [facility] ([facility]) Mucus, Urine Laboratory test result Normal (applies to non -numeric results) [facility] ([facility]) Hyaline Cast, Urine Auto 0 /LPF 0-1 Normal (applies to non -numeric results) [facility] ([facility]) ID Date Data Source [id number] 03/09/2021 09:14:00 AM EDT [facility] ([facility]) Name Value Range Interpretation Code Description Data Parul rce(s) Supporting Document(s) Hemoglobin A1c 6.4 % Normal (applies to non-numeric r esults) [facility]) <content>REFERENCE RANGES:</content><br/ ><content></content>
<content><=5.6% NORMAL</content>
<content>5.7-6.4% SUGGESTS IMPAIRED GLUCOSE METABOLISM/PREDIABETIC</content>
<content>>= 6.5% ABNORMAL</content>
<content></content> Estimated Average Glucose 137 mg/dL 60-110 Above high normal [facility]) ID Date Data Source [id number] 03/09/2021 09:14:00 AM EDT [facility]) Name Value Range Interpretation Code Description Data Parul rce(s) Supporting Document(s) Urate [Mass/volume] in Serum or Plasma 5.9 mg/dL 3.5-7.2 Normal (applies to non- numeric results) [facility] ([facility]) ID Date Data Source [id number] 03/09/2021 09:14:00 AM EDT [facility] ([facility]) Name Value Range Interpretation Code Description Data Parul rce(s) Supporting Document(s) Triglycerides Level 89 mg/dL Normal (applies to non-nume adrian results) [facility] ([facility]) HDL Cholesterol 34 mg/dL Below low normal MED E[facility] ([facility]) Cholesterol Level 125 mg/dL Normal (applies to non-numeri c results) [facility] ([facility]) LDL Cholesterol 73 mg/dL Normal (applies to non-numeric results) [facility] ([facility]) Cholesterol Risk Ratio 3.676 Normal (applies to non-n umeric results) [facility] ([facility]) Non-HDL-C 91 mg/dL Normal (applies to non-numeric resul ts) [facility] ([facility]) ID Date Data Source [id number] 03/09/2021 09:14:00 AM EDT [facility] ([facility]) Name Value Range Interpretation Code Description Data Parul rce(s) Supporting Document(s) Glucose, Fasting 134 mg/dL 70-100 Above high normal M EDENT ([facility]) Blood Urea Nitrogen 49 mg/dL 7-18 Above high normal [facility] ([facility]) Creatinine For GFR 2.70 mg/dL 0.70-1.30 Above high normal [facility] ([facility]) Glomerular Filtration Rate 25.3 Below low normal [facility] ([facility]) <content>Units are mL/min/1.73 m2</content>
<content></content>
<content>Chronic Kidney Disease Staging per NKF:</content>
<content></content>
<content>Stage I & II GFR >=60 Normal to Mildly Decreased</content>
<content>Stage III GFR 30- 59 Moderately Decreased</content>
<content>Stage IV GFR 15-29 Severely Decreased</content>
<content>Stage V GFR <15 Very Little GFR Left</content>
<content>ESRD GFR <15 on CESSATION SYSTEMS OUTREACH SPECIALIST</content>
<content></content> Sodium Level 141 meq/L 136-145 Normal (applies to non-numeric res ults) [facility] ([facility]) Chloride Level 112 meq/L 98-107 Above high normal [facility] E[facility] ([facility]) Potassium Serum 4.5 meq/L 3.5-5.1 Normal (applies to non-numeric results) [facility] ([facility]) Carbon Dioxide Level 24 meq/L 21-32 Normal (applies to non-num nuzhat results) [facility] ([facility]) Anion Gap 5 meq/L 8-16 Below low normal [facility] ( [facility]) Alt/SGPT 47 U/L 12-78 Normal (applies to non-numeric resul ts) [facility] ([facility]) Calcium Level 8.5 mg/dL 8.8-10.2 Below low normal MEDEN T ([facility]) Ast/Sgot 14 U/L 7-37 Normal (applies to non-numeric resul ts) [facility] ([facility]) Alkaline Phosphatase 101 U/L 45-117 Normal (applies to non-num nuzhat results) [facility] ([facility]) Bilirubin,Total 0.3 mg/dL 0.2-1.0 Normal (applies to non-numeric results) [facility] ([facility]) Albumin/Globulin Ratio 1.0 Normal (applies to non-n umeric results) [facility] ([facility]) Albumin 3.3 GM/DL 3.2-5.2 Normal (applies to non-numeric resul ts) [facility] ([facility]) Total Protein 6.7 GM/DL 6.4-8.2 Normal (applies to non-numeric re sults) [facility] ([facility]) ID Date Data Source [id number] 03/09/2021 09:14:00 AM EDT [facility] ([facility]) Name Value Range Interpretation Code Description Data Parul rce(s) Supporting Document(s) Lymph % 18.9 % 24.0-44.0 Below low normal [facility] ( [facility]) Merrick % 9.9 % 2.0-8.0 Above high normal [facility] ([facility]) Neutrophils % 63.4 % 36.0-66.0 Normal (applies to non-numeric re sults) [facility] ([facility]) Eos % 6.2 % 0.0-3.0 Above high normal [facility] ([facility]) Baso % 1.1 % 0.0-1.0 Above high normal [facility] ([facility]) Lymph # 1.5 10 1.5-5.0 Normal (applies to non-numeric resul ts) [facility] ([facility]) Neutrophils # 5.0 10 1.5-8.5 Normal (applies to non-numeric re sults) [facility] ([facility]) Immature Granulocyte % 0.5 % 0-3.0 Normal (applies to non-n umeric results) [facility] ([facility]) Merrick # 0.8 10 0.0-0.8 Normal (applies to non-numeric resul ts) [facility] ([facility]) Eos # 0.5 10 0.0-0.5 Normal (applies to non-numeric resul ts) [facility] ([facility]) Baso # 0.1 10 0.0-0.2 Normal (applies to non-numeric resul ts) [facility] ([facility]) ID Date Data Source [id number] 03/09/2021 09:14:00 AM EDT [facility] ([facility]) Name Value Range Interpretation Code Description Data Parul rce(s) Supporting Document(s) White Blood Count 7.9 10 4.0-10.0 Normal (applies to non-numeri c results) [facility] ([facility]) Red Blood Count 3.63 10 4.30-6.10 Below low normal [facility] ([facility]) Hematocrit 33.6 % 42.0-52.0 Below low normal [facility] ( [facility]) Hemoglobin 11.6 g/dL 13.5-17.5 Below low normal [facility] ( [facility]) Mean Corpuscular HGB Conc 34.5 g/dL 32.0-36.5 Normal (applies to non-numeric results) [facility] ([facility]) Mean Corpuscular Hemoglobin 32.0 pg 27.0-33.0 Norm al (applies to non-numeric results) [facility] ([facility]) Mean Corpuscular Volume 92.6 fl 80.0-96.0 Normal ( applies to non-numeric results) [facility] ([facility]) Red Cell Distribution Width 12.0 % 11.5-14.5 Norm al (applies to non-numeric results) [facility] ([facility]) Platelet Count, Automated 201 10 150-450 Normal (applies to non-numeric results) [facility] ([facility]) Nucleated Red Blood Cell % 0.0 % 0-0 Normal (applies to n on-numeric results) [facility]) ID Date Data Source [id number] 02/23/2021 02:01:00 PM EDT [facility] ([facility]) Name Value Range Interpretation Code Description Data Parul rce(s) Supporting Document(s) Laboratory test finding (navigational concept) Laboratory test result [facility]) ID Date Data Source [id number] 01/26/2021 10:24:00 AM EDT [facility] ([facility]) Name Value Range Interpretation Code Description Data Parul rce(s) Supporting Document(s) Magnesium [Mass/volume] in Serum or Plasma 2.2 mg/dL 1.8-2 .4 Normal (applies to non-numeric results) [facility] ([facility]) Natriuretic peptide.B prohormone N-Terminal [Mass/volu me] in Serum or Plasma 914 pg/mL Above high normal [facility] ([facility]) ID Date Data Source [id number] 01/26/2021 10:24:00 AM EDT [facility]) Name Value Range Interpretation Code Description Data Parul rce(s) Supporting Document(s) Glucose, Fasting 231 mg/dL 70-100 Above high normal [facility]) Blood Urea Nitrogen 52 mg/dL 7-18 Above high normal [facility] ([facility]) Sodium Level 138 meq/L 136-145 Normal (applies to non-numeric res ults) [facility] ([facility]) Glomerular Filtration Rate 23.8 Below low normal [facility] ([facility]) <content>Units are mL/min/1.73 m2</content>
<content></content>
<content>Chronic Kidney Disease Staging per NKF:</content>
<content></content>
<content>Stage I & II GFR >=60 Normal to Mildly Decreased</content>
<content>Stage III GFR 30- 59 Moderately Decreased</content>
<content>Stage IV GFR 15-29 Severely Decreased</content>
<content>Stage V GFR <15 Very Little GFR Left</content>
<content>ESRD GFR <15 on CESSATION SYSTEMS OUTREACH SPECIALIST</content>
<content></content> Creatinine For GFR 2.85 mg/dL 0.70-1.30 Above high normal [facility] ([facility], ) Chloride Level 106 meq/L 98-107 Normal (applies to non-numeric r esults) [facility] ([facility]) Potassium Serum 4.3 meq/L 3.5-5.1 Normal (applies to non-numeric results) [facility] ([facility]) Calcium Level 8.4 mg/dL 8.8-10.2 Below low normal [facility] T ([facility]) Carbon Dioxide Level 26 meq/L 21-32 Normal (applies to non-num nuzhat results) [facility] ([facility]) Anion Gap 6 meq/L 8-16 Below low normal [facility] ( [facility]) Albumin 3.3 GM/DL 3.2-5.2 Normal (applies to non-numeric resul ts) [facility] ([facility]) Phosphorus Level 4.0 mg/dL 2.5-4.9 Normal (applies to non-numeric results) [facility] ([facility]) ID Date Data Source [id number] 12/27/2020 10:51:26 AM EDT [facility] Name Value Range Interpretation Code Description Data Parul rce(s) Supporting Document(s) Progress Note [facility] JJCXJa8uKbJBSyTy60/NTXvkPPAuj6YnPWvfNZn5EAovOQIoY3HcRWS6oQ6vCMN4MCdDTyBfSrImSfU1 lbm [file] CHIEF NURSING EXECUTIVE+gNjyoamkkQhQp4sP+AxJjqkUfY6piNXnGBCLmt7 [file] F7YtC/l1Jh0SSE/LtaJL4AtBsxShurar7Is8+Román/Wph09ywk4djyvImQt9v/1k3z85b/IM2ScvS9Jb [file] JiMzJIE5NCY6MWGcQSv+GF1uEJs+Zo1Gl0ThptQ0ggJwNHguVjSsJf9YFXZZE0GSRb== ID Date Data Source [id number] 12/15/2020 02:41:00 PM EDT [facility] Name Value Range Interpretation Code Description Data Parul rce(s) Supporting Document(s) SARS coronavirus 2 RNA [Presence] in Res piratory specimen by CEASAR with probe detection NEGATIVE [facility] This lab was ordered by [facility] a nd reported by [facility]. ID Date Data Source Low Dose Lung Screening CT Chest 07/01/2020 12:00:00 AM EST eCW1 ([facility]) Name Value Range Interpretation Code Description Data Parul rce(s) Supporting Document(s) Low Dose Lung Screening CT [address] eCW1 ([facility]) ID Date Data Source Basic Metabolic Profile (BMP) 07/01/2020 12:00:00 AM EST eCW 1 ([facility]) Name Value Range Interpretation Code Description Data Parul rce(s) Supporting Document(s) 2.56 0.70-1.30 CREATININE FOR GFR eCW1 ([facility]) 42 7-18 BLOOD UREA NITROGEN eCW1 ([facility]) 172 70-100 GLUCOSE, FASTING eCW1 ([facility]) 26.9 >49 GLOMERULAR FILTRATION RATE eCW 1 ([facility]) 142 136-145 SODIUM LEVEL eCW1 ([facility]) 4.2 3.5-5.1 POTASSIUM SERUM eCW1 ([facility]) 26 21-32 CARBON DIOXIDE LEVEL eCW1 ([facility]) 8.7 8.8-10.2 CALCIUM LEVEL eCW1 ([facility]) 107 98-107 CHLORIDE LEVEL eCW1 ([facility]) ID Date Data Source [id number] 07/01/2020 12:00:00 AM EST eCW1 ([facility]) Name Value Range Interpretation Code Description Data Parul rce(s) Supporting Document(s) Hemoglobin A1c/Hemoglobin.total in Blood 5.9 HEMOGLOBIN A1c eCW1 ([facility]) ID Date Data Source CBC - Complete Blood Count 07/01/2020 12:00:00 AM EST eCW1 ( [facility]) Name Value Range Interpretation Code Description Data Parul rce(s) Supporting Document(s) 8.2 4.0-10.0 WHITE BLOOD COUNT eCW1 ([facility]) 3.75 4.30-6.10 RED BLOOD COUNT eCW1 ([facility]) 33.9 27.0-33.0 MEAN CORPUSCULAR HEMOGLOB IN eCW1 ([facility]) 35.8 42.0-52.0 HEMATOCRIT eCW1 ([facility]) 12.7 13.5-17.5 HEMOGLOBIN eCW1 ([facility]) 95.5 80.0-96.0 MEAN CORPUSCULAR VOLUME e CW1 ([facility]) 35.5 32.0-36.5 MEAN CORPUSCULAR HGB CONC eCW1 ([facility]) 11.9 11.5-14.5 RED CELL DISTRIBUTION WID TH eCW1 ([facility]) 191 150-450 PLATELET COUNT, AUTOMATED eCW1 ([facility]) ID Date Data Source PSA SCREENING 04/20/2020 10:42:15 AM EDT eCW1 ([facility]) Name Value Range Interpretation Code Description Data Parul rce(s) Supporting Document(s) 1.05 PSA SCREENING eCW1 ([facility]) Procedure Social History Code Duration Value Status Description Data Source(s ) Smoking 05/11/2021 12:00:00 AM EDT Patient is a former smoker completed Patient is a former smoker [facility] ([facility] ) Smoking 03/30/2021 12:00:00 AM EDT Never Smoked A Pipe complet ed Never Smoked A Pipe [facility] ([facility]) Smoking 02/11/2021 12:00:00 AM EDT Current Smoker completed Curre nt Smoker eCW1 ([facility]) Smoking 01/18/2021 12:00:00 AM EDT Current Smoker completed Curre nt Smoker eCW1 ([facility]) Smoking 01/18/2021 12:00:00 AM EDT Current Smoker completed Curre nt Smoker eCW1 ([facility]) Smoking 01/18/2021 12:00:00 AM EDT Current Smoker completed Curre nt Smoker eCW1 ([facility]) Smoking 01/18/2021 12:00:00 AM EDT Current Smoker completed Curre nt Smoker eCW1 ([facility]) Smoking 01/18/2021 12:00:00 AM EDT Current Smoker completed Curre nt Smoker eCW1 ([facility]) Smoking 01/18/2021 12:00:00 AM EDT Current Smoker completed Curre nt Smoker eCW1 ([facility]) Smoking 01/03/2021 12:00:00 AM EDT Current Smoker completed Curre nt Smoker eCW1 ([facility]) Smoking 01/03/2021 12:00:00 AM EDT Current Smoker completed Curre nt Smoker eCW1 ([facility]) Smoking 01/03/2021 12:00:00 AM EDT Current Smoker completed Curre nt Smoker eCW1 ([facility]) Smoking 01/03/2021 12:00:00 AM EDT Current Smoker completed Curre nt Smoker eCW1 ([facility]) Smoking 01/03/2021 12:00:00 AM EDT Current Smoker completed Curre nt Smoker eCW1 ([facility]) Smoking 12/27/2020 12:00:00 AM EDT Current Smoker completed Curre nt Smoker eCW1 ([facility]) Tobacco use and exposure 12/23/2020 12:00:00 AM EDT Never used co mpleted Never used [facility] Smoking 12/23/2020 12:00:00 AM EDT Current some day smoker com pleted Current some day smoker [facility] Smoking 12/21/2020 12:00:00 AM EDT Current Smoker completed Curre nt Smoker eCW1 ([facility]) Smoking 12/20/2020 12:00:00 AM EDT Current Smoker completed Curre nt Smoker eCW1 ([facility]) Smoking 09/22/2020 12:00:00 AM EST Current Smoker completed Curre nt Smoker eCW1 ([facility]) Smoking 09/22/2020 12:00:00 AM EST Current Smoker completed Curre nt Smoker eCW1 ([facility]) Smoking 09/22/2020 12:00:00 AM EST Current Smoker completed Curre nt Smoker eCW1 ([facility]) Smoking 09/22/2020 12:00:00 AM EST Current Smoker completed Curre nt Smoker eCW1 ([facility]) Smoking 09/22/2020 12:00:00 AM EST Current Smoker completed Curre nt Smoker eCW1 ([facility]) Smoking 09/22/2020 12:00:00 AM EST Current Smoker completed Curre nt Smoker eCW1 ([facility]) Smoking 09/22/2020 12:00:00 AM EST Current Smoker completed Curre nt Smoker eCW1 ([facility]) Smoking 09/22/2020 12:00:00 AM EST Current Smoker completed Curre nt Smoker eCW1 ([facility]) Smoking 09/22/2020 12:00:00 AM EST Current Smoker completed Curre nt Smoker eCW1 ([facility]) Smoking 09/22/2020 12:00:00 AM EST Current Smoker completed Curre nt Smoker eCW1 ([facility]) Smoking 09/22/2020 12:00:00 AM EST Current Smoker completed Curre nt Smoker eCW1 ([facility]) Smoking 06/18/2020 12:00:00 AM EST Current Smoker completed Curre nt Smoker eCW1 ([facility]) Smoking 06/18/2020 12:00:00 AM EST Current Smoker completed Curre nt Smoker eCW1 ([facility]) Smoking 06/18/2020 12:00:00 AM EST Current Smoker completed Curre nt Smoker eCW1 ([facility]) Smoking 06/18/2020 12:00:00 AM EST Current Smoker completed Curre nt Smoker eCW1 ([facility]) Smoking 06/18/2020 12:00:00 AM EST Current Smoker completed Curre nt Smoker eCW1 ([facility]) Smoking 06/18/2020 12:00:00 AM EST Current Smoker completed Curre nt Smoker eCW1 ([facility]) Smoking 06/18/2020 12:00:00 AM EST Current Smoker completed Curre nt Smoker eCW1 ([facility]) Smoking 06/18/2020 12:00:00 AM EST Current Smoker completed Curre nt Smoker eCW1 ([facility]) Smoking 06/18/2020 12:00:00 AM EST Current Smoker completed Curre nt Smoker eCW1 ([facility]) Smoking 06/18/2020 12:00:00 AM EST Current Smoker completed Curre nt Smoker eCW1 ([facility]) Smoking 04/30/2020 12:00:00 AM EDT Former Smoker completed Former Smoker eCW1 ([facility]) Smoking 04/30/2020 12:00:00 AM EDT Former Smoker completed Former Smoker eCW1 ([facility]) Smoking 04/30/2020 12:00:00 AM EDT Former Smoker completed Former Smoker eCW1 ([facility]) Smoking 04/30/2020 12:00:00 AM EDT Former Smoker completed Former Smoker eCW1 ([facility]) Smoking 04/30/2020 12:00:00 AM EDT Former Smoker completed Former Smoker eCW1 ([facility]) Smoking 04/30/2020 12:00:00 AM EDT Former Smoker completed Former Smoker eCW1 ([facility]) Smoking 04/30/2020 12:00:00 AM EDT Former Smoker completed Former Smoker eCW1 ([facility]) Vital Signs ID Date Data Source UNK Name Value Range Interpretation Code Description Data Source(s) [facility]stolic blood pressure 140 mm[Hg] 140 mm[Hg] [facility] Diastolic blood pressure 60 mm[Hg] 60 mm[Hg] [facility] ([facility]) Heart rate 71 /min 71 /min [facility] ([facility]) Oxygen saturation in Arterial blood by Pulse oximetry 98 % 98 % [facility] ([facility]) Body height 68 [in_i] 68 [in_i] [facility] ([facility]) 5'8" Body weight 189.00 [lb_av] 189.00 [lb_av] [facility] Body mass index (BMI) [Ratio] 28.7 kg/m2 28.7 k g/m2 [facility] ([facility]) Joy body weight 154 [lb_av] 154 [lb_av] [facility] Body weight 85.730 kg 85.730 kg [facility] ([facility]) Body surface area Derived from formula 2.00 m2 2.00 m2 [facility] ([facility]) Systolic blood pressure 150 mm[Hg] 150 mm[Hg] [facility] Body temperature 98.6 [degF] 98.6 [degF] [facility] ([facility]) Respiratory rate 18 /min 18 /min [facility] ( [facility]) Body height 68 [in_i] 68 [in_i] [facility] 5'8" Diastolic blood pressure 82 mm[Hg] 82 mm[Hg] [facility] Heart rate 78 /min 78 /min [facility] ([facility]) Oxygen saturation in Arterial blood by Pulse oximetry 98 % 98 % [facility] ([facility]) Systolic blood pressure 156 mm[Hg] 156 mm[Hg] M [facility] ([facility]) freddy bello to leave Systolic blood pressure 142 mm[Hg] 142 mm[Hg] M [facility] ([facility]) Diastolic blood pressure 72 mm[Hg] 72 mm[Hg] [facility] ([facility]) Body height 68 [in_i] 68 [in_i] [facility] ([facility]) 5'8" Body temperature 98.6 [degF] 98.6 [degF] [facility] ([facility]) Respiratory rate 18 /min 18 /min [facility] ( [facility]) Body surface area Derived from formula 1.98 m2 1.98 m2 [facility] ([facility]) Body weight 83.916 kg 83.916 kg [facility] ([facility]) Body weight 185.00 [lb_av] 185.00 [lb_av] [facility] ([facility]) Diastolic blood pressure 82 mm[Hg] 82 mm[Hg] [facility] ([facility]) freddy bello to leave Heart rate 73 /min 73 /min [facility] ([facility]) Oxygen saturation in Arterial blood by Pulse oximetry 98 % 98 % [facility] Body mass index (BMI) [Ratio] 28.1 kg/m2 28.1 k g/m2 [facility] ([facility]) Diastolic blood pressure 70 mm[Hg] 70 mm[Hg] [facility] ([facility]) Oxygen saturation in Arterial blood by Pulse oximetry 97 % 97 % [facility] ([facility]) Respiratory rate 18 /min 18 /min [facility] ( [facility]) Body mass index (BMI) [Ratio] 28.1 kg/m2 28.1 k g/m2 [facility] ([facility]) Heart rate 70 /min 70 /min [facility] ([facility]) Body surface area Derived from formula 1.98 m2 1.98 m2 [facility] ([facility]) Body weight 185.00 [lb_av] 185.00 [lb_av] [facility] ([facility]) Body weight 83.916 kg 83.916 kg [facility] ([facility]) Body height 68 [in_i] 68 [in_i] [facility] ([facility]) 5'8" Body temperature 96.4 [degF] 96.4 [degF] [facility] ([facility]) Systolic blood pressure 140 mm[Hg] 140 mm[Hg] M [facility] ([facility]) Respiratory rate 12 /min 12 /min [facility] ( [facility]) Body mass index (BMI) [Ratio] 27.4 kg/m2 27.4 k g/m2 [facility] ([facility]) Joy body weight 154 [lb_av] 154 [lb_av] [facility] ([facility]) Body height 68 [in_i] 68 [in_i] [facility] ([facility]) 5'8" Body weight 180.00 [lb_av] 180.00 [lb_av] [facility] ([facility]) Body surface area Derived from formula 1.98 m2 1.98 m2 [facility]) Systolic blood pressure 140 mm[Hg] 140 mm[Hg] M [facility] ([facility]) Diastolic blood pressure 70 mm[Hg] 70 mm[Hg] [facility] ([facility]) Heart rate 71 /min 71 /min [facility] ([facility]) Oxygen saturation in Arterial blood by Pulse oximetry 98 % 98 % [facility] ([facility]) Body height 68 [in_i] 68 [in_i] [facility] ([facility]) 5'8" Body weight 186.00 [lb_av] 186.00 [lb_av] [facility] ([facility]) Body mass index (BMI) [Ratio] 28.3 kg/m2 28.3 k g/m2 [facility] ([facility]) Joy body weight 154 [lb_av] 154 [lb_av] [facility] ([facility]) Body weight 84.370 kg 84.370 kg [facility] ([facility]) Body surface area Derived from formula 1.96 m2 1.96 m2 [facility] ([facility]) Body temperature 97.7 [degF] 97.7 [degF] [facility] ([facility]) Oxygen saturation in Arterial blood by Pulse oximetry 98 % 98 % [facility] ([facility]) Diastolic blood pressure 60 mm[Hg] 60 mm[Hg] [facility] ([facility]) Heart rate 67 /min 67 /min [facility] ([facility]) Respiratory rate 18 /min 18 /min [facility] ( [facility]) Body weight 180.38 [lb_av] 180.38 [lb_av] [facility] T ([facility]) does walk at times when he can in yard Body mass index (BMI) [Ratio] 27.4 kg/m2 27.4 k g/m2 [facility] ([facility]) Systolic blood pressure 142 mm[Hg] 142 mm[Hg] M [facility] ([facility]) Body weight 81.818 kg 81.818 kg [facility] ([facility]) Body height 68 [in_i] 68 [in_i] [facility] ([facility]) 5'8" Body weight 1 [lb_av] 1 [lb_av] eCW1 ([facility]) Body height 68 [in_i] 68 [in_i] eCW1 ([facility]) Body mass index (BMI) [Ratio] 0.15 kg/m2 0.15 k g/m2 W1 ([facility]) Heart rate 70 /min 70 /min eCW1 ([facility]) Body temperature 97.3 [degF] 97.3 [degF] eCW1 ( [facility]) Systolic blood pressure 126 mm[Hg] 126 mm[Hg] e CW1 ([facility]) Diastolic blood pressure 82 mm[Hg] 82 mm[Hg] eCW1 ([facility]) Respiratory rate 18 /min 18 /min eCW1 ([facility]) Body weight 80.287 kg 80.287 kg [facility] ([facility]) Body height 68 [in_i] 68 [in_i] [facility] ([facility]) 5'8" Systolic blood pressure 156 mm[Hg] 156 mm[Hg] M [facility] ([facility]) Diastolic blood pressure 70 mm[Hg] 70 mm[Hg] [facility] ([facility]) Heart rate 76 /min 76 /min [facility] ([facility]) Body temperature 975.0 [degF] 975.0 [degF] MEDE NT ([facility]) Body surface area Derived from formula 1.94 m2 1.94 m2 [facility] ([facility]) Respiratory rate 18 /min 18 /min [facility] ( [facility]) Oxygen saturation in Arterial blood by Pulse oximetry 98 % 98 % [facility] ([facility]) Body weight 177.00 [lb_av] 177.00 [lb_av] [facility] T ([facility]) Body mass index (BMI) [Ratio] 26.9 kg/m2 26.9 k g/m2 [facility] ([facility]) Body weight 182.4 [lb_av] 182.4 [lb_av] eCW1 ([facility]) Body height 68 [in_i] 68 [in_i] eCW1 ([facility]) Body mass index (BMI) [Ratio] 27.73 kg/m2 27.73 kg/m2 eCW1 ([facility]) Heart rate 78 /min 78 /min eCW1 ([facility]) Respiratory rate 18 /min 18 /min eCW1 ([facility]) Body temperature 98.0 [degF] 98.0 [degF] eCW1 ( [facility]) Systolic blood pressure 138 mm[Hg] 138 mm[Hg] e CW1 ([facility]) Diastolic blood pressure 78 mm[Hg] 78 mm[Hg] eCW1 ([facility]) Body weight 182.2 [lb_av] 182.2 [lb_av] eCW1 ([facility]) Body height 68 [in_i] 68 [in_i] eCW1 ([facility]) Body mass index (BMI) [Ratio] 27.70 kg/m2 27.70 kg/m2 eCW1 ([facility]) Heart rate 84 /min 84 /min eCW1 ([facility]) Respiratory rate 18 /min 18 /min eCW1 ([facility]) Body temperature 98.2 [degF] 98.2 [degF] eCW1 ( [facility]) Systolic blood pressure 132 mm[Hg] 132 mm[Hg] e CW1 ([facility]) Diastolic blood pressure 58 mm[Hg] 58 mm[Hg] eCW1 ([facility]) Body weight 183.0 [lb_av] 183.0 [lb_av] eCW1 ([facility]) Body height 68 [in_i] 68 [in_i] eCW1 ([facility]) Body mass index (BMI) [Ratio] 27.82 kg/m2 27.82 kg/m2 eCW1 ([facility]) Heart rate 77 /min 77 /min eCW1 ([facility]) Respiratory rate 18 /min 18 /min eCW1 ([facility]) Body temperature 98.0 [degF] 98.0 [degF] eCW1 ( [facility]) Systolic blood pressure 136 mm[Hg] 136 mm[Hg] e CW1 ([facility]) Diastolic blood pressure 68 mm[Hg] 68 mm[Hg] eCW1 ([facility]) Body weight 178.2 [lb_av] 178.2 [lb_av] eCW1 ([facility]) Body height 68 [in_i] 68 [in_i] eCW1 ([facility]) Body mass index (BMI) [Ratio] 27.09 kg/m2 27.09 kg/m2 eCW1 ([facility]) Heart rate 82 /min 82 /min eCW1 ([facility]) Respiratory rate 18 /min 18 /min eCW1 ([facility]) Body temperature 97.9 [degF] 97.9 [degF] eCW1 ( [facility]) Systolic blood pressure 138 mm[Hg] 138 mm[Hg] e CW1 ([facility]) Diastolic blood pressure 66 mm[Hg] 66 mm[Hg] eCW1 ([facility]) Body weight 176.8 [lb_av] 176.8 [lb_av] eCW1 ([facility]) Body height 68 [in_i] 68 [in_i] eCW1 ([facility]) Body mass index (BMI) [Ratio] 26.88 kg/m2 26.88 kg/m2 eCW1 ([facility]) Heart rate 85 /min 85 /min eCW1 ([facility]) Respiratory rate 18 /min 18 /min eCW1 ([facility]) Body temperature 96.8 [degF] 96.8 [degF] eCW1 ( [facility]) Systolic blood pressure 122 mm[Hg] 122 mm[Hg] e CW1 ([facility]) Diastolic blood pressure 82 mm[Hg] 82 mm[Hg] eCW1 ([facility]) Body weight 177 [lb_av] 177 [lb_av] eCW1 ([facility]) Systolic blood pressure 146 mm[Hg] 146 mm[Hg] e CW1 ([facility]) Diastolic blood pressure 76 mm[Hg] 76 mm[Hg] eCW1 ([facility]) Body height 68 [in_i] 68 [in_i] eCW1 ([facility]) Body mass index (BMI) [Ratio] 26.91 kg/m2 26.91 kg/m2 eCW1 ([facility]) Heart rate 95 /min 95 /min eCW1 ([facility]) Respiratory rate 18 /min 18 /min eCW1 ([facility]) Body temperature 97.3 [degF] 97.3 [degF] eCW1 ( [facility]) Respiratory rate 18 /min 18 /min eCW1 ([facility]) Body weight 174 [lb_av] 174 [lb_av] eCW1 ([facility]) Body height 68 [in_i] 68 [in_i] eCW1 ([facility]) Body mass index (BMI) [Ratio] 26.45 kg/m2 26.45 kg/m2 eCW1 ([facility]) Heart rate 84 /min 84 /min eCW1 ([facility]) Body temperature 97.8 [degF] 97.8 [degF] eCW1 ( [facility]) Systolic blood pressure 142 mm[Hg] 142 mm[Hg] e CW1 ([facility]) Diastolic blood pressure 76 mm[Hg] 76 mm[Hg] eCW1 ([facility]) ID Date Data Source [id number] 01/26/2021 04:09:50 PM EDT [facility] Name Value Range Interpretation Code Description Data Source(s) WEIGHT RECORDED 178 lb 178 lb [facility] Body height [facility] Plan [facility] Care Planned Activity Planned Date Details Description Data Source (s) Acetaminophen 325 MG / Hydrocodone Bitartrate 5 MG Ora l Tablet 01/08/2021 12:00:00 AM EDT eCW1 ([facility]) Acetaminophen 325 MG / Hydrocodone Bitartrate 5 MG Ora l Tablet 01/08/2021 12:00:00 AM EDT eCW1 ([facility]) Furosemide 40 MG Oral Tablet 01/03/2021 12:00:00 AM EDT eCW1 ([facility]) Furosemide 40 MG Oral Tablet 01/03/2021 12:00:00 AM EDT eCW1 ([facility]) Furosemide 40 MG Oral Tablet 01/03/2021 12:00:00 AM EDT eCW1 ([facility]) Furosemide 40 MG Oral Tablet 01/03/2021 12:00:00 AM EDT eCW1 ([facility]) Furosemide 20 MG Oral Tablet 01/03/2021 12:00:00 AM EDT eCW1 ([facility]) Furosemide 20 MG Oral Tablet 01/03/2021 12:00:00 AM EDT eCW1 ([facility]) Furosemide 20 MG Oral Tablet 01/03/2021 12:00:00 AM EDT eCW1 ([facility]) Furosemide 20 MG Oral Tablet 01/03/2021 12:00:00 AM EDT eCW1 ([facility]) Furosemide 40 MG Oral Tablet 01/03/2021 12:00:00 AM EDT eCW1 ([facility]) Furosemide 40 MG Oral Tablet 01/03/2021 12:00:00 AM EDT eCW1 ([facility]) Furosemide 20 MG Oral Tablet 01/03/2021 12:00:00 AM EDT eCW1 ([facility]) Losartan Potassium 25 MG Oral Tablet 12/23/2020 12:00:[address] [facility] Hydralazine Hydrochloride 50 MG Oral Tablet 12/17/2020 12:00:[address] [facility] Aspirin 325 MG Delayed Release Oral Tablet 12/17/2020 12:00:00 AM [facility] Aspirin 325 MG Oral Tablet 12/16/2020 12:00:00 AM EDT eCW1 ([facility]) Glyburide 1.25 MG Oral Tablet 11/10/2020 12:00:[address] [facility] Acetaminophen 325 MG / Hydrocodone Bitartrate 5 MG Ora l Tablet 11/05/2020 12:00:00 AM EDT eCW1 ([facility]) Acetaminophen 325 MG / Hydrocodone Bitartrate 5 MG Ora l Tablet 11/05/2020 12:00:00 AM EDT eCW1 ([facility]) Acetaminophen 325 MG / Hydrocodone Bitartrate 5 MG Ora l Tablet 11/05/2020 12:00:00 AM EDT eCW1 ([facility]) Acetaminophen 325 MG / Hydrocodone Bitartrate 5 MG Ora l Tablet 11/05/2020 12:00:00 AM EDT eCW1 ([facility]) Acetaminophen 325 MG / Hydrocodone Bitartrate 5 MG Ora l Tablet 11/05/2020 12:00:00 AM EDT eCW1 ([facility]) Acetaminophen 325 MG / Hydrocodone Bitartrate 5 MG Ora l Tablet 11/05/2020 12:00:00 AM EDT eCW1 ([facility]) Acetaminophen 325 MG / Hydrocodone Bitartrate 5 MG Ora l Tablet 11/05/2020 12:00:00 AM EDT eCW1 ([facility]) Acetaminophen 325 MG / Hydrocodone Bitartrate 5 MG Ora l Tablet 10/06/2020 12:00:00 AM EDT eCW1 ([facility]) Acetaminophen 325 MG / Hydrocodone Bitartrate 5 MG Ora l Tablet 10/06/2020 12:00:00 AM EDT eCW1 ([facility]) [place] 5-325 MG 10/05/2020 12:00:00 AM EDT eCW1 ([facility]) Glyburide 1.25 MG Oral Tablet 08/10/2020 12:00:00 AM EST eCW1 ([facility]) Glyburide 1.25 MG Oral Tablet 08/10/2020 12:00:00 AM EST eCW1 ([facility]) Glyburide 1.25 MG Oral Tablet 08/10/2020 12:00:00 AM EST eCW1 ([facility]) Glyburide 1.25 MG Oral Tablet 08/10/2020 12:00:00 AM EST eCW1 ([facility]) Glyburide 1.25 MG Oral Tablet 08/10/2020 12:00:00 AM EST eCW1 ([facility]) Glyburide 1.25 MG Oral Tablet 08/10/2020 12:00:00 AM EST eCW1 ([facility]) Glyburide 1.25 MG Oral Tablet 08/10/2020 12:00:00 AM EST eCW1 ([facility]) Acetaminophen 325 MG / Hydrocodone Bitartrate 5 MG Ora l Tablet 08/10/2020 12:00:00 AM EST eCW1 ([facility]) Glyburide 1.25 MG Oral Tablet 08/10/2020 12:00:00 AM EST eCW1 ([facility]) Acetaminophen 325 MG / Hydrocodone Bitartrate 5 MG Ora l Tablet 08/10/2020 12:00:00 AM EST eCW1 ([facility]) Glyburide 1.25 MG Oral Tablet 08/10/2020 12:00:00 AM EST eCW1 ([facility]) Acetaminophen 325 MG / Hydrocodone Bitartrate 5 MG Ora l Tablet 08/10/2020 12:00:00 AM EST eCW1 ([facility]) Glyburide 1.25 MG Oral Tablet 08/10/2020 12:00:00 AM EST eCW1 ([facility]) Acetaminophen 325 MG / Hydrocodone Bitartrate 5 MG Ora l Tablet 08/10/2020 12:00:00 AM EST eCW1 ([facility]) Glyburide 1.25 MG Oral Tablet 08/10/2020 12:00:00 AM EST eCW1 ([facility]) Acetaminophen 325 MG / Hydrocodone Bitartrate 5 MG Ora l Tablet 08/10/2020 12:00:00 AM EST eCW1 ([facility]) Glyburide 1.25 MG Oral Tablet 08/10/2020 12:00:00 AM EST eCW1 ([facility]) Acetaminophen 325 MG / Hydrocodone Bitartrate 5 MG Ora l Tablet 08/10/2020 12:00:00 AM EST eCW1 ([facility]) Glyburide 1.25 MG Oral Tablet 08/10/2020 12:00:00 AM EST eCW1 ([facility]) Acetaminophen 325 MG / Hydrocodone Bitartrate 5 MG Ora l Tablet 08/10/2020 12:00:00 AM EST eCW1 ([facility]) [place] 5-325 MG 07/12/2020 12:00:00 AM EST eCW1 ([facility]) [place] 5-325 MG 07/12/2020 12:00:00 AM EST eCW1 ([facility]) [place] 5-325 MG 07/12/2020 12:00:00 AM EST eCW1 ([facility]) Acetaminophen 325 MG / Hydrocodone Bitartrate 5 MG Ora l Tablet [[place]] 07/12/2020 12:00:00 AM EST eCW1 ([facility]) Acetaminophen 325 MG / Hydrocodone Bitartrate 5 MG Ora l Tablet [[place]] 07/12/2020 12:00:00 AM EST eCW1 ([facility]) Acetaminophen 325 MG / Hydrocodone Bitartrate 5 MG Ora l Tablet [[place]] 07/12/2020 12:00:00 AM EST eCW1 ([facility]) Acetaminophen 325 MG / Hydrocodone Bitartrate 5 MG Ora l Tablet [[place]] 07/12/2020 12:00:00 AM EST eCW1 ([facility]) Acetaminophen 325 MG / Hydrocodone Bitartrate 5 MG Ora l Tablet [[place]] 07/12/2020 12:00:00 AM EST eCW1 ([facility]) Sitagliptin Phosphate 25 MG 07/01/2020 12:00:00 AM EST eCW1 ([facility]) Sitagliptin Phosphate 25 MG 07/01/2020 12:00:00 AM EST eCW1 ([facility]) Sitagliptin Phosphate 25 MG 07/01/2020 12:00:00 AM EST eCW1 ([facility]) Sitagliptin Phosphate 25 MG 07/01/2020 12:00:00 AM EST eCW1 ([facility]) Sitagliptin Phosphate 25 MG 07/01/2020 12:00:00 AM EST eCW1 ([facility]) Sitagliptin Phosphate 25 MG 07/01/2020 12:00:00 AM EST eCW1 ([facility]) Sitagliptin Phosphate 25 MG 07/01/2020 12:00:00 AM EST eCW1 ([facility]) Sitagliptin Phosphate 25 MG 07/01/2020 12:00:00 AM EST eCW1 ([facility]) Sitagliptin Phosphate 25 MG 07/01/2020 12:00:00 AM EST eCW1 ([facility]) Acetaminophen 325 MG / Hydrocodone Bitartrate 5 MG Ora l Tablet [[place]] 06/09/2020 12:00:00 AM EST eCW1 ([facility]) Acetaminophen 325 MG / Hydrocodone Bitartrate 5 MG Ora l Tablet [[place]] 06/09/2020 12:00:00 AM EST eCW1 ([facility]) Acetaminophen 325 MG / Hydrocodone Bitartrate 5 MG Ora l Tablet [[place]] 05/11/2020 12:00:00 AM EDT eCW1 ([facility]) Acetaminophen 325 MG / Hydrocodone Bitartrate 5 MG Ora l Tablet [[place]] 05/11/2020 12:00:00 AM EDT eCW1 ([facility]) Acetaminophen 325 MG / Hydrocodone Bitartrate 5 MG Ora l Tablet [[place]] 05/11/2020 12:00:00 AM EDT eCW1 ([facility]) Acetaminophen 325 MG / Hydrocodone Bitartrate 5 MG Ora l Tablet [[place]] 05/11/2020 12:00:00 AM EDT eCW1 ([facility]) carvedilol 25 MG Oral Tablet 04/01/2020 12:00:[address] [facility] Aspirin 81 MG Delayed Release Oral Tablet 10/22/2017 12:00:00 AM [facility] Losartan Potassium 100 MG Oral Tablet 10/22/2017 12:00:[address] [facility] Chlorthalidone 25 MG Oral Tablet 10/22/2017 12:00:[address] [facility]
[2021-05-27 18:59] LABS: BASO # 0.1 10^3/uL (0.0-0.2); BASO % 1.2 % (0.0-1.0); EOS # 0.5 10^3/uL (0.0-0.5); EOS % 5.3 % (0.0-3.0); HEMOGLOBIN 12.4 g/dl (13.5-17.5); LYMPH # 1.9 10^3/uL (1.5-5.0); LYMPH % 21.9 % (24.0-44.0); MEAN CORPUSCULAR HEMOGLOBIN 31.4 pg (27.0-33.0); MEAN CORPUSCULAR HGB CONC 34.4 g/dl (32.0-36.5); MEAN CORPUSCULAR VOLUME 91.1 fl (80.0-96.0); MONO # 0.8 10^3/uL (0.0-0.8); MONO % 9.1 % (2.0-8.0); NEUTROPHILS # 5.3 10^3/uL (1.5-8.5); NEUTROPHILS % 62.1 % (36.0-66.0); PLATELET COUNT, AUTOMATED 185 10^3/uL (150-450); RED BLOOD COUNT 3.95 10^6/uL (4.30-6.10); WHITE BLOOD COUNT 8.5 10^3/uL (4.0-10.0)
[2021-05-27 19:14] LABS: CALCIUM LEVEL 8.9 MG/DL (8.8-10.2); CREATININE FOR GFR 2.78 MG/DL (0.70-1.30); GLOMERULAR FILTRATION RATE 24.4 (>49); POTASSIUM SERUM 4.5 MEQ/L (3.5-5.1)
[2021-05-27 19:52] VITALS: BP 136/80
== END 2021-05-27 19:58 | disposition home or self-care (01) ==
LOC: M ED 15:27
DX: R33.9 Retention of urine, unspecified (principal); Z85.528 Personal history of other malignant neoplasm of kidney; N18.9 Chronic kidney disease, unspecified; Z90.5 Acquired absence of kidney; J44.9 Chronic obstructive pulmonary disease, unspecified; Z88.8 Allergy status to other drugs, medicaments and biological substances; Z79.899 Other long term (current) drug therapy

== ENCOUNTER → 2021-08-31 | Outpatient (CLI) | payer MEDICARE ==
[~2021-08-31] MED LIST changes: +LOSA100T45 PO; -LOSA100T50 PO; +LOSA25TA13; -LOSA25TA14
== END ==
LOC: M LAB 08:23
PROVIDERS: ATTEND Student in an Organized Health Care Education/Training Program
DX: N18.4 Chronic kidney disease, stage 4 (severe) (principal)

== ENCOUNTER → 2021-08-31 | Outpatient (CLI) | payer MEDICARE ==
[2021-08-31 09:21] LABS: HEMOGLOBIN A1c 8.7 %
[2021-08-31 09:27] LABS: CALCIUM LEVEL 8.8 MG/DL (8.8-10.2); CREATININE FOR GFR 2.96 MG/DL (0.70-1.30); GLOMERULAR FILTRATION RATE 22.7 (>49); POTASSIUM SERUM 4.6 MEQ/L (3.5-5.1)
[2021-08-31 09:56] LABS: MAU/CREAT RATIO 3310.3 MCG/MG (0.0-30.0)
== END ==
LOC: M LAB 08:21
PROVIDERS: ATTEND Urology
DX: Z12.5 Encounter for screening for malignant neoplasm of prostate (principal)
CPT/HCPCS: 36415; 80048; 82043; 83036; G0103

== ENCOUNTER → 2021-09-20 | Outpatient (CLI) | payer MEDICARE ==
[~2021-09-20] MED LIST changes: -D31000TA2 PO; +VITA100093 PO
== END ==
LOC: M SOG 13:06
PROVIDERS: ATTEND Orthopaedic Surgery Hand Surgery
DX: M25.532 Pain in left wrist (principal)

== ENCOUNTER → 2021-09-30 | Outpatient (CLI) | payer MEDICARE ==
[~2021-09-30] MED LIST changes: +ALBU8.5H; +ASCO100013 PO; +FURO40TA2 PO; +K 10100T PO; +LANTINJ4 SQ; -LOSA25TA13; +LOSA25TA13 PO; +TAMS1CAP17; +VITA-175 PO
== END ==
LOC: M LABSMTC 09:30
PROVIDERS: ATTEND Anesthesiology
DX: Z01.812 Encounter for preprocedural laboratory examination (principal); Z20.822 Contact with and (suspected) exposure to COVID-19

== ENCOUNTER → 2021-10-03 | Outpatient (CLI) | payer MEDICARE ==
[2021-10-03 13:29] LABS: HEMOGLOBIN 12.5 g/dl (13.5-17.5); MEAN CORPUSCULAR HEMOGLOBIN 31.8 pg (27.0-33.0); MEAN CORPUSCULAR HGB CONC 34.7 g/dl (32.0-36.5); MEAN CORPUSCULAR VOLUME 91.6 fl (80.0-96.0); PLATELET COUNT, AUTOMATED 214 10^3/uL (150-450); RED BLOOD COUNT 3.93 10^6/uL (4.30-6.10); WHITE BLOOD COUNT 8.3 10^3/uL (4.0-10.0)
[2021-10-03 14:00] LABS: ALBUMIN 4.2 GM/DL (3.2-5.2); BILIRUBIN,TOTAL 0.4 MG/DL (0.2-1.0); CALCIUM LEVEL 9.3 MG/DL (8.8-10.2); CREATININE FOR GFR 3.32 MG/DL (0.70-1.30); GLOMERULAR FILTRATION RATE 19.9 (>49); POTASSIUM SERUM 4.5 MEQ/L (3.5-5.1); TOTAL PROTEIN 7.5 GM/DL (6.4-8.2)
== END ==
LOC: M PLALAB 10:24
PROVIDERS: ATTEND Student in an Organized Health Care Education/Training Program
DX: Z01.818 Encounter for other preprocedural examination (principal); Z79.899 Other long term (current) drug therapy

== ENCOUNTER 2021-10-05 11:35 | Day surgery (SDC) | payer MEDICARE ==
[~2021-10-05] VITALS: Ht 172.7 cm; Wt 82.6 kg
[~2021-10-05 11:35] MED LIST changes: +LR 1,000 ML IV ONE; +ceFAZolin SOD 2 GM in IV 1 EA IV ONE
[2021-10-05] MEDS ORDERED: fentaNYL 250 MCG/5 ML INJECTION As Ordered ONE (13:03)
[2021-10-05] MEDS ORDERED: propofoL 200 MG/20 ML VIAL As Ordered ONE (13:03)
[2021-10-05] MEDS ORDERED: LIDOCAINE 2% 100MG/5ML SDV (FOR ANES.) As Ordered ONE (13:03)
[2021-10-05] MEDS ORDERED: MIDAZOLAM INJ 2MG/2ML VIAL (J2250 PER 1MG) As Ordered ONE (13:03)
[2021-10-05] MEDS ORDERED: BUPIVACAINE HCL 0.25% 30ML VIAL As Ordered ONE (13:20)
[2021-10-05] MEDS ORDERED: KETOROLAC 60MG 2ML VIAL As Ordered ONE (14:10)
[2021-10-05] MEDS ORDERED: ONDANSETRON 4MG/2ML VIAL As Ordered ONE (14:10)
[2021-10-05] MEDS ORDERED: PERC5TAB12 PO (14:38)
[2021-10-05] MEDS ORDERED: fentaNYL 100 MCG/2 ML INJECTION IV PRN (14:50)
[2021-10-05] MEDS ORDERED: oxyCODONE 5MG TAB PO PRN (14:50)
[2021-10-05] MEDS ORDERED: LR 1,000 ML IV SCH (14:50)
[2021-10-05] MEDS ORDERED: HYDROMORPHONE HCL 0.5 MG/ 0.5 ML SYRINGE (J1170 PER 1) IV PRN (14:50)
[2021-10-05] MEDS ORDERED: ONDANSETRON 4MG/2ML VIAL IV PRN (14:50)
[2021-10-05 15:10] VITALS: BP 158/74
== END 2021-10-05 15:46 | disposition home or self-care (01) ==
LOC: M SDC 11:35
PROVIDERS: ATTEND Orthopaedic Surgery Hand Surgery
DX: G56.02 Carpal tunnel syndrome, left upper limb (principal); G56.22 Lesion of ulnar nerve, left upper limb; I10 Essential (primary) hypertension; I25.2 Old myocardial infarction; Z86.73 Personal history of transient ischemic attack (TIA), and cerebral infarction without residual deficits; E11.9 Type 2 diabetes mellitus without complications; Z87.891 Personal history of nicotine dependence; Z85.528 Personal history of other malignant neoplasm of kidney; N40.0 Benign prostatic hyperplasia without lower urinary tract symptoms; Z88.8 Allergy status to other drugs, medicaments and biological substances; Z79.51 Long term (current) use of inhaled steroids; Z79.82 Long term (current) use of aspirin; Z79.84 Long term (current) use of oral hypoglycemic drugs; Z79.899 Other long term (current) drug therapy
CPT/HCPCS: 29848; 29999; J0690; J1885; J2250; J2405; J3010

== ENCOUNTER → 2021-10-10 | Outpatient (CLI) | payer MEDICARE ==
[~2021-10-10] MED LIST changes: -LR 1,000 ML IV ONE; -ceFAZolin SOD 2 GM in IV 1 EA IV ONE
[2021-10-10 17:53] LABS: ALBUMIN 3.5 GM/DL (3.2-5.2); BILIRUBIN,TOTAL 0.4 MG/DL (0.2-1.0); CALCIUM LEVEL 8.6 MG/DL (8.8-10.2); CREATININE FOR GFR 3.43 MG/DL (0.70-1.30); GLOMERULAR FILTRATION RATE 19.1 (>49); POTASSIUM SERUM 4.3 MEQ/L (3.5-5.1); TOTAL PROTEIN 6.7 GM/DL (6.4-8.2)
== END ==
LOC: M PLAIMG 15:37
PROVIDERS: ATTEND Student in an Organized Health Care Education/Training Program
DX: R91.8 Other nonspecific abnormal finding of lung field (principal); R06.02 Shortness of breath; R33.9 Retention of urine, unspecified

== ENCOUNTER → 2021-10-14 | Outpatient (CLI) | payer MEDICARE | LOC: M WHC 07:40 | PROVIDERS: ATTEND Student in an Organized Health Care Education/Training Program | DX: N64.4 Mastodynia (principal); R06.02 Shortness of breath | CPT/HCPCS: 36415; 76642; 77066; 80048; 83880; G0279 ==

== ENCOUNTER → 2021-10-14 | Outpatient (CLI) | payer MEDICARE ==
[2021-10-14 13:56] LABS: CALCIUM LEVEL 8.7 MG/DL (8.8-10.2); CREATININE FOR GFR 3.54 MG/DL (0.70-1.30); GLOMERULAR FILTRATION RATE 18.4 (>49); POTASSIUM SERUM 4.5 MEQ/L (3.5-5.1)
== END ==
LOC: M PLALAB 09:30
PROVIDERS: ATTEND Student in an Organized Health Care Education/Training Program
DX: R06.02 Shortness of breath (principal)

== ENCOUNTER → 2021-11-23 | Outpatient (CLI) | payer MEDICARE ==
[2021-11-23 09:08] LABS: HEMATOCRIT 32.8 % (42.0-52.0); HEMOGLOBIN 11.3 g/dl (13.5-17.5); MEAN CORPUSCULAR HEMOGLOBIN 31.9 pg (27.0-33.0); MEAN CORPUSCULAR HGB CONC 34.5 g/dl (32.0-36.5); MEAN CORPUSCULAR VOLUME 92.7 fl (80.0-96.0); PLATELET COUNT, AUTOMATED 199 10^3/uL (150-450); RED BLOOD COUNT 3.54 10^6/uL (4.30-6.10)
[2021-11-23 09:37] LABS: CALCIUM LEVEL 9.3 MG/DL (8.8-10.2); CREATININE FOR GFR 3.36 MG/DL (0.70-1.30); GLOMERULAR FILTRATION RATE 19.6 (>49); MAGNESIUM LEVEL 2.4 MG/DL (1.8-2.4); PERCENT SATURATION 20.6 % (19.7-50.0); PHOSPHORUS LEVEL 4.9 MG/DL (2.5-4.9); POTASSIUM SERUM 3.9 MEQ/L (3.5-5.1)
[2021-11-23 09:43] LABS: PTH INTACT 156.3 PG/ML (18.5-88.0); TOTAL 25(OH) VITAMIN D 26.3 NG/ML (30.0-100.0)
== END ==
LOC: M LAB 08:22
PROVIDERS: ATTEND Student in an Organized Health Care Education/Training Program
DX: N18.4 Chronic kidney disease, stage 4 (severe) (principal); R80.1 Persistent proteinuria, unspecified; Z90.5 Acquired absence of kidney; E11.21 Type 2 diabetes mellitus with diabetic nephropathy; D63.1 Anemia in chronic kidney disease; E87.79 Other fluid overload; M89.9 Disorder of bone, unspecified; E83.9 Disorder of mineral metabolism, unspecified

== ENCOUNTER → 2021-12-07 | Outpatient (CLI) | payer MEDICARE | LOC: M PLALAB 08:00 | PROVIDERS: ATTEND Student in an Organized Health Care Education/Training Program | DX: R06.02 Shortness of breath (principal) ==

== ENCOUNTER → 2021-12-25 | Outpatient (CLI) | payer MEDICARE ==
[2021-12-25 10:05] LABS: ALBUMIN 3.7 GM/DL (3.2-5.2); ALT/SGPT 35 U/L (12-78); BILIRUBIN,TOTAL 0.3 MG/DL (0.2-1.0); BLOOD UREA NITROGEN 90 MG/DL (7-18); CALCIUM LEVEL 9.2 MG/DL (8.8-10.2); CARBON DIOXIDE LEVEL 25 MEQ/L (21-32); CHLORIDE LEVEL 108 MEQ/L (98-107); CHOLESTEROL LEVEL 103 MG/DL (<200); CHOLESTEROL RISK RATIO 3.433 (<5); CREATININE FOR GFR 3.11 MG/DL (0.70-1.30); GLOMERULAR FILTRATION RATE 21.4 (>49); GLUCOSE, FASTING 118 MG/DL (70-100); HCG, SERUM QUANTITATIVE < 1.0 MIU/ML; HDL CHOLESTEROL 30 MG/DL (>40); LDL CHOLESTEROL 53 MG/DL (<100); NON-HDL-C 73 MG/DL; POTASSIUM SERUM 3.9 MEQ/L (3.5-5.1); SODIUM LEVEL 142 MEQ/L (136-145); TOTAL PROTEIN 7.1 GM/DL (6.4-8.2); TRIGLYCERIDES LEVEL 102 MG/DL (<150)
[2021-12-25 10:40] LABS: HEMOGLOBIN A1c 5.9 %
[2021-12-26 06:40] LABS: LUTEINIZING HORMONE 12.2 mIU/mL (1.5-9.3); TESTOSTERONE 461 NG/DL (241-827)
[2021-12-26 06:41] LABS: ESTRADIOL 29.5 PG/ML (<39.8); FOLLICLE STIMULATING HORMONE 8.8 mIU/mL (1.4-18.1)
== END ==
LOC: M LAB 08:10
PROVIDERS: ATTEND Student in an Organized Health Care Education/Training Program
DX: E11.29 Type 2 diabetes mellitus with other diabetic kidney complication (principal)

== ENCOUNTER → 2021-12-27 | Outpatient (CLI) | payer MEDICARE | LOC: M RAD 14:22 | PROVIDERS: ATTEND Surgery | DX: I65.23 Occlusion and stenosis of bilateral carotid arteries (principal) ==

== ENCOUNTER → 2021-12-28 | Outpatient (CLI) | payer MEDICARE ==
[2021-12-28 13:59] LABS: FREE T4 0.99 NG/DL (0.76-1.46); PROLACTIN 5.8 NG/ML (2.1-17.7); THYROID STIMULATING HORMONE 0.813 uIU/ML (0.358-3.740)
== END ==
LOC: M LAB 11:26
PROVIDERS: ATTEND Student in an Organized Health Care Education/Training Program
DX: N62 Hypertrophy of breast (principal)

== ENCOUNTER 2022-01-05 11:18 | Outpatient (RCR) | payer MEDICARE | END 2022-01-12 | LOC: M OT 11:18 | PROVIDERS: ATTEND Psychiatry & Neurology Neurology | DX: G56.22 Lesion of ulnar nerve, left upper limb (principal) ==

== ENCOUNTER → 2022-01-05 | Outpatient (CLI) | payer MEDICARE ==
[2022-01-05 14:17] LABS: HEMATOCRIT 34.2 % (42.0-52.0); HEMOGLOBIN 11.5 g/dl (13.5-17.5); MEAN CORPUSCULAR HEMOGLOBIN 30.7 pg (27.0-33.0); MEAN CORPUSCULAR HGB CONC 33.6 g/dl (32.0-36.5); MEAN CORPUSCULAR VOLUME 91.2 fl (80.0-96.0); PLATELET COUNT, AUTOMATED 175 10^3/uL (150-450); RED BLOOD COUNT 3.75 10^6/uL (4.30-6.10); WHITE BLOOD COUNT 8.1 10^3/uL (4.0-10.0)
[2022-01-05 14:52] LABS: CALCIUM LEVEL 8.5 MG/DL (8.8-10.2); CREATININE FOR GFR 3.16 MG/DL (0.70-1.30); POTASSIUM SERUM 4.1 MEQ/L (3.5-5.1)
== END ==
LOC: M PLALAB 13:00
PROVIDERS: ATTEND Internal Medicine Cardiovascular Disease
DX: R07.9 Chest pain, unspecified (principal)

== ENCOUNTER → 2022-02-16 | Outpatient (CLI) | payer MEDICARE ==
[2022-02-16 11:19] LABS: HEMOGLOBIN 11.5 g/dl (13.5-17.5); MEAN CORPUSCULAR HEMOGLOBIN 30.4 pg (27.0-33.0); MEAN CORPUSCULAR HGB CONC 32.9 g/dl (32.0-36.5); MEAN CORPUSCULAR VOLUME 92.6 fl (80.0-96.0); PLATELET COUNT, AUTOMATED 193 10^3/uL (150-450); RED BLOOD COUNT 3.78 10^6/uL (4.30-6.10)
[2022-02-16 12:32] LABS: ALBUMIN 3.4 GM/DL (3.2-5.2); BILIRUBIN,TOTAL 0.3 MG/DL (0.2-1.0); CALCIUM LEVEL 9.4 MG/DL (8.8-10.2); CHOLESTEROL RISK RATIO 2.964 (<5); CREATININE FOR GFR 2.79 MG/DL (0.70-1.30); GLOMERULAR FILTRATION RATE 24.3 (>49); TOTAL PROTEIN 7.5 GM/DL (6.4-8.2)
== END ==
LOC: M PLALAB 08:33
PROVIDERS: ATTEND Physician Assistant
DX: I25.10 Atherosclerotic heart disease of native coronary artery without angina pectoris (principal)

== ENCOUNTER → 2022-03-07 | Outpatient (REF) | payer MEDICARE ==
[2022-03-07 17:44] LABS: APPEARANCE, URINE MANUAL CLEAR (CLEAR); COLOR, URINE MANUAL LT YELLOW (YELLOW)
[2022-03-07 17:45] LABS: BILIRUBIN, URINE MANUAL NEGATIVE (NEGATIVE); BLOOD URINE MANUAL NEGATIVE (NEGATIVE); GLUCOSE, URINE (UA) MANUAL NEGATIVE (NEGATIVE); KETONE, URINE MANUAL NEGATIVE (NEGATIVE); LEUKOCYTE ESTERASE, URINE MAN NEGATIVE (NEGATIVE); NITRITE, URINE MANUAL NEGATIVE (NEGATIVE); PROTEIN, URINE MANUAL 2+ mg/dL (NEGATIVE); UROBILINOGEN, URINE MANUAL NORMAL (NORMAL)
[2022-03-07 18:20] LABS: RBC, URINE NONE SEEN /hpf (0-3); SQUAMOUS EPITHELIAL CELL URINE NONE SEEN /hpf (SMALL AMT); WBC, URINE 0-1 /hpf (0-3)
[2022-03-07 18:21] LABS: BACTERIA, URINE NONE SEEN; HYALINE CAST, URINE 0-1 /lpf (0-1)
== END ==
LOC: M SMT 17:14
PROVIDERS: ATTEND Physician Assistant
DX: N50.82 Scrotal pain (principal)

== ENCOUNTER → 2022-03-15 | Outpatient (CLI) | payer MEDICARE | LOC: M PLAIMG 09:21 | PROVIDERS: ATTEND Physician Assistant | DX: C64.1 Malignant neoplasm of right kidney, except renal pelvis (principal) ==

== ENCOUNTER → 2022-03-15 | Outpatient (CLI) | payer MEDICARE | LOC: M PLALAB 09:26 | PROVIDERS: ATTEND Internal Medicine Endocrinology, Diabetes & Metabolism | DX: N62 Hypertrophy of breast (principal) ==

== ENCOUNTER → 2022-03-24 | Outpatient (CLI) | payer MEDICARE | LOC: M WHC 10:12 → M RAD 10:12 | PROVIDERS: ATTEND Physician Assistant | DX: N50.82 Scrotal pain (principal) ==

== ENCOUNTER → 2022-04-05 | Outpatient (REF) | payer MEDICARE | LOC: M LAB REF 16:34 | PROVIDERS: ATTEND Internal Medicine | DX: N18.9 Chronic kidney disease, unspecified (principal) ==

== ENCOUNTER → 2022-05-25 | Outpatient (CLI) | payer MEDICARE | LOC: M WHC 08:19 | PROVIDERS: ATTEND Internal Medicine | DX: N62 Hypertrophy of breast (principal) | CPT/HCPCS: 76642; 77066; G0279 ==

== ENCOUNTER → 2022-07-19 | Outpatient (REF) | payer MEDICARE | LOC: M LAB REF 12:26 | PROVIDERS: ATTEND Internal Medicine | DX: N18.4 Chronic kidney disease, stage 4 (severe) (principal); N25.81 Secondary hyperparathyroidism of renal origin ==

== ENCOUNTER → 2022-07-21 | Outpatient (REF) | payer MEDICARE | LOC: M LAB REF 12:00 | PROVIDERS: ATTEND Internal Medicine | DX: L02.211 Cutaneous abscess of abdominal wall (principal) ==

== ENCOUNTER → 2022-09-21 | Outpatient (CLI) | payer MEDICARE | LOC: M WHC 09:06 | PROVIDERS: ATTEND Internal Medicine | DX: N18.4 Chronic kidney disease, stage 4 (severe) (principal) ==

== ENCOUNTER 2022-10-12 14:17 | Inpatient (IN) | payer MEDICARE ==
[~2022-10-12] VITALS: Ht 172.7 cm; Wt 85.0 kg
[~2022-10-12 14:17] MED LIST changes: -TAMS1CAP17; +TAMS1CAP17 PO
[2022-10-12] MEDS ORDERED: DEXTROSE 50% 50ML SYRINGE IV PRN (15:05)
[2022-10-12] MEDS ORDERED: GLUCAGON INJ 1MG VIAL SC PRN (15:05)
[2022-10-12] MEDS ORDERED: GLUCOSE 4GM CHEW TABLET PO PRN (15:05)
[2022-10-12 15:12] VITALS: BP 160/78
[2022-10-12 15:36] LABS: BASO % 0.6 % (0.0-1.0); EOS # 0.3 10^3/uL (0.0-0.5); EOS % 4.2 % (0.0-3.0); HEMATOCRIT 36.4 % (42.0-52.0); HEMOGLOBIN 12.3 g/dl (13.5-17.5); LYMPH # 1.1 10^3/uL (1.5-5.0); LYMPH % 17.6 % (24.0-44.0); MEAN CORPUSCULAR HEMOGLOBIN 32.1 pg (27.0-33.0); MEAN CORPUSCULAR HGB CONC 33.8 g/dl (32.0-36.5); MONO # 0.9 10^3/uL (0.0-0.8); MONO % 13.6 % (2.0-8.0); NEUTROPHILS # 4.1 10^3/uL (1.5-8.5); NEUTROPHILS % 63.7 % (36.0-66.0); PLATELET COUNT, AUTOMATED 130 10^3/uL (150-450); RED BLOOD COUNT 3.83 10^6/uL (4.30-6.10); WHITE BLOOD COUNT 6.5 10^3/uL (4.0-10.0)
[2022-10-12 16:00] LABS: CK-MB VALUE MASS 1.3 NG/ML (<3.6)
[2022-10-12 16:01] LABS: ALBUMIN 3.6 G/DL (3.2-5.2); ALKALINE PHOSPHATASE 61 U/L (46-116); ALT/SGPT 29 U/L (7.0-40); AST/SGOT 15 U/L (<34); BILIRUBIN,TOTAL 0.3 MG/DL (0.3-1.2); BLOOD UREA NITROGEN 69 MG/DL (9-23); C REACTIVE PROTEIN QUANTITATIV < 0.40 MG/DL (<1.0); CALCIUM LEVEL 8.6 MG/DL (8.3-10.6); CARBON DIOXIDE LEVEL 26 MMOL/L (20-31); CHLORIDE LEVEL 106 MMOL/L (98-107); CREATININE FOR GFR 3.36 MG/DL (0.70-1.30); GLOMERULAR FILTRATION RATE 19.5 (>49); GLUCOSE, FASTING 150 MG/DL (74-106); POTASSIUM SERUM 4.1 MMOL/L (3.5-5.1); SODIUM LEVEL 137 MMOL/L (136-145); TOTAL PROTEIN 6.7 G/DL (5.7-8.2)
[2022-10-12 16:20] LABS: HEPATITIS B SURFACE ANTIGEN NEGATIVE (NEGATIVE)
[2022-10-12 16:23] LABS: ERYTHROCYTE SEDIMENTATION RATE 13 mm/hr (0-20)
[2022-10-12] MEDS ORDERED: CARVedilol 12.5 MG TAB PO ONE (16:35)
[2022-10-12 16:40] LABS: HEPATITIS B CORE ANTIBODY IGM NEGATIVE (NEGATIVE)
[2022-10-12 16:41] LABS: HEPATITIS C VIRUS ABY INDEX 0.1 INDEX (<0.8)
[2022-10-12] MEDS ORDERED: PERCOCET 5MG/325MG TAB PO PRN (16:45)
[2022-10-12] MEDS ORDERED: CLOP75TA2 PO (18:00)
[2022-10-12] MEDS ORDERED: VITA180C2 PO (18:00)
[2022-10-12] MEDS ORDERED: ANAS1TAB2 PO (18:00)
[2022-10-12] MEDS ORDERED: **hydrALAZINE HCL** 25 MG TAB PO SCH (18:00)
[2022-10-12] MEDS ORDERED: ROCA0.5C PO (18:00)
[2022-10-12] MEDS ORDERED: ASPI-161 PO (18:00)
[2022-10-12] MEDS ORDERED: ATOR80TA59 PO (18:00)
[2022-10-12] MEDS ORDERED: HYDR-3910 PO (18:00)
[2022-10-12] MEDS ORDERED: HOME MED LIST COMPLETE! XX SCH (18:05)
[2022-10-12] MEDS: INSULIN LISPRO (NovoLOG) PER UNIT SC SCH (18:09)
[2022-10-12 20:00] VITALS: BP 162/70
[2022-10-12] MEDS ORDERED: LOSARTAN 25 MG TAB PO SCH (21:00)
[2022-10-12] MEDS ORDERED: INSULIN LISPRO (NovoLOG) PER UNIT SC SCH (21:00)
[2022-10-12] MEDS ORDERED: LEVEMIR (INSULIN DETEMIR) 1 UNITS/0.01ML SC SCH (21:00)
[2022-10-12] MEDS ORDERED: hydrALAZINE 20MG/ML 1ML VIAL IV SCH (21:00)
[2022-10-12] MEDS: DOCUSATE SODIUM 100MG CAPSULE PO SCH (21:16)
[2022-10-12] MEDS: hydrALAZINE 20MG/ML 1ML VIAL IV SCH (23:00)
[2022-10-13] VITALS (7 sets, daily range): BP systolic 136–162; BP diastolic 68–84
[2022-10-13] MEDS: hydrALAZINE 20MG/ML 1ML VIAL IV SCH ×2 (04:59→07:00)
[2022-10-13 05:50] LABS: HEMATOCRIT 34.2 % (42.0-52.0); HEMOGLOBIN 11.8 g/dl (13.5-17.5); MEAN CORPUSCULAR HEMOGLOBIN 32.9 pg (27.0-33.0); MEAN CORPUSCULAR HGB CONC 34.5 g/dl (32.0-36.5); MEAN CORPUSCULAR VOLUME 95.3 fl (80.0-96.0); PLATELET COUNT, AUTOMATED 134 10^3/uL (150-450); RED BLOOD COUNT 3.59 10^6/uL (4.30-6.10); WHITE BLOOD COUNT 6.8 10^3/uL (4.0-10.0)
[2022-10-13] MEDS ORDERED: **hydrALAZINE** 50 MG TAB PO SCH (06:00)
[2022-10-13 06:13] LABS: CK-MB VALUE MASS < 1.0 NG/ML (<3.6)
[2022-10-13 06:19] LABS: BLOOD UREA NITROGEN 69 MG/DL (9-23); CALCIUM LEVEL 8.4 MG/DL (8.3-10.6); CARBON DIOXIDE LEVEL 25 MMOL/L (20-31); CHLORIDE LEVEL 107 MMOL/L (98-107); CPK CREATINE PHOSPHOKINASE 100 U/L (46-171); CREATININE FOR GFR 3.33 MG/DL (0.70-1.30); GLOMERULAR FILTRATION RATE 19.7 (>49); GLUCOSE, FASTING 139 MG/DL (74-106); POTASSIUM SERUM 3.9 MMOL/L (3.5-5.1); SODIUM LEVEL 142 MMOL/L (136-145)
[2022-10-13] MEDS ORDERED: HYDR50TA PO (08:08)
[2022-10-13] MEDS ORDERED: ASCORBIC ACID 500 MG TAB PO SCH (09:00)
[2022-10-13] MEDS ORDERED: ATORVASTATIN 20 MG TAB PO SCH (09:00)
[2022-10-13] MEDS ORDERED: VITAMIN E 400 INTERNATIONAL UNITS CAP PO SCH (09:00)
[2022-10-13] MEDS ORDERED: CARVedilol 12.5 MG TAB PO SCH ×3 (09:00)
[2022-10-13] MEDS ORDERED: VITAMIN D 1,000 INTERNATIONAL UNITS TABLET PO SCH (09:00)
[2022-10-13] MEDS ORDERED: TAMSULOSIN 0.4 MG CAP PO SCH (09:00)
[2022-10-13] MEDS ORDERED: FUROSEMIDE 80 MG TAB PO SCH (09:00)
[2022-10-13] MEDS: DOCUSATE SODIUM 100MG CAPSULE PO SCH (09:52)
[2022-10-13] MEDS: INSULIN LISPRO (NovoLOG) PER UNIT SC SCH (09:59)
[2022-10-14 11:08] LABS: ANTINUCLEAR ANTIBODIES DIRECT Negative (Negative)
== END 2022-10-13 12:50 | disposition home or self-care (01) | DRG 305 ==
LOC: M PCU 14:50
PROVIDERS: ADMIT Internal Medicine; ATTEND General Practice
DX: I16.0 Hypertensive urgency (principal); Q60.0 Renal agenesis, unilateral; N18.4 Chronic kidney disease, stage 4 (severe); I12.9 Hypertensive chronic kidney disease with stage 1 through stage 4 chronic kidney disease, or unspecified chronic kidney disease; E11.22 Type 2 diabetes mellitus with diabetic chronic kidney disease; K57.30 Diverticulosis of large intestine without perforation or abscess without bleeding; K64.8 Other hemorrhoids; M19.90 Unspecified osteoarthritis, unspecified site; E78.5 Hyperlipidemia, unspecified; I25.10 Atherosclerotic heart disease of native coronary artery without angina pectoris; F17.200 Nicotine dependence, unspecified, uncomplicated; I25.2 Old myocardial infarction; M48.061 Spinal stenosis, lumbar region without neurogenic claudication; Z88.8 Allergy status to other drugs, medicaments and biological substances; Z79.899 Other long term (current) drug therapy; Z79.82 Long term (current) use of aspirin; Z79.4 Long term (current) use of insulin; Z86.73 Personal history of transient ischemic attack (TIA), and cerebral infarction without residual deficits; Z95.1 Presence of aortocoronary bypass graft

== ENCOUNTER → 2022-11-14 | Outpatient (CLI) | payer MEDICARE ==
[~2022-11-14] MED LIST changes: +ANAS1TAB2 PO; +ASPI-161 PO; +ATOR80TA59 PO; +CLOP75TA2 PO; +HYDR-3910 PO; -LOSA100T45 PO; +LOSA100T46 PO; +ROCA0.5C PO; +VITA180C2 PO
== END ==
LOC: M WHC 13:23
PROVIDERS: ATTEND Surgery
DX: R92.8 Other abnormal and inconclusive findings on diagnostic imaging of breast (principal); N62 Hypertrophy of breast
CPT/HCPCS: 77065; G0279

== ENCOUNTER → 2022-11-16 | Outpatient (CLI) | payer MEDICARE ==
[2022-11-16 14:24] LABS: ALBUMIN 3.5 G/DL (3.2-5.2); CALCIUM LEVEL 8.7 MG/DL (8.3-10.6); CREATININE FOR GFR 3.87 MG/DL (0.70-1.30); GLOMERULAR FILTRATION RATE 16.6 (>49); PHOSPHORUS LEVEL 4.9 MG/DL (2.4-5.1)
== END ==
LOC: M PLALAB 11:33
PROVIDERS: ATTEND Student in an Organized Health Care Education/Training Program
DX: N18.4 Chronic kidney disease, stage 4 (severe) (principal); E11.21 Type 2 diabetes mellitus with diabetic nephropathy; E83.9 Disorder of mineral metabolism, unspecified; M89.9 Disorder of bone, unspecified; R80.1 Persistent proteinuria, unspecified; Z90.5 Acquired absence of kidney

== ENCOUNTER → 2022-11-16 | Outpatient (CLI) | payer MEDICARE | LOC: M PLALAB 11:29 | PROVIDERS: ATTEND Internal Medicine Cardiovascular Disease | DX: R06.2 Wheezing (principal); N18.4 Chronic kidney disease, stage 4 (severe); E11.21 Type 2 diabetes mellitus with diabetic nephropathy; E83.9 Disorder of mineral metabolism, unspecified; M89.9 Disorder of bone, unspecified; R80.1 Persistent proteinuria, unspecified; Z90.5 Acquired absence of kidney ==

== ENCOUNTER → 2022-12-08 | Outpatient (CLI) | payer MEDICARE | LOC: M RAD 11:07 | PROVIDERS: ATTEND Surgery | DX: I65.23 Occlusion and stenosis of bilateral carotid arteries (principal) ==

== ENCOUNTER → 2023-01-04 | Outpatient (CLI) | payer MEDICARE ==
[2023-01-04 13:18] LABS: HEMATOCRIT 32.8 % (42.0-52.0); HEMOGLOBIN 11.2 g/dl (13.5-17.5); MEAN CORPUSCULAR HEMOGLOBIN 31.9 pg (27.0-33.0); MEAN CORPUSCULAR HGB CONC 34.1 g/dl (32.0-36.5); MEAN CORPUSCULAR VOLUME 93.4 fl (80.0-96.0); PLATELET COUNT, AUTOMATED 137 10^3/uL (150-450); RED BLOOD COUNT 3.51 10^6/uL (4.30-6.10)
[2023-01-04 13:48] LABS: CALCIUM LEVEL 8.5 MG/DL (8.3-10.6); CREATININE FOR GFR 4.24 MG/DL (0.70-1.30); GLOMERULAR FILTRATION RATE 14.9 (>49); MAGNESIUM LEVEL 2.4 MG/DL (1.8-2.4); PHOSPHORUS LEVEL 6.5 MG/DL (2.4-5.1)
[2023-01-04 13:49] LABS: PTH INTACT 109.1 PG/ML (18.5-88.0)
[2023-01-04 13:50] LABS: FERRITIN 53.3 NG/ML (10.5-307.3); TOTAL 25(OH) VITAMIN D 37.3 NG/ML (20.0-100.0)
[2023-01-04 13:55] LABS: PERCENT SATURATION 20.7 % (19.7-50.0)
== END ==
LOC: M PLALAB 11:34
PROVIDERS: ATTEND Student in an Organized Health Care Education/Training Program
DX: N18.4 Chronic kidney disease, stage 4 (severe) (principal); E11.21 Type 2 diabetes mellitus with diabetic nephropathy; Z90.5 Acquired absence of kidney; E83.9 Disorder of mineral metabolism, unspecified; M89.9 Disorder of bone, unspecified; I10 Essential (primary) hypertension; D63.1 Anemia in chronic kidney disease

== ENCOUNTER → 2023-02-13 | Outpatient (CLI) | payer MEDICARE | LOC: M RAD 13:06 | PROVIDERS: ATTEND Physician Assistant | DX: Z12.2 Encounter for screening for malignant neoplasm of respiratory organs (principal); Z87.891 Personal history of nicotine dependence; K44.9 Diaphragmatic hernia without obstruction or gangrene; I70.0 Atherosclerosis of aorta; I25.10 Atherosclerotic heart disease of native coronary artery without angina pectoris; M51.34 Other intervertebral disc degeneration, thoracic region; R91.8 Other nonspecific abnormal finding of lung field ==

== ENCOUNTER → 2023-02-19 | Outpatient (CLI) | payer MEDICARE, OTHER | LOC: M PLAIMG 10:27 | PROVIDERS: ATTEND Nurse Practitioner Family | DX: Z01.818 Encounter for other preprocedural examination (principal); N18.6 End stage renal disease; R91.8 Other nonspecific abnormal finding of lung field; N40.0 Benign prostatic hyperplasia without lower urinary tract symptoms; Z90.5 Acquired absence of kidney; Z90.49 Acquired absence of other specified parts of digestive tract; Z85.528 Personal history of other malignant neoplasm of kidney ==

== ENCOUNTER → 2023-03-07 | Outpatient (REF) | payer MEDICARE, OTHER ==
[2023-03-07 13:15] LABS: PERCENT SATURATION 20.3 % (19.7-50.0); PTH INTACT 51.5 PG/ML (18.5-88.0)
== END ==
LOC: M LAB REF 11:48
PROVIDERS: ATTEND Internal Medicine
DX: N18.5 Chronic kidney disease, stage 5 (principal); D63.1 Anemia in chronic kidney disease

== ENCOUNTER → 2023-03-29 | Outpatient (REF) | payer MEDICARE ==
[2023-03-29 18:03] LABS: TOTAL PROTEIN,RANDOM URINE 89.4 MG/DL (0.0-14.0)
[2023-03-29 18:08] LABS: CREATININE,RANDOM URINE 56.9 MG/DL
== END ==
LOC: M LAB REF 16:54
PROVIDERS: ATTEND Internal Medicine Nephrology
DX: E11.22 Type 2 diabetes mellitus with diabetic chronic kidney disease (principal)

== ENCOUNTER → 2023-12-12 | Outpatient (REF) | payer MEDICARE ==
[~2023-12-12] MED LIST changes: +ACET1TAB55 PO; -ASPI-161 PO; +ASPI-615 PO; +CENT1TAB PO; +DULC5TAB PO; -HYDR-3910 PO; +HYDR25TA87 PO; -HYDR50TA PO; +HYDR50TA47 PO
[2023-12-12 18:34] LABS: HEPATITIS B SURFACE ANTIBODY NEGATIVE (POSITIVE)
[2023-12-12 18:45] LABS: HEPATITIS B SURFACE ANTIGEN NEGATIVE (NEGATIVE)
[2023-12-12 19:06] LABS: HEPATITIS C VIRUS ABY INDEX < 0.02 INDEX (<0.8)
[2023-12-12 19:07] LABS: HEPATITIS B CORE ANTIBODY IGM NEGATIVE (NEGATIVE)
== END ==
LOC: M LAB REF 17:38
PROVIDERS: ATTEND Internal Medicine Nephrology
DX: E11.22 Type 2 diabetes mellitus with diabetic chronic kidney disease (principal)

== ENCOUNTER → 2023-12-12 | Outpatient (REF) | payer MEDICARE ==
[2023-12-12 18:19] LABS: BASO # 0.1 10^3/uL (0.0-0.2); BASO % 0.9 % (0.0-1.0); EOS # 0.2 10^3/uL (0.0-0.5); EOS % 2.9 % (0.0-3.0); HEMATOCRIT 32.1 % (42.0-52.0); HEMOGLOBIN 11.2 g/dl (13.5-17.5); LYMPH # 1.3 10^3/uL (1.5-5.0); LYMPH % 20.3 % (24.0-44.0); MEAN CORPUSCULAR HEMOGLOBIN 32.9 pg (27.0-33.0); MEAN CORPUSCULAR HGB CONC 34.9 g/dl (32.0-36.5); MEAN CORPUSCULAR VOLUME 94.4 fl (80.0-96.0); MONO # 0.6 10^3/uL (0.0-0.8); MONO % 9.1 % (2.0-8.0); NEUTROPHILS # 4.4 10^3/uL (1.5-8.5); NEUTROPHILS % 66.5 % (36.0-66.0); PLATELET COUNT, AUTOMATED 166 10^3/uL (150-450); WHITE BLOOD COUNT 6.6 10^3/uL (4.0-10.0)
[2023-12-12 18:30] LABS: ALBUMIN 3.6 G/DL (3.2-5.2); BILIRUBIN,TOTAL 0.4 MG/DL (0.3-1.2); CALCIUM LEVEL 9.3 MG/DL (8.3-10.6); CHOLESTEROL RISK RATIO 4.14 (<5); CREATININE FOR GFR 3.83 MG/DL (0.70-1.30); GLOMERULAR FILTRATION RATE 16.7 (>49); HDL CHOLESTEROL 27.5 MG/DL (>40); LDL CHOLESTEROL 37.3 MG/DL (<100); MAGNESIUM LEVEL 2.2 MG/DL (1.8-2.4); NON-HDL-C 86.5 MG/DL; POTASSIUM SERUM 3.5 MMOL/L (3.5-5.1); TOTAL PROTEIN 6.7 G/DL (5.7-8.2)
[2023-12-12 18:51] LABS: HEMOGLOBIN A1c 6.5 % (4.0-6.0)
== END ==
LOC: M LAB REF 17:40
PROVIDERS: ATTEND Internal Medicine Cardiovascular Disease
DX: E11.22 Type 2 diabetes mellitus with diabetic chronic kidney disease (principal); I11.9 Hypertensive heart disease without heart failure; I25.810 Atherosclerosis of coronary artery bypass graft(s) without angina pectoris; I73.9 Peripheral vascular disease, unspecified; N18.4 Chronic kidney disease, stage 4 (severe); I50.9 Heart failure, unspecified; E78.2 Mixed hyperlipidemia; I48.0 Paroxysmal atrial fibrillation; R06.02 Shortness of breath; Z11.59 Encounter for screening for other viral diseases; Z72.89 Other problems related to lifestyle

== ENCOUNTER → 2023-12-19 | Outpatient (CLI) | payer MEDICARE | LOC: M RAD 15:11 | PROVIDERS: ATTEND Surgery | DX: I65.23 Occlusion and stenosis of bilateral carotid arteries (principal) ==

== ENCOUNTER → 2024-01-21 | Outpatient (CLI) | payer MEDICARE ==
[2024-01-21 12:59] LABS: HEPATITIS B SURFACE ANTIBODY NEGATIVE (POSITIVE)
[2024-01-21 13:11] LABS: HEPATITIS B SURFACE ANTIGEN NEGATIVE (NEGATIVE)
== END ==
LOC: M LAB 11:31
PROVIDERS: ATTEND Internal Medicine Nephrology
DX: Z49.31 Encounter for adequacy testing for hemodialysis (principal); Z11.59 Encounter for screening for other viral diseases

== ENCOUNTER 2024-03-21 07:04 | Day surgery (SDC) | payer MEDICARE ==
[~2024-03-21] VITALS: Ht 172.7 cm; Wt 85.5 kg
[~2024-03-21 07:04] MED LIST changes: +CelecoXIB 400 MG CAP PO ONE; +UNRESOLVED CLARIFICATION ENTRY XX SCH
[2024-03-21] MEDS ORDERED: LR 1,000 ML IV SCH (07:45)
[2024-03-21] MEDS: ceFAZolin SOD 2 GM in IV 1 EA IV ONE (10:02)
[2024-03-21] MEDS ORDERED: fentaNYL 100 MCG/2 ML INJECTION As Ordered ONE (10:24)
[2024-03-21] MEDS ORDERED: MIDAZOLAM INJ 2MG/2ML VIAL As Ordered ONE (10:24)
[2024-03-21] MEDS ORDERED: propofoL 200 MG/20 ML VIAL As Ordered ONE (10:24)
[2024-03-21] MEDS ORDERED: LIDOCAINE 2% 100MG/5ML SDV (FOR ANES.) As Ordered ONE (10:24)
[2024-03-21] MEDS: HEPARIN SOD (PORCINE) 5000UNITS/ML 1ML VIAL/SYRINGE As Ordered ONE (10:44)
[2024-03-21] MEDS: NS 1,000 ML IV SCH (10:44)
[2024-03-21] MEDS: LIDOCAINE 1% SDV 30ML VIAL As Ordered ONE (10:44)
[2024-03-21 10:57] VITALS: BP 142/69; TEMP 97.5; O2SAT 96
== END 2024-03-21 11:16 | disposition home or self-care (01) ==
LOC: M SDC 07:04
PROVIDERS: ATTEND Surgery
DX: T85.611A Breakdown (mechanical) of intraperitoneal dialysis catheter, initial encounter (principal); E11.9 Type 2 diabetes mellitus without complications; N18.9 Chronic kidney disease, unspecified; Z79.84 Long term (current) use of oral hypoglycemic drugs; Z87.891 Personal history of nicotine dependence
CPT/HCPCS: 49422; J0665; J0690; J2250; J3010

== ENCOUNTER → 2024-09-03 | Outpatient (REF) | payer MEDICARE ==
[~2024-09-03] MED LIST changes: -CelecoXIB 400 MG CAP PO ONE; -POTA10808 PO; +POTA10809 PO; -UNRESOLVED CLARIFICATION ENTRY XX SCH
[2024-09-03 13:44] LABS: ALBUMIN 2.6 G/DL (3.2-5.2); BILIRUBIN,TOTAL 0.2 MG/DL (0.3-1.2); CALCIUM LEVEL 8.3 MG/DL (8.3-10.6); CREATININE FOR GFR 5.18 MG/DL (0.70-1.30); GLOMERULAR FILTRATION RATE 11.8 (>42); POTASSIUM SERUM 4.2 MMOL/L (3.5-5.1); TOTAL PROTEIN 5.8 G/DL (5.7-8.2)
== END ==
LOC: M LAB REF 12:17
PROVIDERS: ATTEND Registered Nurse
DX: I11.0 Hypertensive heart disease with heart failure (principal); I50.32 Chronic diastolic (congestive) heart failure

== ENCOUNTER → 2024-10-08 | Outpatient (REF) | payer MEDICARE ==
[2024-10-08 18:13] LABS: HEPATITIS B SURFACE ANTIBODY NEGATIVE (POSITIVE)
[2024-10-08 18:25] LABS: HEPATITIS B SURFACE ANTIGEN NEGATIVE (NEGATIVE)
[2024-10-08 18:46] LABS: HEPATITIS B CORE ANTIBODY IGM NEGATIVE (NEGATIVE); HEPATITIS C VIRUS ABY INDEX 0.02 INDEX (<0.8)
== END ==
LOC: M LAB REF 17:12
PROVIDERS: ATTEND Internal Medicine Nephrology
DX: N18.4 Chronic kidney disease, stage 4 (severe) (principal); N18.5 Chronic kidney disease, stage 5; Z11.59 Encounter for screening for other viral diseases

== ENCOUNTER → 2024-10-24 | Outpatient (REF) | payer MEDICARE ==
[2024-10-24 19:30] LABS: HEPATITIS B SURFACE ANTIBODY NEGATIVE (POSITIVE)
[2024-10-24 19:42] LABS: HEPATITIS B SURFACE ANTIGEN NEGATIVE (NEGATIVE)
[2024-10-24 20:03] LABS: HEPATITIS B CORE ANTIBODY IGM NEGATIVE (NEGATIVE); HEPATITIS C VIRUS ABY INDEX 0.03 INDEX (<0.8)
== END ==
LOC: M LAB REF 17:16
PROVIDERS: ATTEND Internal Medicine Nephrology
DX: N18.6 End stage renal disease (principal); Z11.59 Encounter for screening for other viral diseases

== ENCOUNTER → 2025-02-19 | Outpatient (CLI) | payer MEDICARE ==
[~2025-02-19] MED LIST changes: +HYDR100T PO
== END ==
LOC: M CARPUL 14:37
PROVIDERS: ATTEND Registered Nurse
DX: I50.32 Chronic diastolic (congestive) heart failure (principal); I08.0 Rheumatic disorders of both mitral and aortic valves

== ENCOUNTER → 2025-07-14 | Outpatient (CLI) | payer MEDICARE | LOC: M PLAIMG 14:05 | PROVIDERS: ATTEND Internal Medicine | DX: R10.13 Epigastric pain (principal); R10.A2 Flank pain, left side ==